=== PATIENT | male | born 1965 | race Caucasian/White ===

== ENCOUNTER 2017-04-07 23:30 | Emergency (ER) | payer OTHER ==
[~2017-04-07] VITALS: Ht 170.2 cm; Wt 100.0 kg
[~2017-04-07 23:30] MED LIST: /ADVA50050 IN; /HCTZ25TA PO; ALBU17IN INH; ALBU17IN2 IN; ALBU83IN INH; ATROVENT INH; AUGM875T27 PO; CARD2TAB PO; DELTASONE; DOXA2TAB PO; DOXY10CA PO; FLUT22IN INH; FOLI1TAB86 PO; GLUC1000 PO; GLUC500T PO; HYDR12.55 PO; HYDR25TA6 OR; HYDR50TAB PO; KLOR20TA PO; LASI40TA OR; LEVO50TA4 PO; LEVO50TA5 PO; LISI40TA OR; LISI40TAB PO; METF500T13 PO; MUCI600T34 PO; PARO20TA2 PO; PARO20TA3 PO; PAXI20TA29 PO; PERC5TAB PO; POTA1TAB14 PO; PRED10TA OR; PRED1TAB32 OR; PRED20TA PO; PRED50TA OR; PRED5ELUD OR; PREDPOW10 PO; PRIL40CA PO; TYLE325T5 PO; TYLE650T30 PO; VENTAER IN; VITA100T2 PO; VITMTA PO; ZEST1TAB9 PO; ambien PO
[2017-04-07] MEDS ORDERED: OMEP40CA2 PO (23:38)
[2017-04-07] MEDS ORDERED: LISI-538 PO (23:38)
[2017-04-07] MEDS ORDERED: SERT25TA PO (23:39)
[2017-04-08] MEDS ORDERED: methylPREDNISolone INJ 125 MG/2 ML VIAL (J2930) IV ONE
[2017-04-08] MEDS ORDERED: IPRATROPIUM 0.5MG/ALBUTEROL 2.5MG INH SOL UD 3ML (DUONEB)(J7620) NEB ONE (00:15)
[2017-04-08] MEDS ORDERED: PRED20TA PO (01:36)
[2017-04-08] MEDS ORDERED: LEVA1TAB2 PO (01:37)
[2017-04-08] MEDS ORDERED: TESS100C PO (01:37)
[2017-04-08 01:51] VITALS: BP 126/87
--- NOTE | 2017-04-08 07:44 | ECGEPIP ---
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
--- NOTE | 2017-04-08 08:07 | REP ---
Clinical: Shortness of breath . Comparison: 04/20/2016 . Technique: PA and lateral. Findings: The mediastinum and cardiac silhouette are normal. The lung lindsay are clear and without acute consolidation, effusion, or pneumothorax. The skeletal structures are intact and normal. Impression: 1. No acute cardiopulmonary process. Signed by Adi Soria MD 04/08/2017 07:58 A
[2017-04-08] MEDS ORDERED: IPRASOL4 INH (17:12)
== END 2017-04-08 01:56 | disposition home or self-care (01) ==
LOC: M ED 23:30
DX: J44.1 Chronic obstructive pulmonary disease with (acute) exacerbation (principal); J45.909 Unspecified asthma, uncomplicated; J01.90 Acute sinusitis, unspecified; I10 Essential (primary) hypertension; E07.9 Disorder of thyroid, unspecified; F41.9 Anxiety disorder, unspecified; Z91.040 Latex allergy status; Z79.899 Other long term (current) drug therapy
CPT/HCPCS: 71020; 93000; 94640; 96374; 99283; J2930

== ENCOUNTER → 2017-11-17 | Outpatient (CLI) | payer OTHER ==
[2017-11-17 08:58] LABS: BASO % 0.6 % (0.0-1.0); EOS # 0.4 10^3/uL (0.0-0.50); EOS % 5.1 % (0.0-3.0); HEMATOCRIT 42.5 % (42.0-52.0); HEMOGLOBIN 14.3 g/dl (13.5-17.5); IMMATURE GRANULOCYTE % 0.4 % (0-3.0); LYMPH # 1.9 10^3/uL (1.5-4.5); LYMPH % 27.8 % (24.0-44.0); MEAN CORPUSCULAR HEMOGLOBIN 28.9 pg (27.0-33.0); MEAN CORPUSCULAR HGB CONC 33.6 g/dl (32.0-36.5); MONO # 0.5 10^3/uL (0.0-0.8); MONO % 7.6 % (0.0-5.0); NEUTROPHILS % 58.5 % (36.0-66.0); PLATELET COUNT, AUTOMATED 235 10^3/uL (150-450); RED BLOOD COUNT 4.94 10^6/uL (4.30-6.10); RED CELL DISTRIBUTION WIDTH 13.8 % (11.5-14.5); WHITE BLOOD COUNT 6.8 10^3/uL (4.0-10.0)
[2017-11-17 09:38] LABS: ALBUMIN/GLOBULIN RATIO 1.21 (1.00-1.93); ALKALINE PHOSPHATASE 53 U/L (45-117); ALT/SGPT 27 U/L (12-78); ANION GAP 4 MEQ/L (8-16); AST/SGOT 25 U/L (7-37); BILIRUBIN,TOTAL 0.6 MG/DL (0.2-1.0); BLOOD UREA NITROGEN 17 MG/DL (7-18); CARBON DIOXIDE LEVEL 31 MEQ/L (21-32); CHLORIDE LEVEL 107 MEQ/L (98-107); CHOLESTEROL LEVEL 127 MG/DL (<200); CHOLESTEROL RISK RATIO 1.953 (<5); CREATININE FOR GFR 1.02 MG/DL (0.70-1.30); FREE T4 0.92 NG/DL (0.76-1.46); GLOMERULAR FILTRATION RATE > 60.0 (>56); GLUCOSE, FASTING 91 MG/DL (70-100); HDL CHOLESTEROL 65 MG/DL (>40); NON-HDL-C 62 MG/DL; POTASSIUM SERUM 3.5 MEQ/L (3.5-5.1); SODIUM LEVEL 142 MEQ/L (136-145); TOTAL PROTEIN 7.3 GM/DL (6.4-8.2); TRIGLYCERIDES LEVEL 70 MG/DL (<150)
[2017-11-17 09:44] LABS: ESTIMATED AVERAGE GLUCOSE 100 MG/DL (60-110); HEMOGLOBIN A1c 5.1 %
[2017-11-17 11:55] LABS: TOTAL 25(OH) VITAMIN D 27.7 NG/ML (30.0-100.0)
== END ==
LOC: M LAB 08:26
DX: D72.829 Elevated white blood cell count, unspecified (principal)
CPT/HCPCS: 84443

== ENCOUNTER → 2018-01-21 | Outpatient (CLI) | payer OTHER ==
[2018-01-21 07:26] LABS: ESTIMATED AVERAGE GLUCOSE 111 MG/DL (60-110); HEMOGLOBIN A1c 5.5 %
[2018-01-21 07:39] LABS: ALBUMIN 3.8 GM/DL (3.2-5.2); ALBUMIN/GLOBULIN RATIO 1.12 (1.00-1.93); ALKALINE PHOSPHATASE 60 U/L (45-117); ALT/SGPT 32 U/L (12-78); ANION GAP 9 MEQ/L (8-16); AST/SGOT 17 U/L (7-37); BILIRUBIN,TOTAL 0.4 MG/DL (0.2-1.0); BLOOD UREA NITROGEN 19 MG/DL (7-18); CALCIUM LEVEL 9.1 MG/DL (8.5-10.1); CARBON DIOXIDE LEVEL 29 MEQ/L (21-32); CHLORIDE LEVEL 103 MEQ/L (98-107); CHOLESTEROL LEVEL 147 MG/DL (<200); CREATININE FOR GFR 0.98 MG/DL (0.70-1.30); FREE T4 0.77 NG/DL (0.76-1.46); GLOMERULAR FILTRATION RATE > 60.0 (>56); GLUCOSE, FASTING 81 MG/DL (70-100); HDL CHOLESTEROL 84 MG/DL (>40); LDL CHOLESTEROL 45.4 MG/DL (<100); NON-HDL-C 63 MG/DL; POTASSIUM SERUM 3.6 MEQ/L (3.5-5.1); SODIUM LEVEL 141 MEQ/L (136-145); TOTAL PROTEIN 7.2 GM/DL (6.4-8.2); TRIGLYCERIDES LEVEL 88 MG/DL (<150)
[2018-01-21 08:38] LABS: TOTAL 25(OH) VITAMIN D 26.9 NG/ML (30.0-100.0)
== END ==
LOC: M LAB 06:27
DX: D72.829 Elevated white blood cell count, unspecified (principal)
CPT/HCPCS: 84443

== ENCOUNTER → 2018-07-01 | Outpatient (CLI) | payer OTHER ==
[2018-07-01 08:10] LABS: BASO # 0.1 10^3/uL (0.0-0.2); BASO % 0.7 % (0.0-1.0); EOS # 0.4 10^3/uL (0.0-0.50); EOS % 4.5 % (0.0-3.0); HEMATOCRIT 44.5 % (42.0-52.0); HEMOGLOBIN 14.6 g/dl (13.5-17.5); IMMATURE GRANULOCYTE % 0.4 % (0-3.0); LYMPH # 2.4 10^3/uL (1.5-4.5); LYMPH % 28.4 % (24.0-44.0); MEAN CORPUSCULAR HEMOGLOBIN 28.7 pg (27.0-33.0); MEAN CORPUSCULAR HGB CONC 32.8 g/dl (32.0-36.5); MEAN CORPUSCULAR VOLUME 87.6 fl (80.0-96.0); MONO # 0.8 10^3/uL (0.0-0.8); NEUTROPHILS # 4.8 10^3/uL (1.8-7.7); PLATELET COUNT, AUTOMATED 279 10^3/uL (150-450); RED BLOOD COUNT 5.08 10^6/uL (4.30-6.10); RED CELL DISTRIBUTION WIDTH 13.8 % (11.5-14.5); WHITE BLOOD COUNT 8.4 10^3/uL (4.0-10.0)
[2018-07-01 08:28] LABS: ESTIMATED AVERAGE GLUCOSE 108 MG/DL (60-110); HEMOGLOBIN A1c 5.4 %
[2018-07-01 08:50] LABS: ALBUMIN 4.3 GM/DL (3.2-5.2); ALBUMIN/GLOBULIN RATIO 1.43 (1.00-1.93); ALKALINE PHOSPHATASE 61 U/L (45-117); ALT/SGPT 32 U/L (12-78); ANION GAP 5 MEQ/L (8-16); AST/SGOT 25 U/L (7-37); BILIRUBIN,TOTAL 0.4 MG/DL (0.2-1.0); BLOOD UREA NITROGEN 19 MG/DL (7-18); CALCIUM LEVEL 9.7 MG/DL (8.5-10.1); CARBON DIOXIDE LEVEL 34 MEQ/L (21-32); CHLORIDE LEVEL 102 MEQ/L (98-107); CHOLESTEROL LEVEL 136 MG/DL (<200); CHOLESTEROL RISK RATIO 2.385 (<5); CREATININE FOR GFR 1.03 MG/DL (0.70-1.30); GLOMERULAR FILTRATION RATE > 60.0 (>56); GLUCOSE, FASTING 82 MG/DL (70-100); HDL CHOLESTEROL 57 MG/DL (>40); LDL CHOLESTEROL 54 MG/DL (<100); NON-HDL-C 79 MG/DL; POTASSIUM SERUM 3.5 MEQ/L (3.5-5.1); SODIUM LEVEL 141 MEQ/L (136-145); TOTAL PROTEIN 7.3 GM/DL (6.4-8.2); TRIGLYCERIDES LEVEL 123 MG/DL (<150)
== END ==
LOC: M LAB 07:15
DX: E78.00 Pure hypercholesterolemia, unspecified (principal); E11.65 Type 2 diabetes mellitus with hyperglycemia; Z51.81 Encounter for therapeutic drug level monitoring; Z79.899 Other long term (current) drug therapy
CPT/HCPCS: 84443

== ENCOUNTER → 2018-07-15 | Outpatient (CLI) | payer OTHER ==
[~2018-07-15] MED LIST changes: +IPRA0.00 INH; +LEVA1TAB2 PO; +LISI-538 PO; +OMEP40CA2 PO; +SERT25TA PO; +TESS100C PO
--- NOTE | 2018-07-15 13:59 | REP ---
MR LUMBAR SPINE WITHOUT CONTRAST: HISTORY: Back pain. Decreased signal intensity on T2-weighted images is present in the L4-5 and L5-S1 intervertebral discs. The discs are decreased in height. These findings are consistent with disc degeneration. There is no disc bulge or herniation at the L1-2 and L2-3 levels. There is hypertrophy of the posterior articulating facets at the L2-3 level. The nerves exit the neural foramina without compression. A diffuse disc bulge is present at the L3-4 level. There is hypertrophy of the ligamenta flava and posterior articulating facets. These findings produce minimal central canal stenosis. The L3 nerves exit the neural foramina without compression. A diffuse disc and small right paracentral disc extrusion are present at the L4-5 level. There is superior migration of disc material. There is hypertrophy of the ligamenta flava and posterior articulating facets. There are 4 mm of grade I spondylolisthesis of L4 on L5. These findings produce mild central canal stenosis. The L4 nerves exit the neural foramina without compression. A diffuse disc bulge and small central disc extrusion central and eccentric to the right are present at the L5-S1 level. There is minimal compression of the thecal sac and right S1 nerve at it exits the thecal sac. There is hypertrophy of the posterior articulating facets. The L5 nerves exit the neural foramina without compression. The conus medullaris is normal in appearance, terminating at the level of the T12-L1 intervertebral disc. Normal signal intensity is present in the lumbar vertebral bodies. IMPRESSION: 1. Minimal central canal stenosis at the L3-4 level secondary to disc bulge, ligamentous and facet hypertrophy. 2. Mild central canal stenosis at the L4-5 level secondary to disc bulge, disc extrusion, ligamentous and facet hypertrophy, and grade 1 spondylolisthesis. 3. Diffuse disc bulge and small disc extrusion central and eccentric to the right at the L5-S1 level with minimal compression of the thecal sac and right S1 nerve as it exits the thecal sac. Electronically Signed by Bunny Cedillo MD 07/15/2018 02:06 P
== END ==
LOC: M PLARAD 12:17
PROVIDERS: ATTEND Nurse Practitioner Adult Health
DX: M54.5 Low back pain (principal)

== ENCOUNTER → 2018-11-04 | Outpatient (CLI) | payer OTHER ==
[~2018-11-04] MED LIST changes: -/ADVA50050 IN; -/HCTZ25TA PO; +ADVA1AER2 IN; +HYDR-3644 PO; +LISI40TA52 PO; -LISI40TAB PO; +PRED-351 OR; -PRED10TA OR; +PRED1SOL OR; -PRED5ELUD OR; -SERT25TA PO; +SERT25TA85 PO
--- NOTE | 2018-11-04 09:54 | REP ---
PA and lateral chest: Comparison is 04/08/2017. The lung lindsay are clear. The cardiac size is normal. The andrew, mediastinum, and skeletal structures are unremarkable. Impression: Negative PA and lateral chest. There is no interval change. Electronically Signed by Emmanuel Kern MD 11/04/2018 09:46 A
== END ==
LOC: M RAD 08:13
PROVIDERS: ATTEND Nurse Practitioner Adult Health
DX: J44.9 Chronic obstructive pulmonary disease, unspecified (principal)

== ENCOUNTER 2018-12-22 11:45 | Outpatient (RCR) | payer OTHER | END 2018-12-23 | LOC: M PT 11:45 | PROVIDERS: ATTEND Physician Assistant | DX: M48.061 Spinal stenosis, lumbar region without neurogenic claudication (principal); M47.896 Other spondylosis, lumbar region; M54.2 Cervicalgia ==

== ENCOUNTER → 2019-01-13 | Outpatient (CLI) | payer OTHER ==
[2019-01-13 08:49] LABS: BASO # 0.1 10^3/uL (0.0-0.2); BASO % 0.8 % (0.0-1.0); EOS # 0.6 10^3/uL (0.0-0.50); EOS % 6.5 % (0.0-3.0); HEMATOCRIT 40.6 % (42.0-52.0); HEMOGLOBIN 13.3 g/dl (13.5-17.5); LYMPH # 1.9 10^3/uL (1.5-4.5); LYMPH % 22.4 % (24.0-44.0); MEAN CORPUSCULAR HEMOGLOBIN 27.8 pg (27.0-33.0); MEAN CORPUSCULAR HGB CONC 32.8 g/dl (32.0-36.5); MEAN CORPUSCULAR VOLUME 84.9 fl (80.0-96.0); MONO # 0.8 10^3/uL (0.0-0.8); NEUTROPHILS # 5.2 10^3/uL (1.8-7.7); NEUTROPHILS % 60.8 % (36.0-66.0); PLATELET COUNT, AUTOMATED 306 10^3/uL (150-450); RED BLOOD COUNT 4.78 10^6/uL (4.30-6.10); WHITE BLOOD COUNT 8.5 10^3/uL (4.0-10.0)
[2019-01-18 08:19] LABS: D001-IgE D pteronyssinus <0.10 kU/L (Class 0); E005-IgE Dog Dander 0.57 kU/L (Class II); G002-IgE Bermuda Grass < 0.10 kU/L (Class 0); G008-IgE Kentucky Bluegrass < 0.10 kU/L (Class 0); M001-IgE Penicillium chrysogen < 0.10 kU/L (Class 0); M002 IgE Cladosporium herbaru < 0.10 kU/L (Class 0); M003 IgE Aspergillus fumigatu < 0.10 kU/L (Class 0); M006-IgE Alternaria alternata < 0.10 kU/L (Class 0); T001-IgE Maple/Box Elder < 0.10 kU/L (Class 0); T003-IgE Common Silver Birch < 0.10 kU/L (Class 0); T006-IgE Cedar, Mountain < 0.10 kU/L (Class 0); T007-IgE Oak, White < 0.10 kU/L (Class 0); T008-IgE Elm, American < 0.10 kU/L (Class 0); T015-IgE Ash, White < 0.10 kU/L (Class 0); T041-IgE Hickory, White < 0.10 kU/L (Class 0); T070-IgE White Mulberry < 0.10 kU/L (Class 0); W001-IgE Ragweed, Short < 0.10 kU/L (Class 0); W009-IgE Plantain, English < 0.10 kU/L (Class 0); W014-IgE Pigweed, Rough < 0.10 kU/L (Class 0); W018-IgE Sheep Sorrel < 0.10 kU/L (Class 0)
== END ==
LOC: M LAB 08:03
PROVIDERS: ATTEND Internal Medicine Pulmonary Disease
DX: J45.50 Severe persistent asthma, uncomplicated (principal)

== ENCOUNTER → 2019-01-17 | Outpatient (REF) ==
--- NOTE | 2019-01-17 14:46 | REP ---
Clinical: Pain and disability. Technique: AP, lateral, coned-down views of the lumbosacral spine. Findings: Moderate multilevel degenerative changes include endplate sclerosis, hypertrophic facet changes and disc space narrowing most pronounced at L5-S1 and L4-5. No acute fracture / compression injury or subluxation. Impression: Moderate multilevel degenerative spondylosis. Electronically Signed by Adi Soria MD 01/17/2019 02:37 P
== END ==
LOC: M SMT 14:11
PROVIDERS: ATTEND Internal Medicine
DX: M47.896 Other spondylosis, lumbar region (principal); M47.897 Other spondylosis, lumbosacral region

== ENCOUNTER → 2019-01-19 | Outpatient (CLI) | payer OTHER ==
[~2019-01-19] MED LIST changes: +BUPR150T5; +CELE1CAP9; +FLUT1INH2; +GABA800T4; +HYDR50TAB; +INCR1INH; +METF500T4; +OMEP-218; +PERC5TAB12 PO; +SERT-138
[2019-01-19 10:22] LABS: BASO # 0.1 10^3/uL (0.0-0.2); EOS # 0.6 10^3/uL (0.0-0.50); EOS % 6.6 % (0.0-3.0); HEMATOCRIT 40.8 % (42.0-52.0); HEMOGLOBIN 13.1 g/dl (13.5-17.5); LYMPH # 1.7 10^3/uL (1.5-4.5); MEAN CORPUSCULAR HEMOGLOBIN 27.9 pg (27.0-33.0); MEAN CORPUSCULAR HGB CONC 32.1 g/dl (32.0-36.5); MEAN CORPUSCULAR VOLUME 86.8 fl (80.0-96.0); MONO # 0.6 10^3/uL (0.0-0.8); NEUTROPHILS # 5.4 10^3/uL (1.8-7.7); PLATELET COUNT, AUTOMATED 296 10^3/uL (150-450); WHITE BLOOD COUNT 8.3 10^3/uL (4.0-10.0)
[2019-01-19 10:44] LABS: HEMOGLOBIN A1c 5.7 %
[2019-01-19 10:59] LABS: ALBUMIN 3.5 GM/DL (3.2-5.2); ALT/SGPT 27 U/L (12-78); BILIRUBIN,TOTAL 0.3 MG/DL (0.2-1.0); BLOOD UREA NITROGEN 20 MG/DL (7-18); CALCIUM LEVEL 9.1 MG/DL (8.5-10.1); CARBON DIOXIDE LEVEL 34 MEQ/L (21-32); CHLORIDE LEVEL 102 MEQ/L (98-107); CHOLESTEROL LEVEL 122 MG/DL (<200); CHOLESTEROL RISK RATIO 2.259 (<5); CREATININE FOR GFR 1.12 MG/DL (0.70-1.30); GLOMERULAR FILTRATION RATE > 60.0 (>56); GLUCOSE, FASTING 82 MG/DL (70-100); HDL CHOLESTEROL 54 MG/DL (>40); LDL CHOLESTEROL 52 MG/DL (<100); NON-HDL-C 68 MG/DL; POTASSIUM SERUM 3.8 MEQ/L (3.5-5.1); SODIUM LEVEL 140 MEQ/L (136-145); TOTAL PROTEIN 7.2 GM/DL (6.4-8.2); TRIGLYCERIDES LEVEL 80 MG/DL (<150)
== END ==
LOC: M LAB 09:19
PROVIDERS: ATTEND Internal Medicine Cardiovascular Disease
DX: E78.00 Pure hypercholesterolemia, unspecified (principal); E11.65 Type 2 diabetes mellitus with hyperglycemia; Z79.899 Other long term (current) drug therapy

== ENCOUNTER 2019-01-27 14:36 | Emergency (ER) | payer OTHER ==
[~2019-01-27] VITALS: Ht 170.2 cm; Wt 104.7 kg
[2019-01-27 14:36] VITALS: BP 130/78
[~2019-01-27 14:36] MED LIST changes: -BUPR150T5; -CELE1CAP9; -FLUT1INH2; -GABA800T4; -HYDR50TAB; -INCR1INH; -METF500T4; -OMEP-218; -OMEP40CA2 PO; +OMEP40CA97 PO; -PERC5TAB12 PO; -SERT-138
[2019-01-27] MEDS ORDERED: HYDR50TAB (15:19)
[2019-01-27] MEDS ORDERED: OMEP-218 (15:19)
[2019-01-27] MEDS ORDERED: BUPR150T5 (15:19)
[2019-01-27] MEDS ORDERED: METF-791 (15:19)
[2019-01-27] MEDS ORDERED: SERT-138 (15:19)
[2019-01-27] MEDS ORDERED: CELE1CAP9 (15:19)
[2019-01-27] MEDS ORDERED: GABA800T4 (15:19)
[2019-01-27] MEDS ORDERED: INCR1INH (15:19)
[2019-01-27] MEDS ORDERED: FLUT1INH2 (15:19)
[2019-01-27] MEDS ORDERED: PERCOCET 5MG/325MG TAB PO ONE (16:00)
[2019-01-27] MEDS ORDERED: PERC5TAB12 PO (16:09)
== END 2019-01-27 16:14 | disposition home or self-care (01) ==
LOC: M ED 14:36
DX: M54.2 Cervicalgia (principal); G89.29 Other chronic pain; Z91.040 Latex allergy status; Z79.899 Other long term (current) drug therapy; Z79.84 Long term (current) use of oral hypoglycemic drugs; Z79.51 Long term (current) use of inhaled steroids

== ENCOUNTER → 2019-03-07 | Outpatient (CLI) | payer OTHER ==
[~2019-03-07] MED LIST changes: +BUPR150T5; +CELE1CAP9; +FLUT1INH2; +GABA800T4; +HYDR50TAB; +INCR1INH; +METF500T4; +OMEP-218; +OMEP40CA2 PO; -OMEP40CA97 PO; +PERC5TAB12 PO; +SERT-138
[2019-03-07 11:48] LABS: PLATELET COUNT, AUTOMATED 273 10^3/uL (150-450)
[2019-03-07 12:25] LABS: INR 1.06; PROTHROMBIN TIME 13.5 SECONDS (11.8-14.0)
[2019-03-07 12:26] LABS: PARTIAL THROMBOPLASTIN TIME 28.6 SECONDS (25.0-38.4)
== END ==
LOC: M LAB 11:17
PROVIDERS: ATTEND Physician Assistant
DX: Z01.812 Encounter for preprocedural laboratory examination (principal)

== ENCOUNTER → 2019-05-22 | Outpatient (CLI) | payer OTHER ==
[~2019-05-22] MED LIST changes: +METF-791; -METF500T4; +NORC1TAB7 PO; -OMEP40CA2 PO; +OMEP40CA97 PO
[2019-05-22 11:38] LABS: BASO # 0.1 10^3/uL (0.0-0.2); BASO % 0.8 % (0.0-1.0); EOS # 0.2 10^3/uL (0.0-0.5); EOS % 2.3 % (0.0-3.0); HEMATOCRIT 47.1 % (42.0-52.0); HEMOGLOBIN 15.2 g/dl (13.5-17.5); LYMPH # 3.3 10^3/uL (1.5-5.0); MEAN CORPUSCULAR HGB CONC 32.3 g/dl (32.0-36.5); MEAN CORPUSCULAR VOLUME 83.7 fl (80.0-96.0); MONO # 0.8 10^3/uL (0.0-0.8); NEUTROPHILS # 4.1 10^3/uL (1.5-8.5); NEUTROPHILS % 48.3 % (36.0-66.0); PLATELET COUNT, AUTOMATED 274 10^3/uL (150-450); RED BLOOD COUNT 5.63 10^6/uL (4.30-6.10); WHITE BLOOD COUNT 8.5 10^3/uL (4.0-10.0)
[2019-05-22 11:54] LABS: HEMOGLOBIN A1c 5.2 %
[2019-05-22 12:22] LABS: ALBUMIN 3.9 GM/DL (3.2-5.2); ALT/SGPT 29 U/L (12-78); BILIRUBIN,TOTAL 0.5 MG/DL (0.2-1.0); BLOOD UREA NITROGEN 11 MG/DL (7-18); CALCIUM LEVEL 9.3 MG/DL (8.5-10.1); CARBON DIOXIDE LEVEL 35 MEQ/L (21-32); CHLORIDE LEVEL 98 MEQ/L (98-107); CHOLESTEROL LEVEL 162 MG/DL (<200); CHOLESTEROL RISK RATIO 2.076 (<5); CREATININE FOR GFR 1.19 MG/DL (0.70-1.30); GLOMERULAR FILTRATION RATE > 60.0 (>56); GLUCOSE, FASTING 79 MG/DL (70-100); HDL CHOLESTEROL 78 MG/DL (>40); LDL CHOLESTEROL 44 MG/DL (<100); NON-HDL-C 84 MG/DL; POTASSIUM SERUM 3.4 MEQ/L (3.5-5.1); SODIUM LEVEL 137 MEQ/L (136-145); TOTAL PROTEIN 7.6 GM/DL (6.4-8.2); TRIGLYCERIDES LEVEL 200 MG/DL (<150)
[2019-05-23 14:12] LABS: PSA TOTAL 0.5 ng/mL (0.0-4.0)
== END ==
LOC: M LAB 10:17
PROVIDERS: ATTEND Nurse Practitioner Adult Health
DX: E11.65 Type 2 diabetes mellitus with hyperglycemia (principal); E03.9 Hypothyroidism, unspecified; Z79.899 Other long term (current) drug therapy

== ENCOUNTER → 2019-05-24 | Outpatient (REF) | payer OTHER ==
[2019-05-24 15:53] LABS: BLOOD UREA NITROGEN 13 MG/DL (7-18); C REACTIVE PROTEIN QUANTITATIV < 0.30 MG/DL (0.00-0.30); CREATININE FOR GFR 1.25 MG/DL (0.70-1.30); GLOMERULAR FILTRATION RATE > 60.0 (>56); RHEUMATOID FACTOR QUANT < 10.0 IU/ML (<15.0)
== END ==
LOC: M LABDRAW1 13:24
PROVIDERS: ATTEND Physical Medicine & Rehabilitation
DX: M50.321 Other cervical disc degeneration at C4-C5 level (principal)

== ENCOUNTER 2019-05-27 03:08 | Emergency (ER) | payer OTHER ==
[~2019-05-27] VITALS: Ht 170.2 cm; Wt 100.0 kg
[~2019-05-27 03:08] MED LIST changes: -NORC1TAB7 PO
[2019-05-27 03:30] LABS: BASO # 0.1 10^3/uL (0.0-0.2); BASO % 0.6 % (0.0-1.0); EOS # 0.3 10^3/uL (0.0-0.5); EOS % 2.6 % (0.0-3.0); HEMOGLOBIN 14.3 g/dl (13.5-17.5); LYMPH # 4.2 10^3/uL (1.5-5.0); LYMPH % 32.7 % (24.0-44.0); MEAN CORPUSCULAR HGB CONC 31.8 g/dl (32.0-36.5); MEAN CORPUSCULAR VOLUME 85.1 fl (80.0-96.0); MONO # 1.4 10^3/uL (0.0-0.8); MONO % 10.8 % (0.0-5.0); NEUTROPHILS # 6.8 10^3/uL (1.5-8.5); NEUTROPHILS % 52.2 % (36.0-66.0); PLATELET COUNT, AUTOMATED 296 10^3/uL (150-450); RED BLOOD COUNT 5.29 10^6/uL (4.30-6.10)
[2019-05-27 03:45] LABS: INR 0.97; PROTHROMBIN TIME 12.6 SECONDS (11.8-14.0)
[2019-05-27 03:55] LABS: ALBUMIN 3.7 GM/DL (3.2-5.2); ALT/SGPT 31 U/L (12-78); BILIRUBIN,DIRECT < 0.1 MG/DL (0.0-0.2); BILIRUBIN,TOTAL 0.3 MG/DL (0.2-1.0); CK-MB VALUE MASS 1.1 NG/ML (<3.6); CPK CREATINE PHOSPHOKINASE 270 U/L (39-308); LIPASE 211 U/L (73-393); MB/CK RELATIVE INDEX 0.41 (< OR =4); TOTAL PROTEIN 7.2 GM/DL (6.4-8.2); TROPONIN I < 0.02 NG/ML (< 0.10)
[2019-05-27] MEDS ORDERED: ASPIRIN 325 MG TAB PO ONE (04:00)
[2019-05-27 05:01] LABS: BLOOD UREA NITROGEN 14 MG/DL (7-18); CALCIUM LEVEL 8.8 MG/DL (8.5-10.1); CARBON DIOXIDE LEVEL 35 MEQ/L (21-32); CHLORIDE LEVEL 97 MEQ/L (98-107); CREATININE FOR GFR 1.15 MG/DL (0.70-1.30); GLOMERULAR FILTRATION RATE > 60.0 (>56); GLUCOSE, FASTING 66 MG/DL (70-100); POTASSIUM SERUM 3.2 MEQ/L (3.5-5.1); SODIUM LEVEL 138 MEQ/L (136-145)
[2019-05-27] MEDS ORDERED: ISOVUE-370 76% 100ML VIAL (Q9967) As Ordered ONE (05:22)
--- NOTE | 2019-05-27 05:57 | REPVR ---
PROCEDURE INFORMATION: Exam: CT Angiography Chest With Contrast Exam date and time: 05/27/2019 5:27 AM Clinical history: 53 years old, male; Chest pain; Type not specified; Additional info: Cp TECHNIQUE: Imaging protocol: Computed tomographic angiography of the chest with intravenous contrast. 3D rendering: MIP reconstructed images were created and reviewed. Radiation optimization: All CT scans at this facility use at least one of these dose optimization techniques: automated exposure control; mA and/or kV adjustment per patient size (includes targeted exams where dose is matched to clinical indication); or iterative reconstruction. Contrast material: ISOVUE 370; Contrast volume: 100 ml; Contrast route: IV; COMPARISON: CT ANGIO CHEST 07/11/2014 10:16 AM FINDINGS: Pulmonary arteries: The main pulmonary artery measures 22 mm. No central pulmonary embolism is identified. Aorta: The ascending thoracic aorta measures 33 mm. Lungs: Unremarkable. No consolidation. No masses. Pleural space: Unremarkable. No pneumothorax. No pleural effusion. Heart: Unremarkable. No cardiomegaly. No pericardial effusion. Lymph nodes: Unremarkable. No enlarged lymph nodes. Bones/joints: Anterior wedge configuration of T7 and to a lesser degree T6 which appear to be chronic. Soft tissues: Unremarkable. IMPRESSION: There has been little change from 07/11/2014. No acute interval central pulmonary embolism is identified. Electronically signed by: Edil Rosenbaum On 05/27/2019 05:57:07 AM
--- NOTE | 2019-05-27 08:45 | REP ---
Clinical: Chest pain . Comparison: 11/04/2018 . Findings: The mediastinum and cardiac silhouette are stable and within normal limits for portable technique. The lung lindsay are clear without acute consolidation, effusion, or pneumothorax. Skeletal structures are intact. Impression: No acute cardiopulmonary process appreciated. Electronically Signed by Adi Soria MD 05/27/2019 08:37 A
[2019-05-27] MEDS ORDERED: GI COCKTAIL 50ML BTL(HYOSCYAMINE/MAALOX/LIDOCAINE VISCOUS)(1:3:1) PO ONE (09:00)
[2019-05-27 09:45] LABS: CK-MB VALUE MASS 1.2 NG/ML (<3.6); CPK CREATINE PHOSPHOKINASE 194 U/L (39-308); MB/CK RELATIVE INDEX 0.62 (< OR =4); TROPONIN I < 0.02 NG/ML (< 0.10)
[2019-05-27] MEDS ORDERED: KETOROLAC 30 MG/ML VIAL (J1885) IV ONE (10:00)
[2019-05-27 10:30] VITALS: BP 124/78
[2019-05-27] MEDS ORDERED: NORC1TAB7 PO (10:47)
[2019-05-27] MEDS ORDERED: NORCO, ANEXSIA 5/325MG TABLET (HYDROcodone/ACETAMINOPHEN) PO ONE (11:00)
--- NOTE | 2019-05-28 11:42 | ECGEPIP ---
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
--- NOTE | 2019-05-28 11:44 | ECGEPIP ---
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
== END 2019-05-27 11:02 | disposition home or self-care (01) ==
LOC: M ED 03:08
DX: R07.89 Other chest pain (principal); I10 Essential (primary) hypertension; E11.9 Type 2 diabetes mellitus without complications; K21.9 Gastro-esophageal reflux disease without esophagitis; J45.909 Unspecified asthma, uncomplicated; M54.9 Dorsalgia, unspecified; Z91.040 Latex allergy status; Z79.899 Other long term (current) drug therapy
CPT/HCPCS: 71045; 71275; 80048; 80076; 82550; 82553; 83690; 85025; 85610; 93005; 93041; 94760; 96374; 99285; J1885; Q9967

== ENCOUNTER 2019-06-02 07:35 | Emergency (ER) | payer OTHER ==
[~2019-06-02] VITALS: Ht 170.2 cm; Wt 102.3 kg
[~2019-06-02 07:35] MED LIST changes: +NORC1TAB7 PO
[2019-06-02] MEDS ORDERED: LEVO50TA5 PO (07:45)
[2019-06-02] MEDS ORDERED: TIZA2CAP PO (07:45)
[2019-06-02] MEDS ORDERED: IPRATROPIUM 0.5MG/ALBUTEROL 2.5MG INH SOL UD 3ML (DUONEB)(J7620) NEB ONE (09:15)
--- NOTE | 2019-06-02 10:02 | REP ---
PA and lateral chest: Comparison is 05/27/2019. The lung lindsay are clear. The cardiac size is normal. The andrew, mediastinum, and skeletal structures are unremarkable. Impression: Negative PA and lateral chest. There is no interval change. Electronically Signed by Emmanuel Kern MD 06/02/2019 09:53 A
[2019-06-02] MEDS ORDERED: PRED10TA2 PO (10:42)
[2019-06-02 10:57] VITALS: BP 137/81
== END 2019-06-02 10:59 | disposition home or self-care (01) ==
LOC: M ED 07:35
DX: J45.901 Unspecified asthma with (acute) exacerbation (principal); J44.9 Chronic obstructive pulmonary disease, unspecified; Z91.040 Latex allergy status; Z79.899 Other long term (current) drug therapy

== ENCOUNTER → 2019-07-31 | Outpatient (CLI) | payer OTHER ==
[~2019-07-31] MED LIST changes: +PRED10TA2 PO; +TIZA2CAP PO
[2019-07-31 08:48] LABS: BASO # 0.1 10^3/uL (0.0-0.2); BASO % 0.5 % (0.0-1.0); EOS # 0.2 10^3/uL (0.0-0.5); HEMATOCRIT 45.3 % (42.0-52.0); HEMOGLOBIN 14.3 g/dl (13.5-17.5); LYMPH # 3.3 10^3/uL (1.5-5.0); LYMPH % 29.8 % (24.0-44.0); MEAN CORPUSCULAR HEMOGLOBIN 27.1 pg (27.0-33.0); MEAN CORPUSCULAR HGB CONC 31.6 g/dl (32.0-36.5); MEAN CORPUSCULAR VOLUME 85.8 fl (80.0-96.0); MONO # 0.9 10^3/uL (0.0-0.8); MONO % 8.5 % (0.0-5.0); NEUTROPHILS # 6.5 10^3/uL (1.5-8.5); NEUTROPHILS % 58.4 % (36.0-66.0); PLATELET COUNT, AUTOMATED 256 10^3/uL (150-450); RED BLOOD COUNT 5.28 10^6/uL (4.30-6.10); WHITE BLOOD COUNT 11.1 10^3/uL (4.0-10.0)
[2019-07-31 08:58] LABS: HEMATOCRIT 45.3 % (42.0-52.0)
[2019-07-31 09:16] LABS: ERYTHROCYTE SEDIMENTATION RATE 5 mm/hr (0-20)
[2019-07-31 09:17] LABS: ALBUMIN 3.8 GM/DL (3.2-5.2); ALT/SGPT 23 U/L (12-78); BILIRUBIN,TOTAL 0.5 MG/DL (0.2-1.0); BLOOD UREA NITROGEN 15 MG/DL (7-18); C REACTIVE PROTEIN QUANTITATIV < 0.30 MG/DL (0.00-0.30); CALCIUM LEVEL 9.2 MG/DL (8.5-10.1); CARBON DIOXIDE LEVEL 30 MEQ/L (21-32); CHLORIDE LEVEL 100 MEQ/L (98-107); CREATININE FOR GFR 1.02 MG/DL (0.70-1.30); GLOMERULAR FILTRATION RATE > 60.0 (>56); GLUCOSE, FASTING 74 MG/DL (70-100); IMMUNOGLOBULIN G 897 MG/DL (681-1648); POTASSIUM SERUM 3.3 MEQ/L (3.5-5.1); RHEUMATOID FACTOR QUANT < 10.0 IU/ML (<15.0); SODIUM LEVEL 138 MEQ/L (136-145); TOTAL PROTEIN 7.1 GM/DL (6.4-8.2)
[2019-07-31 09:31] LABS: TOTAL 25(OH) VITAMIN D 38.4 NG/ML (30.0-100.0); VITAMIN B12 LEVEL 601 PG/ML (247-911)
== END ==
LOC: M LAB 07:32
PROVIDERS: ATTEND Nurse Practitioner Pediatrics
DX: F32.9 Major depressive disorder, single episode, unspecified (principal)

== ENCOUNTER 2019-08-24 12:41 | Outpatient (RCR) | payer OTHER | END 2019-08-25 | LOC: M PT 12:41 | PROVIDERS: ATTEND Orthopaedic Surgery | DX: M77.11 Lateral epicondylitis, right elbow (principal) ==

== ENCOUNTER 2019-09-05 09:52 | Emergency (ER) | payer OTHER ==
[~2019-09-05] VITALS: Ht 170.2 cm; Wt 112.8 kg
[2019-09-05] MEDS ORDERED: LIDOCAINE 5% (LIDODERM) PATCH TD ONE (12:15)
[2019-09-05] MEDS ORDERED: diazePAM 2 MG TAB PO ONE (12:15)
[2019-09-05] MEDS ORDERED: KETOROLAC 60 MG/2 ML VIAL (J1885) IM ONE (12:15)
[2019-09-05] MEDS ORDERED: ACETAMINOPHEN 325 MG TAB PO ONE (12:15)
[2019-09-05 14:03] VITALS: BP 137/92
[2019-09-05] MEDS ORDERED: KETO10TAB PO (14:45)
[2019-09-05] MEDS ORDERED: **NOTE PATIENT COMMENT** MISC XX SCH (21:00)
== END 2019-09-05 15:00 | disposition home or self-care (01) ==
LOC: M ED 09:52
DX: M54.31 Sciatica, right side (principal); G89.29 Other chronic pain; Z91.040 Latex allergy status; Z79.899 Other long term (current) drug therapy; Z79.84 Long term (current) use of oral hypoglycemic drugs
CPT/HCPCS: 96372; 99283; J1885

== ENCOUNTER 2019-09-07 08:43 | Emergency (ER) | payer OTHER ==
[~2019-09-07] VITALS: Ht 170.2 cm; Wt 112.7 kg
[~2019-09-07 08:43] MED LIST changes: +KETO10TAB PO
[2019-09-07] MEDS ORDERED: VENTAER (09:50)
[2019-09-07] MEDS ORDERED: VITA50005 (09:50)
[2019-09-07] MEDS ORDERED: BREO1INH3 (09:50)
[2019-09-07] MEDS ORDERED: DULO1CAP6 (09:50)
[2019-09-07] MEDS ORDERED: GABA-845 (09:50)
[2019-09-07] MEDS ORDERED: KETO10TAB PO (10:04)
[2019-09-07 10:07] VITALS: BP 154/96
== END 2019-09-07 10:21 | disposition home or self-care (01) ==
LOC: M ED 08:43
DX: S39.012A Strain of muscle, fascia and tendon of lower back, initial encounter (principal); X58.XXXA Exposure to other specified factors, initial encounter; Y92.89 Other specified places as the place of occurrence of the external cause; M62.830 Muscle spasm of back; Z91.040 Latex allergy status; Z79.899 Other long term (current) drug therapy; Z79.84 Long term (current) use of oral hypoglycemic drugs

== ENCOUNTER 2019-09-14 11:00 | Outpatient (RCR) | payer OTHER ==
[~2019-09-14 11:00] MED LIST changes: +BREO1INH3; +DULO1CAP6; +GABA-845; +VENTAER; +VITA50005
== END 2019-09-23 ==
LOC: M PT 11:00
PROVIDERS: ATTEND Orthopaedic Surgery
DX: Z47.89 Encounter for other orthopedic aftercare (principal); M77.11 Lateral epicondylitis, right elbow

== ENCOUNTER 2019-09-14 12:04 | Outpatient (RCR) | payer OTHER | END 2019-09-23 | LOC: M PT 12:04 | PROVIDERS: ATTEND Orthopaedic Surgery | DX: Z47.89 Encounter for other orthopedic aftercare (principal); M77.12 Lateral epicondylitis, left elbow ==

== ENCOUNTER 2019-10-10 11:45 | Outpatient (RCR) | payer OTHER | END 2019-10-24 | LOC: M PT 11:45 | PROVIDERS: ATTEND Orthopaedic Surgery | DX: M77.11 Lateral epicondylitis, right elbow (principal); M77.12 Lateral epicondylitis, left elbow ==

== ENCOUNTER → 2019-12-19 | Outpatient (CLI) | payer OTHER ==
[~2019-12-19] MED LIST changes: -METF-791; +METF-838
[2019-12-19 10:57] LABS: BASO # 0.1 10^3/uL (0.0-0.2); BASO % 0.8 % (0.0-1.0); EOS # 0.4 10^3/uL (0.0-0.5); EOS % 4.4 % (0.0-3.0); HEMATOCRIT 39.6 % (42.0-52.0); HEMOGLOBIN 12.9 g/dl (13.5-17.5); LYMPH # 1.7 10^3/uL (1.5-5.0); LYMPH % 19.9 % (24.0-44.0); MEAN CORPUSCULAR HGB CONC 32.6 g/dl (32.0-36.5); MEAN CORPUSCULAR VOLUME 85.9 fl (80.0-96.0); MONO # 0.8 10^3/uL (0.0-0.8); NEUTROPHILS # 5.5 10^3/uL (1.5-8.5); NEUTROPHILS % 65.7 % (36.0-66.0); PLATELET COUNT, AUTOMATED 289 10^3/uL (150-450); RED BLOOD COUNT 4.61 10^6/uL (4.30-6.10); WHITE BLOOD COUNT 8.4 10^3/uL (4.0-10.0)
[2019-12-19 11:14] LABS: HEMOGLOBIN A1c 5.4 %
[2019-12-19 11:35] LABS: ALBUMIN 3.6 GM/DL (3.2-5.2); ALT/SGPT 25 U/L (12-78); BILIRUBIN,TOTAL 0.6 MG/DL (0.2-1.0); BLOOD UREA NITROGEN 18 MG/DL (7-18); CALCIUM LEVEL 9.1 MG/DL (8.5-10.1); CARBON DIOXIDE LEVEL 32 MEQ/L (21-32); CHLORIDE LEVEL 103 MEQ/L (98-107); CHOLESTEROL LEVEL 133 MG/DL (<200); CHOLESTEROL RISK RATIO 2.375 (<5); CREATININE FOR GFR 0.99 MG/DL (0.70-1.30); GLOMERULAR FILTRATION RATE > 60.0 (>56); GLUCOSE, FASTING 91 MG/DL (70-100); HDL CHOLESTEROL 56 MG/DL (>40); LDL CHOLESTEROL 68 MG/DL (<100); NON-HDL-C 77 MG/DL; POTASSIUM SERUM 3.8 MEQ/L (3.5-5.1); SODIUM LEVEL 139 MEQ/L (136-145); TOTAL PROTEIN 7.1 GM/DL (6.4-8.2); TRIGLYCERIDES LEVEL 43 MG/DL (<150)
== END ==
LOC: M LAB 10:02
PROVIDERS: ATTEND Nurse Practitioner Adult Health
DX: Z51.81 Encounter for therapeutic drug level monitoring (principal); Z79.899 Other long term (current) drug therapy; E78.00 Pure hypercholesterolemia, unspecified; Z79.51 Long term (current) use of inhaled steroids; E11.65 Type 2 diabetes mellitus with hyperglycemia; E03.9 Hypothyroidism, unspecified

== ENCOUNTER → 2020-03-22 | Outpatient (CLI) | payer OTHER ==
[~2020-03-22] MED LIST changes: +MEDR4PAK PO
[2020-03-22 12:51] LABS: BASO # 0.1 10^3/uL (0.0-0.2); BASO % 1.4 % (0.0-1.0); EOS # 0.6 10^3/uL (0.0-0.5); HEMATOCRIT 47.9 % (42.0-52.0); HEMOGLOBIN 15.2 g/dl (13.5-17.5); LYMPH # 1.9 10^3/uL (1.5-5.0); MEAN CORPUSCULAR HEMOGLOBIN 27.1 pg (27.0-33.0); MEAN CORPUSCULAR HGB CONC 31.7 g/dl (32.0-36.5); MEAN CORPUSCULAR VOLUME 85.5 fl (80.0-96.0); MONO # 0.5 10^3/uL (0.0-0.8); MONO % 7.6 % (0.0-5.0); NEUTROPHILS # 3.8 10^3/uL (1.5-8.5); NEUTROPHILS % 54.7 % (36.0-66.0); PLATELET COUNT, AUTOMATED 270 10^3/uL (150-450)
[2020-03-22 13:27] LABS: ALBUMIN 4.2 GM/DL (3.2-5.2); ALT/SGPT 31 U/L (12-78); BILIRUBIN,TOTAL 0.4 MG/DL (0.2-1.0); BLOOD UREA NITROGEN 17 MG/DL (7-18); CALCIUM LEVEL 9.7 MG/DL (8.5-10.1); CARBON DIOXIDE LEVEL 34 MEQ/L (21-32); CHLORIDE LEVEL 100 MEQ/L (98-107); CHOLESTEROL LEVEL 133 MG/DL (<200); CHOLESTEROL RISK RATIO 2.418 (<5); CREATININE FOR GFR 1.12 MG/DL (0.70-1.30); GLOMERULAR FILTRATION RATE > 60.0 (>56); GLUCOSE, FASTING 84 MG/DL (70-100); HDL CHOLESTEROL 55 MG/DL (>40); LDL CHOLESTEROL 59 MG/DL (<100); NON-HDL-C 78 MG/DL; POTASSIUM SERUM 3.9 MEQ/L (3.5-5.1); SODIUM LEVEL 139 MEQ/L (136-145); TOTAL PROTEIN 7.5 GM/DL (6.4-8.2); TRIGLYCERIDES LEVEL 95 MG/DL (<150)
[2020-03-22 14:12] LABS: HEMOGLOBIN A1c 5.2 %
== END ==
LOC: M LAB 10:51
PROVIDERS: ATTEND Nurse Practitioner Adult Health
DX: E78.00 Pure hypercholesterolemia, unspecified (principal); F33.1 Major depressive disorder, recurrent, moderate; Z79.899 Other long term (current) drug therapy

== ENCOUNTER → 2020-05-15 | Outpatient (CLI) | payer OTHER | LOC: M LABSMTC 12:27 | PROVIDERS: ATTEND Physical Medicine & Rehabilitation | DX: Z01.812 Encounter for preprocedural laboratory examination (principal); Z20.828 Contact with and (suspected) exposure to other viral communicable diseases ==

== ENCOUNTER → 2020-05-15 | Outpatient (CLI) | payer OTHER ==
[2020-05-15 14:13] LABS: PLATELET COUNT, AUTOMATED 270 10^3/uL (150-450)
[2020-05-15 14:24] LABS: INR 0.92; PARTIAL THROMBOPLASTIN TIME 25.8 SECONDS (24.2-38.5); PROTHROMBIN TIME 12.6 SECONDS (12.5-14.3)
== END ==
LOC: M LAB 12:53
PROVIDERS: ATTEND Physical Medicine & Rehabilitation
DX: Z01.812 Encounter for preprocedural laboratory examination (principal)

== ENCOUNTER 2020-05-25 08:18 | Emergency (ER) | payer MEDICARE, OTHER ==
[~2020-05-25] VITALS: Ht 170.2 cm; Wt 112.5 kg
[~2020-05-25 08:18] MED LIST changes: -MEDR4PAK PO
[2020-05-25] MEDS ORDERED: traMADol 50 MG TAB PO ONE (09:00)
[2020-05-25] MEDS ORDERED: ACETAMINOPHEN TAB 650MG DOSE (2X325MG) PO ONE (09:00)
[2020-05-25] MEDS ORDERED: MEDR4PAK PO (10:05)
[2020-05-25] MEDS ORDERED: NORC1TAB7 PO (10:05)
[2020-05-25 10:20] VITALS: BP 127/80
== END 2020-05-25 10:22 | disposition home or self-care (01) ==
LOC: M ED 08:18
DX: M54.41 Lumbago with sciatica, right side (principal); G89.29 Other chronic pain; I10 Essential (primary) hypertension; E78.5 Hyperlipidemia, unspecified; J44.9 Chronic obstructive pulmonary disease, unspecified; E11.9 Type 2 diabetes mellitus without complications; Z91.040 Latex allergy status; Z79.899 Other long term (current) drug therapy; Z79.84 Long term (current) use of oral hypoglycemic drugs

== ENCOUNTER → 2020-06-11 | Outpatient (CLI) | payer MEDICARE, OTHER ==
[~2020-06-11] MED LIST changes: +MEDR4PAK PO
--- NOTE | 2020-06-14 20:23 | REPVR ---
PROCEDURE INFORMATION: Exam: MR Lumbar Spine Without Contrast. Exam date and time: 06/11/2020 8:15 AM Age: 54 years old Clinical indication: Low back pain; Additional info: Lbp TECHNIQUE: Imaging protocol: Multiplanar magnetic resonance images of the lumbar spine without intravenous contrast. COMPARISON: No relevant prior studies available. FINDINGS: Vertebrae: There is a large intravertebral body disc herniation into the superior endplate of L2 with surrounding edema therefore may be acute or subacute. Series 301, image 1 frame 7. Spinal cord: Normal signal. No cord compression. L1-L2: No significant spinal canal stenosis. No neural foraminal stenosis. L2-L3: No significant disc disease. No significant spinal canal stenosis. No neural foraminal stenosis. L3-L4: No significant disc disease. No significant spinal canal stenosis. No neural foraminal stenosis. L4-L5: Grade 1 anterior spondylolisthesis due to degenerative facet arthropathy with subluxation that in combination with mildly bulging annulus results in mild spinal canal stenosis. There is no significant narrowing of the lateral recesses or neural foramen.. L5-S1: Large right paracentral disc herniation which narrows the lateral recess and compresses the exiting right S1 nerve root as it extends inferiorly from the disc space. Although the proximal neural foramen is narrowed there is no compression of the L5 nerve root which is already exited. Soft tissues: Unremarkable. IMPRESSION: Large right paracentral disc herniation at the L5-S1 level of the disc fragment extends inferiorly from the disc space compressing the right S1 nerve root. Electronically signed by: Albina Longoria On 06/14/2020 20:23:03 PM
== END ==
LOC: M RAD 07:30
PROVIDERS: ATTEND Registered Nurse
DX: M51.26 Other intervertebral disc displacement, lumbar region (principal)

== ENCOUNTER → 2020-06-24 | Outpatient (CLI) | payer MEDICARE, OTHER ==
[2020-06-24 11:09] LABS: HEMATOCRIT 39.1 % (42.0-52.0); HEMOGLOBIN 12.4 g/dl (13.5-17.5); MEAN CORPUSCULAR HEMOGLOBIN 27.3 pg (27.0-33.0); MEAN CORPUSCULAR HGB CONC 31.7 g/dl (32.0-36.5); MEAN CORPUSCULAR VOLUME 85.9 fl (80.0-96.0); PLATELET COUNT, AUTOMATED 294 10^3/uL (150-450); RED BLOOD COUNT 4.55 10^6/uL (4.30-6.10); WHITE BLOOD COUNT 7.2 10^3/uL (4.0-10.0)
[2020-06-24 11:48] LABS: ALBUMIN 3.4 GM/DL (3.2-5.2); ALT/SGPT 15 U/L (12-78); BILIRUBIN,TOTAL 0.3 MG/DL (0.2-1.0); BLOOD UREA NITROGEN 14 MG/DL (7-18); CALCIUM LEVEL 9.3 MG/DL (8.5-10.1); CARBON DIOXIDE LEVEL 34 MEQ/L (21-32); CHLORIDE LEVEL 100 MEQ/L (98-107); CHOLESTEROL LEVEL 131 MG/DL (<200); CHOLESTEROL RISK RATIO 2.425 (<5); CREATININE FOR GFR 1.09 MG/DL (0.70-1.30); FREE T3 2.1 PG/ML (2.2-4.0); FREE T4 1.13 NG/DL (0.76-1.46); GLOMERULAR FILTRATION RATE > 60.0 (>56); GLUCOSE, FASTING 91 MG/DL (70-100); HDL CHOLESTEROL 54 MG/DL (>40); LDL CHOLESTEROL 62 MG/DL (<100); NON-HDL-C 77 MG/DL; POTASSIUM SERUM 3.7 MEQ/L (3.5-5.1); SODIUM LEVEL 139 MEQ/L (136-145); THYROXINE (T4) 9.2 UG/DL (4.5-12.0); TOTAL PROTEIN 6.7 GM/DL (6.4-8.2); TRIGLYCERIDES LEVEL 77 MG/DL (<150)
[2020-06-24 12:20] LABS: THYROID PEROXIDASE ANTIBODY 75.3 U/ML (<60.0)
[2020-06-24 13:26] LABS: HEMOGLOBIN A1c 5.6 %
== END ==
LOC: M LAB 10:23
PROVIDERS: ATTEND Nurse Practitioner Adult Health
DX: E78.00 Pure hypercholesterolemia, unspecified (principal); E03.9 Hypothyroidism, unspecified; E11.65 Type 2 diabetes mellitus with hyperglycemia; G47.00 Insomnia, unspecified; Z79.51 Long term (current) use of inhaled steroids; Z79.52 Long term (current) use of systemic steroids; Z79.899 Other long term (current) drug therapy

== ENCOUNTER 2020-10-21 22:53 | Emergency (ER) | payer MEDICARE, OTHER ==
[~2020-10-21] VITALS: Ht 170.2 cm; Wt 107.2 kg
[~2020-10-21 22:53] MED LIST changes: -LISI-538 PO; +LISI20TA33 PO
[2020-10-21] MEDS ORDERED: AZIT-12 (23:07)
[2020-10-21] MEDS ORDERED: TRAZ150T90 (23:07)
[2020-10-21] MEDS ORDERED: EUTH75TA (23:07)
[2020-10-21] MEDS ORDERED: oxyCODONE 5MG TAB PO ONE (23:35)
[2020-10-21] MEDS ORDERED: KETOROLAC 30 MG/ML 1ML VIAL IM ONE (23:35)
[2020-10-22] MEDS ORDERED: oxyCODONE 5MG TAB PO ONE ×3 (00:20→00:55)
[2020-10-22 01:38] VITALS: BP 112/73
== END 2020-10-22 01:40 | disposition home or self-care (01) ==
LOC: M ED 22:53
DX: M51.16 Intervertebral disc disorders with radiculopathy, lumbar region (principal); J44.9 Chronic obstructive pulmonary disease, unspecified; J45.909 Unspecified asthma, uncomplicated; Z79.51 Long term (current) use of inhaled steroids; Z79.899 Other long term (current) drug therapy; Z79.1 Long term (current) use of non-steroidal anti-inflammatories (NSAID); Z91.040 Latex allergy status
CPT/HCPCS: 96372; 99283; J1885

== ENCOUNTER 2020-11-22 05:41 | Inpatient (IN) | payer MEDICARE, OTHER ==
[~2020-11-22] VITALS: Ht 170.2 cm; Wt 109.3 kg
[~2020-11-22 05:41] MED LIST changes: +AZIT-12 PO; -BREO1INH3; +BREO1INH3 INH; -BUPR150T5; +BUPR150T5 PO; -CELE1CAP9; +CELE1CAP9 PO; -DULO1CAP6; +DULO1CAP6 PO; +EUTH75TA PO; -HYDR50TAB; -INCR1INH; +INCR1INH INH; -METF-838; +METF-838 PO; -OMEP-218; +OMEP-218 PO; +TRAZ150T90 PO; -VENTAER; +VENTAER INH
[2020-11-22] MEDS ORDERED: MAG SULF 1GM/100ML (MAG RUN) 1 GM in IV 1 EA IV ONE (06:05)
[2020-11-22] MEDS ORDERED: methylPREDNISolone 125MG 2ML VIAL IV ONE (06:05)
[2020-11-22] MEDS ORDERED: BUDESONIDE 0.5 MG/2 ML INHALATION SUSPENSION INH ONE (06:05)
[2020-11-22] MEDS: IPRATROPIUM 0.5MG/ALBUTEROL 2.5MG INH SOL UD 3ML (DUONEB) NEB SCH ×3 (07:56→08:43)
[2020-11-22] MEDS: TIOTROPIUM INHALER/CAPSULE (SPIRIVA) INH SCH (08:00)
--- NOTE | 2020-11-22 08:06 | REP ---
INDICATION: SOB. COMPARISON: Comparison portable exam June 02, 2019.. TECHNIQUE: Semi-erect AP portable chest x-ray. FINDINGS: The lungs are well inflated and clear. The pleural angles are sharp. Heart size is normal. Pulmonary vasculature is not increased. No acute bony abnormality is seen. IMPRESSION: . No active disease. <Electronically signed by Jose L Edouard > 11/22/20 [id number]
[2020-11-22 08:31] LABS: BASO # 0.1 10^3/uL (0.0-0.2); BASO % 0.8 % (0.0-1.0); EOS # 0.3 10^3/uL (0.0-0.5); HEMATOCRIT 46.7 % (42.0-52.0); HEMOGLOBIN 15.5 g/dl (13.5-17.5); LYMPH % 10.6 % (24.0-44.0); MEAN CORPUSCULAR HEMOGLOBIN 27.7 pg (27.0-33.0); MEAN CORPUSCULAR HGB CONC 33.2 g/dl (32.0-36.5); MEAN CORPUSCULAR VOLUME 83.5 fl (80.0-96.0); MONO # 0.4 10^3/uL (0.0-0.8); MONO % 3.8 % (2.0-8.0); NEUTROPHILS % 81.1 % (36.0-66.0); PLATELET COUNT, AUTOMATED 254 10^3/uL (150-450); RED BLOOD COUNT 5.59 10^6/uL (4.30-6.10); WHITE BLOOD COUNT 9.8 10^3/uL (4.0-10.0)
[2020-11-22 08:54] LABS: BLOOD UREA NITROGEN 15 MG/DL (7-18); CALCIUM LEVEL 9.5 MG/DL (8.5-10.1); CARBON DIOXIDE LEVEL 32 MEQ/L (21-32); CHLORIDE LEVEL 101 MEQ/L (98-107); CREATININE FOR GFR 0.99 MG/DL (0.70-1.30); GLOMERULAR FILTRATION RATE > 60.0 (>56); GLUCOSE, FASTING 103 MG/DL (70-100); POTASSIUM SERUM 3.2 MEQ/L (3.5-5.1); SODIUM LEVEL 139 MEQ/L (136-145)
[2020-11-22] MEDS ORDERED: ENOXAPARIN 40MG/0.4ML SYRINGE (J1650 PER 10MG) SC ONE (10:10)
[2020-11-22] MEDS ORDERED: MONTELUKAST 10 MG TAB PO ONE (10:10)
[2020-11-22] MEDS ORDERED: GLUCAGON INJ 1MG VIAL SC PRN (10:15)
[2020-11-22] MEDS ORDERED: LEVALBUTEROL 1.25 MG/0.5 ML CONCENTRATE NEB INH PRN (10:15)
[2020-11-22] MEDS ORDERED: POTASSIUM CHLORIDE 10 MEQ SR TABLET PO ONE (10:15)
[2020-11-22] MEDS ORDERED: GLUCOSE 4GM CHEW TABLET PO PRN (10:15)
[2020-11-22] MEDS ORDERED: DEXTROSE 50% 50 ML SYRINGE IV PRN (10:15)
[2020-11-22] MEDS ORDERED: IPRA0.00 INH (10:27)
[2020-11-22] MEDS ORDERED: DICL75TA PO (10:27)
[2020-11-22] MEDS ORDERED: TIZA4CAP PO (10:27)
[2020-11-22] MEDS ORDERED: GABA600T4 PO (10:27)
[2020-11-22] MEDS: LEVALBUTEROL 1.25 MG/0.5 ML CONCENTRATE NEB INH SCH ×3 (11:22→19:52)
[2020-11-22] MEDS ORDERED: ALBUTEROL 90 MCG/ACT 8GM HFA INHALER INH PRN (12:10)
[2020-11-22] MEDS ORDERED: tiZANidine 4 MG TAB PO PRN (12:10)
[2020-11-22 12:15] VITALS: BP 159/101
--- NOTE | 2020-11-22 12:38 | HPE ---
HISTORY AND PHYSICAL DATE OF ADMISSION: 11/22/2020 CHIEF COMPLAINT: Shortness of breath. HISTORY OF PRESENT ILLNESS: A 55-year-old male with a history of asthma, hypertension, hypothyroidism, diabetes, morbid obesity. Prior hospitalization for asthma was 04/10/2014 and June 2014. Has never been intubated. Presented to the emergency room after being exposed to his friend's cat a few days ago with worsening shortness of breath, dyspnea on exertion, and chest tightness despite using his nebulizers every 1 hour at home. Patient had no fevers, no cough. He complained of dyspnea on exertion and was given 2 liters nasal cannula with saturation 91% on room air on arrival at 5:42 this morning. Patient had audible wheezing. Was given intravenous steroids with no improvement with nebulizer treatments. Hospitalist was asked to admit the patient for asthma exacerbation secondary to recent cat exposure. MEDICAL HISTORY: 1. type 2 Diabetes 2. Hypertension. 3. Hyperlipidemia. 4. Morbid obesity. 5. Asthma. 6. Hypothyroidism. 7. Depression. ALLERGIES: Latex. PAST SURGICAL HISTORY: None. SOCIAL HISTORY: Denies alcohol, recreational drug use. Smoking history. FAMILY HISTORY: Mother and father unknown. REVIEW OF SYSTEMS: Per history of present illness (HPI). A 12-point system negative. PHYSICAL EXAMINATION: Temperature 98, pulse 107, sinus, respiratory rate 20, blood pressure 135/81, 92% on 3.5 liters nasal cannula, 91% on room air. GENERAL: Patient is awake, alert, oriented times three. Able to speak in full sentences without any conversational dyspnea or use of respiratory accessory muscles. HEENT: Anicteric. No jaundice, pallor, or icterus. No jugular venous distention (JVD), thyromegaly, stridor, carotid bruit. Moist mucous membranes. No cervical lymphadenopathy. No pharyngeal erythema. No tonsillar exudate. HEART: S1, S2, sinus tachycardia. LUNGS: Diminished. Bilateral expiratory wheezing. Prolonged expiration. No tripod positioning or use of respiratory accessory muscles. No nasal flaring or tracheal deviation. ABDOMEN: Obese, soft, nontender, nondistended. Positive bowel sounds times four quadrants. No rebound or guarding. EXTREMITIES: No cyanosis, clubbing, or pitting edema. White count 9.8, hemoglobin 15, hematocrit 46, platelet count 254. Sodium 139, potassium 3.2, chloride 101, bicarbonate 32, BUN 15, creatinine 0.99, glucose 103. A1c was 5.6 in May. Respiratory panel negative for coronavirus. Chest x-ray: No active disease. ASSESSMENT AND PLAN: A 55-year-old obese male with a history of hypertension, diabetes. Recent A1c was 5.6. Hypothyroidism, asthma. Presents with asthma exacerbation secondary to cat exposure. CURRENT ISSUES: 1. Asthma exacerbation. 2. Obesity. 3. Hypertension. 4. Hypokalemia. 5. Hypoxia requiring 3 liters of oxygen. 6. DM type 2 PLAN: Patient will be given Solu-Medrol intravenously every 6 hours, nebulizers every 4 and every 1 hour as needed. Patient will be started on his chronic inhaled steroids. Start on montelukast 10 mg daily. Due to steroid-induced hyperglycemia, patient will be placed on fingersticks before every meal and at bedtime with sliding-scale protocol. He may be resumed on his home blood pressure and lipid medications. Check A1c, lipid panel in the morning. KELSEYD
[2020-11-22] MEDS: methylPREDNISolone 125MG 2ML VIAL IV SCH ×3 (13:10→23:41)
[2020-11-22] MEDS: DULoxetine 30 MG CAP (CYMBALTA) PO SCH (13:11)
[2020-11-22] MEDS: GABAPENTIN 300 MG CAP PO SCH ×3 (13:11→21:29)
[2020-11-22] MEDS: HumaLOG INSULIN (NovoLOG) PER UNIT SC SCH ×2 (13:12→18:32)
[2020-11-22 14:00] VITALS: BP 148/70
[2020-11-22] MEDS: buPROPion **SR TABLET** (ZYBAN) 150MG PO SCH (15:32)
[2020-11-22] MEDS: metFORMIN XR 500MG TAB *GLUCOPHAGE XR PO SCH (18:35)
[2020-11-22] MEDS: ADVAIR HFA 230/21MCG INHALER INH SCH (19:52)
[2020-11-22] MEDS ORDERED: HumaLOG INSULIN (NovoLOG) PER UNIT SC SCH (21:00)
[2020-11-22] MEDS ORDERED: BUDESONIDE 180MCG INHALER (PULMICORT FLEXHALER) INH SCH (21:00)
[2020-11-22] MEDS ORDERED: traZODone 50 MG TAB PO SCH (21:00)
[2020-11-22 22:00] VITALS: BP 151/95
[2020-11-23] MEDS: LEVALBUTEROL 1.25 MG/0.5 ML CONCENTRATE NEB INH SCH ×4 (00:03→11:05)
[2020-11-23] MEDS ORDERED: RAMELTEON 8 MG TAB (ROZEREM) PO PRN (00:05)
[2020-11-23] MEDS: methylPREDNISolone 125MG 2ML VIAL IV SCH ×2 (05:29→11:59)
[2020-11-23 06:00] VITALS: BP 118/75
[2020-11-23] MEDS ORDERED: LEVOTHYROXINE 75MCG TABLET (0.075MG) PO SCH (06:00)
[2020-11-23 06:37] LABS: HEMATOCRIT 44.5 % (42.0-52.0); HEMOGLOBIN 14.6 g/dl (13.5-17.5); MEAN CORPUSCULAR HEMOGLOBIN 27.5 pg (27.0-33.0); MEAN CORPUSCULAR HGB CONC 32.8 g/dl (32.0-36.5); PLATELET COUNT, AUTOMATED 255 10^3/uL (150-450); WHITE BLOOD COUNT 13.2 10^3/uL (4.0-10.0)
[2020-11-23 06:46] LABS: BLOOD UREA NITROGEN 19 MG/DL (7-18); CALCIUM LEVEL 9.5 MG/DL (8.5-10.1); CARBON DIOXIDE LEVEL 28 MEQ/L (21-32); CHLORIDE LEVEL 100 MEQ/L (98-107); CREATININE FOR GFR 0.96 MG/DL (0.70-1.30); GLOMERULAR FILTRATION RATE > 60.0 (>56); GLUCOSE, FASTING 138 MG/DL (70-100); POTASSIUM SERUM 3.4 MEQ/L (3.5-5.1); SODIUM LEVEL 137 MEQ/L (136-145)
[2020-11-23] MEDS: ADVAIR HFA 230/21MCG INHALER INH SCH (07:15)
[2020-11-23] MEDS: TIOTROPIUM INHALER/CAPSULE (SPIRIVA) INH SCH (07:15)
[2020-11-23 07:22] LABS: CHOLESTEROL LEVEL 175 MG/DL (<200); CHOLESTEROL RISK RATIO 2.397 (<5); HDL CHOLESTEROL 73 MG/DL (>40); LDL CHOLESTEROL 85 MG/DL (<100); NON-HDL-C 102 MG/DL; THYROID STIMULATING HORMONE 0.439 uIU/ML (0.358-3.740); TRIGLYCERIDES LEVEL 84 MG/DL (<150)
[2020-11-23 07:27] LABS: HEMOGLOBIN A1c 5.1 %
[2020-11-23] MEDS ORDERED: MONTELUKAST 10 MG TAB PO SCH (09:00)
[2020-11-23] MEDS ORDERED: OMEPRAZOLE 20 MG CAP PO SCH (09:00)
[2020-11-23] MEDS ORDERED: ENOXAPARIN 40MG/0.4ML SYRINGE (J1650 PER 10MG) SC SCH (09:00)
[2020-11-23] MEDS ORDERED: AZITHROMYCIN 250MG TABLET PO SCH (09:00)
[2020-11-23] MEDS: metFORMIN XR 500MG TAB *GLUCOPHAGE XR PO SCH (09:48)
[2020-11-23] MEDS: buPROPion **SR TABLET** (ZYBAN) 150MG PO SCH (09:48)
[2020-11-23 09:49] VITALS: BP 118/75
[2020-11-23] MEDS: GABAPENTIN 300 MG CAP PO SCH (09:49)
[2020-11-23] MEDS: DULoxetine 30 MG CAP (CYMBALTA) PO SCH (09:49)
[2020-11-23] MEDS ORDERED: SING10TA32 PO (10:21)
[2020-11-23] MEDS ORDERED: PRED10TA2 PO (10:21)
--- NOTE | 2020-11-23 10:55 | DS.PDOC ---
Discharge Summary General Date of Admission Nov 22, 2020 at 10:09 Date of Discharge 11/23/20 Discharge Summary DISCHARGE DIAGNOSES: 1. Asthma exacerbation due to cat exposure. 2. Obesity. 3. Hypertension. 4. Hypokalemia. 5. Hypoxia requiring 3 liters of oxygen. 6. DM type 2 DISCHARGE MEDICATIONS: SEE BELOW DISCHARGE INSTRUCTIONS; [facility]: A 55-year-old obese male with a history of hypertension, diabetes. Recent A1c was 5.6. Hypothyroidism, asthma presented with asthma exacerbation secondary to cat exposure. Patient was given Solu-Medrol intravenously every 6 hours, nebuli zers every 4 and every 1 hour as needed. Patient was started on his chronic inhaled steroids. given montelukast 10 mg daily. Due to steroid-induced hyperglycemia, patient was placed on fingersticks before every meal and at bedtime with sliding-scale protocol. He was resumed on his home blood pressure and lipid medications. He was 92% on room air with ambulation on discharge with clear lungs w/o stridor. DISCHARGE PE; VITALS: SEE BELOW GENERAL: Patient is awake, alert, oriented times three. Able to speak in full sentences without any conversational dyspnea or use of respiratory accessory muscles. HEENT: Anicteric. No jaundice, pallor, or icterus. No jugular venous distention (JVD), thyromegaly, stridor, carotid bruit. Moist mucous membranes. No cervical lymphadenopathy. No pharyngeal erythema. No tonsillar exudate. HEART: S1, S2, sinus tachycardia. LUNGS: Diminished. Bilateral expiratory wheezing. Prolonged expiration. No tripod positioning or use of respiratory accessory muscles. No nasal flaring or tracheal deviation. ABDOMEN: Obese, soft, nontender, nondistended. Positive bowel sounds times four quadrants. No rebound or guarding. EXTREMITIES: No cyanosis, clubbing, or pitting edema. ADMISSION LABS:White count 9.8, hemoglobin 15, hematocrit 46, platelet count 254. Sodium 139, potassium 3.2, chloride 101, bicarbonate 32, BUN 15, creatinine 0.99, glucose 103. A1c was 5.6 in May. DISCHARGE LABS: SEE BELOW Respiratory panel negative for coronavirus. Chest x-ray: No active disease. TIME SPENT ONDISCHARGE: 30MIN Vital Signs/I&Os Vital Signs Date Time Temp Pulse Resp B/P (MAP) Pulse Ox O2 Delivery O2 Flow Rate FiO2 11/23/20 10:20 92 Room Air 11/23/20 09:49 118/75 11/23/20 06:59 0.5 11/23/20 06:00 97.7 92 20 I&O- Last 24 Hours up to 6 AM 11/23/20 06:00 Intake Total 1670 ml Output Total 625 ml Balance 1045 ml Laboratory Data Labs 24H Laboratory Tests 2 11/22/20 12:47: Bedside Glucose (Misc Panel) 188H 11/22/20 17:12: Bedside Glucose (Misc Panel) 154H 11/22/20 21:10: Bedside Glucose (Misc Panel) 198H 11/23/20 06:00: Estimated Mean Plasma Glucose 100, Hemoglobin A1c 5.1 11/23/20 06:04: Nucleated Red Blood Cells % (auto) 0.0, Anion Gap 9, Glomerular Filtration Rate > 60.0, Calcium Level 9.5, Triglycerides Level 84, Total Cholesterol 175, LDL Cholesterol 85, Non-HDL Cholesterol (LDL + VLDL) 102, Total HDL Cholesterol 73, Cholesterol/HDL Ratio 2.397, Thyroid Stimulating Hormone (TSH) 0.439 CBC/BMP Laboratory Tests 11/23/20 06:04 FSBS Laboratory Tests Test 11/22/20 12:47 11/22/20 17:12 11/22/20 21:10 Range/Units Bedside Glucose (Misc Panel) 188 154 198 70-105 MG/DL Microbiology Microbiology 11/22/20 Respiratory Virus Panel (PCR) (EMA) - Final, Complete Discharge Medications Scheduled Azithromycin (Azithromycin) 250 Mg Tablet, 250 MG PO Q2D, (Reported) Bupropion Hcl (Bupropion HCl Sr) 150 Mg Tab.sr.12h, 300 MG PO DAILY, (Reported) Celecoxib (Celecoxib) 200 Mg Capsule, 200 MG PO DAILY, (Reported) Diclofenac Sodium (Diclofenac Sodium) 75 Mg Tablet.dr, 75 MG PO BID, (Reported) Duloxetine Hcl (Duloxetine HCl) 60 Mg Capsule.dr, 60 MG PO DAILY, (Reported) Fluticasone/Vilanterol (Breo Ellipta 200-25 Mcg INH) 1 Each Blst.w.dev, 1 PUFF INH DAILY, (Reported) Gabapentin (Gabapentin) 600 Mg Tablet, 600 MG PO TID, (Reported) Hydrochlorothiazide (Hydrochlorothiazide) 50 Mg Tablet, 50 MG PO DAILY, (Reported) Levothyroxine Sodium (Euthyrox) 75 Mcg Tablet, 75 MCG PO DAILY, (Reported) Lisinopril (Lisinopril) 20 Mg Tab, 20 MG PO DAILY, (Reported) Metformin HCl (Metformin HCl ER) 500 Mg Tab.er.24h, 1,000 MG PO DAILY, (Reported) Montelukast Sodium (Singulair) 10 Mg Tablet, 10 MG PO DAILY Omeprazole (Omeprazole) 20 Mg Capsule.dr, 20 MG PO DAILY, (Reported) Prednisone (Prednisone) 10 Mg Tablet, 10 MG PO TAPER Take 4 tabs daily x 3 days, then 3 tabs daily x 3 days, then 2 tabs daily x 3 days, then 1 tab daily x 3 days and stop Trazodone HCl (Trazodone HCl) 150 Mg Tablet, 150 MG PO QHS, (Reported) Umeclidinium [place] (Incruse Ellipta) 62.5 Mcg Blst.w.dev, 1 PUFF INH DAILY, (Reported) Scheduled PRN Albuterol Sulfate (Ventolin Hfa) 18 Gm Hfa.aer.ad, 2 PUFFS INH Q4H PRN for SHORTNESS OF BREATH, (Reported) Ipratropium/Albuterol Sulfate (Iprat-Albut 0.5-3(2.5) mg/3 ml) 3 Ml Ampul.neb, 3 ML INH QID PRN for SHORTNESS OF BREATH, (Reported) Tizanidine HCl (Tizanidine HCl) 4 Mg Capsule, 4 MG PO TID PRN for MUSCLE SPASMS, (Reported) MAY TAKE 1 T0 2 CAPS TID PRN Allergies Coded Allergies: latex (Verified Allergy, Unknown, 01/27/19) ANGIE MUNOZ MD November 23, 2020 10:54
== END 2020-11-23 12:20 | disposition home or self-care (01) | DRG 203 ==
LOC: M ED 05:41 → M ED INP 10:09 → ENRESERV 10:34 → M MSPAV 12:09
PROVIDERS: ADMIT General Practice; ATTEND General Practice
DX: J45.901 Unspecified asthma with (acute) exacerbation (principal); E66.01 Morbid (severe) obesity due to excess calories; I10 Essential (primary) hypertension; E87.6 Hypokalemia; R09.02 Hypoxemia; E11.9 Type 2 diabetes mellitus without complications; E78.5 Hyperlipidemia, unspecified; F32.9 Major depressive disorder, single episode, unspecified; Z79.84 Long term (current) use of oral hypoglycemic drugs; Z79.899 Other long term (current) drug therapy; Z91.040 Latex allergy status

== ENCOUNTER → 2021-01-14 | Outpatient (CLI) | payer MEDICARE, OTHER ==
[~2021-01-14] MED LIST changes: +DICL75TA PO; +ERGO500029; +GABA-283; -GABA-845; +GABA600T4 PO; +OMEP40CA4 PO; -OMEP40CA97 PO; +SING10TA32 PO; +TIZA4CAP PO; -VITA50005
[2021-01-14 13:11] LABS: BASO # 0.1 10^3/uL (0.0-0.2); BASO % 0.9 % (0.0-1.0); EOS # 0.4 10^3/uL (0.0-0.5); EOS % 5.5 % (0.0-3.0); HEMATOCRIT 43.4 % (42.0-52.0); LYMPH # 2.2 10^3/uL (1.5-5.0); MEAN CORPUSCULAR HEMOGLOBIN 28.2 pg (27.0-33.0); MEAN CORPUSCULAR HGB CONC 32.3 g/dl (32.0-36.5); MEAN CORPUSCULAR VOLUME 87.5 fl (80.0-96.0); MONO # 0.6 10^3/uL (0.0-0.8); NEUTROPHILS # 3.6 10^3/uL (1.5-8.5); NEUTROPHILS % 52.2 % (36.0-66.0); PLATELET COUNT, AUTOMATED 264 10^3/uL (150-450); RED BLOOD COUNT 4.96 10^6/uL (4.30-6.10); WHITE BLOOD COUNT 6.9 10^3/uL (4.0-10.0)
[2021-01-14 13:36] LABS: ALBUMIN 3.9 GM/DL (3.2-5.2); ALT/SGPT 23 U/L (12-78); BILIRUBIN,TOTAL 0.5 MG/DL (0.2-1.0); BLOOD UREA NITROGEN 11 MG/DL (7-18); CALCIUM LEVEL 9.7 MG/DL (8.5-10.1); CARBON DIOXIDE LEVEL 34 MEQ/L (21-32); CHLORIDE LEVEL 104 MEQ/L (98-107); CHOLESTEROL LEVEL 147 MG/DL (<200); CREATININE FOR GFR 0.94 MG/DL (0.70-1.30); GLOMERULAR FILTRATION RATE > 60.0 (>56); GLUCOSE, FASTING 88 MG/DL (70-100); HDL CHOLESTEROL 69 MG/DL (>40); LDL CHOLESTEROL 62 MG/DL (<100); MAGNESIUM LEVEL 2.1 MG/DL (1.8-2.4); NON-HDL-C 78 MG/DL; POTASSIUM SERUM 3.5 MEQ/L (3.5-5.1); PROSTATIC SPECIFIC AG MONITOR 0.66 NG/ML (< 4.00); SODIUM LEVEL 141 MEQ/L (136-145); THYROID STIMULATING HORMONE 0.406 uIU/ML (0.358-3.740); TOTAL PROTEIN 6.9 GM/DL (6.4-8.2); TRIGLYCERIDES LEVEL 80 MG/DL (<150)
[2021-01-14 13:58] LABS: HEMOGLOBIN A1c 5.1 %
== END ==
LOC: M LAB 12:00
PROVIDERS: ATTEND Nurse Practitioner Family
DX: Z01.818 Encounter for other preprocedural examination (principal); Z79.899 Other long term (current) drug therapy

== ENCOUNTER → 2021-05-21 | Outpatient (CLI) | payer MEDICARE, OTHER ==
--- NOTE | 2021-05-21 11:46 | REPVR ---
PROCEDURE INFORMATION: Exam: MR Lumbar Spine Without Contrast Exam date and time: 05/21/2021 8:16 AM Age: 55 years old Clinical indication: Low back pain; Additional info: N TECHNIQUE: Imaging protocol: Multiplanar magnetic resonance images of the lumbar spine without intravenous contrast. COMPARISON: MRI-Spine, L.S. without con 06/11/2020 8:06 AM FINDINGS: Vertebrae: No acute compression fracture is seen. A chronic superior endplate compression fracture and Schmorl's node is noted at L2. Mild L2 vertebral body height loss is present. There is mild anterolisthesis of L4 on L5 due to severe facet arthropathy. Spinal cord: The conus medullaris terminates at the T12 level. There is no evidence of arachnoiditis or cauda equina compression. L1-L2: There is mild facet arthropathy. There is no significant spinal canal or neural foraminal stenosis. L2-L3: There is mild facet arthropathy. There is no significant spinal canal or neural foraminal stenosis. L3-L4: There is minimal diffuse circumferential disc bulging and mild facet arthropathy. There is no significant spinal canal or neural foraminal stenosis. L4-L5: There is moderate diffuse circumferential disc bulging with a superimposed shallow broad-based right foraminal and extraforaminal disc protrusion. Moderate facet arthropathy and thickening of the ligamentum flavum is also present. This is causing mild spinal canal stenosis, mild narrowing of the subarticular recesses, and mild right neural foraminal narrowing. There is no significant left foraminal stenosis. L5-S1: There is disc dehydration, marked diffuse circumferential disc bulging, and a superimposed central and right paracentral disc protrusion. Moderate facet arthropathy is also present. The findings appear similar to the previous exam. The disc protrusion is causing moderate narrowing of right subarticular recess with displacement and impingement of the descending right S1 nerve root. Mild spinal canal stenosis and moderate narrowing of the left subarticular recess is also present. There is no significant neural foraminal narrowing. Soft tissues: Minor subcutaneous edema is present in the lower back. IMPRESSION: Stable degenerative changes of the lumbar spine as discussed above Electronically signed by: Abhijeet Carrillo On 05/21/2021 11:45:42 AM
== END ==
LOC: M RAD 07:39
PROVIDERS: ATTEND Orthopaedic Surgery
DX: M51.16 Intervertebral disc disorders with radiculopathy, lumbar region (principal); M51.26 Other intervertebral disc displacement, lumbar region; M51.27 Other intervertebral disc displacement, lumbosacral region; M12.88 Other specific arthropathies, not elsewhere classified, other specified site; S32.020A Wedge compression fracture of second lumbar vertebra, initial encounter for closed fracture; X58.XXXA Exposure to other specified factors, initial encounter; Y92.89 Other specified places as the place of occurrence of the external cause; Y93.89 Activity, other specified; Y99.8 Other external cause status

== ENCOUNTER 2021-05-30 10:21 | Outpatient (RCR) | payer MEDICARE, OTHER ==
[~2021-05-30 10:21] MED LIST changes: +OMEP-173 PO; -OMEP-218 PO
[2021-06-11] MEDS ORDERED: ASPE4PAD TOP (00:05)
[2021-06-11] MEDS ORDERED: METH-1165 PO (00:05)
[2021-06-16] MEDS ORDERED: OXYC1TAB23 PO (17:41)
== END 2021-06-24 ==
LOC: M PT 10:21
PROVIDERS: ATTEND Orthopaedic Surgery
DX: M51.16 Intervertebral disc disorders with radiculopathy, lumbar region (principal)

== ENCOUNTER 2021-06-10 19:11 | Emergency (ER) | payer MEDICARE, OTHER ==
[~2021-06-10] VITALS: Ht 167.6 cm; Wt 105.3 kg
[~2021-06-10 19:11] MED LIST changes: -ASPE4PAD TOP; -METH-1165 PO
--- OUTSIDE RECORDS SUMMARY | 2021-06-10 19:17 | CCD | Continuity of Care Document ---
Author Author Jose Antonio MCDANIEL DO Organization Unknown Address [address] [place] [address], [facility] [place] [address] Phone [phone] Care Team Providers Care Practical Nurse Clinical Coordinator Name Role Phone Penelope Mccall AUTM [phone] Yvette Bustillos AUTM [phone] Problems Active Problems Provider Date Uncomplicated severe persistent asthma Rajiv James D.O Onset: 01/29/2021 Chronic obstructive lung disease Rajiv James D.O Onset : 01/29/2021 Essential hypertension Kendrick Mcdaniel DO Onset: 05/09/20 21 Allergic asthma without status asthmaticus Kendrick Mcdaniel DO Onset: 05/09/2021 Type 2 diabetes mellitus Kendrick Mcdaniel DO Onset: 2020 Social History Type Date Description Comments Sex Unknown ETOH Use Denies alcohol use Tobacco Use Start: Unknown Patient has never smoked Recreational Drug Use History Of Marijuana Smoking Status Reviewed: 01/29/21 Patient has never smoked Allergies and adverse reactions Description No Known Drug Allergies Medications Active Medications SIG Qnty Indications Ordering Provide r Date Albuterol Sulfate HFA 108(90Base) mcg/Act Aerosol Inhale Two Puffs By Mouth Every 4 Hours as Needed 27units Rajiv James D.O 01/09/2021 Azithromycin 250mg Tablets take one tablet by mouth every other day 45tabs J45.50 Rajiv James D.O 0 07/29/2020 Incruse Ellipta 62.5mcg/Inh Aeroso l 1 puff every day 30units Rajiv James D.O 01/22/2019 Breo Ellipta 200-25mcg/Inh Aerosol 1 inhalation by mouth every day 180units Rajiv James D.O Cymbalta 60mg Caps DR Part 1 by mouth every day Unknown Gabapentin 800mg Tablets 2 tabs by mouth three times a day Unknown Celebrex 100mg Capsules 1 tab by mouth every day Unknown Ipratropium [place]/Albuterol Sulfate 0.5-2.5(3)mg/3ML Solution 1 vial via neb four times a day as needed Unknown Levothyroxine Sodium 50mcg Tablets 1 tab by mouth every day Unknown Omeprazole 20mg Capsules DR 1 tab by mouth every day Unknown Hydrochlorothiazide 50mg Tablets 1 tab by mouth every day Unknown Lisinopril 20mg Tablets 1 tab by mouth every day Unknown Metformin HCL 500mg Tablets 1 tab by mouth every day Unknown Bupropion Hydrochloride ER (SR) 150mg Tablets ER 12HR 2 tabs by mouth every day Unknown Immunizations CPT Code Status Date Vaccine Lot # [id number] Given 05/31/2019 Flublock, Quadrivalent Vital Signs Date Vital Result Comment 01/29/2021 10:05am BP Systolic 138 mmHg BP Diastolic 88 mmHg Heart Rate 74 /min O2 % BldC Oximetry 94 % Body Temperature 97.8 F Height 66 inches 5'6" Weight 242.00 lb BMI (Body Mass Index) 39.1 kg/m2 [place] Body Weight 142 lb Weight 109.771 kg BSA (Body Surface Area) 2.17 m2 07/29/2020 9:32am BP Systolic 140 mmHg BP Diastolic 100 mmHg Heart Rate 83 /min O2 % BldC Oximetry 92 % Body Temperature 97.7 F Height 66 inches 5'6" Weight 247.00 lb BMI (Body Mass Index) 39.9 kg/m2 [place] Body Weight 142 lb Weight 112.039 kg BSA (Body Surface Area) 2.19 m2 Results Description No Information Available Procedures Date Code Description Status 05/09/2021 13136 Office/Outpatient New Moderate M DM 45-59 Minutes Completed 01/29/2021 62743 Office/Outpatient Established Mo d MDM 30-39 Min Completed 01/29/2021 35356 Diffusing Capacity Completed 01/29/2021 48042 Plethysmography Determination Radha ng Volumes & Per Airway Resist Completed 01/29/2021 15557 Bronchospasm Evaluation Complete d Medical Devices Description No Information Available Encounters Type Date Location Provider Dx Diagnosis Office Visit 05/09/2021 10:00a [facility] Agatha Mcdaniel DO M51.16 Intervertebral disc disorders w radiculo kieran, lumbar region Office Visit 01/29/2021 11:00a [facility] Pulmonary/Thoracic D roshan James D.O J45.50 Severe persistent asthma, un complicated Assessments Date Code Description Provider 05/09/2021 M51.16 Intervertebral disc disorders with radiculopathy, lumbar region Kendrick Mcdaniel DO 01/29/2021 J45.50 Severe persistent asthma, uncomp licated Rajiv James D.O 01/29/2021 J45.50 Severe persistent asthma, uncomp licated Pulmonary Lab Plan of Treatment 05/09/2021 - Kendrick Mcdaniel DO* M51.16 Intervertebral disc disorders with radiculopathy, lumbar region* Comments:* Follow-up to review MRI lumbar spine Functional Status Description No Information Available Mental Status Description No Information Available Referrals Description No Information Available
--- OUTSIDE RECORDS SUMMARY | 2021-06-10 19:17 | CCD | Continuity of Care Document ---
Author Author Jose Antonio MCDANIEL DO Organization Unknown Address [address] [place] [address], [facility] [place] [address] Phone [phone] Care Team Providers Care Interventional Tech Name Role Phone Penelope Mccall AUTM [phone] Yvette Bustillos AUTM [phone] Problems Active Problems Provider Date Uncomplicated severe [...] tab by mouth every day Unknown Ipratropium [place]/Albuterol Sulfate 0.5-2.5(3)mg/3ML Solution 1 vial via neb [...] CPT Code Status Date Vaccine Lot # [id number] Given 05/31/2019 Flublock, Quadrivalent Vital Signs Date Vital Result Comment 01/29/2021 10:05am BP Systolic 138 mmHg BP Diastolic 88 mmHg Heart Rate 74 /min O2 % BldC Oximetry 94 % Body Temperature 97.8 F Height 66 inches 5'6" Weight 242.00 lb BMI (Body Mass Index) 39.1 kg/m2 [place] Body Weight 142 lb Weight 109.771 kg BSA (Body Surface Area) 2.17 m2 07/29/2020 9:32am BP Systolic 140 mmHg BP Diastolic 100 mmHg Heart Rate 83 /min O2 % BldC Oximetry 92 % Body Temperature 97.7 F Height 66 inches 5'6" Weight 247.00 lb BMI (Body Mass Index) 39.9 kg/m2 [place] Body Weight 142 lb Weight 112.039 kg BSA (Body Surface Area) 2.19 m2 Results Description No Information Available Procedures Date Code Description Status 01/29/2021 26060 Office/Outpatient Established Mo d MDM 30-39 Min Completed 01/29/2021 68017 Diffusing Capacity Completed 01/29/2021 01925 Plethysmography Determination Radha ng Volumes & Per Airway Resist Completed 01/29/2021 54956 Bronchospasm Evaluation Complete d Medical Devices Description No Information Available Encounters Type Date Location Provider Dx Diagnosis Office Visit 01/29/2021 11:00a [facility] Pulmonary/Thoracic D roshan James D.O J45.50 Severe persistent asthma, un complicated Assessments Date Code Description Provider 05/09/2021 M51.16 Intervertebral disc disorders with radiculopathy, lumbar region Kendrick Mcdaniel DO 01/29/2021 J45.50 Severe persistent asthma, uncomp licated Rajiv James D.O 01/29/2021 J45.50 Severe persistent asthma, uncomp licated Pulmonary Lab Plan of Treatment 05/09/2021 - Kendrick Mcdaniel DO* M51.16 Intervertebral disc disorders with radiculopathy, lumbar region* New Xrays:* MRI Lumbar Spine W/O Contrast, Ordered: 05/09/21 * Comments:* Follow-up to review MRI lumbar spine Functional Status Description No Information Available Mental Status Description No Information Available Referrals Description No Information Available
--- OUTSIDE RECORDS SUMMARY | 2021-06-10 19:17 | CCD | Continuity of Care Document ---
Author Author Suresh MCDANIEL DO Organization Unknown Address [address] [facility], [facility] [place] [address] Phone [phone] Care Team Providers Care Rn Case Manager Hospice Name Role Phone Penelope Mccall AUTM [phone] Yvette Bustillos AUTM [phone] Problems Active Problems Provider Date Uncomplicated severe persistent asthma Rajiv James D.O Onset: 01/29/2021 Chronic obstructive lung disease Rajiv James D.O Onset : 01/29/2021 Essential hypertension Kendrick Mcdaniel DO Onset: 05/09/20 Allergic asthma without status asthmaticus Kendrick Mcdaniel [...] tab by mouth every day Unknown Ipratropium [place]/Albuterol Sulfate 0.5-2.5(3)mg/3ML Solution 1 vial via neb [...] CPT Code Status Date Vaccine Lot # [id number] Given 05/31/2019 Flublock, Quadrivalent Vital Signs Date Vital Result Comment 05/28/2021 9:42am Body Temperature 97.2 F 01/29/2021 10:05am BP Systolic 138 mmHg BP Diastolic 88 mmHg Heart Rate 74 /min O2 % BldC Oximetry 94 % Body Temperature 97.8 F Height 66 inches 5'6" Weight 242.00 lb BMI (Body Mass Index) 39.1 kg/m2 [place] Body Weight 142 lb Weight 109.771 kg BSA (Body Surface Area) 2.17 m2 Results Description No Information Available Procedures Date Code Description Status 05/28/2021 28816 Office/Outpatient Established Lo w MDM 20-29 Min Completed 05/09/2021 86116 Office/Outpatient New Moderate M DM 45-59 Minutes Completed 01/29/2021 33812 Office/Outpatient Established Mo d MDM 30-39 Min Completed 01/29/2021 58223 Diffusing Capacity Completed 01/29/2021 92857 Plethysmography Determination Radha ng Volumes & Per Airway Resist Completed 01/29/2021 94272 Bronchospasm Evaluation Complete d Medical Devices Description No Information Available Encounters Type Date Location Provider Dx Diagnosis Office Visit 05/28/2021 9:40a [facility] Agatha Mcdaniel, DO M51.16 Intervertebral disc disorders w radiculo kieran, lumbar region Office Visit 05/09/2021 10:00a [facility] Joao Marie, Grantkareem gibbs, DO M51.16 Intervertebral disc disorders w radiculo kieran, lumbar region Office Visit 01/29/2021 11:00a [facility] Pulmonary/Thoracic D roshan James D.O J45.50 Severe persistent asthma, un complicated Assessments Date Code Description Provider 05/28/2021 M51.16 Intervertebral disc disorders with radiculopathy, lumbar region Kendrick Mcdaniel, 05/09/2021 M51.16 Intervertebral disc disorders with radiculopathy, lumbar region Kendrick Mcdaniel, 01/29/2021 J45.50 Severe persistent asthma, uncomp licated Rajiv James D.O 01/29/2021 J45.50 Severe persistent asthma, uncomp licated Pulmonary Lab Plan of Treatment Future Appointment(s):* 07/29/2021 9:00 am - Rajiv James D.O at [facility] Pulmonary/Thoracic 05/28/2021 - Kendrick Mcdaniel DO* M51.16 Intervertebral disc disorders with radiculopathy, lumbar region* Comments:* 1. Referral for outpatient physical therapy2. Referral for consideration of epidural steroid injections3. Follow-up if symptoms do not improve with conservative management and patient would like to consider surgery.4. Patient advised about signs and symptoms of cauda equina and that this is a surgical emergency. * Referral:* Donnell Singh MD, Anesthesiology Functional Status Description No Information Available Mental Status Description No Information Available Referrals Refer to Dr Reason for Referral Status Appt Date Donnell Singh MD L5-S1 disc herniation with r adiculopathy. MRI at [facility]. Closed 07/22/2021 [address] [facility] [address] [facility] [place] [address] [phone]
--- OUTSIDE RECORDS SUMMARY | 2021-06-10 19:17 | CCD | Continuity of Care Document ---
Author Author Suresh MCDANIEL DO Organization Unknown Address [address] [facility], [facility] [place] [address] Phone [phone] Care Team Providers Care Restaurant Line Cook Name Role Phone Penelope Mccall AUTM [phone] Yvette Bustillos AUTM [phone] Problems Active Problems Provider Date Uncomplicated severe [...] tab by mouth every day Unknown Ipratropium [place]/Albuterol Sulfate 0.5-2.5(3)mg/3ML Solution 1 vial via neb [...] CPT Code Status Date Vaccine Lot # [id number] Given 05/31/2019 Flublock, Quadrivalent Vital Signs Date Vital Result Comment 05/28/2021 9:42am Body Temperature 97.2 F 01/29/2021 10:05am BP Systolic 138 mmHg BP Diastolic 88 mmHg Heart Rate 74 /min O2 % BldC Oximetry 94 % Body Temperature 97.8 F Height 66 inches 5'6" Weight 242.00 lb BMI (Body Mass Index) 39.1 kg/m2 [place] Body Weight 142 lb Weight 109.771 kg BSA (Body Surface Area) 2.17 m2 Results Description No Information Available Procedures Date Code Description Status 05/09/2021 29088 Office/Outpatient New Moderate M DM 45-59 Minutes Completed 01/29/2021 69757 Office/Outpatient Established Mo d MDM 30-39 Min Completed 01/29/2021 86541 Diffusing Capacity Completed 01/29/2021 76438 Plethysmography Determination Radha ng Volumes & Per Airway Resist Completed 01/29/2021 20555 Bronchospasm Evaluation Complete d Medical Devices Description No Information Available Encounters Type Date Location Provider Dx Diagnosis Office Visit 05/09/2021 10:00a [facility] Agatha Mcdaniel DO M51.16 Intervertebral disc disorders w radiculo kieran, lumbar region Office Visit 01/29/2021 11:00a [facility] Pulmonary/Thoracic D roshan James D.O J45.50 Severe persistent asthma, un complicated Assessments Date Code Description Provider 05/28/2021 M51.16 Intervertebral disc disorders with radiculopathy, lumbar region Kendrick Mcdaniel DO 05/09/2021 M51.16 Intervertebral disc disorders with radiculopathy, lumbar region Kendrick Mcdaniel DO 01/29/2021 J45.50 Severe persistent asthma, uncomp licated Rajiv James D.O 01/29/2021 J45.50 Severe persistent asthma, uncomp licated Pulmonary Lab Plan of Treatment Future Appointment(s):* 07/29/2021 9:00 am - Rajiv James D.O at [facility] Pulmonary/Thoracic 05/28/2021 - Kendrick Mcdaniel DO* [...] disc herniation with r adiculopathy. MRI at [facility]. Sent [address] [facility] [address] [facility] [place] [address] [phone]
--- OUTSIDE RECORDS SUMMARY | 2021-06-10 19:17 | CCD | Continuity of Care Document ---
Author Author Jose Antonio MCDANIEL DO Organization Unknown Address [address] [place] [address], [facility] [place] [address] Phone [phone] Care Team Providers Care User Support Analyst Supervisor Name Role Phone Penelope Mccall AUTM [phone] Yvette Bustillos AUTM [phone] Problems Active Problems Provider Date Uncomplicated severe [...] tab by mouth every day Unknown Ipratropium [place]/Albuterol Sulfate 0.5-2.5(3)mg/3ML Solution 1 vial via neb [...] CPT Code Status Date Vaccine Lot # [id number] Given 05/31/2019 Flublock, Quadrivalent Vital Signs Date Vital Result Comment 01/29/2021 10:05am BP Systolic 138 mmHg BP Diastolic 88 mmHg Heart Rate 74 /min O2 % BldC Oximetry 94 % Body Temperature 97.8 F Height 66 inches 5'6" Weight 242.00 lb BMI (Body Mass Index) 39.1 kg/m2 [place] Body Weight 142 lb Weight 109.771 kg BSA (Body Surface Area) 2.17 m2 07/29/2020 9:32am BP Systolic 140 mmHg BP Diastolic 100 mmHg Heart Rate 83 /min O2 % BldC Oximetry 92 % Body Temperature 97.7 F Height 66 inches 5'6" Weight 247.00 lb BMI (Body Mass Index) 39.9 kg/m2 [place] Body Weight 142 lb Weight 112.039 kg BSA (Body Surface Area) 2.19 m2 Results Description No Information Available Procedures Date Code Description Status 01/29/2021 57732 Office/Outpatient Established Mo d MDM 30-39 Min Completed 01/29/2021 83625 Diffusing Capacity Completed 01/29/2021 29715 Plethysmography Determination Radha ng Volumes & Per Airway Resist Completed 01/29/2021 40612 Bronchospasm Evaluation Complete d Medical Devices Description No Information Available Encounters Type Date Location Provider Dx Diagnosis Office Visit 01/29/2021 11:00a [facility] Pulmonary/Thoracic D roshan James D.O J45.50 Severe [...]
--- OUTSIDE RECORDS SUMMARY | 2021-06-10 19:17 | CCD | Continuity of Care Document ---
Author Author Jose Antonio MCDANIEL DO Organization Unknown Address [address] [place] [address], [facility] [place] [address] Phone [phone] Care Team Providers Care Wildlife Policy Professional Name Role Phone Penelope Mccall AUTM [phone] Yvette Bustillos AUTM [phone] Problems Active Problems Provider Date Uncomplicated severe [...] tab by mouth every day Unknown Ipratropium [place]/Albuterol Sulfate 0.5-2.5(3)mg/3ML Solution 1 vial via neb [...] CPT Code Status Date Vaccine Lot # [id number] Given 05/31/2019 Flublock, Quadrivalent Vital Signs Date Vital Result Comment 01/29/2021 10:05am BP Systolic 138 mmHg BP Diastolic 88 mmHg Heart Rate 74 /min O2 % BldC Oximetry 94 % Body Temperature 97.8 F Height 66 inches 5'6" Weight 242.00 lb BMI (Body Mass Index) 39.1 kg/m2 [place] Body Weight 142 lb Weight 109.771 kg BSA (Body Surface Area) 2.17 m2 07/29/2020 9:32am BP Systolic 140 mmHg BP Diastolic 100 mmHg Heart Rate 83 /min O2 % BldC Oximetry 92 % Body Temperature 97.7 F Height 66 inches 5'6" Weight 247.00 lb BMI (Body Mass Index) 39.9 kg/m2 [place] Body Weight 142 lb Weight 112.039 kg BSA (Body Surface Area) 2.19 m2 Results Description No Information Available Procedures Date Code Description Status 01/29/2021 63608 Office/Outpatient Established Mo d MDM 30-39 Min Completed 01/29/2021 48023 Diffusing Capacity Completed 01/29/2021 03653 Plethysmography Determination Radha ng Volumes & Per Airway Resist Completed 01/29/2021 43233 Bronchospasm Evaluation Complete d Medical Devices Description No Information Available Encounters Type Date Location Provider Dx Diagnosis Office Visit 01/29/2021 11:00a [facility] Pulmonary/Thoracic D roshan James D.O [...]
--- OUTSIDE RECORDS SUMMARY | 2021-06-10 19:17 | CCD | Continuity of Care Document ---
Author Author Suresh MCDANIEL DO Organization Unknown Address [address] [facility], [facility] [place] [address] Phone [phone] Care Team Providers Care Green Energy Marketing Analyst Name Role Phone Penelope Mccall AUTM [phone] Yvette Bustillos AUTM [phone] Problems Active Problems Provider Date Uncomplicated severe [...] Aeroso l 1 puff every day 30units Rajvi James D.O 01/22/2019 Breo Ellipta 200-25mcg/Inh Aerosol 1 inhalation by mouth every day 180units Rajiv James D.O Cymbalta 60mg Caps DR Part 1 by mouth every day Unknown Gabapentin 800mg Tablets 2 tabs by mouth three times a day Unknown Celebrex 100mg Capsules 1 tab by mouth every day Unknown Ipratropium [place]/Albuterol Sulfate 0.5-2.5(3)mg/3ML Solution 1 vial via neb [...] CPT Code Status Date Vaccine Lot # [id number] Given 05/31/2019 Flublock, Quadrivalent Vital Signs Date Vital Result Comment 05/28/2021 9:42am Body Temperature 97.2 F 01/29/2021 10:05am BP Systolic 138 mmHg BP Diastolic 88 mmHg Heart Rate 74 /min O2 % BldC Oximetry 94 % Body Temperature 97.8 F Height 66 inches 5'6" Weight 242.00 lb BMI (Body Mass Index) 39.1 kg/m2 [place] Body Weight 142 lb Weight 109.771 kg BSA (Body Surface Area) 2.17 m2 Results Description No Information Available Procedures Date Code Description Status 05/09/2021 32189 Office/Outpatient New Moderate M DM 45-59 Minutes Completed 01/29/2021 62022 Office/Outpatient Established Mo d MDM 30-39 Min Completed 01/29/2021 48963 Diffusing Capacity Completed 01/29/2021 27430 Plethysmography Determination Radha ng Volumes & Per Airway Resist Completed 01/29/2021 26816 Bronchospasm Evaluation Complete d Medical Devices Description No Information Available Encounters Type Date Location Provider Dx Diagnosis Office Visit 05/09/2021 10:00a [facility] Agatha Mcdaniel DO M51.16 Intervertebral disc disorders w radiculo kieran, lumbar region Office Visit 01/29/2021 11:00a [facility] Pulmonary/Thoracic D roshan James D.O [...] 9:00 am - Rajiv James D.O at [facility] Pulmonary/Thoracic 05/28/2021 - Kendrick Mcdaniel [...] disc herniation with r adiculopathy. MRI at [facility]. Sent [address] [facility] [address] [facility] [address] [phone]
--- OUTSIDE RECORDS SUMMARY | 2021-06-10 19:17 | CCD | Continuity of Care Document ---
Author Author Suresh MCDANIEL DO Organization Unknown Address [address] [facility], [facility] [place] [address] Phone [phone] Care Team Providers Care Multicut Line Operator Name Role Phone Penelope Mccall AUTM [phone] Yvette Bustillos AUTM [phone] Problems Active Problems Provider Date Uncomplicated severe [...] tab by mouth every day Unknown Ipratropium [place]/Albuterol Sulfate 0.5-2.5(3)mg/3ML Solution 1 vial via neb [...] CPT Code Status Date Vaccine Lot # [id number] Given 05/31/2019 Flublock, Quadrivalent Vital Signs Date Vital Result Comment 05/28/2021 9:42am Body Temperature 97.2 F 01/29/2021 10:05am BP Systolic 138 mmHg BP Diastolic 88 mmHg Heart Rate 74 /min O2 % BldC Oximetry 94 % Body Temperature 97.8 F Height 66 inches 5'6" Weight 242.00 lb BMI (Body Mass Index) 39.1 kg/m2 [place] Body Weight 142 lb Weight 109.771 kg BSA (Body Surface Area) 2.17 m2 Results Description No Information Available Procedures Date Code Description Status 05/09/2021 04245 Office/Outpatient New Moderate M DM 45-59 Minutes Completed 01/29/2021 15583 Office/Outpatient Established Mo d MDM 30-39 Min Completed 01/29/2021 87952 Diffusing Capacity Completed 01/29/2021 20843 Plethysmography Determination Radha ng Volumes & Per Airway Resist Completed 01/29/2021 67373 Bronchospasm Evaluation Complete d Medical Devices Description No Information Available Encounters Type Date Location Provider Dx Diagnosis Office Visit 05/09/2021 10:00a [facility] Agatha Mcdaniel DO M51.16 Intervertebral disc disorders w radiculo kieran, lumbar region Office Visit 01/29/2021 11:00a [facility] Pulmonary/Thoracic D roshan James D.O J45.50 [...] 9:00 am - Rajiv James D.O at [facility] Pulmonary/Thoracic 05/28/2021 - Kendrick Mcdaniel DO* [...] disc herniation with r adiculopathy. MRI at [facility]. Sent [address] [facility] [address] [facility] [place] [address] [phone]
--- OUTSIDE RECORDS SUMMARY | 2021-06-10 19:17 | CCD | Continuity of Care Document ---
Author Author Suresh MCDANIEL DO Organization Unknown Address [address] [facility], [facility] [place] [address] Phone [phone] Care Team Providers Care Field Examiner Name Role Phone Penelope Mccall AUTM [phone] Yvette Bustillos AUTM [phone] Problems Active Problems Provider Date Uncomplicated severe [...] tab by mouth every day Unknown Ipratropium [place]/Albuterol Sulfate 0.5-2.5(3)mg/3ML Solution 1 vial via neb [...] CPT Code Status Date Vaccine Lot # [id number] Given 05/31/2019 Flublock, Quadrivalent Vital Signs Date Vital Result Comment 05/28/2021 9:42am Body Temperature 97.2 F 01/29/2021 10:05am BP Systolic 138 mmHg BP Diastolic 88 mmHg Heart Rate 74 /min O2 % BldC Oximetry 94 % Body Temperature 97.8 F Height 66 inches 5'6" Weight 242.00 lb BMI (Body Mass Index) 39.1 kg/m2 [place] Body Weight 142 lb Weight 109.771 kg BSA (Body Surface Area) 2.17 m2 Results Description No Information Available Procedures Date Code Description Status 05/09/2021 48931 Office/Outpatient New Moderate M DM 45-59 Minutes Completed 01/29/2021 91034 Office/Outpatient Established Mo d MDM 30-39 Min Completed 01/29/2021 46587 Diffusing Capacity Completed 01/29/2021 10582 Plethysmography Determination Radha ng Volumes & Per Airway Resist Completed 01/29/2021 63444 Bronchospasm Evaluation Complete d Medical Devices Description No Information Available Encounters Type Date Location Provider Dx Diagnosis Office Visit 05/09/2021 10:00a [facility] Agatha Mcdaniel DO M51.16 Intervertebral disc disorders w radiculo kieran, lumbar region Office Visit 01/29/2021 11:00a [facility] Pulmonary/Thoracic D roshan James D.O J45.50 [...] 9:00 am - Rajiv James D.O at [facility] Pulmonary/Thoracic 05/28/2021 - Kendrick Mcdaniel DO* [...] disc herniation with r adiculopathy. MRI at [facility]. Sent [address] [facility] [address] [facility] [address] [phone]
--- OUTSIDE RECORDS SUMMARY | 2021-06-10 19:18 | CCD ---
Author Author [facility] Organization [facility] Address Unknown Phone Unavailable Care Team Providers Care [employer] Principal Name Role Phone KIRSCHMAN, L KRISS MEMBER OF THE LEGISLATIVE [employer]NCIL Unavailable Unavailable KIRSCHMAN, L KRISS MEMBER OF THE LEGISLATIVE [employer]NC[employer] Unavailable Unavailable KIRSCHMAN, L KRISS MEMBER OF THE LEGISLATIVE COUNCIL Unavailable Unavailable KIRSCHMAN, L KRISS MEMBER OF THE LEGISLATIVE COUNCIL Unavailable Unavailable KIRSCHMAN, L KRISS MEMBER OF THE LEGISLATIVE COUNCIL Unavailable Unavailable KIRSCHMAN, L KRISS MEMBER OF THE LEGISLATIVE COUNCIL Unavailable Unavailable KIRSCHMAN, L KRISS MEMBER OF THE LEGISLATIVE COUNCIL Unavailable Unavailable KIRSCHMAN, L KRISS MEMBER OF THE LEGISLATIVE COUNCIL Unavailable Unavailable KIRSCHMAN, L KRISS MEMBER OF THE LEGISLATIVE COUNCIL Unavailable Unavailable KIRSCHMAN, L KRISS MEMBER OF THE LEGISLATIVE COUNCIL Unavailable Unavailable KIRSCHMAN, L KRISS MEMBER OF THE LEGISLATIVE COUNCIL Unavailable Unavailable KIRSCHMAN, L KRISS MEMBER OF THE LEGISLATIVE COUNCIL Unavailable Unavailable KIRSCHMAN, L KRISS MEMBER OF THE LEGISLATIVE COUNCIL Unavailable Unavailable KIRSCHMAN, L KRISS MEMBER OF THE LEGISLATIVE COUNCIL Unavailable Unavailable KIRSCHMAN, L KRISS MEMBER OF THE LEGISLATIVE COUNCIL Unavailable Unavailable KIRSCHMAN, L KRISS MEMBER OF THE LEGISLATIVE COUNCIL Unavailable Unavailable KIRSCHMAN, L KRISS MEMBER OF THE LEGISLATIVE COUNCIL Unavailable Unavailable KIRSCHMAN, L KRISS MEMBER OF THE LEGISLATIVE COUNCIL Unavailable Unavailable KIRSCHMAN, L KRISS MEMBER OF THE LEGISLATIVE COUNCIL Unavailable Unavailable KIRSCHMAN, L KRISS MEMBER OF THE LEGISLATIVE COUNCIL Unavailable Unavailable KIRSCHMAN, L KRISS MEMBER OF THE LEGISLATIVE COUNCIL Unavailable Unavailable KIRSCHMAN, L KRISS MEMBER OF THE LEGISLATIVE COUNCIL Unavailable Unavailable KIRSCHMAN, L KRISS MEMBER OF THE LEGISLATIVE COUNCIL Unavailable Unavailable KIRSCHMAN, L KRISS MEMBER OF THE LEGISLATIVE COUNCIL Unavailable Unavailable KIRSCHMAN, L KRISS MEMBER OF THE LEGISLATIVE COUNCIL Unavailable Unavailable KIRSCHMAN, L KRISS MEMBER OF THE LEGISLATIVE COUNCIL Unavailable Unavailable KIRSCHMAN, L KRISS MEMBER OF THE LEGISLATIVE COUNCIL Unavailable Unavailable KIRSCHMAN, L KRISS MEMBER OF THE LEGISLATIVE COUNCIL Unavailable Unavailable KIRSCHMAN, L KRISS MEMBER OF THE LEGISLATIVE COUNCIL Unavailable Unavailable KIRSCHMAN, L KRISS MEMBER OF THE LEGISLATIVE COUNCIL Unavailable Unavailable KIRSCHMAN, L KRISS MEMBER OF THE LEGISLATIVE COUNCIL Unavailable Unavailable KIRSCHMAN, L KRISS MEMBER OF THE LEGISLATIVE COUNCIL Unavailable Unavailable KIRSCHMAN, L KRISS MEMBER OF THE LEGISLATIVE COUNCIL Unavailable Unavailable KIRSCHMAN, L KRISS MEMBER OF THE LEGISLATIVE COUNCIL Unavailable Unavailable KIRSCHMAN, L KRISS MEMBER OF THE LEGISLATIVE COUNCIL Unavailable Unavailable KIRSCHMAN, L KRISS MEMBER OF THE LEGISLATIVE COUNCIL Unavailable Unavailable KIRSCHMAN, L KRISS MEMBER OF THE LEGISLATIVE COUNCIL Unavailable Unavailable KIRSCHMAN, L KRISS MEMBER OF THE LEGISLATIVE COUNCIL Unavailable Unavailable KIRSCHMAN, L KRISS MEMBER OF THE LEGISLATIVE COUNCIL Unavailable Unavailable KIRSCHMAN, L KRSIS MEMBER OF THE LEGISLATIVE COUNCIL Unavailable Unavailable KIRSCHMAN, L KRISS MEMBER OF THE LEGISLATIVE COUNCIL Unavailable Unavailable KIRSCHMAN, L KRISS MEMBER OF THE LEGISLATIVE COUNCIL Unavailable Unavailable KIRSCHMAN, L KRISS MEMBER OF THE LEGISLATIVE COUNCIL Unavailable Unavailable KIRSCHMAN, L KRISS MEMBER OF THE LEGISLATIVE COUNCIL Unavailable Unavailable KIRSCHMAN, L KRISS MEMBER OF THE LEGISLATIVE COUNCIL Unavailable Unavailable KIRSCHMAN, L KRISS MEMBER OF THE LEGISLATIVE COUNCIL Unavailable Unavailable KIRSCHMAN, L KRISS MEMBER OF THE LEGISLATIVE COUNCIL Unavailable Unavailable Monty, L Shelyta DORMITORY KEEPER Unavailable Unavailable Monty, L Shelyta DORMITORY KEEPER Unavailable Unavailable Monty, L Shelyta DORMITORY KEEPER Unavailable Unavailable Monty, L Shelyta DORMITORY KEEPER Unavailable Unavailable Monty, L Shelyta DORMITORY KEEPER Unavailable Unavailable Monty, L Shelyta DORMITORY KEEPER Unavailable Unavailable Monty, L Shelyta DORMITORY KEEPER Unavailable Unavailable Monty, L Shelyta DORMITORY KEEPER Unavailable Unavailable Monty, L Shelyta DORMITORY KEEPER Unavailable Unavailable Mnoty, L Shelyta DORMITORY KEEPER Unavailable Unavailable Monty, L Shelyta DORMITORY KEEPER Unavailable Unavailable Monty, L Shelyta DORMITORY KEEPER Unavailable Unavailable Monty, L Shelyta DORMITORY KEEPER Unavailable Unavailable Monty, L Shelyta DORMITORY KEEPER Unavailable Unavailable Monty, L Shelyta DORMITORY KEEPER Unavailable Unavailable Monty, L Shelyta DORMITORY KEEPER Unavailable Unavailable Monty, L Shelyta DORMITORY KEEPER Unavailable Unavailable Monty, L Shelyta DORMITORY KEEPER Unavailable Unavailable Monty, L Shelyta DORMITORY KEEPER Unavailable Unavailable Monty, L Shelyta DORMITORY KEEPER Unavailable Unavailable Monty, L Shelyta DORMITORY KEEPER Unavailable Unavailable Monty, L Shelyta DORMITORY KEEPER Unavailable Unavailable Monty, L Shelyta DORMITORY KEEPER Unavailable Unavailable Monty, L Shelyta DORMITORY KEEPER Unavailable Unavailable Monty, L Shelyta DORMITORY KEEPER Unavailable Unavailable Ambrosio Boucher MD Unavailable Unavailable Sander, A Kameron MD Unavailable Unavailable Sander, A Kameron MD Unavailable Unavailable Sander, A Kameron MD Unavailable Unavailable Sander, A Kameron MD Unavailable Unavailable Sander, A Kameron MD Unavailable Unavailable Sander, A Kameron MD Unavailable Unavailable Sander, A Kameron MD Unavailable Unavailable Sander, A Kameron MD Unavailable Unavailable Sander, A Kameron MD Unavailable Unavailable Sander, A Kameron MD Unavailable Unavailable Sander, A Kameron MD Unavailable Unavailable Sander, A Kameron MD Unavailable Unavailable Sander, A Kameron MD Unavailable Unavailable Sander, A Kameron MD Unavailable Unavailable Sander, A Kameron MD Unavailable Unavailable Sander, A Kameron MD Unavailable Unavailable Sander, A Kameron MD Unavailable Unavailable Sander, A Kameron MD Unavailable Unavailable Sander, A Kameron MD Unavailable Unavailable Sander, A Kameron MD Unavailable Unavailable Sander, A Kameron MD Unavailable Unavailable Sander, A Kameron MD Unavailable Unavailable Sander, A Kameron MD Unavailable Unavailable Sander, A Kameron MD Unavailable Unavailable Sander, A Kameron MD Unavailable Unavailable Sander, A Kameron MD Unavailable Unavailable Sander, A Kameron MD Unavailable Unavailable Sander, A Kameron MD Unavailable Unavailable Sander, A Kameron MD Unavailable Unavailable Sander, A Kameron MD Unavailable Unavailable Sander, A Kameron MD Unavailable Unavailable Sander, A Kameron MD Unavailable Unavailable Sander, A Kameron MD Unavailable Unavailable Sander, A Kameron MD Unavailable Unavailable Sander, A Kameron MD Unavailable Unavailable Sander, A Kameron MD Unavailable Unavailable Sander, A Kameron MD Unavailable Unavailable Sander, A Kameron MD Unavailable Unavailable Sander, A Kameron MD Unavailable Unavailable Sander, A Kameron MD Unavailable Unavailable Sander, A Kameron MD Unavailable Unavailable Sander, A Kameron MD Unavailable Unavailable Sander, A Kameron MD Unavailable Unavailable Sander, A Kameron MD Unavailable Unavailable Sander, A Kameron MD Unavailable Unavailable Sander, A Kameron MD Unavailable Unavailable Sander, A Kameron MD Unavailable Unavailable Sander, A Kameron MD Unavailable Unavailable Sander, A Kameron MD Unavailable Unavailable Sander, A Kameron MD Unavailable Unavailable Sander, A Kameron MD Unavailable Unavailable Sandre, A Kameron MD Unavailable Unavailable Sander, A Kameron MD Unavailable Unavailable Sander, A Kameron MD Unavailable Unavailable Sander, A Kameron MD Unavailable Unavailable Sander, A Kameron MD Unavailable Unavailable Sander, A Kameron MD Unavailable Unavailable Sander, A Kameron SEGOVIA Unavailable Unavailable Sander, A Kameron SEGOVIA Unavailable Unavailable Sander, A Kameron SEGOVIA Unavailable Unavailable Sander, A Kameron SEGOVIA Unavailable Unavailable Sander, A Kameron SEGOVIA Unavailable Unavailable Sander, A Kameron SEGOVIA Unavailable Unavailable Sander, A Kameron SEGOVIA Unavailable Unavailable Sander, A Kameron SEGOVIA Unavailable Unavailable Sander, A Kameron SEGOVIA Unavailable Unavailable Sander, A Kameron SEGOVIA Unavailable Unavailable Sander, A Kameron SEGOVIA Unavailable Unavailable Sander, A Kameron SEGOVIA Unavailable Unavailable Sander, A Kameron SEGOVIA Unavailable Unavailable Sander, A Kameron SEGOVIA Unavailable Unavailable Sander, A Kameron SEGOVIA Unavailable Unavailable Sander, A Kameron SEGOVIA Unavailable Unavailable Sander, A Kameron SEGOVIA Unavailable Unavailable Sander, A Kameron SEGOVIA Unavailable Unavailable Sander, A Kameron SEGOVIA Unavailable Unavailable Nevills, C Yvette MEMBER OF THE LEGISLATIVE COUNCIL Unavailable Unavailable Nevills, C Yvette MEMBER OF THE LEGISLATIVE COUNCIL Unavailable Unavailable Nevills, C Yvette MEMBER OF THE LEGISLATIVE COUNCIL Unavailable Unavailable Nevills, C Yvette MEMBER OF THE LEGISLATIVE COUNCIL Unavailable Unavailable Nevills, C Yvette MEMBER OF THE LEGISLATIVE COUNCIL Unavailable Unavailable Nevills, C Yvette MEMBER OF THE LEGISLATIVE COUNCIL Unavailable Unavailable Nevills, C Yvette MEMBER OF THE LEGISLATIVE COUNCIL Unavailable Unavailable Nevills, C Yvette MEMBER OF THE LEGISLATIVE COUNCIL Unavailable Unavailable Nevills, C Yvette MEMBER OF THE LEGISLATIVE COUNCIL Unavailable Unavailable Nevills, C Yvette MEMBER OF THE LEGISLATIVE COUNCIL Unavailable Unavailable Nevills, C Yvette MEMBER OF THE LEGISLATIVE COUNCIL Unavailable Unavailable Nevills, C Yvette MEMBER OF THE LEGISLATIVE COUNCIL Unavailable Unavailable Nevills, C Yvette MEMBER OF THE LEGISLATIVE COUNCIL Unavailable Unavailable Nevills, C Yvette MEMBER OF THE LEGISLATIVE COUNCIL Unavailable Unavailable Nevills, C Yvette MEMBER OF THE LEGISLATIVE COUNCIL Unavailable Unavailable Nevills, C Yvette MEMBER OF THE LEGISLATIVE COUNCIL Unavailable Unavailable Nevills, C Yvette MEMBER OF THE LEGISLATIVE COUNCIL Unavailable Unavailable Nevills, C Yvette MEMBER OF THE LEGISLATIVE COUNCIL Unavailable Unavailable Nevills, C Yvette MEMBER OF THE LEGISLATIVE COUNCIL Unavailable Unavailable Nevills, C Yvette MEMBER OF THE LEGISLATIVE COUNCIL Unavailable Unavailable Nevills, C Yvette MEMBER OF THE LEGISLATIVE COUNCIL Unavailable Unavailable Nevills, C Yvette MEMBER OF THE LEGISLATIVE COUNCIL Unavailable Unavailable Nevills, C Yvette MEMBER OF THE LEGISLATIVE COUNCIL Unavailable Unavailable Nevills, C Yvette MEMBER OF THE LEGISLATIVE COUNCIL Unavailable Unavailable Nevills, C Yvette MEMBER OF THE LEGISLATIVE COUNCIL Unavailable Unavailable Nevills, C Yvette MEMBER OF THE LEGISLATIVE COUNCIL Unavailable Unavailable Nevills, C Yvette MEMBER OF THE LEGISLATIVE COUNCIL Unavailable Unavailable Nevills, C Yvette MEMBER OF THE LEGISLATIVE COUNCIL Unavailable Unavailable Nevills, C Yvette MEMBER OF THE LEGISLATIVE COUNCIL Unavailable Unavailable Nevills, C Yvette MEMBER OF THE LEGISLATIVE COUNCIL Unavailable Unavailable Nevills, C Yvette MEMBER OF THE LEGISLATIVE COUNCIL Unavailable Unavailable Nevills, C Yvette MEMBER OF THE LEGISLATIVE COUNCIL Unavailable Unavailable Nevills, C Yvette MEMBER OF THE LEGISLATIVE COUNCIL Unavailable Unavailable Nevills, C Yvette MEMBER OF THE LEGISLATIVE COUNCIL Unavailable Unavailable DUSSING, DINO DORMITORY KEEPER-C Unavailable Unavailable DUSSING, DINO DORMITORY KEEPER-C Unavailable Unavailable DUSSING, DINO DORMITORY KEEPER-C Unavailable Unavailable DUSSING, DINO DORMITORY KEEPER-C Unavailable Unavailable DUSSING, DINO DORMITORY KEEPER-C Unavailable Unavailable DUSSING, DINO DORMITORY KEEPER-C Unavailable Unavailable DUSSING, DINO DORMITORY KEEPER-C Unavailable Unavailable DUSSING, DINO DORMITORY KEEPER-C Unavailable Unavailable DUSSING, DINO DORMITORY KEEPER-C Unavailable Unavailable DUSSING, DINO DORMITORY KEEPER-C Unavailable Unavailable DUSSING, DINO DORMITORY KEEPER-C Unavailable Unavailable DUSSING, DINO DORMITORY KEEPER-C Unavailable Unavailable DUSSING, DINO DORMITORY KEEPER-C Unavailable Unavailable DUSSING, DINO DORMITORY KEEPER-C Unavailable Unavailable DUSSING, DINO DORMITORY KEEPER-C Unavailable Unavailable DUSSING, DINO DORMITORY KEEPER-C Unavailable Unavailable DUSSING, DINO DORMITORY KEEPER-C Unavailable Unavailable DUSSING, DINO DORMITORY KEEPER-C Unavailable Unavailable DUSSING, DINO DORMITORY KEEPER-C Unavailable Unavailable DUSSING, DINO DORMITORY KEEPER-C Unavailable Unavailable DUSSING, DINO DORMITORY KEEPER-C Unavailable Unavailable DUSSING, DINO DORMITORY KEEPER-C Unavailable Unavailable DUSSING, DINO DORMITORY KEEPER-C Unavailable Unavailable DUSSING, DINO DORMITORY KEEPER-C Unavailable Unavailable DUSSING, DINO DORMITORY KEEPER-C Unavailable Unavailable DUSSING, DINO DORMITORY KEEPER-C Unavailable Unavailable DUSSING, DINO DORMITORY KEEPER-C Unavailable Unavailable DUSSING, DINO DORMITORY KEEPER-C Unavailable Unavailable DUSSING, DINO DORMITORY KEEPER-C Unavailable Unavailable DUSSING, DINO DORMITORY KEEPER-C Unavailable Unavailable DUSSING, DINO DORMITORY KEEPER-C Unavailable Unavailable DUSSING, DINO DORMITORY KEEPER-C Unavailable Unavailable DUSSING, DINO DORMITORY KEEPER-C Unavailable Unavailable DUSSING, DINO DORMITORY KEEPER-C Unavailable Unavailable Ogunsede, Tawana MEMBER OF THE LEGISLATIVE COUNCIL Unavailable Unavailable Ogunsede, Tawana MEMBER OF THE LEGISLATIVE COUNCIL Unavailable Unavailable Ogunsede, Tawana MEMBER OF THE LEGISLATIVE COUNCIL Unavailable Unavailable Ogunsede, Tawana MEMBER OF THE LEGISLATIVE COUNCIL Unavailable Unavailable Ogunsede, Tawana MEMBER OF THE LEGISLATIVE COUNCIL Unavailable Unavailable Ogunsede, Tawana MEMBER OF THE LEGISLATIVE COUNCIL Unavailable Unavailable Ogunsede, Tawana MEMBER OF THE LEGISLATIVE COUNCIL Unavailable Unavailable Ogunsede, Tawana MEMBER OF THE LEGISLATIVE COUNCIL Unavailable Unavailable Ogunsede, Tawana MEMBER OF THE LEGISLATIVE COUNCIL Unavailable Unavailable Ogunsede, Tawana MEMBER OF THE LEGISLATIVE COUNCIL Unavailable Unavailable Ogunsede, Tawana MEMBER OF THE LEGISLATIVE COUNCIL Unavailable Unavailable Ogunsede, Tawana MEMBER OF THE LEGISLATIVE COUNCIL Unavailable Unavailable Ogunsede, Tawana MEMBER OF THE LEGISLATIVE COUNCIL Unavailable Unavailable Ogunsede, Tawana MEMBER OF THE LEGISLATIVE COUNCIL Unavailable Unavailable Ogunsede, Tawana MEMBER OF THE LEGISLATIVE COUNCIL Unavailable Unavailable Ogunsede, Tawana MEMBER OF THE LEGISLATIVE COUNCIL Unavailable Unavailable Ogunsede, Tawana MEMBER OF THE LEGISLATIVE COUNCIL Unavailable Unavailable Ogunsede, Tawana MEMBER OF THE LEGISLATIVE COUNCIL Unavailable Unavailable Ogunsede, Tawana MEMBER OF THE LEGISLATIVE COUNCIL Unavailable Unavailable Ogunsede, Tawana MEMBER OF THE LEGISLATIVE COUNCIL Unavailable Unavailable Ogunsede, Tawana MEMBER OF THE LEGISLATIVE COUNCIL Unavailable Unavailable Ogunsede, Tawana MEMBER OF THE LEGISLATIVE COUNCIL Unavailable Unavailable Ogunsede, Tawana MEMBER OF THE LEGISLATIVE COUNCIL Unavailable Unavailable PACK, ISA CANELA MD Unavailable Unavailable PACK, ISA CANELA MD Unavailable Unavailable PACK, ISA CANELA MD Unavailable Unavailable Rechlin, P Rajiv DO Unavailable Unavailable Rechlin, P Rajiv DO Unavailable Unavailable Rechlin, P Rajiv DO Unavailable Unavailable Rechlin, P Rajiv DO Unavailable Unavailable Rechlin, P Rajiv DO Unavailable Unavailable Rechlin, P Rajiv DO Unavailable Unavailable Rechlin, P Rajiv DO Unavailable Unavailable Rechlin, P Rajiv DO Unavailable Unavailable Rechlin, P Rajiv DO Unavailable Unavailable Rechlin, P Rajiv DO Unavailable Unavailable Rechlin, P Rajiv DO Unavailable Unavailable Rechlin, P Rajiv DO Unavailable Unavailable Rechlin, P Rajiv DO Unavailable Unavailable Rechlin, P Rajiv DO Unavailable Unavailable Rechlin, P Rajiv DO Unavailable Unavailable Rechlin, P Rajiv DO Unavailable Unavailable Rechlin, P Rajiv DO Unavailable Unavailable Rechlin, P Rajiv DO Unavailable Unavailable Rechlin, P Rajiv DO Unavailable Unavailable Rechlin, P Rajiv DO Unavailable Unavailable Rechlin, P Rajiv DO Unavailable Unavailable Rechlin, P Rajiv DO Unavailable Unavailable Rechlin, P Rajiv DO Unavailable Unavailable Rechlin, P Rajiv DO Unavailable Unavailable Rechlin, P Rajiv DO Unavailable Unavailable Rechlin, P Rajiv DO Unavailable Unavailable Rechlin, P Rajiv DO Unavailable Unavailable Rechlin, P Rajiv DO Unavailable Unavailable Rechlin, P Rajiv DO Unavailable Unavailable Rechlin, P Rajiv DO Unavailable Unavailable Rechlin, P Rajiv DO Unavailable Unavailable Rechlin, P Rajiv DO Unavailable Unavailable Rechlin, P Rajiv DO Unavailable Unavailable Rechlin, P Rajiv DO Unavailable Unavailable Rechlin, P Rajiv DO Unavailable Unavailable Rechlin, P Rajiv DO Unavailable Unavailable Rechlin, P Rajiv DO Unavailable Unavailable Rechlin, P Rajiv DO Unavailable Unavailable Rechlin, P Rajiv DO Unavailable Unavailable Rechlin, P Rajiv DO Unavailable Unavailable Rechlin, P Rajiv DO Unavailable Unavailable Rechlin, P Rajiv DO Unavailable Unavailable Rechlin, P Rajiv DO Unavailable Unavailable Rechlin, P Rajiv DO Unavailable Unavailable Rechlin, P Rajiv DO Unavailable Unavailable Rechlin, P Rajiv DO Unavailable Unavailable Rechlin, P Rajiv DO Unavailable Unavailable Rechlin, P Rajiv DO Unavailable Unavailable Rechlin, P Rajiv DO Unavailable Unavailable Rechlin, P Rajiv DO Unavailable Unavailable Rechlin, P Rajiv DO Unavailable Unavailable Sander, A Kameron SEGOVIA Unavailable Unavailable Sander, A Kameron SEGOVIA Unavailable Unavailable Sander, A Kameron MD Unavailable Unavailable Sander, A Kameron MD Unavailable Unavailable Sander, A Kameron MD Unavailable Unavailable Sander, A Kameron MD Unavailable Unavailable Sander, A Kameron MD Unavailable Unavailable Sander, A Kameron MD Unavailable Unavailable Sander, A Kameron MD Unavailable Unavailable Sander, A Kameron MD Unavailable Unavailable Sander, A Kameron Unavailable Unavailable Sander, A Kameron Unavailable Unavailable Sander, A Kameron MD Unavailable Unavailable Sander, A Kameron Unavailable Unavailable Sander, A Kameron SEGOVIA Unavailable Unavailable Sander, A Kameron Unavailable Unavailable Sander, A Kameron Unavailable Unavailable Sander, A Kameron Unavailable Unavailable Sander, A Kameron Unavailable Unavailable Sander, A Kameron MD Unavailable Unavailable Sander, A Kameron Unavailable Unavailable Sander, A Kameron Unavailable Unavailable Sander, A Kameron Unavailable Unavailable Sander, A Kameron SEGOVIA Unavailable Unavailable Sander, A Kameron SEGOVIA Unavailable Unavailable Sander, A Kameron SEGOVIA Unavailable Unavailable Sander, A Kameron Unavailable Unavailable Sander, A Kameron Unavailable Unavailable Sander, A Kameron Unavailable Unavailable Sander, A Kameron Unavailable Unavailable Sander, A Kameron Unavailable Unavailable Sander, A Kameron Unavailable Unavailable Sander, A Kameron Unavailable Unavailable Sander, A Kameron MD Unavailable Unavailable Sander, A Kameron MD Unavailable Unavailable Sander, A Kameron Unavailable Unavailable Sander, A Kameron Unavailable Unavailable Sander, A Kameron MD Unavailable Unavailable Sander, A Kameron Unavailable Unavailable Sander, A Kameron Unavailable Unavailable Sander, A Kameron Unavailable Unavailable Sander, A Kameron Unavailable Unavailable Sander, A Kameron Unavailable Unavailable Sander, A Kameron Unavailable Unavailable Sander, A Kameron MD Unavailable Unavailable Sander, A Kameron MD Unavailable Unavailable Sander, A Kameron MD Unavailable Unavailable Sander, A Kameron MD Unavailable Unavailable Sander, A Kameron MD Unavailable Unavailable Sander, A Kameron MD Unavailable Unavailable Sander, A Kameron MD Unavailable Unavailable Sander, A Kameron MD Unavailable Unavailable Sander, A Kameron MD Unavailable Unavailable Sander, A Kameron MD Unavailable Unavailable Sander, A Kameron MD Unavailable Unavailable Sander, A Kameron MD Unavailable Unavailable Sander, A Kameron MD Unavailable Unavailable Sandre, A Kameron MD Unavailable Unavailable Sander, A Kameron MD Unavailable Unavailable Sander, A Kameron MD Unavailable Unavailable Sander, A Kameron MD Unavailable Unavailable Sander, A Kameron MD Unavailable Unavailable Sander, A Kameron MD Unavailable Unavailable Sander, A Kameron MD Unavailable Unavailable Sander, A Kameron MD Unavailable Unavailable Sander, A Kameron MD Unavailable Unavailable Sander, A Kameron MD Unavailable Unavailable Sander, A Kameron MD Unavailable Unavailable Sander, A Kameron MD Unavailable Unavailable Sander, A Kameron MD Unavailable Unavailable Sander, A Kameron MD Unavailable Unavailable Sander, A Kameron MD Unavailable Unavailable Sander, A Kameron MD Unavailable Unavailable Sander, A Kameron MD Unavailable Unavailable Sander, A Kameron MD Unavailable Unavailable Sander, A Kameron MD Unavailable Unavailable Sander, A Kameron MD Unavailable Unavailable Jose Roberto STRAUSS DO Unavailable Unavailable Mays, Chris Unavailable Unavailable Mays, Chris Unavailable Unavailable Mays, Chris Unavailable Unavailable Mays, Chris Unavailable Unavailable Mays, Chris Unavailable Unavailable Mays, Chris Unavailable Unavailable Mays, Chris Unavailable Unavailable Mays, Chris Unavailable Unavailable Mays, Chris Unavailable Unavailable Mays, Chris Unavailable Unavailable Mays, Chris Unavailable Unavailable Mays, Chris Unavailable Unavailable Mays, Chris Unavailable Unavailable Mays, Chris Unavailable Unavailable Mays, Chris Unavailable Unavailable Mays, Chris Unavailable Unavailable Mays, Chris Unavailable Unavailable Mays, Chris Unavailable Unavailable Mays, Chris Unavailable Unavailable Mays, Chris Unavailable Unavailable Mays, Chris Unavailable Unavailable Mays, Chris Unavailable Unavailable Mays, Chris Unavailable Unavailable Mays, Chris Unavailable Unavailable Mays, Chris Unavailable Unavailable Mays, Chris Unavailable Unavailable Mays, Chris Unavailable Unavailable Mays, Chris Unavailable Unavailable Mays, Chris Unavailable Unavailable Mays, Chris Unavailable Unavailable Mays, Chris Unavailable Unavailable Mays, Chris Unavailable Unavailable Mays, Chris Unavailable Unavailable Mays, Chris Unavailable Unavailable Mays, Chris Unavailable Unavailable Mays, Chris Unavailable Unavailable Mays, Chris Unavailable Unavailable Mays, Chris Unavailable Unavailable Mays, Chris Unavailable Unavailable Mays, Chris Unavailable Unavailable Mays, Chris Unavailable Unavailable Mays, Chris Unavailable Unavailable Mays, Chris Unavailable Unavailable Mays, Chris Unavailable Unavailable Mays, Chris Unavailable Unavailable Cal, Jazmine Penelope ANP-BC Unavailable Unavailable Cal, Jazmine Penelope ANP-BC Unavailable Unavailable Cal, Jazmine Penelope ANP-BC Unavailable Unavailable Cal, Jazmine Penelope ANP-BC Unavailable Unavailable Cal, Jazmine Penelope ANP-BC Unavailable Unavailable Cal, Jazmine Penelope ANP-BC Unavailable Unavailable Cal, Jazmine Penelope ANP-BC Unavailable Unavailable Cal, Jazmine Penelope ANP-BC Unavailable Unavailable Cal, Jazmine Penelope ANP-BC Unavailable Unavailable Cal, Jazmine Penelope ANP-BC Unavailable Unavailable Cal, Jazmine Penelope ANP-BC Unavailable Unavailable Cal, Jazmine Penelope ANP-BC Unavailable Unavailable Cal, Jazmine Penelope ANP-BC Unavailable Unavailable Cal, Jazmine Penelope ANP-BC Unavailable Unavailable Cal, Jazmine Penelope ANP-BC Unavailable Unavailable Cal, Jazmine Penelope ANP-BC Unavailable Unavailable Cal, Jazmine Penelope ANP-BC Unavailable Unavailable Cal, Jazmine Penelope ANP-BC Unavailable Unavailable Cal, Jazmine Penelope ANP-BC Unavailable Unavailable Cal, Jazmine Penelope ANP-BC Unavailable Unavailable Cal, Jazmine Penelope ANP-BC Unavailable Unavailable Cal, Jazmine Penelope ANP-BC Unavailable Unavailable Cal, Jazmine Penelope ANP-BC Unavailable Unavailable Cal, Jazmine Penelope ANP-BC Unavailable Unavailable Cal, Jazmine Penelope ANP-BC Unavailable Unavailable Cal, Jazmine Penelope ANP-BC Unavailable Unavailable Cal, Jazmine Penelope ANP-BC Unavailable Unavailable Cal, Jazmine Penelope ANP-BC Unavailable Unavailable Cal, Jazmine Penelope ANP-BC Unavailable Unavailable Cal, Jazmine Penelope ANP-BC Unavailable Unavailable Cal, Jazmine Penelope ANP-BC Unavailable Unavailable Cal, Jazmine Penelope ANP-BC Unavailable Unavailable Cal, Jazmine Penelope ANP-BC Unavailable Unavailable Cal, Jazmine Penelope ANP-BC Unavailable Unavailable Cal, Jazmine Penelope ANP-BC Unavailable Unavailable Cal, Jazmine Penelope ANP-BC Unavailable Unavailable Cal, Jazmine Penelope ANP-BC Unavailable Unavailable Cal, Jazmine Penelope ANP-BC Unavailable Unavailable Cal, Jazmine Penelope ANP-BC Unavailable Unavailable Cal, Jazmine Penelope ANP-BC Unavailable Unavailable Cal, Jazmine Penelope ANP-BC Unavailable Unavailable Jazmine Mccall Penelope ANP-BC Unavailable Unavailable Jazmine Mccall Penelope ANP-BC Unavailable Unavailable Jazmine Mccall Penelope ANP-BC Unavailable Unavailable Jazmine Mccall Penelope ANP-BC Unavailable Unavailable Jazmine Mccall Penelope ANP-BC Unavailable Unavailable Jazmine Mccall Penelope ANP-BC Unavailable Unavailable Jazmine Mccall Penelope ANP-BC Unavailable Unavailable Jazmine Mccall Penelope ANP-BC Unavailable Unavailable Jazmine Mccall Penelope ANP-BC Unavailable Unavailable Jazmine Mccall Penelope ANP-BC Unavailable Unavailable Jazmine Mccall Penelope ANP-BC Unavailable Unavailable Jazmine Mccall Penelope ANP-BC Unavailable Unavailable Jazmine Mccall Penelope ANP-BC Unavailable Unavailable Jazmine Mccall Penelope ANP-BC Unavailable Unavailable Jazmine Mccall Penelope ANP-BC Unavailable Unavailable Jazmine Mccall Penelope ANP-BC Unavailable Unavailable Jazmine Mccall Penelope ANP-BC Unavailable Unavailable Jazmine Mccall Penelope ANP-BC Unavailable Unavailable Jazmine Mccall Penelope ANP-BC Unavailable Unavailable Jazmine Mccall Penelope ANP-BC Unavailable Unavailable Jazmine Mccall Penelope ANP-BC Unavailable Unavailable Jazmine Mccall Penelope ANP-BC Unavailable Unavailable Jazmine Mccall Penelope ANP-BC Unavailable Unavailable Jazmine Mccall Penelope ANP-BC Unavailable Unavailable Jazmine Mccall Penelope ANP-BC Unavailable Unavailable Nevills, C Yvette MEMBER OF THE LEGISLATIVE COUNCIL Unavailable Unavailable Nevills, C Yvette MEMBER OF THE LEGISLATIVE COUNCIL Unavailable Unavailable Nevills, C Yvette MEMBER OF THE LEGISLATIVE COUNCIL Unavailable Unavailable Nevills, C Yvette MEMBER OF THE LEGISLATIVE COUNCIL Unavailable Unavailable Nevills, C Yvette MEMBER OF THE LEGISLATIVE COUNCIL Unavailable Unavailable Nevills, C Yvette MEMBER OF THE LEGISLATIVE COUNCIL Unavailable Unavailable Nevills, C Yvette MEMBER OF THE LEGISLATIVE COUNCIL Unavailable Unavailable Nevills, C Yvette MEMBER OF THE LEGISLATIVE COUNCIL Unavailable Unavailable Nevills, C Yvette MEMBER OF THE LEGISLATIVE COUNCIL Unavailable Unavailable Nevills, C Yvette MEMBER OF THE LEGISLATIVE COUNCIL Unavailable Unavailable Nevills, C Yvette MEMBER OF THE LEGISLATIVE COUNCIL Unavailable Unavailable Nevills, C Yvette MEMBER OF THE LEGISLATIVE COUNCIL Unavailable Unavailable Nevills, C Yvette MEMBER OF THE LEGISLATIVE COUNCIL Unavailable Unavailable Nevills, C Yvette MEMBER OF THE LEGISLATIVE COUNCIL Unavailable Unavailable Nevills, C Yvette MEMBER OF THE LEGISLATIVE COUNCIL Unavailable Unavailable Nevills, C Yvette MEMBER OF THE LEGISLATIVE COUNCIL Unavailable Unavailable Nevills, C Yvette MEMBER OF THE LEGISLATIVE COUNCIL Unavailable Unavailable Nevills, C Yvette MEMBER OF THE LEGISLATIVE COUNCIL Unavailable Unavailable Nevills, C Yvette MEMBER OF THE LEGISLATIVE COUNCIL Unavailable Unavailable Nevills, C Yvette MEMBER OF THE LEGISLATIVE COUNCIL Unavailable Unavailable Nevills, C Yvette MEMBER OF THE LEGISLATIVE COUNCIL Unavailable Unavailable Nevills, C Yvette MEMBER OF THE LEGISLATIVE COUNCIL Unavailable Unavailable Nevills, C Yvette MEMBER OF THE LEGISLATIVE COUNCIL Unavailable Unavailable Nevills, C Yvette MEMBER OF THE LEGISLATIVE COUNCIL Unavailable Unavailable Nevills, C Yvette MEMBER OF THE LEGISLATIVE COUNCIL Unavailable Unavailable Nevills, C Yvette MEMBER OF THE LEGISLATIVE COUNCIL Unavailable Unavailable Nevills, C Yvette MEMBER OF THE LEGISLATIVE COUNCIL Unavailable Unavailable Nevills, C Yvette MEMBER OF THE LEGISLATIVE COUNCIL Unavailable Unavailable Nevills, C Yvette MEMBER OF THE LEGISLATIVE COUNCIL Unavailable Unavailable Nevills, C Yvette MEMBER OF THE LEGISLATIVE COUNCIL Unavailable Unavailable Nevills, C Yvette MEMBER OF THE LEGISLATIVE COUNCIL Unavailable Unavailable Nevills, C Yvette MEMBER OF THE LEGISLATIVE COUNCIL Unavailable Unavailable Nevills, C Yvette MEMBER OF THE LEGISLATIVE COUNCIL Unavailable Unavailable Nevills, C Yvette MEMBER OF THE LEGISLATIVE COUNCIL Unavailable Unavailable MELISA, T SUSANA DORMITORY KEEPER Unavailable Unavailable MELISA, T SUSANA DORMITORY KEEPER Unavailable Unavailable MELISA, T SUSANA DORMITORY KEEPER Unavailable Unavailable MELISA, T SUSANA DORMITORY KEEPER Unavailable Unavailable MELISA, T SUSANA DORMITORY KEEPER Unavailable Unavailable MELISA, T SUSANA DORMITORY KEEPER Unavailable Unavailable MELISA, T SUSANA DORMITORY KEEPER Unavailable Unavailable MELISA, T SUSANA DORMITORY KEEPER Unavailable Unavailable MELISA, T SUSANA DORMITORY KEEPER Unavailable Unavailable MELISA, T SUSANA DORMITORY KEEPER Unavailable Unavailable MELISA, T SUSANA DORMITORY KEEPER Unavailable Unavailable MELISA, T SUSANA DORMITORY KEEPER Unavailable Unavailable MELISA, T SUSANA DORMITORY KEEPER Unavailable Unavailable MELISA, T SUSANA DORMITORY KEEPER Unavailable Unavailable MELISA, T SUSANA DORMITORY KEEPER Unavailable Unavailable MELISA, T SUSANA DORMITORY KEEPER Unavailable Unavailable MELISA, T SUSANA DORMITORY KEEPER Unavailable Unavailable MELISA, T SUSANA DORMITORY KEEPER Unavailable Unavailable MELISA, T SUSANA DORMITORY KEEPER Unavailable Unavailable MELISA, T SUSANA DORMITORY KEEPER Unavailable Unavailable MELISA, T SUSANA DORMITORY KEEPER Unavailable Unavailable MELISA, T SUSANA DORMITORY KEEPER Unavailable Unavailable MELISA, T SUSANA DORMITORY KEEPER Unavailable Unavailable MELISA, T SUSANA DORMITORY KEEPER Unavailable Unavailable MELISA, T SUSANA DORMITORY KEEPER Unavailable Unavailable MELISA, T SUSANA DORMITORY KEEPER Unavailable Unavailable MELISA, T SUSANA DORMITORY KEEPER Unavailable Unavailable MELISA, T SUSANA DORMITORY KEEPER Unavailable Unavailable MELISA, T SUSANA DORMITORY KEEPER Unavailable Unavailable MELISA, T SUSANA DORMITORY KEEPER Unavailable Unavailable MELISA, T SUSANA DORMITORY KEEPER Unavailable Unavailable MELISA, T SUSANA DORMITORY KEEPER Unavailable Unavailable MELISA, T SUSANA DORMITORY KEEPER Unavailable Unavailable MELISA, T SUSANA DORMITORY KEEPER Unavailable Unavailable MELISA, T SUSANA DORMITORY KEEPER Unavailable Unavailable MELISA, T SUSANA DORMITORY KEEPER Unavailable Unavailable MELISA, T SUSANA DORMITORY KEEPER Unavailable Unavailable MELISA, T SUSANA DORMITORY KEEPER Unavailable Unavailable MELISA, T SUSANA DORMITORY KEEPER Unavailable Unavailable MELISA, T SUSANA DORMITORY KEEPER Unavailable Unavailable Cal, Jazmine Penelope ANP-BC Unavailable Unavailable Cal, Jazmine Penelope ANP-BC Unavailable Unavailable Cal, Jazmine Penelope ANP-BC Unavailable Unavailable Cal, Jazmine Penelope ANP-BC Unavailable Unavailable Cal, Jazmine Penelope ANP-BC Unavailable Unavailable Cal, Jazmine Penelope ANP-BC Unavailable Unavailable Cal, Jazmine Penelope ANP-BC Unavailable Unavailable Cal, Jazmine Penelope ANP-BC Unavailable Unavailable Cal, Jazmine Penelope ANP-BC Unavailable Unavailable Cal, Jazmine Penelope ANP-BC Unavailable Unavailable Cal, Jazmine Penelope ANP-BC Unavailable Unavailable Cal, Jazmine Penelope ANP-BC Unavailable Unavailable Cal, Jazmine Penelope ANP-BC Unavailable Unavailable Cal, Jazmine Penelope ANP-BC Unavailable Unavailable Cal, Jazmine Penelope ANP-BC Unavailable Unavailable Cal, Jazmine Penelope ANP-BC Unavailable Unavailable Cal, Jazmine Penelope ANP-BC Unavailable Unavailable Cal, Jazmine Penelope ANP-BC Unavailable Unavailable Cal, Jazmine Penelope ANP-BC Unavailable Unavailable Cal, Jazmine Penelope ANP-BC Unavailable Unavailable Cal, Jazmine Penelope ANP-BC Unavailable Unavailable Cal, Jazmine Penelope ANP-BC Unavailable Unavailable Cal, Jazmine Penelope ANP-BC Unavailable Unavailable Cal, Jazmine Penelope ANP-BC Unavailable Unavailable Cal, Jazmine Penelope ANP-BC Unavailable Unavailable Cla, Jazmine Penelope ANP-BC Unavailable Unavailable Cal, Jazmine Penelope ANP-BC Unavailable Unavailable Cal, Jazmine Penelope ANP-BC Unavailable Unavailable Cal, Jazmine Penelope ANP-BC Unavailable Unavailable Cal, Jazmine Penelope ANP-BC Unavailable Unavailable Cal, Jazmine Penelope ANP-BC Unavailable Unavailable Cal, Jazmine Penelope ANP-BC Unavailable Unavailable Cal, Jazmine Penelope ANP-BC Unavailable Unavailable Cal, Jazmine Penelope ANP-BC Unavailable Unavailable Cal, Jazmine Penelope ANP-BC Unavailable Unavailable Cal, Jazmine Penelope ANP-BC Unavailable Unavailable Cal, Jazmine Penelope ANP-BC Unavailable Unavailable Cal, Jazmine Penelope ANP-BC Unavailable Unavailable Cal, Jazmine Penelope ANP-BC Unavailable Unavailable Cal, Jazmine Penelope ANP-BC Unavailable Unavailable Cal, Jazmine Penelope ANP-BC Unavailable Unavailable Cal, Jazmine Penelope ANP-BC Unavailable Unavailable Cal, Jazmine Penelope ANP-BC Unavailable Unavailable Cal, Jazmine Penelope ANP-BC Unavailable Unavailable Cal, Jazmine Penelope ANP-BC Unavailable Unavailable Cal, Jazmine Penelope ANP-BC Unavailable Unavailable Cal, Jazmine Penelope ANP-BC Unavailable Unavailable Cal, Jazmine Penelope ANP-BC Unavailable Unavailable Cal, Jazmine Penelope ANP-BC Unavailable Unavailable Cal, Jazmine Penelope ANP-BC Unavailable Unavailable Cal, Jazmine Penelope ANP-BC Unavailable Unavailable Cal, Jazmine Penelope ANP-BC Unavailable Unavailable Cal, Jazmine Penelope ANP-BC Unavailable Unavailable Cal, Jazmine Penelope ANP-BC Unavailable Unavailable Cal, Jazmine Penelope ANP-BC Unavailable Unavailable Cal, Jazmine Penelope ANP-BC Unavailable Unavailable Cal, Jazmine Penelope ANP-BC Unavailable Unavailable Cal, Jazmine Penelope ANP-BC Unavailable Unavailable Cal, Jazmine Penelope ANP-BC Unavailable Unavailable Cal, Jazmine Penelope ANP-BC Unavailable Unavailable Cal, Jazmine Penelope ANP-BC Unavailable Unavailable Cal, Jazmine Penelope ANP-BC Unavailable Unavailable Cal, Jazmine Penelope ANP-BC Unavailable Unavailable Cal, Jazmine Penelope ANP-BC Unavailable Unavailable Cal, Jazmine Penelope ANP-BC Unavailable Unavailable Cal, Jazmine Penelope ANP-BC Unavailable Unavailable Re-disclosure Warning The records that you are about to access may contain information from federally-assisted alcohol or drug abuse programs. If such information is present, then the following federally mandated warning applies: This information has been disclosed to you from records protected by federal confidentiality rules (42 CFR part 2). The federal rules prohibit you from making any further disclosure of this information unless further disclosure is expressly permitted by the written consent of the person to whom it pertains or as otherwise permitted by 42 CFR part 2. A general authorization for the release of medical or other information is NOT sufficient for this purpose. The Federal rules restrict any use of the information to criminally investigate or prosecute any alcohol or drug abuse patient.The records that you are about to access may contain highly sensitive health information, the redisclosure of which is protected by Article 27-F of the [place] State Public Health law. If you continue you may have access to information: Regarding HIV / AIDS; Provided by facilities licensed or operated by the [facility] Office of Mental Health; or Provided by the [facility] Office for People With Developmental Disabilities. If such information is present, then the following [facility] mandated warning applies: This information has been disclosed to you from confidential records which are protected by state law. State law prohibits you from making any further disclosure of this information without the specific written consent of the person to whom it pertains, or as otherwise permitted by law. Any unauthorized further disclosure in violation of state law may result in a fine or skilled nursing sentence or both. A general authorization for the release of medical or other information is NOT sufficient authorization for further disc losure. Allergies and Adverse Reactions Type Description Substance Reaction Status Data Source(s ) No Known Drug Allergies No Known Drug Allergies [facility] Propensity to adverse reactions LATEX LATEX [facility] Family History Family Member Name Family Member Gender Family Member Status Date o f Status Description Data Source(s) Unknown Male Problem [facility] ([facility]) () Unknown Male Problem [facility] ([facility] ) Encounters Encounter Providers Location Date Indications Data Source(s ) Outpatient Attender: ISA Mims/Charlie/Edmar/ Reinjessica 05/28/2021 09:40:00 AM EDT [facility] ([facility] Outpatient Attender: ISA Mims/Charlie/Edmar/ Reinjessica 05/09/2021 10:00:00 AM EDT [facility] ([facility]) Outpatient Attender: Rajiv Redd/Charlie/Edmar/Abhi rhodes 01/29/2021 11:00:00 AM EDT [facility] ([facility]) Outpatient Attender: Yvette Bustillos NP Family Practice 01/28 03:00:00 PM EDT [facility] Outpatient Attender: Yvette Bustillos NPConsultant: KRISS JIMENEZ NP 01/28/2021 01:48:00 PM EDT - 01/28/2021 01:48:00 PM EDT [facility] Outpatient Attender: Yvette Bustillos NPConsultant: KRISS JIMENEZ NP 01/13/2021 02:23:00 PM EDT - 01/13/2021 02:23:00 PM EDT [facility] Recurring Patient Referrer: DINO OVIEDO 11/27/2020 11:46:33 AM EDT [facility] Outpatient Attender: Kameron Boucher MDAdmitter: Kameron Boucher MD 11/26/2020 05:15:00 AM EDT - 11/26/2020 09:16:00 AM EDT 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 Outpatient Attender: TALHA STRAUSS DO 11/22/2020 03:45:01 PM EDT [facility] Outpatient Attender: Kameron Boucher MDReferrer: Penelope NICOLE 11/21/2020 08:38:55 AM EDT [facility] Outpatient Attender: TALHA STRAUSS DO 11/12/2020 11:24:17 AM EDT [facility] Outpatient Attender: Kameron Boucher MD 11/12/2020 10:3 5:00 AM EDT ELECTIVE L5-S1 LUMBAR LAMINECTOMY AND DECOMPRESSION, [facility] ELECTIVE L5-S1 LUMBAR LAMINECTOMY AND DE COMPRESSION, [facility] Outpatient Attender: Penelope GRAHAMonsultant: KRISS BOOTH NP 11/06/2020 01:03:00 PM EDT - 11/06/2020 01:03:00 PM EDT [facility] Outpatient Attender: Penelope SANCHEZ Family Practice 10/24 01:00:00 PM EDT [facility] ([facility]) Recurring Patient Attender: Danni Millan FNPReferrer: Chris hobbs 11/04/2020 02:24:52 PM EDT [facility] Outpatient Attender: Penelope SANCHEZ 09/2020 08:51:00 AM EST - 09/25/2020 08:51:00 AM EST [facility] Recurring Patient Referrer: DINO OVIEDO 09/24/2020 07:36:01 AM EST [facility] Outpatient Attender: Kameron Boucher MDReferrer: Penelope DONIS P-BC 09/20/2020 10:30:20 AM EST [facility] Recurring Patient Referrer: DINO NIETO DORMITORY KEEPER-C 09/20/2020 09:54:56 AM EST [facility] Recurring Patient Referrer: DINO NIETO DORMITORY KEEPER-C 09/20/2020 09:49:31 AM EST [facility] Outpatient Attender: SUSANA VINCENT DORMITORY KEEPER 01/2021 02:28:10 PM EST - 09/01/2020 03:39:43 PM EST [facility] ([facility] ) Recurring Patient Attender: Danni Millan FNPReferrer: Chris hobbs 08/06/2020 12:30:33 PM EST [facility] Recurring Patient Attender: Danni Millan FNPReferrer: Chris hobbs 08/06/2020 12:30:12 PM EST [facility] Recurring Patient Attender: Danni Millan FNPReferrer: Chris hobbs 08/06/2020 12:27:53 PM EST [facility] Outpatient Attender: Rajiv Redd/Charlie/Edmar/Abhi rhodes 07/29/2020 09:00:00 AM EST [facility] ([facility] Recurring Patient Attender: Danni Millan FNPReferrer: Chris hobbs 07/25/2020 08:57:15 AM EST [facility] Recurring Patient Referrer: DINO NIETO DORMITORY KEEPER-C 07/24/2020 02:30:06 PM EST [facility] Recurring Patient Referrer: DINO NIETO DORMITORY KEEPER-C 07/24/2020 02:23:28 PM EST [facility] Outpatient Attender: DINO NUGENTP-CReferrer: Chris hobbs 07/24/2020 08:46:24 AM EST [facility] Recurring Patient Attender: Danni Millan FNPReferrer: Chris hobbs 07/23/2020 03:10:15 PM EST [facility] Recurring Patient Attender: Danni Millan FNPReferrer: Chris hobbs 07/15/2020 10:31:26 AM EST [facility] Outpatient Attender: Tawana Gomes NPReferrer: Chris Mays 07/02/2020 08:10:01 AM EST [facility] Outpatient Attender: Penelope Mccall ANP-BC 05/28 03:03:00 PM EST - 06/24/2020 03:03:00 PM [facility] Outpatient Attender: Danni Millan FNPReferrer: Chris dowd 06/18/2020 09:26:06 AM EST [facility] Recurring Patient Attender: Danni Millan FNPReferrer: Chris hobbs 06/14/2020 02:22:41 PM [facility] Outpatient Attender: Danni Millan FNPReferrer: Chris dowd 05/31/2020 11:09:49 AM [facility] Immunizations Vaccine Date Status Description Data Source(s) COVID-19 VACCINE Moderna 04/02/2021 12:00:00 AM EDT completed [facility] Vaccine Series Complete: YESThis Data wa s Submitted to [facility] Via [employer]. COVID-19 VACCINE Moderna 03/05/2021 12:00:00 AM EDT completed [facility] Vaccine Series Complete: NOThis Data was Submitted to [facility] Via [employer]. Medications Medication Brand Name Start Date Product Form Dose Route Admi nistrative Instructions Pharmacy Instructions Status Indications Reaction Description Data Source(s) Potassium Chloride 10 MEQ Extended Release Oral Capsule Pota ssium Chloride ER 06/10/2021 12:00:00 AM EST ORAL active [facility] ([facility]) 60 ACTUAT Albuterol 0.09 MG/ACTUAT Metered Dose Inhaler Albu terol Sulfate HFA 01/09/2021 12:00:00 AM EDT RESPIRATORY active [facility] ([facility] ) Levothyroxine Sodium 0.075 MG Oral Tablet Levothyroxine Sodi um 11/21/2020 12:00:00 AM EDT ORAL active M EDENT ([facility]) Azithromycin 250 MG Oral Tablet Azithromycin 07/29/2020 12:00:[address] ORAL active [facility] ([facility] ) Bisacodyl 5 MG Delayed Release Oral Tablet Bisacodyl Ec 05/03/2020 12:00:00 AM EDT ORAL active [facility] ([facility]) POLYETHYLENE GLYCOL 3350 142 MG/ML Oral Solution [Miralax] M iralax 05/03/2020 12:00:00 AM EDT active M [facility]ENT ([facility]) Insurance Providers Payer name Policy type / Coverage type Policy ID Covered green party ID Covered green party's relationship to leon Policy Leon Plan Information [employer] [place] [employer] Workers Compensation [id number] Self 1 [id number] [employer] [employer] Workers Compensation [id number] Self 1 [id number] [place] [employer]) Workers Compensation [id number] Self 1 [id number] [place] [employer]) Workers Compensation [id number] Self 1 [id number] [place] [employer]) Workers Compensation [id number] Self 1 [id number] [place] [employer]) Workers Compensation [id number] Self [id number] [employer] [place] [employer]) Workers Compensation [id number] Self 1 [id number] [employer] [employer]) Workers Compensation [id number] Self 1 [id number] [place] [employer]) Workers Compensation [id number] Self 1 [id number] [place] [employer]) Workers Compensation [id number] Self [id number] [place] [employer]) Workers Compensation [id number] Self [id number] [place] [employer]) Workers Compensation [id number] Self 1 [id number] [employer] [place] PPO 302/[id number] SP [id number] [employer] [place] Workers Compensation [id number] Self [id number] [employer] [place] Workers Compensation [id number] Self [id number] [employer] [place] Workers Compensation [id number] Self [facility] COMMUNITY PLAN [facility] [id number] SP [id number] [facility] Commercial Insurance Co. [id number] Self [id number] [facility] Medicare Complete F [id number] SELF [id number] [facility] Commercial Insurance Co. [id number] Self [id number] [facility] Comm Plan Medicaid F [id number] SELF [id number] [facility] Comm Plan Medicaid F [id number] SELF [id number] [facility] Comm Plan Medicaid F [id number] SELF [id number] [facility] Comm Plan Medicaid F [id number] SELF [id number] Medicare C [id number] SELF [id number] [id number] Medicare C [id number] SELF [id number] [place] Medicare Part B [id number] Self [id number] [facility] Medicare Complete F [id number] SELF [id number] [facility] Medicare Complete F [id number] SELF [id number] O UNAVAILABLE UNAVAILA BLE MEDICARE COMPLETE [id number] SP [id number] [facility] O [id number] O [id number] [employer] [facility] [facility] [id number] SP [id number] [employer] O [id number] S [id number] [employer] B [id number] S VYS [id number] SELF PAY UNAVAILABLE SP UNAVAILA BLE BLUE CROSS BLUE SHIELD-O/P [id number] [id number] [facility] PROPERTIES [id number] SP [id number] MEDICARE [id number] SP [id number] [facility] [id number] SP [id number] [place] [id number] 18 [id number] [place] MED[place] [id number] 18 [id number] [facility] [id number] SP [id number] [facility] HEA [id number] S [id number] [facility] [id number] SP [id number] [facility] HEA [id number] S [id number] MEDICAID HEA [id number] S [id number] MEDICARE [id number] SP [id number] [facility] COMMUNITY PLAN XIX [id number] 18 [id number] [facility] COMMUNTY PLAN [id number] [facility](MCAID) O [id number] S [id number] [facility] Community Plan Commercial [id number] Self [id number] [facility] Communty Plan Medicaid [id number] Self [id number] [facility] Community Plan Commercial [id number] Self [id number] [facility] Communty Plan Medicaid [id number] Self [id number] [facility] Communty Plan Medicaid [id number] Self [id number] [facility] Plan Medicaid [id number] Self [id number] [facility] Plan Medicaid [id number] Self [id number] [facility] Plan Medicaid [id number] Self [id number] [facility] [facility] COMMUNITY PLAN [facility] [place] [facility] [id number] SP [id number] [facility] Plan Medicaid [id number] Self [id number] [facility] Plan Medicaid [id number] Self [id number] [facility] COMMUNITY PLAN [facility] [place] [id number] SP [id number] [facility] O [id number] S [id number] [employer] INS CO W/C [id number] SP [id number] ORYX O [id number] S [id number] Problems, Conditions, and Diagnoses Code Display Name Description Problem Type Effective Dates Data Source(s) G08848 Unspecified asthma with (acute) exacerba tion Unspecified asthma with (acute) exacerbation Diagnosis 01/13/2021 02:23:[address] 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 Diagnosis 01/13/2021 02:23:00 PM EDT [facility] F411 Generalized anxiety disorder Generalized anxiety disor josé miguel Diagnosis 01/13/2021 02:23:00 PM EDT [facility] F331 Major depressive disorder, recurrent, mo derate Major depressive disorder, recurrent, moderate Diagnosis 01/13/2021 02:23:00 PM EDT [facility] I10 Essential (primary) hypertension Essential (primary) h ypertension Diagnosis 01/13/2021 02:23:00 PM EDT [facility] E039 Hypothyroidism, unspecified Hypothyroidism, unspecifie d Diagnosis 01/13/2021 02:23:00 PM EDT [facility] E7800 Pure hypercholesterolemia, unspecified P ure hypercholesterolemia, unspecified Diagnosis 01/13/2021 02:23:00 PM EDT [facility] [id number] Encounter for preprocedural laboratory e xamination Encounter for preprocedural laboratory examination Diagnosis 09/25/2020 08:51:00 AM [facility] Z125 Encounter for screening for malignant ne oplasm of prostate Encounter for screening for malignant neoplasm of prostate Diagnosis 08:51:00 AM [facility] 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, 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, lumbar region Diagnosis 09/25/2020 08:51:00 AM [facility] Z0001 Encounter for general adult medical exam ination with abnormal findings Encounter for general adult medical examination with abnormal findings Diagnosis 09/25/2020 08:51:00 AM [facility] M542 Cervicalgia Cervicalgia Diagnosis 06/24/2020 03:03:00 PM [facility] M545 Low back pain Low back pain Diagnosis 06/24/2020 03:03:00 PM [facility] [id number] Type 2 diabetes mellitus Type 2 diabetes mellitus Prob cortez 05/09/2021 12:00:00 AM EDT [facility] ([facility], ) [id number] Allergic asthma without status asthmatic us Allergic asthma without status asthmaticus Problem 05/09/2021 12:00:00 AM EDT [facility] ([facility], ) [id number] Essential hypertension Essential hypertension Problem 05/09/2021 12:00:00 AM EDT [facility] ([facility], ) J44.9 Chronic obstructive lung disease Chronic obstructive l wil disease Problem 01/29/2021 12:00:00 AM EDT [facility] ([facility], ) J45.50 Uncomplicated severe persistent asthma U ncomplicated severe persistent asthma Problem 01/29/2021 12:00:00 AM EDT [facility] ([facility], ) Surgeries/Procedures Procedure Description Date Indications Data Source(s) OFFICE OUTPATIENT VISIT 15 MINUTES 05/28/2021 12:00:00 AM EDT [facility] ([facility]) OFFICE OUTPATIENT NEW 45 MINUTES 05/09/2021 12:00:00 A M EDT [facility] ([facility]) Bronchospasm Evaluation 01/29/2021 12:00:00 AM EDT [facility] ([facility]) Plethysmography Determination Lung Volumes & Per Airway Resi st 01/29/2021 12:00:00 AM EDT [facility] ([facility]) DIFFUSING CAPACITY 01/29/2021 12:00:00 AM EDT [facility] ([facility]) OFFICE OUTPATIENT VISIT 25 MINUTES 01/29/2021 12:00:00 AM EDT [facility] ([facility]) OFFICE OUTPATIENT VISIT 10 MINUTES 01/28/2021 12:00:00 AM EDT [facility] ([facility]) OFFICE OUTPATIENT VISIT 25 MINUTES 01/13/2021 12:00:00 AM EDT [facility] ([facility]) OFFICE OUTPATIENT VISIT 25 MINUTES 11/06/2020 12:00:00 AM EDT [facility] ([facility]) Electrocardiogram Complete 09/25/2020 12:00:00 AM EST [facility] ([facility]) Admin Patient Focused Health Risk Assessment Instrument 09/25/2020 12:00:00 AM EST [facility] ([facility]) PERIODIC PREVENTIVE MED EST PATIENT 40-64YRS 12:00:00 AM EST [facility] ([facility]) Brief Emotional/Behav Assessment W/ Scoring Doc Per Standard Inst 06/24/2020 12:00:00 AM EST [facility] ([facility]) Injec Anesthetic Agent/Steroid Trans Epidural Lumb/Sacral Si ngle 05/20/2020 12:00:00 AM EDT [facility] Epidurography Radiological Supervision & Interpretation 05/20/2020 12:00:00 AM EDT [facility] ([facility]) Moderate Sedation Services; Same Phys Intl 15 Mins; PT >= 5 Years 05/20/2020 12:00:00 AM EDT [facility] ([facility]) Results ID Date Data Source [id number] 11/26/2020 06:33:48 AM EDT [facility] Name Value Range Interpretation Code Description Data Stephanie rce(s) Supporting Document(s) POC GLUCOSE 86 mg/dL (70-99) [facility] [place] [facility] PERFORMED BY CLINICAL STAFF ID Date Data Source [id number] 11/22/2020 08:22:00 AM EDT [facility] ([facility]) Name Value Range Interpretation Code Description Data Stephanie rce(s) Supporting Document(s) Respiratory Panel Laboratory test result [facility] ([facility]) This respiratory PCR panel detects Influ vielka A H1, H3 and 2009 H1 viruses, Influenza B virus, Resp iratory Syncytial Virus, Human metapneumovirus, Parainfluenza virus 1, 2, 3 and 4, Adenovirus, Rhinovirus/Enterovirus, Coronavirus HKU1, NL63, OC43, 229E and SARS-CoV-2 (COVID 19), Bordetella pertussis, Bordetella parapertussis, Mycoplasma pneumoniae and Chlamydia pneumoniae. NEGATIVE by MULTIPLEXED NUCLEIC ACID PCR SARS-CoV-2 (COVID 19) NEGATIVE - SARS-CoV-2 (COVID19) ID Date Data Source [id number] 11/22/2020 08:22:00 AM [facility] Name Value Range Interpretation Code Description Data Stephanie rce(s) Supporting Document(s) SARS-CoV-2 (COVID 19) NEGATIVE - SARS-CoV-2 (COVID19) [facility] This lab was ordered by [facility] a nd reported by [facility]. ID Date Data Source [id number] 11/22/2020 08:17:00 AM EDT [facility] ([facility]) Name Value Range Interpretation Code Description Data Stephanie rce(s) Supporting Document(s) Glucose, Fasting 103 mg/dL 70-100 Above high normal [facility] ([facility]) Blood Urea Nitrogen 15 mg/dL 7-18 Normal (applies to non-nume helga results) [facility] ([facility]) Glomerular Filtration Rate Laboratory test result Normal (applies to non- numeric results) [facility] ([facility]) <content>Units are mL/min/1.73 m2</content>
<content></content>
<content>Chronic Kidney Disease Staging per NKF:</content>
<content></content>
<content>Stage I & II GFR >=60 Normal to Mildly Decreased</content>
<content>Stage III GFR 30- 59 Moderately Decreased</content>
<content>Stage IV GFR 15-29 Severely Decreased</content>
<content>Stage V GFR <15 Very Little GFR Left</content>
<content>ESRD GFR <15 on DYNAMOMETER MECHANIC</content>
<content></content> Creatinine For GFR 0.99 mg/dL 0.70-1.30 Normal (applies to non -numeric results) [facility] ([facility]) Sodium Level 139 meq/L 136-145 Normal (applies to non-numeric res ults) [facility] ([facility]) Potassium Serum 3.2 meq/L 3.5-5.1 Below low normal [facility] ([facility]) Chloride Level 101 meq/L 98-107 Normal (applies to non-numeric r esults) [facility] ([facility]) Carbon Dioxide Level 32 meq/L 21-32 Normal (applies to non-num steff results) [facility] ([facility]) Calcium Level 9.5 mg/dL 8.5-10.1 Normal (applies to non-numeric re sults) [facility] ([facility]) Anion Gap 6 meq/L 8-16 Below low normal [facility] ( [facility]) ID Date Data Source [id number] 11/22/2020 08:17:00 AM EDT [facility] ([facility]) Name Value Range Interpretation Code Description Data Stephanie rce(s) Supporting Document(s) White Blood Count 9.8 10 4.0-10.0 Normal (applies to non-numeri c results) [facility] ([facility]) Red Blood Count 5.59 10 4.30-6.10 Normal (applies to non-numeric results) [facility] ([facility]) Hemoglobin 15.5 g/dL 13.5-17.5 Normal (applies to non-numeric resul ts) [facility] ([facility]) Hematocrit 46.7 % 42.0-52.0 Normal (applies to non-numeric resul ts) [facility] ([facility]) Mean Corpuscular Volume 83.5 fl 80.0-96.0 Normal ( applies to non-numeric results) [facility] ([facility]) Mean Corpuscular HGB Conc 33.2 g/dL 32.0-36.5 Normal (applies to non-numeric results) [facility] ([facility]) Mean Corpuscular Hemoglobin 27.7 pg 27.0-33.0 Norm al (applies to non-numeric results) [facility] ([facility]) Red Cell Distribution Width 14.6 % 11.5-14.5 Above high normal [facility] ([facility]) Platelet Count, Automated 254 10 150-450 Normal (applies to non-numeric results) [facility] ([facility]) Neutrophils % 81.1 % 36.0-66.0 Above high normal [facility] ([facility]) Lymph % 10.6 % 24.0-44.0 Below low normal [facility] ( [facility]) Swain % 3.8 % 2.0-8.0 Normal (applies to non-numeric resul ts) [facility] ([facility]) Eos % 3.0 % 0.0-3.0 Normal (applies to non-numeric resul ts) [facility] ([facility]) Baso % 0.8 % 0.0-1.0 Normal (applies to non-numeric resul ts) [facility] ([facility]) Nucleated Red Blood Cell % 0.0 % 0-0 Normal (applies to n on-numeric results) [facility] ([facility]) Immature Granulocyte % 0.7 % 0-3.0 Normal (applies to non-n umeric results) [facility] ([facility]) Neutrophils # 8.0 10 1.5-8.5 Normal (applies to non-numeric re sults) [facility] ([facility]) Lymph # 1.0 10 1.5-5.0 Below low normal [facility] ( [facility]) Swain # 0.4 10 0.0-0.8 Normal (applies to non-numeric resul ts) [facility] ([facility]) Eos # 0.3 10 0.0-0.5 Normal (applies to non-numeric resul ts) [facility] ([facility]) Baso # 0.1 10 0.0-0.2 Normal (applies to non-numeric resul ts) [facility] ([facility]) ID Date Data Source [id number] 11/27/2020 03:40:25 PM EDT [facility], PCName: Elias GrewaloDOB: 1965Provider: Zay BoucherinDOS: 11/21/2020 Reason For VisitElias Cote is here today for lumbar spine. Elias has not had the Covid vaccine. Elias Cote is an established patient here for follow up. Patient states right lower extremity radiation with numbness, tingling, and pain. Other DOI/DOO: 2020 - denies injury. Expected DOS: 11/26/20- L5-S1 lumbar laminectomy and decompression. Patient states their pain is a 5 out of 10. The patient has not had a course of physical therapy for greater than 4 weeks. The patient's pain is managed by [facility]. Patient states they are disabled. PlanChief complaint patient states here for preoperative visitPleasant gentleman. He is here for his preoperative visit. Medications for pain include Celebrex, Cymbalta, gabapentin and tizanidine. He has an L5-S1 disc herniation. He has a history of low back pain with right leg pain for greater than one year. Pain is nervelike, associated numbness and tingling. He is better when sedentary. Worse with coughing and sneezing.Examination of the lumbar spine reveals full flexion, extension, lateral bending bilaterally, and rotation bilaterally. The patient demonstrates a normal gait . There is no posterior tenderness in the lower back. Motor strength is 5 out of 5 from L2-S1 and sensation is intact from L2-S1 bilaterally with exception of decreased sensation at the right calf posteriorly. Reflexes are 2+ at the patellar tendon and at the Achilles bilaterally. Straight leg raise is positive on the right. Contralateral straight leg raise is negative. There is no hip pain with internal or external rotation. Brisk distal capillary refill bilaterallyMRI reviewed, L5-S1 large extruded right upper central disc herniationAssessmentlumbar radiculopathy, L5-S1 herniated nucleus pulposistype: radiculopathylocation: lumbaretiology: degenerative stenosisplan:1. Medication: Continue gabapentin and Celebrex. Percocet prescribed 2. Imaging: No further imaging 3. Injection: Deferred4. Activity:as tolerated. 5. Referral: None6. Surgical management: L5-S1 Lumbar laminectomy and decompression, bilateral partial medial facetectomies, bilateral foraminotomiesWe discussed that a right L5-S1 microdiscectomy may also be performed and if this does not work in terms of getting herniation extracted it will be converted to a laminectomy decompressionWe discussed the risks of surgery including, but not limited to, infection, nerve damage, vascular damage, cerebrospinal fluid leak, residual pain, scarring, need for second stage revision, compressive hematoma resulting in neurologic symptoms, instability at the operative segment, adjacent segment degeneration, bowel or bladder dysfunction, and blindness (approximately 0.14%) from prolonged prone positioning. The patient understands that the risk of infection may be higher if an epidural steroid injection was performed within 3 months of surgery. The patient understands that surgery is not guaranteed to provide complete relief of symptoms and there is a possibility that symptoms may even be worse postoperatively. Patient understands that surgery is for leg pain and will not improve back pain. Signatures Electronically signed by : Kameron Boucher M.D.; Nov 21 2020 8:38AM EST (Author) Electronically signed by : Kameron Boucher M.D.; Nov 27 2020 3:40PM EST (Author) Name Value Range Interpretation Code Description Data Stephanie rce(s) Supporting Document(s) ID Date Data Source [id number] 11/21/2020 06:00:00 AM EDT [facility] Name Value Range Interpretation Code Description Data Stephanie rce(s) Supporting Document(s) SARS coronavirus 2 RNA [Presence] in Res piratory specimen by STACY with probe detection NOT DETECTED [facility] This lab was reported by [facility]. ID Date Data Source [id number] 11/22/2020 03:45:00 PM EDT [facility] [place] Name Value Range Interpretation Code Description Data Stephanie rce(s) Supporting Document(s) SPECIMEN DESCRIPTION [facility] [place] COVID 19 RESULT (NDET) [facility] f CNMraiam NEGATIVE COVID-19 RESULTS DONOT PRECLUDE COVID-2019 INFECTION ANDSHOULD NOT BE USED THE SOLE BASISFOR PATIENT MANAGEMENT DECISIONS. COMMENT [facility] [place] THE [place] FDA HAS MADE THIS TEST AVAILABL EUNDER AN EMERGENCY USE AUTHORIZATION(EUA) FOR THE DETECTION AND/OR DIAGNOSISOF THE VIRUS THAT CAUSES COVID-19.THIS ASSAY AMPLIFIES AND DETECTS TARGETDNA USING ACTUARIAL INTERN- MEDIATEDAMPLIFICATIONTESTING PERFORMED ON [employer] FIRST TEST [facility] [place] EMPLOYED IN HLTHCARE [facility] [place] SYMPTOMATIC [facility] [place] Bec[facility] DATE OF SYMPT ONSET [facility] [place] HOSPITALIZED [facility] ICU [facility] [place] CONGREGATE CARE SET [facility] [place] [facility] [place] ID Date Data Source [id number] 11/13/2020 12:15:42 PM EDT [facility] [place] Name Value Range Interpretation Code Description Data Stephanie rce(s) Supporting Document(s) SPECIMEN DESCRIPTION [facility] [place] STAPH SCREEN RESULTS (ONEGSA) [facility] [place] COMMENT [facility] [place] GENE TO DETECT STAPH AUREUS. (2) RT-P CR WAS PERFORMED FOR THE mecA AND SCCmec GENES TO DETECT METHICILLIN RESISTANCE IN STAPH AUREUS. ID Date Data Source [id number] 11/12/2020 12:51:21 PM EDT [facility] [place] SPEC EXP DATE 11/29/2020ATI ENT ABO/Rh O POSITIVEANTIBODY SCREEN NEGATIVETESTING SITE PERFORMED AT [address] [place] [address] Name Value Range Interpretation Code Description Data Stephanie rce(s) Supporting Document(s) ID Date Data Source [id number] 11/12/2020 11:53:19 AM EDT [facility] Name Value Range Interpretation Code Description Data Stephanie rce(s) Supporting Document(s) SODIUM 141 mmol/L (136-145) [facility] [place] POTASSIUM 3.7 mmol/L (3.6-5.2) [facility] CHLORIDE 105 mmol/L (100-108) [facility] CO2 31 mmol/L (22-31) [facility] ANION GAP 5 mmol/L (7-16) L [facility] UREA NITROGEN 16 mg/dL (7-24) [facility] CREATININE 1.00 mg/dL (0.80-1.30) [facility] BUN/CREAT RATIO 16.0 RATIO (10.0-20.0) [facility] GLUCOSE 84 mg/dL (70-99) [facility] CALCIUM 9.6 mg/dL (8.4-10.2) [facility] TOTAL PROTEIN 7.1 g/dL (6.4-8.2) [facility] ALBUMIN 3.8 g/dL (3.5-4.6) [facility] GLOBULIN 3.3 g/dL (2.7-4.3) [facility] ALB/GLOB RATIO 1.2 RATIO [facility] ALKALINE PHOSPHATASE 55 U/L (45-117) [facility] BILIRUBIN,TOTAL 0.5 mg/dL (0.0-1.0) [facility] PLEASE NOTE:Total bilirubin results may be falselyelevated in patients taking Eltrombopag. AST (SGOT) 24 U/L (11-39) [facility] ALT (SGPT) 43 U/L (12-78) [facility] GFR >60 ml/min/1.73m2 (>59) [facility] GFR ( AMER) >60 ml/min/1.73m2 (>59) [facility] GFR INTERPRETATION [facility] --NORMAL KIDNEY FUNCTION OR MILD DISEASE - GFR >OR= 60CHRONIC KIDNEY DISEASE - GFR 15 - 59RENAL FAILURE - GFR <15 Est. GFR calculation based on the MDRDstudy equation, which assumes a steadystate for creatinine. Est. GFR should notbe used for medication dosing. ID Date Data Source [id number] 11/12/2020 11:50:18 AM EDT [facility] Name Value Range Interpretation Code Description Data Stephanie rce(s) Supporting Document(s) HEMOGLOBIN A1C @ 5.5 % (4.0-6.0) [facility] Performed using Siemens [place] immunoassa y.Care must be taken when interpreting [id number] in patients with a hemoglobin variantor decreased erythrocyte lifespan. Values 5.7 - 6.4% suggest prediabetes.Values >=6.5% are diagnostic for diabetes.REFERENCE: DIABETES CARE 2018: 41(S13-S27).PERFORMED AT [address] [place] [address] EST AVERAGE GLUCOSE 111 mg/dL [facility] [place] ID Date Data Source [id number] 11/12/2020 11:24:16 AM EDT [facility] [place] Name Value Range Interpretation Code Description Data Stephanie rce(s) Supporting Document(s) WBC 7.6 10*3/uL (4.1-11.0) [facility] [place] RBC 5.15 10*6/uL (4.60-6.10) [facility] HGB 14.4 g/dL (13.5-18.0) [facility] HCT 43.4 % (41.0-53.0) [facility] PERFORMED AT [address] [place] [address] MCV 84.4 fL (80.0-95.0) [facility] MCH 28.0 pg (27.0-32.0) [facility] MCHC 33.1 g/dL (32.0-36.0) [facility] RDW 15.1 % (10.5-14.5) H [facility] PLT 275 10*3/uL (150-450) [facility] MPV 7.8 fL (7.1-10.7) [facility] NEUT % 62.1 % (35.0-75.0) [facility] LYMPH % 25.1 % (16.0-52.0) [facility] MONO % 8.4 % (0.0-8.0) H [facility] EOS % 3.5 % (0.0-5.0) [facility] BASO % 0.9 % (0.0-4.0) [facility] NEUT # 4.7 10*3/uL (1.8-7.7) [facility] LYMPH # 1.9 10*3/uL (1.2-4.8) [facility] MONO # 0.6 10*3/uL (0.0-0.8) [facility] Eosinophils [#/volume] in Blood by Automated count 0.3 10*3/uL (0.0-0 .5) [facility] BASO # 0.1 10*3/uL (0.0-0.2) [facility] ID Date Data Source [id number] 09/25/2020 10:34:00 AM EST [facility] ([facility]) Name Value Range Interpretation Code Description Data Stephanie rce(s) Supporting Document(s) Prostate specific Ag [Mass/volume] in Serum or Plasma 0.53 ng/mL 0.00 -4.00 [facility] ([facility]) Is patient fasting? N ID Date Data Source [id number] 09/25/2020 10:34:00 AM EST [facility] ([facility]) Name Value Range Interpretation Code Description Data Stephanie rce(s) Supporting Document(s) Magnesium [Mass/volume] in Serum or Plasma 2.0 mg/dL 1.7-2.2 [facility] ([facility]) Is patient fasting? N Thyroperoxidase Ab [Units/volume] in Serum or Plasma 9 IU/ml 0-34 [facility] ([facility]) Is patient fasting? N Thyrotropin [Units/volume] in Serum or Plasma 1.81 uIU/mL 0.47-5.01 [facility] ([facility]) Is patient fasting? N ID Date Data Source [id number] 09/25/2020 10:34:00 AM EST [facility] ([facility]) Name Value Range Interpretation Code Description Data Stephanie rce(s) Supporting Document(s) Cve Panel Laboratory test result [facility] ([facility]) Is patient fasting? N Triglycerides 77 mg/dL 35-160 [facility] ([facility]) Is patient fasting? N Cholesterol 131 mg/dL 131-200 [facility] ([facility]) Is patient fasting? N LDL 57 mg/dL 65-175 Below low normal [facility] ([facility]) Is patient fasting? N HDL 64 mg/dL 29-86 [facility] ([facility]) Is patient fasting? N Risk Factor 2.0 3.4-4.9 Below low normal [facility] ([facility]) Is patient fasting? N LDL/HDL 0.89 1.00-3.55 Below low normal [facility] ( [facility]) Is patient fasting? N ID Date Data Source [id number] 09/25/2020 10:34:00 AM EST [facility] ([facility]) Name Value Range Interpretation Code Description Data Stephanie rce(s) Supporting Document(s) Hemoglobin A1c/Hemoglobin.total in Blood 5.2 % 4.4-6.1 [facility] ([facility]) Is patient fasting? N ID Date Data Source [id number] 09/25/2020 10:34:00 AM EST [facility] ([facility]) Name Value Range Interpretation Code Description Data Stephanie rce(s) Supporting Document(s) Comprehensive Metabo Laboratory test result [facility] ([facility]) Is patient fasting? N Sodium 140 meq/L 134-153 [facility] ([facility]) Is patient fasting? N Chloride 99 meq/L 98-107 [facility] ([facility]) Is patient fasting? N Potassium 3.9 meq/L 3.6-5.0 [facility] ([facility]) Is patient fasting? N Glucose 85 mg/dL 70-99 [facility] ([facility]) Is patient fasting? N Co2 30 meq/L 22-30 [facility] ([facility]) Is patient fasting? N BUN 12 mg/dL 7-21 [facility] ([facility]) Is patient fasting? N BUN/Creat 12 8-27 [facility] ([facility]) Is patient fasting? N Creatinine 1.0 mg/dL 0.7-1.5 [facility] ([facility]) Is patient fasting? N Total Protein 7.0 g/dL 6.3-8.2 [facility] ([facility]) Is patient fasting? N Albumin 4.7 g/dL 3.9-5.0 [facility] ([facility]) Is patient fasting? N A/G Ratio 2.0 0.8-2.0 [facility]) Is patient fasting? N Globulin 2.3 GM/DL 2.4-3.2 Below low normal [facility] ( [facility]) Is patient fasting? N Calcium 10.2 mg/dL 8.4-10.2 [facility] ([facility]) Is patient fasting? N Total Bili Laboratory test result 0.2-1.3 [facility] ([facility]) Is patient fasting? N Alkaline Phos 50 U/L 38-126 [facility] ([facility]) Is patient fasting? N Sgot/Ast 12 U/L 5-40 [facility] ([facility]) Is patient fasting? N SGPT/Alt 12 U/L 7-56 [facility] ([facility]) Is patient fasting? N Anion Gap 11.0 mmol/L 8.0-16.0 [facility] ([facility]) Is patient fasting? N Non-Aa GFR Laboratory test result [facility] ([facility]) Is patient fasting? N Age 54 yrs [facility] ([facility]) Is patient fasting? N Afr Amer GFR Laboratory test result [facility] ([facility]) Is patient fasting? N ID Date Data Source [id number] 09/25/2020 10:34:00 AM EST [facility] ([facility]) Name Value Range Interpretation Code Description Data Stephanie rce(s) Supporting Document(s) CBC W/Automated Diff Laboratory test result [facility] ([facility]) Is patient fasting? N Hemoglobin 15.0 g/dL 14.0-16.0 [facility] ([facility]) Is patient fasting? N WBC 6.9 10^3/uL 4.2-11.0 [facility] ([facility]) Is patient fasting? N RBC 5.33 10^6/uL 4.50-6.30 [facility] ([facility]) Is patient fasting? N Hematocrit 45.2 % 41.0-51.0 [facility] ([facility]) Is patient fasting? N MCV 84.8 fL 80.0-94.0 [facility] ([facility]) Is patient fasting? N MCHC 33.2 g/dL 31.0-36.0 [facility] ([facility]) Is patient fasting? N MCH 28.1 pg 27.0-34.0 [facility] ([facility]) Is patient fasting? N RDW 13.9 % 11.5-14.8 [facility] ([facility]) Is patient fasting? N MPV 9.6 fL 7.4-10.4 [facility] ([facility]) Is patient fasting? N Platelets 321 10^3/uL 150-450 [facility] ([facility]) Is patient fasting? N Neut 57.4 % 37.0-80.0 [facility] ([facility]) Is patient fasting? N Lymph 30.6 % 25.0-40.0 [facility] ([facility]) Is patient fasting? N Swain 7.3 % 3.0-8.0 [facility] ([facility]) Is patient fasting? N Eos 3.4 % 0.0-7.0 [facility] ([facility]) Is patient fasting? N %Ig 0.4 % 0.0-0.0 Above high normal [facility] ([facility]) Is patient fasting? N Baso 0.9 % 0.0-2.0 [facility] ([facility]) Is patient fasting? N %NRBC 0.0 % 0.0-0.0 [facility] ([facility]) Is patient fasting? N #Neut 3.94 10^3/uL 2.00-6.90 [facility] ([facility]) Is patient fasting? N #Lymph 2.10 10^3/uL 0.60-3.40 [facility] ([facility]) Is patient fasting? N #Swain 0.50 10^3/uL 0.00-0.90 [facility] ([facility]) Is patient fasting? N #Eos 0.23 10^3/uL 0.00-0.70 [facility] ([facility]) Is patient fasting? N #Baso 0.06 10^3/uL 0.00-0.20 [facility] ([facility]) Is patient fasting? N #Ig 0.03 10^3/uL 0.00-0.10 [facility] ([facility]) Is patient fasting? N Manual Diff Laboratory test result M [facility] ([facility]) Is patient fasting? N #NRBC 0.00 10^3/uL 0.00-0.00 [facility] ([facility]) Is patient fasting? N RBC Morph Laboratory test result [facility] ([facility]) Is patient fasting? N ID Date Data Source [id number] 09/27/2020 04:59:00 PM [facility] Name Value Range Interpretation Code Description Data Stephanie rce(s) Supporting Document(s) Thyroperoxidase Ab [Units/volume] in Serum or Plasma 9 IU/mL 0-34 [facility] ID Date Data Source [id number] 09/25/2020 06:12:00 PM [facility] Name Value Range Interpretation Code Description Data Stephanie rce(s) Supporting Document(s) COMPREHENSIVE METABOLIC PANEL [facility] COMPREHENSIVE METABOLIC PANEL Sodium [Moles/volume] in Serum or Plasma 140 mEq/L 134 - 153 [facility] Potassium [Moles/volume] in Serum or Plasma 3.9 mEq/L 3.6 - 5.0 [facility] Chloride [Moles/volume] in Serum or Plasma 99 mEq/L 98 - 107 [facility] Carbon dioxide, total [Moles/volume] in Serum or Plasma 30 MEQ/L 22 - 30 [facility] Glucose [Mass/volume] in Serum or Plasma 85 MG/DL 70 - 99 [facility] BUN 12 MG/DL 7 - 21 [facility] Creatinine [Mass/volume] in Serum or Plasma 1.0 MG/DL 0.7 - 1.5 [facility] BUN/CREAT 12 8 - 27 [facility] al Protein [Mass/volume] in Serum or Plasma 7.0 G/DL 6.3 - 8.2 [facility] Albumin [Mass/volume] in Serum or Plasma 4.7 G/DL 3.9 - 5.0 [facility] Globulin [Mass/volume] in Serum by calculation 2.3 GM/DL 2.4 - 3.2 L [facility] A/G RATIO 2.0 0.8 - 2.0 [facility] Calcium [Mass/volume] in Serum or Plasma 10.2 MG/DL 8.4 - 10.2 [facility] Bilirubin.total [Mass/volume] in Serum or Plasma <0.7 MG/DL 0.2 - 1.3 [facility] Alkaline phosphatase [Enzymatic activity/volume] in Serum or Plasma 50 U/L 38 - 126 [facility] Aspartate aminotransferase [Enzymatic activity/volume] in Serum or Plasma 12 U/L 5 - 40 [facility] Alanine aminotransferase [Enzymatic activity/volume] in Seru m or Plasma 12 U/L 7 - 56 [facility] Anion gap 3 in Serum or Plasma 11.0 mmol/L 8.0 - 16.0 [facility] AGE 54 yrs [facility] NON-AA GFR >60 mL/min [facility] AFR AMER GFR >60 mL/min [facility] Male GFR In terprentation 20-49 yrs >60 mL/min Normal 50-59 yrs >56 mL/min Normal 60-69 yrs >49 mL/min Normal 70-79yrs >42 mL/min Normal 80 and above >35 mL/min Normal Female GFR Interpretation 20-39 yrs >60 mL/min Normal 40-49 yrs >58 mL/min Normal 50-59 yrs >51 mL/min Normal 60-69 yrs >45 mL/min Normal 70-79 yrs >39 mL/min Normal 80 and above >32 mL/min Normal ID Date Data Source [id number] 09/25/2020 05:47:00 PM EST [facility] Name Value Range Interpretation Code Description Data Stephanie rce(s) Supporting Document(s) Magnesium [Mass/volume] in Serum or Plasma 2.0 MG/DL 1.7 - 2.2 [facility] ID Date Data Source [id number] 09/25/2020 05:47:00 PM [facility] Name Value Range Interpretation Code Description Data Stephanie rce(s) Supporting Document(s) C[facility] PANEL [facility] LIPID PANEL Cholesterol [Mass/volume] in Serum or Plasma 131 MG/DL 131 - 200 [facility] Deprecated Triglyceride [Mass/volume] in Serum or Plasma 77 MG/DL 3 5 - 160 [facility] HDL 64 MG/DL 29 - 86 [facility] Cholesterol in LDL [Mass/volume] in Serum or Plasma by Direc t assay 57 mg/dL 65 - 175 L [facility] Cholesterol.total/Cholesterol in HDL [Mass Ratio] in Serum o r Plasma 2.0 3.4 - 4.9 L [facility] LDL/HDL 0.89 1.00 - 3.55 L [facility] CVE RISK CHOL/HDL LDL/HDLMEN: 1/2 AVERAGE 3.43 1.00 AVERAGE 4.97 3.55 2X AVERAGE 9.55 6.25 3X AVERAGE 23.99 7.99WOMEN: 1/2 AVERAGE 3.27 1.47 AVERAGE 4.44 3.22 2X AVERAGE 7.05 5.03 3X AVERAGE 11.04 6.14 ID Date Data Source [id number] 09/25/2020 05:35:00 PM EST [facility] Name Value Range Interpretation Code Description Data Stephanie rce(s) Supporting Document(s) Hemoglobin A1c/Hemoglobin.total in Blood 5.2 % 4.4 - 6.1 [facility] {A1]{HB] ID Date Data Source [id number] 09/25/2020 05:35:00 PM EST [facility] Name Value Range Interpretation Code Description Data Stephanie rce(s) Supporting Document(s) Prostate specific Ag [Mass/volume] in Serum or Plasma 0.53 ng/mL 0.00 - 4.00 [facility] \\BLDo\\PSA INTERPRETA TION\\BLDx\\ The PSA assay should not be used alone for a screening test or diagnosis for presence or absence of malignant disease. Predictions of disease recurrence should not be based solely on values obtained from serial patient serum values. The PSA result was determined by "[employer]", on the Leann BRAULIO 6000. Values obtained with different assay methods or kits cannot be used interchangeably. ID Date Data Source [id number] 09/25/2020 05:34:00 PM EST [facility] Name Value Range Interpretation Code Description Data Stephanie rce(s) Supporting Document(s) Thyrotropin [Units/volume] in Serum or Plasma by Detec tion limit <= 0.05 mIU/L 1.81 uIU/mL 0.47 - 5.01 [facility] ID Date Data Source [id number] 09/25/2020 05:18:00 PM EST [facility] Name Value Range Interpretation Code Description Data [facility](s) Supporting Document(s) CBC W/AUTOMATED DIFF [facility] COMPLETE BLOOD COUNT Leukocytes [#/volume] in Blood by Automated count 6.9 10^3/uL 4.2 - 1 1.0 [facility] Erythrocytes [#/volume] in Blood by Automated count 5.33 10^6/uL 4. 50 - 6.30 [facility] Hemoglobin [Mass/volume] in Blood 15.0 g/dL 14.0 - 16.0 [facility] Hematocrit [Volume Fraction] of Blood by Automated count 45.2 % 4 1.0 - 51.0 [facility] Erythrocyte mean corpuscular volume [Entitic volume] by Auto mated count 84.8 fL 80.0 - 94.0 [facility] Erythrocyte mean corpuscular hemoglobin [Entitic mass] by Automated count 28.1 pg 27.0 - 34.0 [facility] Erythrocyte mean corpuscular hemoglobin concentration [Mass/volume] by Automated count 33.2 g/dL 31.0 - 36.0 [facility] Erythrocyte distribution width [Ratio] by Automated count 13.9 % 11.5 - 14.8 [facility] Platelets [#/volume] in Blood by Automated count 321 10^3/uL 150 - 45 0 [facility] Platelet mean volume [Entitic volume] in Blood by Automated count 9.6 fL 7.4 - 10.4 [facility] Neutrophils/100 leukocytes in Blood by Automated count 57.4 % 37. 0 - 80.0 [facility] Lymphocytes/100 leukocytes in Blood by Manual count 30.6 % 25.0 - 40.0 [facility] Monocytes/100 leukocytes in Blood by Automated count 7.3 % 3.0 - 8.0 [facility] Eosinophils/100 leukocytes in Blood by Automated count 3.4 % 0.0 - 7.0 [facility] Basophils/100 leukocytes in Blood by Automated count 0.9 % 0.0 - 2.0 [facility] %IG 0.4 % 0.0 - 0.0 H [facility] al %NRBC 0.0 % 0.0 - 0.0 [facility] Neutrophils [#/volume] in Blood by Automated count 3.94 10^3/uL 2.00 - 6.90 [facility] Lymphocytes [#/volume] in Blood by Automated count 2.10 10^3/uL 0.60 - 3.40 [facility] Monocytes [#/volume] in Blood by Automated count 0.50 10^3/uL 0.00 - 0.90 [facility] Eosinophils [#/volume] in Blood by Automated count 0.23 10^3/uL 0.00 - 0.70 [facility] Basophils [#/volume] in Blood by Automated count 0.06 10^3/uL 0.00 - 0.20 [facility] #IG 0.03 10^3/uL 0.00 - 0.10 [facility] #NRBC 0.00 10^3/uL 0.00 - 0.00 [facility] MANUAL DIFF NOT INDICATED [facility] RBC MORPH NOT INDICATED [facility] ID Date Data Source [id number] 09/20/2020 10:30:20 AM EST [facility], PCName: Elias CarminaoDOB: 1965Provider: Moises Boucher: 09/20/2020 Reason For VisitElias Cote is here today for lumbar spine. Elias has not had the Covid vaccine. Elias Cote is a new patient. MRI LSP 06/11/20 transferred. Injections at [facility] help some. Other DOI/DOO: 2020 - denies injury. Patient states their pain is a 5 out of 10. The patient has not had a course of physical therapy for greater than 4 weeks. The patient's pain is managed by [facility]. Patient states they are disabled. PlanChief complaint patient states leg painReginald is a very pleasant gentleman. He has a history of chronic low back pain and history of right leg radicular pain for greater than one year. The back and leg pain are a 5 out of 10 on the pain scale. He describes the pain in the leg as nerve like, numb and tingling. It is worse with coughing and sneezing. Better when sedentary. He has been treated with medications including muscle relaxers, op ioids, physical therapy, and epidural injections. The pain is every day, pain is stable. The patient demonstrates a normal gait . There is no posterior tenderness in the lower back. Motor strength is 5 out of 5 from L2-S1 and sensation is intact from L2-S1 bilaterally with exception of decreased sensation at the right calf posteriorly. Reflexes are 2+ at the patellar tendon and at the Achilles bilaterally. Straight leg raise is positive on the right. Contralateral straight leg raise is negative. There is no hip pain with internal or external rotation. Br[facility] July 23, 2020. Low back pain, posterior right leg pain. Previous treatments include physical therapy, not effective, facet block which was effective. Lumbar interlaminar injection L5-S1 on June 25, 2020 provided 50% relief for 1 week. Medications include hydrocodone and lidocaine patchesMRI reviewed lumbar spine, L5-S1 large extruded right paracentral disc herniation with compression of right S1 nerve rootAssessmentlumbar radiculopathy, L5-S1 disc herniationtype: radiculopathylocation: lumbaretiology: degenerativeplan:1. Medication: No new me dications prescribed today2. Imaging: No further imaging 3. Injection: Deferred4. Activity:as tolerated. 5. Referral: None6. Surgical management: L5-S1 Lumbar laminectomy and decompression, bilateral partial medial facetectomies, bilateral foraminotomies, partial discectomyWe discussed the risks of surgery including, but not limited to, infection, nerve damage, vascular damage, cerebrospinal fluid leak, residual pain, scarring, need for second stage revision, compressive hematoma resulting in neurologic symptoms, instability at the operative segment, adjacent segment degeneration, bowel or bladder d ysfunction, and blindness (approximately 0.14%) from prolonged prone positioning. The patient understands that the risk of infection may be higher if an epidural steroid injection was performed within 3 months of surgery. The patient understands that surgery is not guaranteed to provide complete relief of symptoms and there is a possibility that symptoms may even be worse postoperatively. Patient understands that surgery is for leg pain and will not improve back pain. Signatures Electronically signed by : Kameron Boucher M.D.; Sep 20 2020 10:30AM EST (Author) Name Value Range Interpretation Code Description Data Stephanie rce(s) Supporting Document(s) ID Date Data Source [id number] 09/01/2020 12:00:00 AM EST [facility] Name Value Range Interpretation Code Description Data Stephanie rce(s) Supporting Document(s) SARS coronavirus 2 RNA [Presence] in Res piratory specimen by STACY with probe detection [facility] This lab was ordered by Anirudh Miranda and reported by [facility]. ID Date Data Source [id number] 07/29/2020 09:31:00 AM EST [facility] ([facility], ) Name Value Range Interpretation Code Description Data Stephanie rce(s) Supporting Document(s) FVC-Pred 4.35 L [facility] ([facility]) PDFReport Laboratory test result [facility] ([facility]) FVC-Pre 1.97 L [facility] ([facility]) FVC-%Pred-Pre 45 L [facility] ([facility]) Fev1-Pred 3.37 L [facility] ([facility]) FVC-LLN 3.52 L [facility] ([facility]) Fev1-Pre 1.12 L [facility] ([facility]) Fev1-%Pred-Pre 33 L [facility] ([facility]) Fev1-LLN 2.67 L [facility] ([facility]) Fev6-Pre 1.97 L [facility] ([facility]) Fev6-%Pred-Pre 47 L [facility] ([facility], ) Fev6-Pred 4.18 L [facility] ([facility]) Nyh0egy-Ijzu 77 % [facility] ([facility]) Fev6-LLN 3.37 L [facility] ([facility]) Ldr0mbp-Mys 57 % [facility] ([facility]) Hye1bjt-RYO 68 % [facility] ([facility]) Hag9tzf-%Pred-Pre 73 % [facility] ([facility]) Hmm5trg-Aybc 96 % [facility] ([facility]) FEFMax-Pred 8.85 L/E/sec [facility] ([facility]) Zin6bcb-%Pred-Pre 104 % [facility] ([facility]) Wwd0avz-Dpn 100 % [facility] ([facility]) FEFMax-Pre 2.56 L/E/sec [facility] ([facility]) Vul0959-Emue 3.01 L/E/sec [facility] ([facility]) FEFMax-%Pred-Pre 28 L/E/sec [facility] ([facility]) FEFMax-LLN 6.79 L/E/sec [facility] ([facility]) Tfe8800-Gxd 0.47 L/E/sec [facility] ([facility], ) Vdp0141-%Pred-Pre 15 L/E/sec [facility] ([facility]) Otb0634-MUA 1.59 L/E/sec [facility] ([facility]) Iij1aby4-Obzv 80 % [facility] ([facility]) ExpTime-Pre 6.12 sec [facility] ([facility]) Bpn7aky5-Opx 57 % [facility] ([facility]) Hgd9lij3-CGR 71 % [facility] ([facility]) Cnp4yde9-%Pred-Pre 70 % [facility] ([facility], ) ID Date Data Source [id number] 07/29/2020 12:00:00 AM EST [facility] Name Value Range Interpretation Code Description Data Stephanie rce(s) Supporting Document(s) SARS coronavirus 2 RNA [Presence] in Res piratory specimen by STACY with probe detection NEGATIVE [facility] This lab was ordered by Anirudh Miranda and reported by [facility]. ID Date Data Source [id number] 07/24/2020 08:46:24 AM EST [facility], PCName: Peter costello DiscoDOB: 1965Provider: Carlos NietonicoleaDOS: 07/23/2020 Chief ComplaintChronic low back pain Chief Complaint 2NYSW VAS PAIN Established: DAVID completing section: Jason SHAW History of Present IllnessA Urine Drug Screen was ordered for Elias Cote and collected on site today 07/23/2020. Creatinine has been ordered as well for specimen validity, not for kidney function. Preliminary UDS results are not final and should not be used to determine patient care or plan of treatment. Initially a qualitative immunoassay screen will be done. Please note this is not a dip test. Any positive findings or negative findings that are out of compliance will be further tested with a more comprehensive quantitative confirmation LCMS study. It is part of the normal prescribing protocol of controlled substances and is considered standard of care. Recent test/procedures: Patient was asked and denies having any tests since their last visit. Patient was asked and denies being seen by any Physicians since their last visit. The patient was last seen by a [facility] provider on 07/01/2020. At today's visit patient presents with their Self Implanted Devices The patient does not have any implanted devices. The patient does not have a glucose monitoring device. Patient is not currently working. 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 The patient is being seen for a post block examination. Pain Duration: Months per patient Pain Score: a current pain level of 6/10. Condition type: The patient is being seen for a chronic condition. Referred by [facility] orthopedic group. PAIN LOCATION: the pain is located in the low back and radiates to the right buttock, right thigh and right calf/alexander. The etiology of this injury/condition is degenerative. RELATIONSHIP TO INJURY: This condition is not related to a specific injury. INJURY MECHANISM: The injury resulted from no known physical event. REVIEW OF PAST DIAGNOSTICS: have included: None on file for lumbar spine. PAST TREATMENT has included: PHYSICAL THERAPY/HOME EXERCISE exercise (not effective) . Facet injection (effective). - Nerve Block: Pertinent Information LUMBAR, INTERLAMINAR (STEROID INJECTION). Targeting the L5 S1 level . (06/25/20 - Dr. Wheeler) 50 % of pain relief was provided lasting for 1 week(s). ASSOCIATED SYMPTOMS: include difficulty sleeping , difficulty walking, radiating The pain radiates to the low back, right buttock, right thigh and right calf. and extremity weakness: , but no muscle pain, no fecal incontinence and no urinary incontinence. FUNCTIONAL LIMITATIONS: The patient's functional status is limited as follows: ability to work, perform activities of daily living, participate in aerobic activity, participate in hobbies, perform housework and maintain normal sleep pattern. Review of SystemsConstitutional: Normal. Eyes: Normal. ENT: normal. Cardiovascular: Normal. Respiratory: Normal. Gastrointestinal: Normal. Genitourinary: Normal. Musculoskeletal: lower back pain and limb pain. Integumentary: Normal. Neurological: Normal. Psychiatric: Normal. Endocrine: Normal. Hematologic/Lymphatic: Normal. Patient maintains at today's visit there has been no change in his/her hematologic history. I reviewed the above with the patient and I feel the ROS to be negative/normal. Active Problems 1. Cervical spondylosis (721.0) (M47.812) 2. Cervical stenosis of spinal canal (723.0) (M48.02) 3. Cervicalgia (723.1) (M54.2) 4. Chronic pain (338.29) (G89.29) 5. 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 Low back pain (724.2) (M54.5) 7. Lumbar disc herniation with radiculopathy (722.10,724.4) (M51.16) Allergies Latex Shortness of breath;; Updated By: Bethany Stern; 09/19/2019 1:23:08 PMDenied Adhesive Tape Recorded By: Bethany Stern; 09/19/2019 1:12:53 PM Iodinated Contrast Media Recorded By: Bethany Stern; 09/19/2019 1:12:53 PM Current Meds Albuterol Sulfate HFA AERS;Therapy: (Recorded:99Vrt5324) to Recorded Breo Ellipta AEPB;Therapy: (Recorded:88Fgu2681) to Recorded CeleBREX 200 MG Oral Capsule;Therapy: (Recorded:50Duo9792) to Recorded Cymbalta 60 MG Oral Capsule Delayed Release Particles;Therapy: (Recorded:98Cfa5584) to Recorded Gabapentin TABS;Therapy: (Recorded:36Iwn5370) to Recorded hydroCHLOROthiazide 50 MG Oral Tablet;Therapy: (Recorded:58Xzm8005) to Recorded HYDROcodone-Acetaminophen 10-325 MG Oral Tablet; Take one PO BID prn painMDD:2;Therapy: 17Jun2020 to (Evaluate:78Ypf4606) Requested for: 46Qxt5726; LastRx:18Xvt2679 OrderedLD 07/23/2020 AM Incruse Ellipta 62.5 MCG/INH Inhalation Aerosol Powder Breath Activated;Therapy: (Recorded:68Vom4909) to Recorded Ipratropium [place] SOLN;Therapy: (Recorded:71Cfs1013) to Recorded Levothyroxine Sodium 50 MCG Oral Tablet;Therapy: (Recorded:87Ilc4840) to Recorded Lisinopril 20 MG Oral Tablet;Therapy: (Recorded:26Lfm3914) to Recorded metFORMIN HCl - 500 MG Oral Tablet;Therapy: (Recorded:46Flr0764) to Recorded Omeprazole 20 MG Oral Tablet Delayed Release;Therapy: (Recorded:08Bmx2853) to Recorded tiZANidine HCl - 4 MG Oral Tablet;Therapy: (Recorded:93Irt7607) to Recorded Ventolin AERS;Therapy: (Recorded:94Mpg8288) to Recorded Vitamin D CAPS;Therapy: (Recorded:03Lhr2884) to Recorded Wellbutrin XL 150 MG Oral Tablet Extended Release 24 Hour;Therapy: (Recorded:81Hgy3328) to Recorded Past Medical History Denied: History of anticoagulant therapy History of arthritis (V13.4) (Z87.39) History of asthma (V12.69) (Z87.09) Denied: History of coagulation defect History of hypertension (V12.59) (Z86.79) History of mental disorder (V11.9) (Z86.59) History of neck pain (V13.59) (Z87.39) History of thyroid disorder (V12.29) (Z86.39) Surgical History History of Appendectomy Denied: History of Cardioverter defibrillator insertion History of Carpal tunnel surgery Denied: History of Permanent pacemaker insertion History of Rotator cuff repair Family History Family history of arthritis (V17.7) (Z82.61) Family history of cardiac disorder (V17.49) (Z82.49) Family history of hypertension (V17.49) (Z82.49) Family history of Primary pancreatic cancer of unknown cell type Social History Current non-drinker of alcohol (V49.89) (Z78.9) (V61.03) (Z63.5) Never a smoker No illicit drug use Unemployed, looking for work VitalsVital Signs Recorded: 19Zsq2674 01:23PM Height: 5 ft 7 inWeight: 247 lb BMI Calculated: 38.69BSA Calculated: 2.21Systolic: 130, SittingDiastolic: 82, SittingHeart Rate: 70Respiration: 15Temperature: 97 FHeight measured w/wo shoes: w/shoesPain Scale: 6 Physical ExamGeneral: The patient is a well nourished/well developed, male, who is obese, who is in mild distress and appears stated age. Eyes: Lids are atraumatic, no lesions, sclerae are anicteric. Ears, Nose, Mouth, Throat: Patient wearing a mask due to COVID-19. Respiratory: Normal chest expansion and respiratory effort. Gait and Station: Gait was normal. Lungs are clear to auscultation bilaterally Cardiovascular: Extremities without peripheral edema, auscultation of heart reveals S1, S2 regular rate and rhythm, without murmur.Lumbosacral Spine:- Inspection: normal appearance. No deformity, ecchymosis, erythema or swelling noted. Normal Lordosis..- Palpation/Tenderness: No SI, paraspinous, or sciatic notch tenderness. - ROM Flexion: was restricted, was painful. - ROM Extension: was restricted, was painful.Right Lower Extremity Motor:- Hip: 5/5 flexion- Knee: 5/5 flexion, 5/5 extension- Foot: 5/5 Plantar , 5/5 DorsiFlexionSpecial Tests: flip test was positiveLeft Lower Extremity Motor:- Hip: 5/5 flexion- Knee: 5/5 flexion, 5/5 extension- Foot: 5/5 Plantar , 5/5 DorsiFlexionSpecial Tests: flip test was negativeNeurological:Sensation Left Lower: normalSensation Right Lower: normal. Skin: Warm, dry, acyanotic. Psychological: Alert and oriented to person, place and time. Mood and affect are pleasant and appropriate. Judgement intact. Insight normal without delusions or hallucinations. Denies suicidal/homicidal ideation. Results/DataBaseline UDS obtained today. Assessment 1. Chronic pain (338.29) (G89.29) 2. Low back pain (724.2) (M54.5) 3. Lumbar disc herniation with radiculopathy (722.10,724.4) (M51.16) 4. 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 Stop: HYDROcodone-Acetaminophen 10-325 MG Oral TabletLD 07/23/2020 AM 2. UDS- LAB Medicare / Commercial ([facility] Urine Drug [facility]); [Do Not Release]; Specimen Source:Urine; Status:In Progress - Specimen/Data Collected; Done: [id number] 3. Block (Transforaminal) ([facility]) Referral Procedure Procedure Status: Hold For - Scheduling Requested for: [id number] Type : MedicaidIs patient currently on a biologic? : NoIs your patient taking aspirin for cardiac or stroke prevention...? : NoIs patient taking Aspirin > 81 mg...? : NoIs your patient on an Anticoagulant -OR- have Coagulopathy...? : NoReminder: : Place order for Anticoag: Aspirin Products Transforam-InterlamSedation : NoLaterality : RTArea : LumbarBlock : TransforaminalProfessional Front End Engineer needed for block? : NoFront Desk Reminder: : Schedule the Status Post BlockPt weight: SODS: </= 450 lbs. HODS: </= 400 lbs. ENTER WEIGHT: : 247IF PT has Thrombocytopenia are platelets >/= 100,000 ? : NAAre you ordering pyhsical therapy...? : NoDcurtiss patie nt require a Desiree lift? : NoIs this an urgent request? : No - This is not an urgent requestCovid Risk : Medium Risk 4. Orthopedic Spine Surgery ([facility]) Referral Evaluation Evaluation Status: Hold For - Scheduling Requested for: 2 [id number] Surgical opinion: : Provider's RequestPrevious spine surgery : Patient has not had previous spine surgery Medication:. Samples Given: FLECTOR PATCH, LIDOCAINE PATCH . SAMPLE(S) of MEDICATION: The above samples were given to the patient today. Directions and side effects were discussed with the patient and the patient was instructed to call the office if any problems occur. The patient does not receive any medication prescriptions from this office. UDS: This is an established patient and is on ongoing opioid therapy. A UDS is being obtained today, the patient has previously consented to UDS as part of the Controlled Substance and Treatment Agreement. The reason for today's UDS is: patient was selected at random and scored as high risk on the opioid risk assessment. Creatinine has been ordered as well for specimen validity, not for kidney function. Preliminary UDS results are not final and should not be used to determine patient care or plan of treatment. Initially a qualitative immunoassay screen will be done. Any positive findings or negative findings that are out of compliance will be further tested with a more comprehensive quantitative confirmation LCMS study. It is part of the normal prescribing protocol of controlled substances and is considered standard of care. Treatment includes: PROCEDURE(S): - Nerve Block Plan: I am ordering a, RIGHT, LUMBAR, TRANSFORAMINAL EPIDURAL STEROID INJECTION. Definitive levels to be determined by the interventional physician based on fluoroscopic imaging and symptomatology at the time of the procedure. , targeting the L4 L5 level, L5 S1 level and under fluoroscopy without sedation. NERVE BLOCK: The material risks, benefits, alternatives have been discussed with the patient, including no treatment. They include, but are not limited to, bleeding, bruising, infection, damage to targeted and non-targeted tissue, increased pain, nerve injury or other reaction, if severe, could lead to CVA, arrhythmias or . The patient was given procedure instructions and educational material for this specific procedure at the time of the visit.- Bleeding Disorder: Patient denies having a bleeding disorder. - Anticoagulation therapy:. Patient denies current treatment with anti-coagulation therapy. FOLLOW UP: The patient should have a follow up visit 4 weeks post block. Discussion/SummaryPleasant 54-year-old male patient with chronic lumbar pain radiating into the right lower extremity. He reports minimal and short term relief from his most recent lumbar intralaminar nerve block and now feels that the pain overall and radicular symptoms are getting worse. He states that hydrocodone does not touch his pain. He admits to trying marijuana for the pain and states that did not help either. We discussed a referral to orthopedic surgery to discuss a possible surgical option and the patient is agreeable to this. I will start a referral to [facility]. In the meantime, we discussed trialing a selective epidural injection on the right side to see if this provides him with at least temporary relief. The patient is agreeable to this. I will order a right lumbar transforaminal nerve block without sedation to address his pain and radicular symptoms. This patient is moderate risk for mortality related to coronavirus and has been educated as to this risk. He wishes to proceed with the block. Patient will follow up 4 weeks post block. JUNTA.CL DisclaimerNYSWC JUNTA.CL Disclaimer: This document was dictated and electronically signed using [employer]oud[employer] Speaking software. A reasonable attempt at proof reading has been made to minimize errors. Please call with any questions. Signatures Electronically signed by : Dino Nieto NP; Jul 23 2020 1:51PM EST (Author) Electronically signed by : Deepika Millan MD; Jul 24 2020 8:46AM EST Name Value Range Interpretation Code Description Data Stephanie rce(s) Supporting Document(s) ID Date Data Source [id number] 07/02/2020 08:10:01 AM EST [facility], PCName: Peter costello DiscoDOB: 1965Provider: Bhavya Gomes: 07/01/2020 Chief ComplaintChronic low back pain Chief Complaint 2NYSW VAS PAIN Established: MA completing section: tdolbear History of Present IllnessRecent test/procedures: Patient was asked and denies having any tests since their last visit. Patient was asked and denies being seen by any Physicians since their last visit. The patient was last seen by a [facility] provider on 06-14-2020. At today's visit patient presents with their Self Implanted Devices The patient does not have any implanted devices. The patient does not have a glucose monitoring device. Patient is not currently working. The patient is being seen for a follow-up. Pain Duration: years Pain Quality: (Neuropathic) burning Timing: constant Progression: unchanged Pain Score: a current pain level of 8/10. Condition type: The patient is being seen for an acute exacerbation of a chronic condition . Referred by [facility] orthopedic group. PAIN LOCATION: the pain is located in the neck, radiates to the left shoulder, the pain is greater on the left side more than the right, the pain is located in the low back and radiates to the right buttock, right thigh and right calf/alexander. The etiology of this injury/condition is degenerative. RELATIONSHIP TO INJURY: This condition is not related to a specific injury. INJURY MECHANISM: The injury resulted from no known physical event. REVIEW OF PAST DIAGNOSTICS: have included: None on file for lumbar spine. PAST TREATMENT has included: PHYSICAL THERAPY/HOME EXERCISE exercise (not effective) . Facet injection (effective). INTERVAL EVENTS: include . Patient is status post a lumbar intralaminar nerve block 6 days ago. ASSOCIATED SYMPTOMS: include difficulty sleeping , difficulty walking, radiating The pain radiates to the low back, right buttock, right thigh and right calf. and extremity weakness: , but no muscle pain, no fecal incontinence and no urinary incontinence. FUNCTIONAL LIMITATIONS: The patient's functional status is limited as follows: ability to work, perform activities of daily living, participate in aerobic activity, participate in hobbies, perform housework and maintain normal sleep pattern. Review of SystemsConstitutional: Normal. Eyes: Normal. ENT: normal. Cardiovascular: Normal. Respiratory: Normal. Gastrointestinal: Normal. Genitourinary: Normal. Musculoskeletal: lower back pain. Integumentary: Normal. Neurological: numbness and a burning sensation (down right leg). Psychiatric: not suicidal and no depression The patient presents with complaints of no anxiety (On meds, Sees PCP). Endocrine: thyroid problems (On meds, sees PCP) and diabetes (On meds, sees PCP). Hematologic/Lymphatic: Normal. Patient maintains at today's visit there has been no change in his/her hematologic history. I reviewed the above with the patient and I feel the ROS to be negative/normal other than Musculoskeletal. Active Problems 1. Cervical spondylosis (721.0) (M47.812) 2. Cervical stenosis of spinal canal (723.0) (M48.02) 3. Cervicalgia (723.1) (M54.2) 4. Chronic pain (338.29) (G89.29) 5. Low back pain (724.2) (M54.5) 6. Lumbar disc herniation with radiculopathy (722.10,724.4) (M51.16) Allergies Latex Shortness of breath;; Updated By: Bethany Stern; 09/19/2019 1:23:08 PMDenied Adhesive Tape Recorded By: Bethany Stern; 09/19/2019 1:12:53 PM Iodi nated Contrast Media Recorded By: Bethany Stern; 09/19/2019 1:12:53 PM Current Meds Albuterol Sulfate HFA AERS;Therapy: (Recorded:00Gji8079) to Recorded Breo Ellipta AEPB;Therapy: (Recorded:44Wgu6980) to Recorded CeleBREX 200 MG Oral Capsule;Therapy: (Recorded:16Jof1721) to Recorded Cymbalta 60 MG Oral Capsule Delayed Release Particles;Therapy: (Recorded:50Por3217) to Recorded Gabapentin TABS;Therapy: (Recorded:99Udb3608) to Recorded hydroCHLOROthiazide 50 MG Oral Tablet;Therapy: (Recorded:01Pzc2732) to Recorded HYDROcodone-Acetaminophen 10- 325 MG Oral Tablet; Take one PO BID prn painMDD:2;Therapy: 17Jun2020 to (Evaluate:20Uvx4755) Requested for: 17Jun2020; LastRx:17Jun2020 Orderedld 06-30-2020 Incruse Ellipta 62.5 MCG/INH Inhalation Aerosol Powder Breath Activated;Therapy: (Recorded:05Kbf2488) to Recorded Ipratropium [place] SOLN;Therapy: (Recorded:91Fys2412) to Recorded Levothyroxine Sodium 50 MCG Oral Tablet;Therapy: (Recorded:94Bhn7098) to Recorded Lisinopril 20 MG Oral Tablet;Therapy: (Recorded:71Ama0350) to Recorded metFORMIN HCl - 500 MG Oral Tablet;Therapy: (Recorded:78Shg9281) to Recorded Omeprazole 20 MG Oral Tablet Delayed Release;Therapy: (Recorded:69Onl4545) to Recorded tiZANidine HCl - 4 MG Oral Tablet;Therapy: (Recorded:34Ykt1260) to Recorded Ventolin AERS;Therapy: (Recorded:62Irk5803) to Recorded Vitamin D CAPS;Therapy: (Recorded:28Vsp5294) to Recorded Wellbutrin XL 150 MG Oral Tablet Extended Release 24 Hour;Therapy: (Recorded:56Yib4687) to Recorded Past Medical History Denied: History of anticoagulant therapy History of arthritis (V13.4) (Z87.39) History of asthma (V12.69) (Z87.09) Denied: History of coagulation defect History of hypertension (V12.59) (Z86.79) History of mental disorder (V11.9) (Z86.59) History of neck pain (V13.59) (Z87.39) History of thyroid disorder (V12.29) (Z86.39) Surgical History History of Appendectomy Denied: History of Cardioverter defibrillator insertion History of Carpal tunnel surgery Denied: History of Permanent pacemaker insertion History of Rotator cuff repair Family History Family history of arthritis (V17.7) (Z82.61) Family history of cardiac disorder (V17.49) (Z82.49) Family history of hypertension (V17.49) (Z82.49) Family history of Primary pancreatic cancer of unknown cell type Social History Current non-drinker of alcohol (V49.89) (Z78.9) (V61.03) (Z63.5) Never a smoker No illicit drug use Unemployed, looking for work VitalsVital Signs Recorded: 01Jul2020 01:52PM PORST: HRPRecorded: 01Jul2020 01:34PM Height: 5 ft 6.5 inWeight: 251 lb BMI Calculated: 39.91BSA Calculated: 2.21Systolic: 132, SittingDiastolic: 85, SittingHeart Rate: 73Respiration: 16Temperature: 97 F, TemporalHeight measured w/wo shoes: w/shoesPain Scale: 8 Physical ExamGeneral: The patient is a well nourished/well developed, male, heavy set, who is in no acute distress and appears stated age. Eyes: Lids are atraumatic, no lesions, sclerae are anicteric. Ears, Nose, Mouth, Throat: Patient wearing a mask due to COVID-19. Respiratory: Normal chest expansion and respiratory effort. Gait and Station: Gait was normal. Skin: Warm, dry, acyanotic. Psychological: Alert and oriented to person, place and time. Mood and affect are pleasant and appropriate. Judgement intact. Insight normal without delusions or hallucinations. Denies suicidal/homicidal ideation. Assessment 1. Low back pain (724.2) (M54.5) 2. Lumbar disc herniation with radiculopathy (722.10,724.4) (M51.16) Plan 1. Renew: HYDROcodone-Acetaminophen 10-325 MG Oral Tablet; Take one PO BID prn pain MDD:2ld 06-30-2020 Medication:. [place] PRODUCT GRADER Information: PRODUCT GRADER was consulted by my designee and I have reviewed the information presented to me and find no aberrant compliance issues. Patient has been informed. Controlled Substance Prescribed: HYDROCODONE . CONTROLLED SUBSTANCE INFORMATION: I advised the patient today/previously regarding treatment with the above controlled substance and/or narcotic. The patient was then informed of the risks, benefits, and alternatives of the narcotic. The risks discussed included but were not limited to physical and/or psychological dependence, tolerance of the medication, drowsiness, sleepiness, balance/coordination problems, confusion, allergic reaction or any other abnormal symptoms. The patient was advised and agreed to use the medication only as prescribed, and not to drive, or operate heavy equipment or machinery. The patient understood and consented to both undergo a narcotic/opiate regimen and agreed to sign and comply with all of the [facility] terms of a controlled substance treatment an d agreement. The prescribed medications are medically necessary for pain management and rehabilitation. Treatment includes: PROCEDURE(S): The patient is not a candidate for block/procedures at this time FOLLOW UP: The patient should have a follow up visit 4 weeks post block. CONTINUE TREATMENT: Elias will continue with the following:. Patient will follow up with their PCP. Elias is participating in a home exercise program and is encouraged to continue. Miscellaneous: - ACTIVITY COUNSELING: Discussed use of stationary/recumbent bike and/or continue exercises and stretches patient may have learned at PT. Patient encouraged to increase daily physical activity including ergonomics and aerobic activity. - AMBULATORY CARE COORDINATOR: The patient was counseled on the following: treatment plan and future treatment options. Discussion/[id number] male presents with ongoing lumbar complaints. Patient is 6 days status post a lumbar interlaminar nerve block. Patient reports that he has taken all of his Hydr ocodone IR pills which was prescribed and has run out. Patient did report that they were days where he took more hydrocodone pills prescribed when he was asked. His pain pattern continues to be along the L5-S1 dermatomal distribution. I did let patient know that it is too soon to evaluate his nerve block as it can take up to 14 days for his injection to be fully evaluated. At this time, I will renew provide him with a 15 day supply of Hydrocodone to help with his pain. He was encouraged to take half of a tablet up to 4 times a day if needed and to utilize 500 mg Tylenol twice a day if needed. He was encouraged to engage in a home exercise program. We will see him back at his already scheduled appointment for a status post block in 3 weeks. At this time patient is high risk for the opiate risk calculator. I am hesitant on renewing patient's Hydrocodone at this time due to the abberant behavior of patient's self increasing Hydrocodone. He was made aware that it is a violation of his prescriptive privileges and that further violations could result in loss of his prescriptive privileges, he verbalized understanding. Patient is agreeable. Signatures Electronically signed by : Tawana Gomes NP; Jul 01 2020 2:25PM EST (Author) Electronically signed by : Tawana Gomes NP; Jul 01 2020 2:35PM EST (Author) Electronically signed by : Tawana Gomes NP; Jul 01 2020 2:36PM EST (Author) Electronically signed by : Steff Roldan MD; Jul 02 2020 8:09AM EST Name Value Range Interpretation Code Description Data Stephanie rce(s) Supporting Document(s) ID Date Data Source [id number] 06/24/2020 10:45:00 AM EST [facility] ([facility]) Name Value Range Interpretation Code Description Data Stephanie rce(s) Supporting Document(s) Hemoglobin A1c 5.6 % Normal (applies to non-numeric r esults) [facility] ([facility]) <content>REFERENCE RANGES:</content><br/ ><content></content>
<content><=5.6% NORMAL</content>
<content>5.7-6.4% SUGGESTS IMPAIRED GLUCOSE METABOLISM/PREDIABETIC</content>
<content>>= 6.5% ABNORMAL</content>
<content></content> Estimated Average Glucose 114 mg/dL 60-110 Above high normal [facility] ([facility]) ID Date Data Source [id number] 06/24/2020 10:45:00 AM EST [facility] ([facility]) Name Value Range Interpretation Code Description Data Stephanie rce(s) Supporting Document(s) Thyroxine (T4) [Mass/volume] in Serum or Plasma 9.2 ug/dL 4.5-12.0 Normal (applies to non-numeric results) [facility] ([facility]) Triiodothyronine (T3) Free [Mass/volume] in Serum or Plasma 2.1 pg/mL 2.2-4.0 Below low normal [facility] ([facility]) Thyroxine (T4) free [Mass/volume] in Serum or Plasma 1.13 ng/dL 0.76-1.46 Normal (applies to non-numeric results) [facility] ([facility]) Thyroperoxidase Ab [Units/volume] in Serum or Plasma 75.3 U/ML Above high normal [facility] ([facility]) ID Date Data Source [id number] 06/24/2020 10:45:00 AM EST [facility] ([facility]) Name Value Range Interpretation Code Description Data Stephanie rce(s) Supporting Document(s) Triglycerides Level 77 mg/dL Normal (applies to non-nume helga results) [facility] ([facility]) LDL Cholesterol 62 mg/dL Normal (applies to non-numeric results) [facility] ([facility]) HDL Cholesterol 54 mg/dL Normal (applies to non-numeric results) [facility] ([facility]) Cholesterol Level 131 mg/dL Normal (applies to non-numeri c results) [facility] ([facility]) Non-HDL-C 77 mg/dL Normal (applies to non-numeric resul ts) [facility] ([facility]) Cholesterol Risk Ratio 2.425 Normal (applies to non-n umeric results) [facility] ([facility]) ID Date Data Source [id number] 06/24/2020 10:45:00 AM EST [facility] ([facility]) Name Value Range Interpretation Code Description Data Stephanie rce(s) Supporting Document(s) Creatinine For GFR 1.09 mg/dL 0.70-1.30 Normal (applies to non -numeric results) [facility] ([facility]) Glucose, Fasting 91 mg/dL 70-100 Normal (applies to non-numeric results) [facility] ([facility]) Blood Urea Nitrogen 14 mg/dL 7-18 Normal (applies to non-nume helga results) [facility] ([facility]) Glomerular Filtration Rate Laboratory test result Normal (applies to non- numeric results) [facility] ([facility]) <content>Units are mL/min/1.73 m2</content>
<content></content>
<content>Chronic Kidney Disease Staging per NKF:</content>
<content></content>
<content>Stage I & II GFR >=60 Normal to Mildly Decreased</content>
<content>Stage III GFR 30- 59 Moderately Decreased</content>
<content>Stage IV GFR 15-29 Severely Decreased</content>
<content>Stage V GFR <15 Very Little GFR Left</content>
<content>ESRD GFR <15 on DYNAMOMETER MECHANIC</content>
<content></content> Sodium Level 139 meq/L 136-145 Normal (applies to non-numeric res ults) [facility] ([facility]) Chloride Level 100 meq/L 98-107 Normal (applies to non-numeric r esults) [facility] ([facility]) Potassium Serum 3.7 meq/L 3.5-5.1 Normal (applies to non-numeric results) [facility] ([facility]) Anion Gap 5 meq/L 8-16 Below low normal [facility] ( [facility]) Carbon Dioxide Level 34 meq/L 21-32 Above high normal [facility] Calcium Level 9.3 mg/dL 8.5-10.1 Normal (applies to non-numeric re sults) [facility] ([facility]) Ast/Sgot 8 U/L 7-37 Normal (applies to non-numeric resul ts) [facility] ([facility]) Alt/SGPT 15 U/L 12-78 Normal (applies to non-numeric resul ts) [facility] ([facility]) Alkaline Phosphatase 51 U/L 45-117 Normal (applies to non-num steff results) [facility] ([facility]) Total Protein 6.7 GM/DL 6.4-8.2 Normal (applies to non-numeric re sults) [facility]) Bilirubin,Total 0.3 mg/dL 0.2-1.0 Normal (applies to non-numeric results) [facility] ([facility]) Albumin 3.4 GM/DL 3.2-5.2 Normal (applies to non-numeric resul ts) [facility] ([facility]) Albumin/Globulin Ratio 1.0 Normal (applies to non-n umeric results) [facility] ([facility]) ID Date Data Source [id number] 06/24/2020 10:45:00 AM EST [facility] ([facility]) Name Value Range Interpretation Code Description Data Stephanie rce(s) Supporting Document(s) White Blood Count 7.2 10 4.0-10.0 Normal (applies to non-numeri c results) [facility] ([facility]) Red Blood Count 4.55 10 4.30-6.10 Normal (applies to non-numeric results) [facility] ([facility]) Hematocrit 39.1 % 42.0-52.0 Below low normal [facility] ( [facility]) Hemoglobin 12.4 g/dL 13.5-17.5 Below low normal [facility] ( [facility]) Mean Corpuscular Volume 85.9 fl 80.0-96.0 Normal ( applies to non-numeric results) [facility] ([facility]) Mean Corpuscular Hemoglobin 27.3 pg 27.0-33.0 Norm al (applies to non-numeric results) [facility] ([facility]) Mean Corpuscular HGB Conc 31.7 g/dL 32.0-36.5 Below low normal [facility] ([facility]) Red Cell Distribution Width 13.8 % 11.5-14.5 Norm al (applies to non-numeric results) [facility] ([facility]) Platelet Count, Automated 294 10 150-450 Normal (applies to non-numeric results) [facility] ([facility]) Nucleated Red Blood Cell % 0.0 % 0-0 Normal (applies to n on-numeric results) [facility] ([facility]) ID Date Data Source [id number] 06/21/2020 07:02:00 AM EST [facility] Name Value Range Interpretation Code Description Data Stephanie rce(s) Supporting Document(s) SARS coronavirus 2 RNA [Presence] in Res piratory specimen by STACY with probe detection [facility] This lab was ordered by [facility] and reported by [employer]. ID Date Data Source [id number] 06/17/2020 12:00:00 AM EST [facility] Name Value Range Interpretation Code Description Data Stephanie rce(s) Supporting Document(s) SARS coronavirus 2 RNA [Presence] in Res piratory specimen by STACY with probe detection [place] This lab was ordered by Anirudh Miranda and reported by [employer]. ID Date Data Source [id number] 06/18/2020 09:26:06 AM EST [facility], PCName: Peter costello DiscoDOB: 1965Provider: Shayy Millan: 06/14/2020 Chief ComplaintPresents today to follow up after having MRI L-Spine. Chief Complaint 2Chronic low back pain NYS[place] VAS PAIN Established: DAVID completing section: AEisabelison PASHA History of Present IllnessRecent test/procedures: Patient has had the following tests/procedures since their last visit: MRI 06/11/2020 @ [facility]. Patient was asked and denies being seen by any Physicians since their last visit. The patient was last seen by a [facility] provider on 05/29/2020. At today's visit patient presents with their Self Implanted Devices The patient does not have any implanted devices. The patient does not have a glucose monitoring device. Patient is not currently working. The patient is being seen for review of MRI results. Pain Duration: About 1 month Pain Quality: (Neuropathic) burning Pain Quality: (Nociceptive) aching and stabbing Timing: constant Progression: unchanged Palliation: No relieving factors are noted Exacerbating: standing Pain Score: a current pain level of 6/10, a minimum pain level of 5/10 and a maximum pain level of 10/10. Condition type: The patient is being seen for a chronic condition. Referred by [facility]. PAIN LOCATION: the pain is located in the neck, radiates to the left shoulder, the pain is greater on the left side more than the right, the pain is located in the low back and radiates to the right buttock, right thigh and right calf/alexander. The etiology of this injury/condition is degenerative. RELATIONSHIP TO INJURY: This condition is not related to a specific injury. INJURY MECHANISM: The injury resulted from no known physical event. REVIEW OF PAST DIAGNOSTICS: have included: None on file for lumbar spine. PAST TREATMENT has included: PHYSICAL THERAPY/HOME EXERCISE exercise (not effective) . Facet injection (effective). INTERVAL EVENTS: include . He reports low back pain that extends into his right buttock, the back of his thigh and calf and the pain is brutal. ASSOCIATED SYMPTOMS: include difficulty sleeping , difficulty walking, radiating The pain radiates to the low back, right buttock, right thigh and right calf. and extremity weakness: , but no muscle pain, no fecal incontinence and no urinary incontinence. FUNCTIONAL LIMITATIONS: The patient's functional status is limited as follows: ability to work, perform activities of daily living, participate in aerobic activity, participate in hobbies, perform housework and maintain normal sleep pattern. Review of SystemsConstitutional: Normal. Eyes: Normal. ENT: normal. Cardiovascular: Normal. Respiratory: Normal. Gastrointestinal: Normal. Genitourinary: Normal. Musculoskeletal: lower back pain and limb pain. Integumentary: Normal. Neurological: Normal. Psychiatric: Normal. Endocrine: Normal. Hematologic/Lymphatic: Normal. Patient maintains at today's visit there has been no change in his/her hematologic history. I reviewed the above with the patient and I feel the ROS to be negative/normal other than musculoskeletal. Active Problems 1. Cervical spondylosis (721.0) (M47.812) 2. Cervical stenosis of spinal canal (723.0) (M48.02) 3. Cervicalgia (723.1) (M54.2) 4. Chronic pain (338.29) (G89.29) 5. Low back pain (724.2) (M54.5) Allergies Latex Shortness of breath;; Updated By: Bethany Stern; 09/19/2019 1:23:08 PMDenied Adhesive Tape Recorded By: Bethany Stern; 09/19/2019 1:12:53 PM Iodinated Contrast Media Recorded By: Bethany Stern; 09/19/2019 1:12:53 PM Current Meds Albuterol Sulfate HFA AERS;Therapy: (Recorded:[id number]) to Recorded Breo Ellipta AEPB;Therapy: (Recorded:48Ybs6772) to Recorded CeleBREX 200 MG Oral Capsule;Therapy: (Recorded:14Zpe7663) to Recorded Cymbalta 60 MG Oral Capsule Delayed Release Particles;Therapy: (Recorded:81Geb0598) to Recorded Gabapentin TABS;Therapy: (Recorded:10Ypu7490) to Recorded hydroCHLOROthiazide 50 MG Oral Tablet;Therapy: (Recorded:29Zqx6459) to Recorded Incruse Ellipta 62.5 MCG/INH Inhalation Aerosol Powder Breath Activated;Therapy: (Recorded:90Quq3630) to Recorded Ipratropium [place] SOLN;Therapy: (Recorded:65Cyx9811) to Recorded Levothyroxine Sodium 50 MCG Oral Tablet;Therapy: (Recorded:22Lgh4040) to Recorded Lisinopril 20 MG Oral Tablet;Therapy: (Recorded:09Yck9464) to Recorded metFORMIN HCl - 500 MG Oral Tablet;Therapy: (Recorded:49Syk7516) to Recorded Omeprazole 20 MG Oral Tablet Delayed Release;Therapy: (Recorded:48Gso8121) to Recorded tiZANidine HCl - 4 MG Oral Tablet;Therapy: (Recorded:63Txj3788) to Recorded Ventolin AERS;Therapy: (Recorded:48Lwt4483) to Recorded Vitamin D CAPS;Therapy: (Recorded:32Frj2119) to Recorded Wellbutrin XL 150 MG Oral Tablet Extended Release 24 Hour;Therapy: (Recorded:33Qzq6410) to Recorded Past Medical History Denied: History of anticoagulant therapy History of arthritis (V13.4) (Z87.39) History of asthma (V12.69) (Z87.09) Denied: History of coagulation defect History of hypertension (V12.59) (Z86.79) History of mental disorder (V11.9) (Z86.59) History of neck pain (V13.59) (Z87.39) History of thyroid disorder (V12.29) (Z86.39) Surgical History History of Appendectomy Denied: History of Cardioverter defibrillator insertion History of Carpal tunnel surgery Denied: History of Permanent pacemaker insertion History of Rotator cuff repair Family History Family history of arthritis (V17.7) (Z82.61) Family history of cardiac disorder (V17.49) (Z82.49) Family history of hypertension (V17.49) (Z82.49) Family history of Primary pancreatic cancer of unknown cell type Social History Current non-drinker of alcohol (V49.89) (Z78.9) (V61.03) (Z63.5) Never a smoker No illicit drug use Unemployed, looking for work VitalsVital Signs Recorded: 14Jun2020 01:25PM Height: 5 ft 7 inWeight: 248 lb BMI Calculated: 38.84BSA Calculated: 2.22Systolic: 141, SittingDiastolic: 89, SittingHeart Rate: 82Respiration: 16Temperature: 97.3 FHeight measured w/wo shoes: w/shoesPain Scale: 6 Physical ExamGeneral: The patient is a well nourished/well developed, male, who is morbidly obese, who is in no acute distress and appears stated age. Eyes: Lids are atraumatic, no lesions, sclerae are anicteric. Ears, Nose, Mouth, Throat: Patient wearing a mask due to COVID- 19. Respiratory: Normal chest expansion and respiratory effort. Gait and Station: Gait was antalgic. Lumbosacral Spine: - Inspection: normal appearance. No deformity, ecchymosis, erythema or swelling noted. Normal Lordosis.. - Palpation/Tenderness: Tenderness on palpation of the LEFT: paraspinal . - Palpation/Tenderness: Tenderness on palpation of the RIGHT: paraspinal , sciatic notch and sacroiliac joint. - ROM Flexion: was painful. - ROM Extension: was painful.Right Lower Extremity Motor:- Hip: 5/5 flexion, 5/5 extension- Knee: 5/5 flexion, 5/5 extension- Foot: 5/5 Plantar , 5/5 DorsiFlexionSpecial Tests: flip test was negative, positive facet challenge , positive distraction and positive faberLeft Lower Extremity Motor:- Hip: 5/5 flexion, 5/5 extension- Knee: 5/5 flexion, 5/5 extension- Foot: 5/5 Plantar , 5/5 DorsiFlexionSpecial Tests: flip test was negative and positive facet challenge Neurological:Sensation Left Lower: normalSensation Right Lower: Reports paresthesia. Skin: Warm, dry, acyanotic. Psychological: Alert and oriented to person, place and time. Mood and affect are pleasant and appropriate. Judgement intact. Insight normal without delusions or hallucinations. Denies suicidal/homicidal ideation. Results/DataMRI L-spine from 03/16/2019 when compared to 07/08/2004 -C3-4 with mild degenerative to have narrowing of the disc mild, mild diffuse disc bulging posteriorly and on co-vertebral spurring on the right. C4-5 mild to moderate broad-based disc bulge with posterior osteophyte ridging. There is a left sided uncovertebral spurring producing neural foraminal narrowing. There is mild right-sided uncovertebral spurring as well as narrowing of the foramen. Mild central canal stenosis seen with the mid AP dimension of thecal sac at C4-5 of 9 mm meters. C5-6 degenerative narrowing of the disc. Right posterior disc protrusion with some spur formation indenting the right ventral margin of the thecal sac and mild right neural foraminal encroachment. C6-7 degenerative disc narrowing posterior osteophyte ridging and diffuse disc bulge and mild bilateral uncovertebral spurring. C7-T1 right paracentral focal disc protrusion and minimal uncovertebral spurring on the right. Consider left cervical transforaminal nerve block if he gets no improvement from the cervical interlaminar. Assessment 1. Low back pain (724.2) (M54.5) Plan 1. Block (Thoracic/Lumbar Interlaminar) ([facility]) Referral Procedure Procedure Status: Complete Done: [id number] Type : Private (No Auth needed)Is patient currently on a biologic? : NoIs your patient taking aspirin for cardiac or stroke prevention...? : NoIs patient taking Aspirin > 81 mg...? : NoIs your patient on an Anticoagulant -OR- have Coagulopathy...? : NoSedation : YesArea: : LumbarBlock : Interlaminar (Epidural)Professional Front End Engineer needed for block? : NoFront Desk Reminder: : Schedule the Status Post BlockPt weight: SODS: </= 450 lbs. HODS: </= 400 lbs. ENTER WEIGHT: : 248IF PT has Thrombocytopenia are platelets >/= 100,000 ? : NAAre you ordering pyhsical therapy...? : NoDoes patient require a Desiree lift? : NoIs this an urgent request? : No - This is not an urgent requestCovid Risk : Medium Risk In my opinion based on subjective and objective findings from today's visit the patient is status quo. Medication:. M edication list was reviewed with the patient, and updates were made to reflect her current medication regimen. Allergy list was reviewed with patient, and any necessary changes were made. The patient does not receive any medication prescriptions from this office. Treatment includes: PROCEDURE(S): ASIPP Risk Stratification of Patients presenting for Interventional Pain Procedures: Decreasing Morbidity of COVID-19 Risk Factor - Age (years) Points: 2Risk Factor - Pulmonary Comments: COPDPoints: 3Risk Factor - Cardiovascular Comments: HTN+CADPoints: 3Risk Factor - Diabetes (A1c) Comments: ORAL MEDICATIONPoints: 2Total Points: 10 According to the Covid-19 ASIPP guidelines and the medical history as relayed to me by the patient, the Covid-19 risk stratification is medium.- Procedure Variance/Authorization Request: We are requesting authorization (Private) for the following procedure- Nerve Block Plan: I am ordering a, LUMBAR, INTERLAMINAR (STEROID INJECTION). Definitive levels to be determined by the interventional physician based on fluoroscopic imaging and symptomatology at the time of the procedure. This procedure is , targeting the C4 C5 level, L5 S1 level and under fluoroscopy with SEDATION. NERVE BLOCK: The material risks, benefits, alternatives have been discussed with the patient, including no treatment. They include, but are not limited to, bleeding, bruising, infection, damage to targeted and non-targeted tissue, increased pain, nerve injury or other reaction, if severe, could lead to CVA, arrhythmias or . The patient was given procedure instructions and educational material for this specific procedure at the time of the visit.- Bleeding Disorder: Patient denies having a bleeding disorder. - NSAID/Aspirin: Patient is taking oral NSAID. Patient has been advised and understands to stop 7 days before the procedure. Patient will be educated at the day of procedure when to resume. - Anticoagulation therapy:. Patient denies current treatment with anti-coagulation therapy. THERAPIES: Therapy Treatment Plan: Deferred: All Therapies: Deferred: per patient request. - Physical Therapy plan: Patient has trialed PHYSICAL THERAPY in the past without relief or with minimal relief. FOLLOW UP: The patient should have a follow up visit 4 weeks post block. CONTINUE TREATMENT: Elias will continue with the following:. Patient will follow up with their PCP. Elias is participating in a home exercise program and is encouraged to continue. Miscellaneous: - WEIGHT LOSS: Weight loss was discussed and encouraged. - AMBULATORY CARE COORDINATOR: The patient was counseled on the following: treatment plan and future treatment options. Discussion/Dymhxuv19 year old male originally seen in August and did not follow through up until he was referred here by [facility] ([facility]). He was referred here for low back pain. According to the referral he had a right SI transforaminal injection at [facility] on 05/20/2020. He was seen here on 05/29/2020 and this was after being seen in the ED for his excruciating low back pain after having the injection at [facility]. He was referred to get a MRI L-Spine which he did get but when I had the OK call to get a copy of the report she was informed that it has not been dictated yet and there is no report for it. He currently is prescribed Celecoxib, Duloxetine, Gabapentin and Tizanidine by [facility]. He tells me that the only thing that helped with his pain is the medications that he got from the ED which was Hydrocodone and Medrol dose pack. He was informed that Hydrocodone is not a first line agent medication for low back pain and he is currently taking medications that I would prescribe. He questioned what he was suppose to do for his pain. I recommended that he trial a lumbar interlaminar nerve block along with his current medications alternating with ice, heat, Tylenol and rest. Risks vs benefits and possible side effects reviewed with patient. He is moderate risk for jessa covid and he was informed of this and the current preprocedure covid testing protocol in place. He should follow up 4 weeks spb. 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 Patient was asked and denies being seen by any Physicians since their last visit. The patient was last seen by a [facility] provider on 09/19/2019. At today's visit patient presents with their Self Implanted Devices The patient does not have any implanted devices. The patient does not have a glucose monitoring device. Patient is retired. The patient is being seen for a follow-up. Pain Duration: The new pain for about a week Pain Quality: (Neuropathic) burning and numbness Pain Quality: (Nociceptive) stabbing Timing: constant Progression: unchanged Palliation: No relieving factors are noted Exacerbating: standing and walking Pain Score: a current pain level of 9/10, a minimum pain level of 5/10 and a maximum pain level of 10/10. Condition type: The patient is being seen for a chronic condition. Referred by [facility]. PAIN LOCATION: the pain is located in the neck, radiates to the left shoulder, the pain is greater on the left side more than the right and the pain is located in the low back . The etiology of this injury/condition is degenerative. RELATIONSHIP TO INJURY: This condition is not related to a specific injury. INJURY MECHANISM: The injury resulted from no known physical e vent. REVIEW OF PAST DIAGNOSTICS: have included: None on file for lumbar spine. PAST TREATMENT has included: PHYSICAL THERAPY/HOME EXERCISE exercise (not effective) . Facet injection (effective). INTERVAL EVENTS: include . He reports low back pain that extends into his right leg down to the back of his calf. Review of SystemsConstitutional: Normal. Eyes: Normal. ENT: normal. Cardiovascular: Normal. Respiratory: Normal. Gastrointestinal: heartburn. Genitourinary: Normal. Musculoskeletal: lower back pain, neck pain and limb pain. Integumentary: Normal. Neurological: numbness, tingling and difficulty walking. Psychiatric: depression The patient presents with complaints of anxiety (Currently being treated with Bupropion prescribed by PCP). Endocrine: thyroid problems and diabetes. Hematologic/Lymphatic: Normal. Patient maintains at today's visit there has been no change in his/her hematologic history. I reviewed the above with the patient and I feel the ROS to be negative/normal other than musculoskeletal. Active Problems 1. Cervical spondylosis (721.0) (M47.812) 2. Cervical stenosis of spinal canal (723.0) (M48.02) 3. Cervicalgia (723.1) (M54.2) 4. Chronic pain (338.29) (G89.29) Aller gies Latex Shortness of breath;; Updated By: Bethany Stern; 09/19/2019 1:23:08 PMDenied Adhesive Tape Recorded By: Bethany Stern; 09/19/2019 1:12:53 PM Iodinated Contrast Media Recorded By: Bethany Stern; 09/19/2019 1:12:53 PM Current Meds Albuterol Sulfate HFA AERS;Therapy: (Recorded:32Yyu3752) to Recorded Breo Ellipta AEPB;Therapy: (Recorded:68Hmy2388) to Recorded CeleBREX 200 MG Oral Capsule;Therapy: (Recorded:03Bni7986) to Recorded Cymbalta 60 MG Oral Capsule Delayed Release Particles;Therapy: (Recorded:24Whv9296) to Recorded Gabapentin TABS;Therapy: (Recorded:73Pmh7830) to Recorded hydroCHLOROthiazide 50 MG Oral Tablet;Therapy: (Recorded:76Cid4474) to Recorded Incruse Ellipta 62.5 MCG/INH Inhalation Aerosol Powder Breath Activated;Therapy: (Recorded:35Qgq1204) to Recorded Ipratropium [place] SOLN;Therapy: (Recorded:47Ozr5167) to Recorded Levothyroxine Sodium 50 MCG Oral Tablet;Therapy: (Recorded:28Mcb4535) to Recorded Lisinopril 20 MG Oral Tablet;Therapy: (Recorded:66Oot9690) to Recorded metFORMIN HCl - 500 MG Oral Tablet;Therapy: (Recorded:72Oyw8680) to Recorded Omeprazole 20 MG Oral Tablet Delayed Release;Therapy: (Recorded:28Xrn9814) to Recorded tiZANidine HCl - 4 MG Oral Tablet;Therapy: (Recorded:41Smo6329) to Recorded Ventolin AERS;Therapy: (Recorded:13Rcb1831) to Recorded Vitamin D CAPS;Therapy: (Recorded:70Tnp2167) to Recorded Wellbutrin XL 150 MG Oral Tablet Extended Release 24 Hour;Therapy: (Recorded:77Ljw5559) to Recorded Past Medical History Denied: History of anticoagulant therapy History of arthritis (V13.4) (Z87.39) History of asthma (V12.69) (Z87.09) Denied: History of coagulation defect History of hypertension (V12.59) (Z86.79) History of mental disorder (V11.9) (Z86.59) History of neck pain (V13.59) (Z87.39) History of thyroid disorder (V12.29) (Z86.39) Surgical History History of Appendectomy Denied: History of Cardioverter defibrillator insertion History of Carpal tunnel surgery Denied: History of Permanent pacemaker insertion History of Rotator cuff repair Family History Family history of arthritis (V17.7) (Z82.61) Family history of cardiac disorder (V17.49) (Z82.49) Family history of hypertension (V17.49) (Z82.49) Family history of Primary pancreatic cancer of unknown cell type Social History Current non-drinker of alcohol (V49.89) (Z78.9) (V61.03) (Z63.5) Never a smoker No illicit drug use Unemployed, looking for work VitalsVital Signs Recorded: 29May2020 10:28AM Height: 5 ft 7 inWeight: 245 lb BMI Calculated: 38.37BSA Calculated: 2.2Systolic: 128, SittingDiastolic: 90, SittingHeart Rate: 74Respiration: 16Temperature: 98.2 FHeight measured w/wo shoes: w/shoesPain Scale: 9 Physical ExamGeneral: The patient is a well nourished/well developed, male, who is morbidly obese, who is in no acute distress and appears stated age. Eyes: Lids are atraumatic, no lesions, sclerae are anicteric. Ears, Nose, Mouth, Throat: Patient wearing a mask due to COVID- 19. Respiratory: Normal chest expansion and respiratory effort. Gait and Station: Gait was normal. Skin: Warm, dry, acyanotic. Psychological: Alert and oriented to person, place and time. Mood and affect are pleasant and appropriate. Judgement intact. Insight normal without delusions or hallucinations. Denies suicidal/homicidal ideation. Results/DataMRI L-spine from 03/16/2019 when compared to 07/08/2004 -C3-4 with mild degenerative to have narrowing of the disc mild, mild diffuse disc bulging posteriorly and on co- vertebral spurring on the right. C4-5 mild to moderate broad-based disc bulge with posterior osteophyte ridging. There is a left sided uncovertebral spurring producing neural foraminal narrowing. There is mild right-sided uncovertebral spurring as well as narrowing of the foramen. Mild central canal stenosis seen with the mid AP dimension of thecal sac at C4-5 of 9 mm meters. C5-6 degenerative narrowing of the disc. Right posterior disc protrusion with some spur formation indenting the right ventral margin of the thecal sac and mild right neural foraminal encroachment. C6-7 degenerative disc narrowing posterior osteophyte ridging and diffuse disc bulge and mild bilateral uncovertebral spurring. C7-T1 right paracentral focal disc protrusion and minimal uncovertebral spurring on the right. Consider left cervical transforaminal nerve block if he gets no improvement from the cervical interlaminar. Assessment 1. Cervicalgia (723.1) (M54.2) 2. Cervical stenosis of spinal canal (723.0) (M48.02) 3. Cervical spondylosis (721.0) (M47.812) 4. Low back pain (724.2) (M54.5) Plan 1. MRI ([facility]) Referral Treatment Treatment Status: Hold For - Scheduling Requested for: [id number] Patient have SCS...? : NoFront Desk Reminder: : Schedule FMRI within 7 days with ORDERING providerIs this to rule out a mass? : NoHas the patient had Lumbar surgery? : NoContrast : Without ContrastRequest Type : MedicaidMRI Reminder : Ins may require patient to have 4- 6 wks of recent/documented PT on body partMRI Body Part : L-SpineIs this for a MILD MRI...? : No Medication:. The patient does not receive any medication prescriptions from this office. Treatment includes: PROCEDURE(S): - Procedure Variance/Authorization Request: We are requesting authorization (Private) for the following procedure- Nerve Block Plan: I am ordering a, CERVICAL, INTERLAMINAR (STEROID INJECTION). Definitive levels to be determined by the interventional physician based on fluoroscopic imaging and symptomatology at the time of the procedure. This procedure is , targeting the C4 C5 level and under fluoroscopy with SEDATION. NERVE BLOCK: The material risks, benefits, alternatives have been discussed with the patient, including no treatment. They include, but are not limited to, bleeding, bruising, infection, damage to targeted and non-targeted tissue, increased pain, nerve injury or other reaction, if severe, could lead to CVA, arrhythmias or . The patient was given procedure instructions and educational material for this specific procedure at the time of the visit.- Bleeding Disorder: Patient denies having a bleeding disorder. - NSAID/Aspirin: Patient is taking oral NSAID. Patient has been advised and understands to stop 7 days before the procedure. Patient will be educated at the day of procedure when to resume. - Anticoagulation therapy:. Patient denies current treatment with anti-coagulation therapy. THERAPIES: Therapy Treatment Plan: Deferred: All Therapies: Deferred: per patient request. - Physical Therapy plan: Patient has trialed PHYSICAL THERAPY in the past without relief or with minimal relief. FOLLOW UP: The patient should have a follow up visit 4 weeks post block. Miscellaneous: - WEIGHT LOSS: Weight loss was discussed and encouraged. PHQ-9 Patient's PHQ-9 score was 20-27 suggesting a Severe level of Depression. Symptoms were discussed with the patient and treatment options were reviewed. The PHQ-9 was administered today as part of routine health risk screening for depression and psychosocial functioning. Screening for depression in chronic pain patients is standard of care due to the high rate of co-morbidity between these illnesses. In conjunction with other health risk assessment screening data, such as the Opioid Risk Tool and Visual Analogue Scale, this information is imperative for determining the patients risk factors and potential comorbidities prior to determining a safe and effective treatment plan. Behavioral Health treatment is recommended. Patient reported seeing an external provider for Behavioral Health treatment. Patient will sign a release for coordination of care. (Patient denies suicidal ideation, hallucinations. ) - AMBULATORY CARE COORDINATOR: The patient was counseled on the following: treatment plan and future treatment options. Discussion/[id number] year old male initially established on 09/19/[address] [facility] ([facility]) for neck pain. He was referred to undergo a cervical interlaminar nerve block but he never followed through with this referred treatment and he presents today with complaints of low back pain that extends into his right buttock and down the back of his right thigh and calf. He reports that he has had low back pain for years but his current pain is new as of 2 weeks ago. He reports a pain level today of 9/10. On a good day 12/02 and a bad day 05/04. I reviewed the office note from 02/28/[address] [facility] and thus far the patient has trialed and failed facet injections in his cervical spine. He recently underwent a right S1 transforaminal epidural steroid injection on 05/20/2020 at [facility]. He is currently prescribed Celecoxib, Duloxetine, Gabapentin and Tizanidine by [facility] and has been taking them for over 1 year now and reports no improvement. He tells me that he was seen in [place] ER on Wednesday for his intense pain and he was prescribed a Medrol dose pack and a short script of Hydrocodone but this was only after I offered him a Medrol Dose Pack and apparently this is what he was prescribed at the ER visit along with Hydrocodone. He tells me that the Hydrocodone did helps some. He has had cervical and lumbar X-rays and a cervical MRI. Called [facility] to get lumbar X-ray as we only have cervical diagnostics on file. He reports that he does home stretching exercises for his neck, shoulder and lumbar spine. He has also tried heat and none of these conservative treatments has helped. Apparently the Medrol dose pack is not helping either. I am referring the patient to get a baseline MRI of his lumbar spine for his acute on chronic low back pain for further treatment plan. He was informed that he needs to be followed and treated at one facility for his pain. He should follow up after MRI L-Spine. Signatures Electronically signed by : Danni Millan NP; May 29 2020 11:51AM EST (Author) Electronically signed by : Danni Millan NP; May 29 2020 11:53AM EST (Author) Electronically signed by : Suki Doe MD; May 31 2020 11:09AM EST Name Value Range Interpretation Code Description Data Stephanie rce(s) Supporting Document(s) ID Date Data Source [id number] 05/15/2020 01:29:00 PM EDT [facility] ([facility]) Name Value Range Interpretation Code Description Data Stephanie rce(s) Supporting Document(s) aPTT in Platelet poor plasma by Coagulation assay 25.8 s 24.2-38.5 Normal (applies to non-numeric results) [facility] ([facility]) ID Date Data Source [id number] 05/15/2020 01:29:00 PM EDT [facility] ([facility]) Name Value Range Interpretation Code Description Data Stephanie rce(s) Supporting Document(s) Prothrombin Time 12.6 s 12.5-14.3 Normal (applies to non-numeric results) [facility] ([facility]) Inr 0.92 Normal (applies to non-numeric resul ts) [facility] ([facility]) THERAPUTIC HUMAN INR VALUES INDICATIONS NORMAL RANGES PROPHYLAXIS/TREATMENT OF: VENOUS THROMBOSIS 2.0-3.0 PULMONARY EMBOLISM 2.0-3.0 PREVENTION OF SYSTEMIC EMBOLISM FROM: TISSUE HEART VALVES 2.0-3.0 ACUTE MYOCARDIAL INFARCTION 2.0-3.0 VALVULAR HEART DISEASE 2.0-3.0 ATRIAL FIBRILLATION 2.0-3.0 MECHANICAL VALVES(HIGH RISK) 2.5-3.5 RECURRENT MYOCARDIAL INFARCTION 2.5-3.5 ID Date Data Source [id number] 05/15/2020 01:29:00 PM EDT [facility] ([facility]) Name Value Range Interpretation Code Description Data Stephanie rce(s) Supporting Document(s) Platelets [#/volume] in Blood by Automated count 270 10 150-450 Normal (applies to non-numeric results) [facility] ([facility]) ID Date Data Source [id number] 05/15/2020 01:29:00 PM EDT [facility] ([facility]) Name Value Range Interpretation Code Description Data Stephanie rce(s) Supporting Document(s) Prothrombin time (PT) 25.8 s 24.2-38.5 [facility] ([facility]) ID Date Data Source [id number] 05/15/2020 01:29:00 PM EDT [facility] ([facility]) Name Value Range Interpretation Code Description Data Stephanie rce(s) Supporting Document(s) Prothrombin Time 12.6 s 12.5-14.3 [facility] ([facility]) Inr 0.92 [facility] ([facility]) THERAPUTIC HUMAN INR VALUES INDICATIONS NORMAL RANGES PROPHYLAXIS/TREATMENT OF: VENOUS THROMBOSIS 2.0-3.0 PULMONARY EMBOLISM 2.0-3.0 PREVENTION OF SYSTEMIC EMBOLISM FROM: TISSUE HEART VALVES 2.0-3.0 ACUTE MYOCARDIAL INFARCTION 2.0-3.0 VALVULAR HEART DISEASE 2.0-3.0 ATRIAL FIBRILLATION 2.0-3.0 MECHANICAL VALVES(HIGH RISK) 2.5-3.5 RECURRENT MYOCARDIAL INFARCTION 2.5-3.5 ID Date Data Source [id number] 05/15/2020 01:29:00 PM EDT [facility] ([facility]) Name Value Range Interpretation Code Description Data Stephanie rce(s) Supporting Document(s) Platelets [#/volume] in Blood by Automated count 270 10 150-450 [facility] ([facility]) ID Date Data Source [id number] 05/15/2020 01:00:00 PM EDT [facility] ([facility]) Name Value Range Interpretation Code Description Data Stephanie rce(s) Supporting Document(s) Coronavirus 2019 Nasopharygeal Laboratory test result [facility] ([facility]) This nucleic acid amplification test was developed and its performance characteristics determined by [employer]. Nucleic acid amplification tests include PCR and TMA. This test has not been FDA cleared or approved. This test has been authorized by FDA under an Emergency Use Authorization (EUA). This test is only authorized for the duration of time the declaration that circumstances exist justifying the authorization of the emergency use of in vitro diagnostic tests for detection of SARS-CoV-2 virus and/or diagnosis of COVID-19 infection under section 564(b)(1) of the Act, 21 U.S.C. 360bbb-3 (b) (1), unless the authorization is terminated or revoked sooner. When diagnostic testing is negative, the possibility of a false negative result should be considered in the context of a patient's recent exposures and the presence of clinical signs and symptoms consistent with COVID-19. An individual without symptoms of COVID-19 and who is not shedding SARS-CoV-2 virus would expect to have a negative (not detected) result in this assay. Performed at: - [facility] [address] [id number] [employer] Operator: Karlie Ballesteros MD, Phone: [phone] Not Detected ID Date Data Source [id number] 05/15/2020 01:00:00 PM EDT [facility] Name Value Range Interpretation Code Description Data Stephanie rce(s) Supporting Document(s) SARS coronavirus 2 RNA [facility] This lab was ordered by [facility] and reported by [facility]. Procedure Social History Code Duration Value Status Description Data Source(s ) Smoking 01/29/2021 12:00:00 AM EDT Patient has never smoked co mpleted Patient has never smoked [facility] ([facility]) Vital Signs ID Date Data Source UNK Name Value Range Interpretation Code Description Data Source(s) Body temperature 97.2 [degF] 97.2 [degF] [facility] ([facility]) Systolic blood pressure 138 mm[Hg] 138 mm[Hg] [facility] Heart rate 74 /min 74 /min [facility] ([facility]) Oxygen saturation in Arterial blood by Pulse oximetry 94 % 94 % [facility] ([facility]) Body temperature 97.8 [degF] 97.8 [degF] [facility] ([facility]) Body mass index (BMI) [Ratio] 39.1 kg/m2 39.1 k g/m2 [facility] ([facility]) Body weight 109.771 kg 109.771 kg [facility] ([facility]) Body surface area Derived from formula 2.17 m2 2.17 m2 [facility] ([facility]) Diastolic blood pressure 88 mm[Hg] 88 mm[Hg] [facility] ([facility]) Body height 66 [in_i] 66 [in_i] [facility] ([facility]) 5'6" Body weight 242.00 [lb_av] 242.00 [lb_av] [facility] ([facility]) Ona body weight 142 [lb_av] 142 [lb_av] [facility] ([facility]) Oxygen saturation in Arterial blood by Pulse oximetry 94 % 94 % [facility] ([facility]) Body temperature 97.8 [degF] 97.8 [degF] [facility] ([facility]) Body height 66 [in_i] 66 [in_i] [facility] ([facility]) 5'6" Body weight 242.00 [lb_av] 242.00 [lb_av] [facility] Body mass index (BMI) [Ratio] 39.1 kg/m2 39.1 k g/m2 [facility] ([facility]) Ona body weight 142 [lb_av] 142 [lb_av] [facility]) Body weight 109.771 kg 109.771 kg [facility] ([facility]) Body surface area Derived from formula 2.17 m2 2.17 m2 [facility] ([facility]) Systolic blood pressure 126 mm[Hg] 126 mm[Hg] [facility] Diastolic blood pressure 78 mm[Hg] 78 mm[Hg] [facility] ([facility]) Heart rate 70 /min 70 /min [facility] ([facility]) Body temperature 98.1 [degF] 98.1 [degF] [facility] ([facility]) Respiratory rate 18 /min 18 /min [facility] ( [facility]) Oxygen saturation in Arterial blood by Pulse oximetry 95 % 95 % [facility] ([facility]) Body weight 238.25 [lb_av] 238.25 [lb_av] [facility] ([facility]) Body weight 108.070 kg 108.070 kg [facility] ([facility]) Body height 67 [in_i] 67 [in_i] [facility] ([facility]) 5'7" Body mass index (BMI) [Ratio] 37.3 kg/m2 37.3 k g/m2 [facility] ([facility]) Body surface area Derived from formula 2.18 m2 2.18 m2 [facility] ([facility]) Systolic blood pressure 120 mm[Hg] 120 mm[Hg] M [facility] ([facility]) Diastolic blood pressure 72 mm[Hg] 72 mm[Hg] [facility] ([facility]) Heart rate 70 /min 70 /min [facility] ([facility]) Body temperature 99.0 [degF] 99.0 [degF] [facility] ([facility]) Respiratory rate 18 /min 18 /min [facility] ( [facility]) Oxygen saturation in Arterial blood by Pulse oximetry 96 % 96 % [facility] ([facility]) Body weight 256.00 [lb_av] 256.00 [lb_av] [facility] ([facility]) Body weight 116.122 kg 116.122 kg [facility] ([facility]) Body height 67 [in_i] 67 [in_i] [facility] ([facility]) 5'7" Body mass index (BMI) [Ratio] 40.1 kg/m2 40.1 k g/m2 [facility] Body surface area Derived from formula 2.25 m2 2.25 m2 [facility] ([facility]) Respiratory rate 18 /min 18 /min [facility] ( [facility]) Oxygen saturation in Arterial blood by Pulse oximetry 96 % 96 % [facility] ([facility]) Body weight 250.25 [lb_av] 250.25 [lb_av] [facility] ([facility]) Body weight 113.513 kg 113.513 kg [facility] ([facility]) Body height 67 [in_i] 67 [in_i] [facility] ([facility]) 5'7" Body mass index (BMI) [Ratio] 39.2 kg/m2 39.2 k g/m2 [facility] ([facility]) Body surface area Derived from formula 2.22 m2 2.22 m2 [facility]) Systolic blood pressure 120 mm[Hg] 120 mm[Hg] M [facility] ([facility]) Diastolic blood pressure 74 mm[Hg] 74 mm[Hg] [facility] ([facility]) Heart rate 82 /min 82 /min [facility] ([facility]) Body temperature 98.1 [degF] 98.1 [degF] [facility] ([facility]) Oxygen saturation in Arterial blood by Pulse oximetry 92 % 92 % [facility] ([facility]) Body temperature 97.7 [degF] 97.7 [degF] [facility] ([facility]) Body height 66 [in_i] 66 [in_i] [facility] ([facility]) 5'6" Body weight 247.00 [lb_av] 247.00 [lb_av] [facility] Body mass index (BMI) [Ratio] 39.9 kg/m2 39.9 k g/m2 [facility] ([facility]) Ona body weight 142 [lb_av] 142 [lb_av] [facility]) Body weight 112.039 kg 112.039 kg [facility] ([facility]) Body surface area Derived from formula 2.19 m2 2.19 m2 [facility] ([facility]) Systolic blood pressure 140 mm[Hg] 140 mm[Hg] [facility] Diastolic blood pressure 100 mm[Hg] 100 mm[Hg] [facility] ([facility]) Heart rate 83 /min 83 /min [facility] ([facility]) Oxygen saturation in Arterial blood by Pulse oximetry 92 % 92 % [facility] ([facility]) Body temperature 97.7 [degF] 97.7 [degF] [facility] ([facility]) Body height 66 [in_i] 66 [in_i] [facility] ([facility]) 5'6" Body weight 247.00 [lb_av] 247.00 [lb_av] [facility]) Body mass index (BMI) [Ratio] 39.9 kg/m2 39.9 k g/m2 [facility] ([facility]) Ona body weight 142 [lb_av] 142 [lb_av] [facility]) Body weight 112.039 kg 112.039 kg [facility] ([facility]) Body surface area Derived from formula 2.19 m2 2.19 m2 [facility] ([facility]) Systolic blood pressure 118 mm[Hg] 118 mm[Hg] M [facility] ([facility]) Diastolic blood pressure 64 mm[Hg] 64 mm[Hg] [facility] ([facility]) Heart rate 88 /min 88 /min [facility] ([facility]) Body temperature 98.1 [degF] 98.1 [degF] [facility] ([facility]) Respiratory rate 18 /min 18 /min [facility] ( [facility]) Oxygen saturation in Arterial blood by Pulse oximetry 96 % 96 % [facility] ([facility]) Body weight 257.00 [lb_av] 257.00 [lb_av] [facility] ([facility]) Body weight 116.575 kg 116.575 kg [facility] ([facility]) Body height 67 [in_i] 67 [in_i] [facility] ([facility]) 5'7" Body mass index (BMI) [Ratio] 40.2 kg/m2 40.2 k g/m2 [facility] ([facility]) Body surface area Derived from formula 2.25 m2 2.25 m2 [facility] ([facility])
--- OUTSIDE RECORDS SUMMARY | 2021-06-10 19:18 | CCD | Continuity of Care Document ---
Author Author Jose Antonio MCDANIEL DO Organization Unknown Address [address] [place] [address], [place] [address] Phone [phone] Care Team Providers Care [employer] Agent Name Role Phone Penelope Mccall AUTM [phone] Yvette Bustillos AUTM [phone] Problems Active Problems Provider Date Uncomplicated severe persistent asthma Rajiv James D.O Onset: 01/29/2021 Chronic obstructive lung disease Rajiv Jmaes D.O Onset : 01/29/2021 Essential hypertension Kendrick [...] tab by mouth every day Unknown Ipratropium [place]/Albuterol Sulfate 0.5-2.5(3)mg/3ML Solution 1 vial via neb [...] CPT Code Status Date Vaccine Lot # [id number] Given 05/31/2019 Flublock, Quadrivalent Vital Signs Date Vital Result Comment 01/29/2021 10:05am BP Systolic 138 mmHg BP Diastolic 88 mmHg Heart Rate 74 /min O2 % [facility] Oximetry 94 % Body Temperature 97.8 F Height 66 inches 5'6" Weight 242.00 lb BMI (Body Mass Index) 39.1 kg/m2 [place] Body Weight 142 lb Weight 109.771 kg BSA (Body Surface Area) 2.17 m2 07/29/2020 9:32am BP Systolic 140 mmHg BP Diastolic 100 mmHg Heart Rate 83 /min O2 % BldC Oximetry 92 % Body Temperature 97.7 F Height 66 inches 5'6" Weight 247.00 lb BMI (Body Mass Index) 39.9 kg/m2 [place] Body Weight 142 lb Weight 112.039 kg BSA (Body Surface Area) 2.19 m2 Results Description No Information Available Procedures Date Code Description Status 01/29/2021 14863 Office/Outpatient Established Mo d MDM 30-39 Min Completed 01/29/2021 49120 Diffusing Capacity Completed 01/29/2021 32434 Plethysmography Determination Radha ng Volumes & Per Airway Resist Completed 01/29/2021 37088 Bronchospasm Evaluation Complete d Medical Devices Description No Information Available Encounters Type Date Location Provider Dx Diagnosis Office Visit 01/29/2021 11:00a [facility] Pulmonary/Thoracic D roshan James D.O J45.50 Severe [...]
[2021-06-10] MEDS ORDERED: KETOROLAC 60MG 2ML VIAL IM ONE (21:25)
[2021-06-10] MEDS ORDERED: LIDOCAINE 5% (LIDODERM) PATCH TD ONE (21:25)
--- OUTSIDE RECORDS SUMMARY | 2021-06-10 21:47 | CCD ---
Author Author [facility] Organization [facility] Address Unknown Phone Unavailable Care Team Providers Care Oversize Load Pilot Escort Name Role Phone KIRSCHMAN, L KRISS PRODUCTION EDITOR Unavailable Unavailable KIRSCHMAN, L KRISS PRODUCTION EDITOR Unavailable Unavailable KIRSCHMAN, L KRISS PRODUCTION EDITOR Unavailable Unavailable KIRSCHMAN, L KRISS PRODUCTION EDITOR Unavailable Unavailable KIRSCHMAN, L KRISS PRODUCTION EDITOR Unavailable Unavailable KIRSCHMAN, L KRISS PRODUCTION EDITOR Unavailable Unavailable KIRSCHMAN, L KRISS PRODUCTION EDITOR Unavailable Unavailable KIRSCHMAN, L KRISS PRODUCTION EDITOR Unavailable Unavailable KIRSCHMAN, L KRISS PRODUCTION EDITOR Unavailable Unavailable KIRSCHMAN, L KRISS PRODUCTION EDITOR Unavailable Unavailable KIRSCHMAN, L KRISS PRODUCTION EDITOR Unavailable Unavailable KIRSCHMAN, L KRISS PRODUCTION EDITOR Unavailable Unavailable KIRSCHMAN, L KRISS PRODUCTION EDITOR Unavailable Unavailable KIRSCHMAN, L KRISS PRODUCTION EDITOR Unavailable Unavailable KIRSCHMAN, L KRISS PRODUCTION EDITOR Unavailable Unavailable KIRSCHMAN, L KRISS PRODUCTION EDITOR Unavailable Unavailable KIRSCHMAN, L KRISS PRODUCTION EDITOR Unavailable Unavailable KIRSCHMAN, L KRISS PRODUCTION EDITOR Unavailable Unavailable KIRSCHMAN, L KRISS PRODUCTION EDITOR Unavailable Unavailable KIRSCHMAN, L KRISS PRODUCTION EDITOR Unavailable Unavailable KIRSCHMAN, L KRISS PRODUCTION EDITOR Unavailable Unavailable KIRSCHMAN, L KRISS PRODUCTION EDITOR Unavailable Unavailable KIRSCHMAN, L KRISS PRODUCTION EDITOR Unavailable Unavailable KIRSCHMAN, L KRISS PRODUCTION EDITOR Unavailable Unavailable KIRSCHMAN, L KRISS PRODUCTION EDITOR Unavailable Unavailable KIRSCHMAN, L KRISS PRODUCTION EDITOR Unavailable Unavailable KIRSCHMAN, L KRISS PRODUCTION EDITOR Unavailable Unavailable KIRSCHMAN, L KRISS PRODUCTION EDITOR Unavailable Unavailable KIRSCHMAN, L KRISS PRODUCTION EDITOR Unavailable Unavailable KIRSCHMAN, L KRISS PRODUCTION EDITOR Unavailable Unavailable KIRSCHMAN, L KRISS PRODUCTION EDITOR Unavailable Unavailable KIRSCHMAN, L KRISS PRODUCTION EDITOR Unavailable Unavailable KIRSCHMAN, L KRISS PRODUCTION EDITOR Unavailable Unavailable KIRSCHMAN, L KRISS PRODUCTION EDITOR Unavailable Unavailable KIRSCHMAN, L KRISS PRODUCTION EDITOR Unavailable Unavailable KIRSCHMAN, L KRISS PRODUCTION EDITOR Unavailable Unavailable KIRSCHMAN, L KRISS PRODUCTION EDITOR Unavailable Unavailable KIRSCHMAN, L KRISS PRODUCTION EDITOR Unavailable Unavailable KIRSCHMAN, L KRISS PRODUCTION EDITOR Unavailable Unavailable KIRSCHMAN, L KRISS PRODUCTION EDITOR Unavailable Unavailable KIRSCHMAN, L KRISS PRODUCTION EDITOR Unavailable Unavailable KIRSCHMAN, L KRISS PRODUCTION EDITOR Unavailable Unavailable KIRSCHMAN, L KRISS PRODUCTION EDITOR Unavailable Unavailable KIRSCHMAN, L KRISS PRODUCTION EDITOR Unavailable Unavailable KIRSCHMAN, L KRISS PRODUCTION EDITOR Unavailable Unavailable KIRSCHMAN, L KRISS PRODUCTION EDITOR Unavailable Unavailable KIRSCHMAN, L KRISS PRODUCTION EDITOR Unavailable Unavailable Monty, L Shelyta EMERGENCY DEPARTMENT MANAGER Unavailable Unavailable Monty, L Shelyta EMERGENCY DEPARTMENT MANAGER Unavailable Unavailable Monty, L Shelyta EMERGENCY DEPARTMENT MANAGER Unavailable Unavailable Monty, L Shelyta EMERGENCY DEPARTMENT MANAGER Unavailable Unavailable Monty, L Shelyta EMERGENCY DEPARTMENT MANAGER Unavailable Unavailable Monty, L Shelyta EMERGENCY DEPARTMENT MANAGER Unavailable Unavailable Monty, L Shelyta EMERGENCY DEPARTMENT MANAGER Unavailable Unavailable Monty, L Shelyta EMERGENCY DEPARTMENT MANAGER Unavailable Unavailable Monty, L Shelyta EMERGENCY DEPARTMENT MANAGER Unavailable Unavailable Monty, L Shelyta EMERGENCY DEPARTMENT MANAGER Unavailable Unavailable Monty, L Shelyta EMERGENCY DEPARTMENT MANAGER Unavailable Unavailable Monty, L Shelyta EMERGENCY DEPARTMENT MANAGER Unavailable Unavailable Monty, L Shelyta EMERGENCY DEPARTMENT MANAGER Unavailable Unavailable Monty, L Shelyta EMERGENCY DEPARTMENT MANAGER Unavailable Unavailable Monty, L Shelyta EMERGENCY DEPARTMENT MANAGER Unavailable Unavailable Monty, L Shelyta EMERGENCY DEPARTMENT MANAGER Unavailable Unavailable Monty, L Shelyta EMERGENCY DEPARTMENT MANAGER Unavailable Unavailable Monty, L Shelyta EMERGENCY DEPARTMENT MANAGER Unavailable Unavailable Monty, L Shelyta EMERGENCY DEPARTMENT MANAGER Unavailable Unavailable Monty, L Shelyta EMERGENCY DEPARTMENT MANAGER Unavailable Unavailable Monty, L Shelyta EMERGENCY DEPARTMENT MANAGER Unavailable Unavailable Monty, L Shelyta EMERGENCY DEPARTMENT MANAGER Unavailable Unavailable Monty, L Shelyta EMERGENCY DEPARTMENT MANAGER Unavailable Unavailable Monty, L Shelyta EMERGENCY DEPARTMENT MANAGER Unavailable Unavailable Monty, L Shelyta EMERGENCY DEPARTMENT MANAGER Unavailable Unavailable Ambrosio Boucher MD Unavailable Unavailable [...] Kameron SEGOVIA Unavailable Unavailable Nevills, C Yvette PRODUCTION EDITOR Unavailable Unavailable Nevills, C Yvette PRODUCTION EDITOR Unavailable Unavailable Nevills, C Yvette PRODUCTION EDITOR Unavailable Unavailable Nevills, C Yvette PRODUCTION EDITOR Unavailable Unavailable Nevills, C Yvette PRODUCTION EDITOR Unavailable Unavailable Nevills, C Yvette PRODUCTION EDITOR Unavailable Unavailable Nevills, C Yvette PRODUCTION EDITOR Unavailable Unavailable Nevills, C Yvtete PRODUCTION EDITOR Unavailable Unavailable Nevills, C Yvette PRODUCTION EDITOR Unavailable Unavailable Nevills, C Yvette PRODUCTION EDITOR Unavailable Unavailable Nevills, C Yvette PRODUCTION EDITOR Unavailable Unavailable Nevills, C Yvette PRODUCTION EDITOR Unavailable Unavailable Nevills, C Yvette PRODUCTION EDITOR Unavailable Unavailable Nevills, C Yvette PRODUCTION EDITOR Unavailable Unavailable Nevills, C Yvette PRODUCTION EDITOR Unavailable Unavailable Nevills, C Yvette PRODUCTION EDITOR Unavailable Unavailable Nevills, C Yvette PRODUCTION EDITOR Unavailable Unavailable Nevills, C Yvette PRODUCTION EDITOR Unavailable Unavailable Nevills, C Yvette PRODUCTION EDITOR Unavailable Unavailable Nevills, C Yvette PRODUCTION EDITOR Unavailable Unavailable Nevills, C Yvette PRODUCTION EDITOR Unavailable Unavailable Nevills, C Yvette PRODUCTION EDITOR Unavailable Unavailable Nevills, C Yvette PRODUCTION EDITOR Unavailable Unavailable Nevills, C Yvette PRODUCTION EDITOR Unavailable Unavailable Nevills, C Yvette PRODUCTION EDITOR Unavailable Unavailable Nevills, C Yvette PRODUCTION EDITOR Unavailable Unavailable Nevills, C Yvette PRODUCTION EDITOR Unavailable Unavailable Nevills, C Yvette PRODUCTION EDITOR Unavailable Unavailable Nevills, C Yvette PRODUCTION EDITOR Unavailable Unavailable Nevills, C Yvette PRODUCTION EDITOR Unavailable Unavailable Nevills, C Yvette PRODUCTION EDITOR Unavailable Unavailable Nevills, C Yvette PRODUCTION EDITOR Unavailable Unavailable Nevills, C Yvette PRODUCTION EDITOR Unavailable Unavailable Nevills, C Yvette PRODUCTION EDITOR Unavailable Unavailable DUSSING, DINO EMERGENCY DEPARTMENT MANAGER-C Unavailable Unavailable DUSSING, DINO EMERGENCY DEPARTMENT MANAGER-C Unavailable Unavailable DUSSING, DINO EMERGENCY DEPARTMENT MANAGER-C Unavailable Unavailable DUSSING, DINO EMERGENCY DEPARTMENT MANAGER-C Unavailable Unavailable DUSSING, DINO EMERGENCY DEPARTMENT MANAGER-C Unavailable Unavailable DUSSING, DINO EMERGENCY DEPARTMENT MANAGER-C Unavailable Unavailable DUSSING, DINO EMERGENCY DEPARTMENT MANAGER-C Unavailable Unavailable DUSSING, DINO EMERGENCY DEPARTMENT MANAGER-C Unavailable Unavailable DUSSING, DINO EMERGENCY DEPARTMENT MANAGER-C Unavailable Unavailable DUSSING, DINO EMERGENCY DEPARTMENT MANAGER-C Unavailable Unavailable DUSSING, DINO EMERGENCY DEPARTMENT MANAGER-C Unavailable Unavailable DUSSING, DINO EMERGENCY DEPARTMENT MANAGER-C Unavailable Unavailable DUSSING, DINO EMERGENCY DEPARTMENT MANAGER-C Unavailable Unavailable DUSSING, DINO EMERGENCY DEPARTMENT MANAGER-C Unavailable Unavailable DUSSING, DINO EMERGENCY DEPARTMENT MANAGER-C Unavailable Unavailable DUSSING, DINO EMERGENCY DEPARTMENT MANAGER-C Unavailable Unavailable DUSSING, DINO EMERGENCY DEPARTMENT MANAGER-C Unavailable Unavailable DUSSING, DINO EMERGENCY DEPARTMENT MANAGER-C Unavailable Unavailable DUSSING, DINO EMERGENCY DEPARTMENT MANAGER-C Unavailable Unavailable DUSSING, DINO EMERGENCY DEPARTMENT MANAGER-C Unavailable Unavailable DUSSING, DINO EMERGENCY DEPARTMENT MANAGER-C Unavailable Unavailable DUSSING, DINO EMERGENCY DEPARTMENT MANAGER-C Unavailable Unavailable DUSSING, DINO EMERGENCY DEPARTMENT MANAGER-C Unavailable Unavailable DUSSING, DINO EMERGENCY DEPARTMENT MANAGER-C Unavailable Unavailable DUSSING, DINO EMERGENCY DEPARTMENT MANAGER-C Unavailable Unavailable DUSSING, DINO EMERGENCY DEPARTMENT MANAGER-C Unavailable Unavailable DUSSING, DINO EMERGENCY DEPARTMENT MANAGER-C Unavailable Unavailable DUSSING, DINO EMERGENCY DEPARTMENT MANAGER-C Unavailable Unavailable DUSSING, DINO EMERGENCY DEPARTMENT MANAGER-C Unavailable Unavailable DUSSING, DINO EMERGENCY DEPARTMENT MANAGER-C Unavailable Unavailable DUSSING, DINO EMERGENCY DEPARTMENT MANAGER-C Unavailable Unavailable DUSSING, DINO EMERGENCY DEPARTMENT MANAGER-C Unavailable Unavailable DUSSING, DINO EMERGENCY DEPARTMENT MANAGER-C Unavailable Unavailable DUSSING, DINO EMERGENCY DEPARTMENT MANAGER-C Unavailable Unavailable Ogunsede, Tawana PRODUCTION EDITOR Unavailable Unavailable Ogunsede, Tawana PRODUCTION EDITOR Unavailable Unavailable Ogunsede, Tawana PRODUCTION EDITOR Unavailable Unavailable Ogunsede, Tawana PRODUCTION EDITOR Unavailable Unavailable Ogunsede, Tawana PRODUCTION EDITOR Unavailable Unavailable Ogunsede, Tawana PRODUCTION EDITOR Unavailable Unavailable Ogunsede, Tawana PRODUCTION EDITOR Unavailable Unavailable Ogunsede, Tawana PRODUCTION EDITOR Unavailable Unavailable Ogunsede, Tawana PRODUCTION EDITOR Unavailable Unavailable Ogunsede, Tawana PRODUCTION EDITOR Unavailable Unavailable Ogunsede, Tawana PRODUCTION EDITOR Unavailable Unavailable Ogunsede, Tawana PRODUCTION EDITOR Unavailable Unavailable Ogunsede, Tawana PRODUCTION EDITOR Unavailable Unavailable Ogunsede, Tawana PRODUCTION EDITOR Unavailable Unavailable Ogunsede, Tawana PRODUCTION EDITOR Unavailable Unavailable Ogunsede, Tawana PRODUCTION EDITOR Unavailable Unavailable Ogunsede, Tawana PRODUCTION EDITOR Unavailable Unavailable Ogunsede, Tawana PRODUCTION EDITOR Unavailable Unavailable Ogunsede, Tawana PRODUCTION EDITOR Unavailable Unavailable Ogunsede, Tawana PRODUCTION EDITOR Unavailable Unavailable Ogunsede, Tawana PRODUCTION EDITOR Unavailable Unavailable Ogunsede, Tawana PRODUCTION EDITOR Unavailable Unavailable Ogunsede, Tawana PRODUCTION EDITOR Unavailable Unavailable PACK, ISA CANELA MD Unavailable [...] P Rajiv DO Unavailable Unavailable Rechlin, P Raijv DO Unavailable Unavailable Rechlin, P Rajiv DO Unavailable Unavailable Rechlin, P Rajiv DO Unavailable Unavailable Rechlin, P Rajiv DO Unavailable Unavailable Rechlin, P Rajiv DO Unavailable Unavailable Rechlin, P Rajvi DO Unavailable Unavailable Rechlin, P Rajiv DO [...] A Kameron MD Unavailable Unavailable Sander, A Kaemron MD Unavailable Unavailable Sander, A Kameron MD [...] Penelope ANP-BC Unavailable Unavailable Nevills, C Yvette PRODUCTION EDITOR Unavailable Unavailable Nevills, C Yvette PRODUCTION EDITOR Unavailable Unavailable Nevills, C Yvette PRODUCTION EDITOR Unavailable Unavailable Nevills, C Yvette PRODUCTION EDITOR Unavailable Unavailable Nevills, C Yvette PRODUCTION EDITOR Unavailable Unavailable Nevills, C Yvette PRODUCTION EDITOR Unavailable Unavailable Nevills, C Yvette PRODUCTION EDITOR Unavailable Unavailable Nevills, C Yvette PRODUCTION EDITOR Unavailable Unavailable Nevills, C Yvette PRODUCTION EDITOR Unavailable Unavailable Nevills, C Yvette PRODUCTION EDITOR Unavailable Unavailable Nevills, C Yvette PRODUCTION EDITOR Unavailable Unavailable Nevills, C Yvette PRODUCTION EDITOR Unavailable Unavailable Nevills, C Yvette PRODUCTION EDITOR Unavailable Unavailable Nevills, C Yvette PRODUCTION EDITOR Unavailable Unavailable Nevills, C Yvette PRODUCTION EDITOR Unavailable Unavailable Nevills, C Yvette PRODUCTION EDITOR Unavailable Unavailable Nevills, C Yvette PRODUCTION EDITOR Unavailable Unavailable Nevills, C Yvette PRODUCTION EDITOR Unavailable Unavailable Nevills, C Yvette PRODUCTION EDITOR Unavailable Unavailable Nevills, C Yvette PRODUCTION EDITOR Unavailable Unavailable Nevills, C Yvette PRODUCTION EDITOR Unavailable Unavailable Nevills, C Yvette PRODUCTION EDITOR Unavailable Unavailable Nevills, C Yvette PRODUCTION EDITOR Unavailable Unavailable Nevills, C Yvette PRODUCTION EDITOR Unavailable Unavailable Nevills, C Yvette PRODUCTION EDITOR Unavailable Unavailable Nevills, C Yvette PRODUCTION EDITOR Unavailable Unavailable Nevills, C Yvette PRODUCTION EDITOR Unavailable Unavailable Nevills, C Yvette PRODUCTION EDITOR Unavailable Unavailable Nevills, C Yvette PRODUCTION EDITOR Unavailable Unavailable Nevills, C Yvette PRODUCTION EDITOR Unavailable Unavailable Nevills, C Yvette PRODUCTION EDITOR Unavailable Unavailable Nevills, C Yvette PRODUCTION EDITOR Unavailable Unavailable Nevills, C Yvette PRODUCTION EDITOR Unavailable Unavailable Nevills, C Yvette PRODUCTION EDITOR Unavailable Unavailable MELISA, T SUSANA EMERGENCY DEPARTMENT MANAGER Unavailable Unavailable MELISA, T SUSANA EMERGENCY DEPARTMENT MANAGER Unavailable Unavailable MELISA, T SUSANA EMERGENCY DEPARTMENT MANAGER Unavailable Unavailable MELISA, T SUSANA EMERGENCY DEPARTMENT MANAGER Unavailable Unavailable MELISA, T SUSANA EMERGENCY DEPARTMENT MANAGER Unavailable Unavailable MELISA, T SUSANA EMERGENCY DEPARTMENT MANAGER Unavailable Unavailable MELISA, T SUSANA EMERGENCY DEPARTMENT MANAGER Unavailable Unavailable MELISA, T SUSANA EMERGENCY DEPARTMENT MANAGER Unavailable Unavailable MELISA, T SUSANA EMERGENCY DEPARTMENT MANAGER Unavailable Unavailable MELISA, T SUSANA EMERGENCY DEPARTMENT MANAGER Unavailable Unavailable MELISA, T SUSANA EMERGENCY DEPARTMENT MANAGER Unavailable Unavailable MELISA, T SUSANA EMERGENCY DEPARTMENT MANAGER Unavailable Unavailable MELISA, T SUSANA EMERGENCY DEPARTMENT MANAGER Unavailable Unavailable MELISA, T SUSANA EMERGENCY DEPARTMENT MANAGER Unavailable Unavailable MELISA, T SUSANA EMERGENCY DEPARTMENT MANAGER Unavailable Unavailable MELISA, T SUSANA EMERGENCY DEPARTMENT MANAGER Unavailable Unavailable MELISA, T SUSANA EMERGENCY DEPARTMENT MANAGER Unavailable Unavailable MELISA, T SUSANA EMERGENCY DEPARTMENT MANAGER Unavailable Unavailable MELISA, T SUSANA EMERGENCY DEPARTMENT MANAGER Unavailable Unavailable MELISA, T SUSANA EMERGENCY DEPARTMENT MANAGER Unavailable Unavailable MELISA, T SUSANA EMERGENCY DEPARTMENT MANAGER Unavailable Unavailable MELISA, T SUSANA EMERGENCY DEPARTMENT MANAGER Unavailable Unavailable MELISA, T SUSANA EMERGENCY DEPARTMENT MANAGER Unavailable Unavailable MELISA, T SUSANA EMERGENCY DEPARTMENT MANAGER Unavailable Unavailable MELISA, T SUSANA EMERGENCY DEPARTMENT MANAGER Unavailable Unavailable MELISA, T SUSANA EMERGENCY DEPARTMENT MANAGER Unavailable Unavailable MELISA, T SUSANA EMERGENCY DEPARTMENT MANAGER Unavailable Unavailable MELISA, T SUSANA EMERGENCY DEPARTMENT MANAGER Unavailable Unavailable MELISA, T SUSANA EMERGENCY DEPARTMENT MANAGER Unavailable Unavailable MELISA, T SUSANA EMERGENCY DEPARTMENT MANAGER Unavailable Unavailable MELISA, T SUSANA EMERGENCY DEPARTMENT MANAGER Unavailable Unavailable MELISA, T SUSANA EMERGENCY DEPARTMENT MANAGER Unavailable Unavailable MELISA, T SUSANA EMERGENCY DEPARTMENT MANAGER Unavailable Unavailable MELISA, T SUSANA EMERGENCY DEPARTMENT MANAGER Unavailable Unavailable MELISA, T SUSANA EMERGENCY DEPARTMENT MANAGER Unavailable Unavailable MELISA, T SUSANA EMERGENCY DEPARTMENT MANAGER Unavailable Unavailable MELISA, T SUSANA EMERGENCY DEPARTMENT MANAGER Unavailable Unavailable MELISA, T SUSANA EMERGENCY DEPARTMENT MANAGER Unavailable Unavailable MELISA, T SUSANA EMERGENCY DEPARTMENT MANAGER Unavailable Unavailable MELISA, T SUSANA EMERGENCY DEPARTMENT MANAGER Unavailable Unavailable Cal, Jazmine Penelope ANP-BC Unavailable [...] is protected by Article 27-F of the [place] Public Health law. If you continue you may have access to information: Regarding HIV / AIDS; Provided by facilities licensed or operated by the [facility] Office of Mental Health; or Provided by the [facility] Office for People With Developmental Disabilities. If such information is present, then the following [facility] mandated warning applies: This information has been [...] law may result in a fine or halfway sentence or both. A general authorization for the release of medical or other information is NOT sufficient authorization for further disc losure. Allergies and Adverse Reactions Type Description Substance Reaction Status Data Source(s ) No Known Drug Allergies No Known Drug Allergies [facility] Propensity to adverse reactions LATEX LATEX [facility] Family History Family Member Name Family Member Gender Family Member Status Date o f Status Description Data Source(s) Unknown Male Problem [facility] ([facility]) () Unknown Male Problem [facility] ([facility] ) Encounters Encounter Providers Location Date Indications Data Source(s ) Outpatient Attender: ISA Mims/Charlie/Edmar/ Reinjessica 05/28/2021 09:40:00 AM EDT [facility] ([facility] Outpatient Attender: ISA Mims/Charlie/Edmar/ Reinjessica 05/09/2021 10:00:00 AM EDT [facility] ([facility] Outpatient Attender: Rajiv Redd/Charlie/Edmar/Abhi rhodes 01/29/2021 11:00:00 AM EDT [facility] ([facility] Outpatient Attender: Yvette Bustillos NP Family Practice 01/28 03:00:00 PM EDT [facility] Outpatient Attender: Yvette Bustillos NPConsultant: KRISS JIMENEZ NP 01/28/2021 01:48:00 PM EDT - 01/28/2021 01:48:00 PM EDT [facility] Outpatient Attender: Yvette Bustillos NPConsultant: KRISS JIMENEZ NP 01/13/2021 02:23:00 PM EDT - 01/13/2021 02:23:00 PM EDT [facility] Recurring Patient Referrer: DINO OVIEDO 11/27/2020 11:46:33 AM EDT [facility] Outpatient Attender: Kameron Boucher MDAdmitter: Kameron Boucher MD 11/26/2020 05:15:00 AM EDT - 11/26/2020 09:16:00 AM EDT 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 Outpatient Attender: TALHA STRAUSS DO 11/22/2020 03:45:01 PM EDT [facility] Outpatient Attender: Kameron Boucher MDReferrer: Penelope NICOLE 11/21/2020 08:38:55 AM EDT [facility] Outpatient Attender: TALHA STRAUSS DO 11/12/2020 11:24:17 AM EDT [facility] Outpatient Attender: Kameron Boucher MD 11/12/2020 10:3 5:00 AM EDT ELECTIVE L5-S1 LUMBAR LAMINECTOMY AND DECOMPRESSION, [facility] ELECTIVE L5-S1 LUMBAR LAMINECTOMY AND DE COMPRESSION, [facility] Outpatient Attender: Penelope GRAHAMonsultant: KRISS BOOTH NP 11/06/2020 01:03:00 PM EDT - 11/06/2020 01:03:00 PM EDT [facility] Outpatient Attender: Penelope SANCHEZ Family Practice 10/24 01:00:00 PM EDT [facility] Recurring Patient Attender: Danni Millan FNPReferrer: Chris hobbs 11/04/2020 02:24:52 PM EDT [facility] Outpatient Attender: Peenlope SANCHEZ 09/2020 08:51:00 AM EST - 09/25/2020 08:51:00 AM EST [facility] Recurring Patient Referrer: DINO OVIEDO 09/24/2020 07:36:01 AM EST [facility] Outpatient Attender: Kameron Boucher MDReferrer: Penelope DONIS P-BC 09/20/2020 10:30:20 AM EST [facility] Recurring Patient Referrer: DINO NIETO EMERGENCY DEPARTMENT MANAGER-C 09/20/2020 09:54:56 AM EST [facility] Recurring Patient Referrer: DINO NIETO EMERGENCY DEPARTMENT MANAGER-C 09/20/2020 09:49:31 AM EST [facility] Outpatient Attender: SUSANA VINCENT EMERGENCY DEPARTMENT MANAGER 01/2021 02:28:10 PM EST - 09/01/2020 03:39:43 PM EST [facility] ([facility] ) Recurring Patient Attender: Danni Millan FNPReferrer: Chris hobbs 08/06/2020 12:30:33 PM EST [facility] Recurring Patient Attender: Danni Millan FNPReferrer: Chris hobbs 08/06/2020 12:30:12 PM EST [facility] Recurring Patient Attender: Danni Millan FNPReferrer: Chris hobbs 08/06/2020 12:27:53 PM EST [facility] Outpatient Attender: Rajiv Redd/Charlie/Edmar/Abhi rhodes 07/29/2020 09:00:00 AM EST [facility] ([facility] Recurring Patient Attender: Danni Millan FNPReferrer: Chris hobbs 07/25/2020 08:57:15 AM EST [facility] Recurring Patient Referrer: DINO NIETO EMERGENCY DEPARTMENT MANAGER-C 07/24/2020 02:30:06 PM EST [facility] Recurring Patient Referrer: DINO NIETO EMERGENCY DEPARTMENT MANAGER-C 07/24/2020 02:23:28 PM EST [facility] Outpatient Attender: DINO NUGENTP-CReferrer: Chris hobbs 07/24/2020 08:46:24 AM EST [facility] Recurring Patient Attender: Danni Millan FNPReferrer: Chris hobbs 07/23/2020 03:10:15 PM EST [facility] Recurring Patient Attender: Danni Millan FNPReferrer: Chris hobbs 07/15/2020 10:31:26 AM EST [facility] Outpatient Attender: Tawana Gomes NPReferrer: Chris Mays 07/02/2020 08:10:01 AM EST [facility] Outpatient Attender: Penelope Mccall ANP-BC 05/28 03:03:00 PM EST - 06/24/2020 03:03:00 PM [facility] Outpatient Attender: Danni Millan FNPReferrer: Chris dowd 06/18/2020 09:26:06 AM EST [facility] Recurring Patient Attender: Danni Millan FNPReferrer: Chris hobbs 06/14/2020 02:22:41 PM [facility] Outpatient Attender: Danni Millan FNPReferrer: Chris dowd 05/31/2020 11:09:49 AM [facility] Immunizations Vaccine Date Status Description Data Source(s) COVID-19 VACCINE Moderna 04/02/2021 12:00:00 AM EDT completed [facility] Vaccine Series Complete: YESThis Data wa s Submitted to [facility] Via [employer]. COVID-19 VACCINE Moderna 03/05/2021 12:00:00 AM EDT completed [facility] Vaccine Series Complete: NOThis Data was Submitted to [facility] Via [employer]. Medications Medication Brand Name Start Date Product Form Dose Route Admi nistrative Instructions Pharmacy Instructions Status Indications Reaction Description Data Source(s) Potassium Chloride 10 MEQ Extended Release Oral Capsule Pota ssium Chloride ER 06/10/2021 12:00:00 AM EST ORAL active [facility] ([facility]) 60 ACTUAT Albuterol 0.09 MG/ACTUAT Metered Dose Inhaler Albu terol Sulfate HFA 01/09/2021 12:00:00 AM EDT RESPIRATORY active [facility] ([facility], ) Levothyroxine Sodium 0.075 MG Oral Tablet Levothyroxine Sodi um 11/21/2020 12:00:00 AM EDT ORAL active M EDENT ([facility]) Azithromycin 250 MG Oral Tablet Azithromycin 07/29/2020 12:00:[address] ORAL active [facility] ([facility] ) Bisacodyl 5 MG Delayed Release Oral Tablet Bisacodyl Ec 05/03/2020 12:00:00 AM EDT ORAL active [facility] ([facility]) POLYETHYLENE GLYCOL 3350 142 MG/ML Oral Solution [Miralax] M iralax 05/03/2020 12:00:00 AM EDT active M [facility] ([facility]) Insurance Providers Payer name Policy type / Coverage type Policy ID Covered alliance party ID Covered alliance party's relationship to leon Policy Leon Plan Information [employer] [employer] Workers Compensation [id number] Self 1 [id number] [employer] [employer] Workers Compensation [id number] Self 1 [id number] [employer] [employer] Workers Compensation [id number] Self 1 [id number] [place] [employer]) Workers Compensation [id number] Self 1 [id number] [place] [employer]) Workers Compensation [id number] Self 1 [id number] [place] [employer]) Workers Compensation [id number] Self [id number] [place] [employer]) Workers Compensation [id number] Self 1 [id number] [place] [employer]) Workers Compensation [id number] Self 1 [id number] [place] [employer]) Workers Compensation [id number] Self 1 [id number] [place] [employer]) Workers Compensation [id number] Self [id number] [place] [employer]) Workers Compensation [id number] Self [id number] [place] [employer] NF) Workers Compensation [id number] Self 1 [id number] [employer] [place] PPO 302/307 [id number] SP [id number] [employer] (WC) Workers Compensation [id number] Self [id number] [employer] ([place]) Workers Compensation [id number] Self [id number] [employer] ([place]) Workers Compensation [id number] Self [facility] [id number] SP [id number] [facility] Commercial Insurance Co. [id number] Self [id number] [facility] Medicare Complete F [id number] SELF [id number] [facility] Commercial Insurance Co. [id number] Self [id number] [facility] Comm Plan Medicaid F [id number] SELF [id number] [facility] Comm Plan Medicaid F [id number] SELF [id number] [facility] Comm Plan Medicaid F [id number] SELF [id number] [facility] Comm Plan Medicaid F [id number] SELF [id number] Medicare C [id number] SELF [id number] [id number] Medicare C [id number] SELF [id number] [place] Medicare Part B [id number] Self [id number] [facility] Medicare Complete F [id number] SELF [id number] [facility] Medicare Complete F [id number] SELF [id number] O UNAVAILABLE [place] MEDICARE COMPLETE [id number] SP [id number] [facility] [place] O [id number] O [id number] [employer] [facility] [id number] SP [id number] [employer] O [id number] S [id number] [employer] BCBS B [id number] S VYS [id number] SELF PAY UNAVAILABLE SP UNAVAILA BLE BLUE CROSS BLUE SHIELD-O/P [id number] 18 [id number] [facility] PROPERTIES [id number] SP [id number] MEDICARE [id number] SP [id number] [facility] [id number] SP [id number] UN[place] MEDICARE COMPLE[place] [id number] 18 [id number] UN MEDICARE COMPLETE -PHYS [place] [id number] 18 [id number] [facility] [id number] SP [id number] [facility] HEA [id number] S [id number] [facility] [id number] SP [id number] [facility] HEA [id number] S [id number] MEDICAID HEA [id number] S [id number] MEDICARE [id number] SP [id number] [facility] COMM[facility] PLAN XIX [id number] 18 [id number] [facility] COMMUNTY PLAN [id number] 18 [id number] [facility](MCAID) O [id number] S [id number] [facility] Community Plan Commercial [id number] Self [id number] [facility] Communty Plan Medicaid [id number] Self [id number] [facility] Community Plan Commercial [id number] Self [id number] [facility] Communty Plan Medicaid [id number] Self [id number] [facility] Communty Plan Medicaid [id number] Self [id number] [facility] Plan Medicaid [id number] Self [id number] [facility] Plan Medicaid [id number] Self [id number] [facility] Plan Medicaid [id number] Self [id number] [facility] COMMUNITY PLAN [facility] [id number] SP [id number] [facility] Plan Medicaid [id number] Self [id number] [facility] Plan Medicaid [id number] Self [id number] [facility] COMMUNITY PLAN [facility] [id number] SP [id number] [facility] O [id number] S [id number] [employer] W/C [id number] SP [id number] [employer] O [id number] S [id number] Problems, Conditions, and Diagnoses Code Display Name Description Problem Type Effective Dates Data Source(s) E99171 Unspecified asthma with (acute) exacerba tion Unspecified asthma with (acute) exacerbation Diagnosis 01/13/2021 02:23:00 PM EDT [facility] E1165 Type 2 diabetes mellitus with hyperglyce hugo Type 2 diabetes mellitus with hyperglycemia Diagnosis 01/13/2021 02:23:00 PM EDT [facility] [id number] Other long term care pharmacist (current) drug therapy O ther long term care pharmacist (current) drug therapy Diagnosis 01/13/2021 02:23:00 PM EDT [facility] F411 Generalized anxiety disorder Generalized anxiety disor josé miguel Diagnosis 01/13/2021 02:23:00 PM EDT [facility] F331 Major depressive disorder, recurrent, mo derate Major depressive disorder, recurrent, moderate Diagnosis 01/13/2021 02:23:00 PM EDT [facility] I10 Essential (primary) hypertension Essential (primary) h ypertension Diagnosis 01/13/2021 02:23:00 PM EDT [facility] E039 Hypothyroidism, unspecified Hypothyroidism, unspecifie d Diagnosis 01/13/2021 02:23:00 PM EDT [facility] E7800 Pure hypercholesterolemia, unspecified P ure hypercholesterolemia, unspecified Diagnosis 01/13/2021 02:23:00 PM EDT [facility] [id number] Encounter for preprocedural laboratory e xamination Encounter for preprocedural laboratory examination Diagnosis 09/25/2020 08:51:00 AM [facility] Z125 Encounter for screening for malignant ne oplasm of prostate Encounter for screening for malignant neoplasm of prostate Diagnosis 08:51:00 AM [facility] 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, 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, lumbar region Diagnosis 09/25/2020 08:51:00 AM [facility] Z0001 Encounter for general adult medical exam ination with abnormal findings Encounter for general adult medical examination with abnormal findings Diagnosis 09/25/2020 08:51:00 AM [facility] M542 Cervicalgia Cervicalgia Diagnosis 06/24/2020 03:03:00 PM [facility] M545 Low back pain Low back pain Diagnosis 06/24/2020 03:03:00 PM [facility] [id number] Type 2 diabetes mellitus Type 2 diabetes mellitus Prob cortez 05/09/2021 12:00:00 AM EDT [facility] ([facility], ) [id number] Allergic asthma without status asthmatic us Allergic asthma without status asthmaticus Problem 05/09/2021 12:00:00 AM EDT [facility] ([facility], ) [id number] Essential hypertension Essential hypertension Problem 05/09/2021 12:00:00 AM EDT [facility] ([facility], ) J44.9 Chronic obstructive lung disease Chronic obstructive l wil disease Problem 01/29/2021 12:00:00 AM EDT [facility] ([facility], ) J45.50 Uncomplicated severe persistent asthma U ncomplicated severe persistent asthma Problem 01/29/2021 12:00:00 AM EDT [facility] ([facility], ) Surgeries/Procedures Procedure Description Date Indications Data Source(s) OFFICE OUTPATIENT VISIT 15 MINUTES 05/28/2021 12:00:00 AM EDT [facility] ([facility]) OFFICE OUTPATIENT NEW 45 MINUTES 05/09/2021 12:00:00 A M EDT [facility] ([facility]) Bronchospasm Evaluation 01/29/2021 12:00:00 AM EDT [facility] ([facility]) Plethysmography Determination Lung Volumes & Per Airway Resi st 01/29/2021 12:00:00 AM EDT [facility] DIFFUSING CAPACITY 01/29/2021 12:00:00 AM EDT [facility] ([facility]) OFFICE OUTPATIENT VISIT 25 MINUTES 01/29/2021 12:00:00 AM EDT [facility] ([facility]) OFFICE OUTPATIENT VISIT 10 MINUTES 01/28/2021 12:00:00 AM EDT [facility] ([facility]) OFFICE OUTPATIENT VISIT 25 MINUTES 01/13/2021 12:00:00 AM EDT [facility] ([facility]) OFFICE OUTPATIENT VISIT 25 MINUTES 11/06/2020 12:00:00 AM EDT [facility] ([facility]) Electrocardiogram Complete 09/25/2020 12:00:00 AM EST [facility] ([facility]) Admin Patient Focused Health Risk Assessment Instrument 09/25/2020 12:00:00 AM EST [facility] ([facility]) PERIODIC PREVENTIVE MED EST PATIENT 40-64YRS 12:00:00 AM EST [facility] ([facility]) Brief Emotional/Behav Assessment W/ Scoring Doc Per Standard Inst 06/24/2020 12:00:00 AM EST [facility] ([facility]) Injec Anesthetic Agent/Steroid Trans Epidural Lumb/Sacral Si ngle 05/20/2020 12:00:00 AM EDT [facility] Epidurography Radiological Supervision & Interpretation 05/20/2020 12:00:00 AM EDT [facility] ([facility]) Moderate Sedation Services; Same Phys Intl 15 Mins; PT >= 5 Years 05/20/2020 12:00:00 AM EDT [facility] ([facility]) Results ID Date Data Source [id number] 11/26/2020 06:33:48 AM EDT [facility] [place] Name Value Range Interpretation Code Description Data Stephanie rce(s) Supporting Document(s) POC GLUCOSE 86 mg/dL (70-99) [facility] [place] Becerra PERFORMED BY CLINICAL STAFF ID Date Data Source [id number] 11/22/2020 08:22:00 AM EDT [facility] ([facility]) Name Value Range Interpretation Code Description Data Stephanie rce(s) Supporting Document(s) Respiratory Panel Laboratory test result [facility]) This respiratory PCR panel detects Influ [...] - SARS-CoV-2 (COVID19) ID Date Data Source [id number] 11/22/2020 08:22:00 AM EDT [facility] Name Value Range Interpretation Code Description Data Stephanie rce(s) Supporting Document(s) SARS-CoV-2 (COVID 19) NEGATIVE - SARS-CoV-2 (COVID19) [facility] This lab was ordered by [facility] a nd reported by [facility]. ID Date Data Source [id number] 11/22/2020 08:17:00 AM EDT [facility] ([facility]) Name Value Range Interpretation Code Description Data Stephanie rce(s) Supporting Document(s) Glucose, Fasting 103 mg/dL 70-100 Above high normal [facility] ([facility]) Blood Urea Nitrogen 15 mg/dL 7-18 Normal (applies to non-nume helga results) [facility] ([facility]) Glomerular Filtration Rate Laboratory test result Normal (applies to non- numeric results) [facility] ([facility]) <content>Units are mL/min/1.73 m2</content>
<content></content>
<content>Chronic Kidney Disease Staging per NKF:</content>
<content></content>
<content>Stage I & II GFR >=60 Normal to Mildly Decreased</content>
<content>Stage III GFR 30- 59 Moderately Decreased</content>
<content>Stage IV GFR 15-29 Severely Decreased</content>
<content>Stage V GFR <15 Very Little GFR Left</content>
<content>ESRD GFR <15 on CORE WORKER</content>
<content></content> Creatinine For GFR 0.99 mg/dL 0.70-1.30 Normal (applies to non -numeric results) [facility] ([facility]) Sodium Level 139 meq/L 136-145 Normal (applies to non-numeric res ults) [facility] ([facility]) Potassium Serum 3.2 meq/L 3.5-5.1 Below low normal [facility] ([facility]) Chloride Level 101 meq/L 98-107 Normal (applies to non-numeric r esults) [facility] ([facility]) Carbon Dioxide Level 32 meq/L 21-32 Normal (applies to non-num steff results) [facility] ([facility]) Calcium Level 9.5 mg/dL 8.5-10.1 Normal (applies to non-numeric re sults) [facility] ([facility]) Anion Gap 6 meq/L 8-16 Below low normal [facility] ( [facility]) ID Date Data Source [id number] 11/22/2020 08:17:00 AM EDT [facility] ([facility]) Name Value Range Interpretation Code Description Data Stephanie rce(s) Supporting Document(s) White Blood Count 9.8 10 4.0-10.0 Normal (applies to non-numeri c results) [facility] ([facility]) Red Blood Count 5.59 10 4.30-6.10 Normal (applies to non-numeric results) [facility] ([facility]) Hemoglobin 15.5 g/dL 13.5-17.5 Normal (applies to non-numeric resul ts) [facility] ([facility]) Hematocrit 46.7 % 42.0-52.0 Normal (applies to non-numeric resul ts) [facility] ([facility]) Mean Corpuscular Volume 83.5 fl 80.0-96.0 Normal ( applies to non-numeric results) [facility] ([facility]) Mean Corpuscular HGB Conc 33.2 g/dL 32.0-36.5 Normal (applies to non-numeric results) [facility] ([facility]) Mean Corpuscular Hemoglobin 27.7 pg 27.0-33.0 Norm al (applies to non-numeric results) [facility] ([facility]) Red Cell Distribution Width 14.6 % 11.5-14.5 Above high normal [facility] ([facility]) Platelet Count, Automated 254 10 150-450 Normal (applies to non-numeric results) [facility] ([facility]) Neutrophils % 81.1 % 36.0-66.0 Above high normal [facility] ([facility]) Lymph % 10.6 % 24.0-44.0 Below low normal [facility] ( [facility]) Kidder % 3.8 % 2.0-8.0 Normal (applies to non-numeric resul ts) [facility] ([facility]) Eos % 3.0 % 0.0-3.0 Normal (applies to non-numeric resul ts) [facility] ([facility]) Baso % 0.8 % 0.0-1.0 Normal (applies to non-numeric resul ts) [facility] ([facility]) Nucleated Red Blood Cell % 0.0 % 0-0 Normal (applies to n on-numeric results) [facility] ([facility]) Immature Granulocyte % 0.7 % 0-3.0 Normal (applies to non-n umeric results) [facility] ([facility]) Neutrophils # 8.0 10 1.5-8.5 Normal (applies to non-numeric re sults) [facility] ([facility]) Lymph # 1.0 10 1.5-5.0 Below low normal [facility] ( [facility]) Kidder # 0.4 10 0.0-0.8 Normal (applies to non-numeric resul ts) [facility] ([facility]) Eos # 0.3 10 0.0-0.5 Normal (applies to non-numeric resul ts) [facility] ([facility]) Baso # 0.1 10 0.0-0.2 Normal (applies to non-numeric resul ts) [facility] ([facility]) ID Date Data Source [id number] 11/27/2020 03:40:25 PM EDT [facility], PCName: Elias GrewaloDOB: 1965Provider: Zay [...] weeks. The patient's pain is managed by [facility]. Patient states they [...] rce(s) Supporting Document(s) ID Date Data Source [id number] 11/21/2020 06:00:00 AM EDT [facility] Name Value Range Interpretation Code Description Data Stephanei rce(s) Supporting Document(s) SARS coronavirus 2 RNA [Presence] in Res piratory specimen by STACY with probe detection NOT DETECTED [facility] This lab was reported by [facility] ID Date Data Source [id number] 11/22/2020 03:45:00 PM EDT [facility] [place]any D[place] Name Value Range Interpretation Code Description Data Stephanie rce(s) Supporting Document(s) SPECIMEN DESCRIPTION [facility] [place] COVID 19 RESULT (NDET) [facility] f CNMariam NEGATIVE COVID-19 RESULTS DONOT PRECLUDE COVID-2019 INFECTION ANDSHOULD NOT BE USED THE SOLE BASISFOR PATIENT MANAGEMENT DECISIONS. COMMENT [facility] [place] THE [place] FDA HAS MADE THIS TEST AVAILABL EUNDER AN EMERGENCY USE AUTHORIZATION(EUA) FOR THE DETECTION AND/OR DIAGNOSISOF THE VIRUS THAT CAUSES COVID-19.THIS ASSAY AMPLIFIES AND DETECTS [employer] USING INSTRUMENTATION MANAGER- MEDIATEDAMPLIFICATIONTESTING PERFORMED ON [employer] FIRST TEST [facility] [place] EMPLOYED IN HLTHCARE [facility] [place] SYMPTOMATIC [facility] [place] Becerra DATE OF SYMPT ONSET [facility] [place] HOSPITALIZED [facility] ICU [facility] [place] CONGREGATE CARE SET [facility] [place] [facility] [place] ID Date Data Source [id number] 11/13/2020 12:15:42 PM EDT [facility] [place] Name Value Range Interpretation Code Description Data Stephanie rce(s) Supporting Document(s) SPECIMEN DESCRIPTION [facility] [place] STAPH SCREEN RESULTS (ONEGSA) [facility] [place] COMMENT [facility] [place] GENE TO DETECT STAPH AUREUS. (2) RT-P CR WAS PERFORMED FOR THE mecA AND SCCmec GENES TO DETECT METHICILLIN RESISTANCE IN STAPH AUREUS. ID Date Data Source [id number] 11/12/2020 12:51:21 PM EDT [facility] [place] [place] SPEC EXP DATE 11/29/2020ATI ENT ABO/Rh O POSITIVEANTIBODY SCREEN NEGATIVETESTING SITE PERFORMED AT [address] [place] [id number] Name Value Range Interpretation Code Description Data Stephanie rce(s) Supporting Document(s) ID Date Data Source [id number] 11/12/2020 11:53:19 AM EDT [facility] [place] Name Value Range Interpretation Code Description Data Stephanie rce(s) Supporting Document(s) SODIUM 141 mmol/L (136-145) [facility] [place] POTASSIUM 3.7 mmol/L (3.6-5.2) [facility] [place] CHLORIDE 105 mmol/L (100-108) [facility] CO2 31 mmol/L (22-31) [facility] ANION GAP 5 mmol/L (7-16) L [facility] UREA NITROGEN 16 mg/dL (7-24) [facility] CREATININE 1.00 mg/dL (0.80-1.30) [facility] BUN/CREAT RATIO 16.0 RATIO (10.0-20.0) [facility] GLUCOSE 84 mg/dL (70-99) [facility] CALCIUM 9.6 mg/dL (8.4-10.2) [facility] TOTAL PROTEIN 7.1 g/dL (6.4-8.2) [facility] ALBUMIN 3.8 g/dL (3.5-4.6) [facility] GLOBULIN 3.3 g/dL (2.7-4.3) [facility] ALB/GLOB RATIO 1.2 RATIO [facility] ALKALINE PHOSPHATASE 55 U/L (45-117) [facility] BILIRUBIN,TOTAL 0.5 mg/dL (0.0-1.0) [facility] [place] PLEASE NOTE:Total bilirubin results may be falselyelevated in patients taking Eltrombopag. AST (SGOT) 24 U/L (11-39) [facility] [place] ALT (SGPT) 43 U/L (12-78) [facility] GFR >60 ml/min/1.73m2 (>59) [facility] [place] GFR ( AMER) >60 ml/min/1.73m2 (>59) [facility] GFR INTERPRETATION [facility] --NORMAL KIDNEY FUNCTION OR MILD DISEASE - GFR >OR= 60CHRONIC KIDNEY DISEASE - GFR 15 - 59RENAL FAILURE - GFR <15 Est. GFR calculation based on the MDRDstudy equation, which assumes a steadystate for creatinine. Est. GFR should notbe used for medication dosing. ID Date Data Source [id number] 11/12/2020 11:50:18 AM EDT [facility] [place] Name Value Range Interpretation Code Description Data Stephanie rce(s) Supporting Document(s) HEMOGLOBIN A1C @ 5.5 % (4.0-6.0) [facility] [place] Performed using Siemens Kenly immunoassa y.Care must be taken when interpreting [id number] in patients with a hemoglobin variantor decreased erythrocyte lifespan. Values 5.7 - 6.4% suggest prediabetes.Values >=6.5% are diagnostic for diabetes.REFERENCE: DIABETES CARE 2018: 41(S13-S27).PERFORMED AT [address] [place] [address] EST AVERAGE GLUCOSE 111 mg/dL [facility] [place] ID Date Data Source [id number] 11/12/2020 11:24:16 AM EDT [facility] [place] Name Value Range Interpretation Code Description Data Stephanie rce(s) Supporting Document(s) WBC 7.6 10*3/uL (4.1-11.0) [facility] [place] RBC 5.15 10*6/uL (4.60-6.10) [facility] [place] HGB 14.4 g/dL (13.5-18.0) [facility] [place] HCT 43.4 % (41.0-53.0) [facility] [place] PERFORMED AT [address] [place] [address] MCV 84.4 fL (80.0-95.0) [facility] [place] MCH 28.0 pg (27.0-32.0) [facility] [place] MCHC 33.1 g/dL (32.0-36.0) [facility] [place] RDW 15.1 % (10.5-14.5) H [facility] [place] PLT 275 10*3/uL (150-450) [facility] [place] MPV 7.8 fL (7.1-10.7) [facility] NEUT % 62.1 % (35.0-75.0) [facility] [place] LYMPH % 25.1 % (16.0-52.0) [facility] [place] MONO % 8.4 % (0.0-8.0) H [facility] [place] EOS % 3.5 % (0.0-5.0) [facility] BASO % 0.9 % (0.0-4.0) [facility] NEUT # 4.7 10*3/uL (1.8-7.7) [facility] [place] LYMPH # 1.9 10*3/uL (1.2-4.8) [facility] [place] MONO # 0.6 10*3/uL (0.0-0.8) [facility] [place] Eosinophils [#/volume] in Blood by Automated count 0.3 10*3/uL (0.0-0 .5) [facility] [place] BASO # 0.1 10*3/uL (0.0-0.2) [facility] ID Date Data Source [id number] 09/25/2020 10:34:00 AM EST [facility] ([facility]) Name Value Range Interpretation Code Description Data Stephanie rce(s) Supporting Document(s) Prostate specific Ag [Mass/volume] in Serum or Plasma 0.53 ng/mL 0.00 -4.00 [facility] ([facility]) Is patient fasting? N ID Date Data Source [id number] 09/25/2020 10:34:00 AM EST [facility] ([facility]) Name Value Range Interpretation Code Description Data Stephanie rce(s) Supporting Document(s) Magnesium [Mass/volume] in Serum or Plasma 2.0 mg/dL 1.7-2.2 [facility] ([facility]) Is patient fasting? N Thyroperoxidase Ab [Units/volume] in Serum or Plasma 9 IU/ml 0-34 [facility] ([facility]) Is patient fasting? N Thyrotropin [Units/volume] in Serum or Plasma 1.81 uIU/mL 0.47-5.01 [facility] ([facility]) Is patient fasting? N ID Date Data Source [id number] 09/25/2020 10:34:00 AM EST [facility] ([facility]) Name Value Range Interpretation Code Description Data Stephanie rce(s) Supporting Document(s) Cve Panel Laboratory test result [facility] ([facility]) Is patient fasting? N Triglycerides 77 mg/dL 35-160 [facility] ([facility]) Is patient fasting? N Cholesterol 131 mg/dL 131-200 [facility] ([facility]) Is patient fasting? N LDL 57 mg/dL 65-175 Below low normal [facility] ([facility]) Is patient fasting? N HDL 64 mg/dL 29-86 [facility] ([facility]) Is patient fasting? N Risk Factor 2.0 3.4-4.9 Below low normal [facility] ([facility]) Is patient fasting? N LDL/HDL 0.89 1.00-3.55 Below low normal [facility] ( [facility]) Is patient fasting? N ID Date Data Source [id number] 09/25/2020 10:34:00 AM EST [facility] ([facility]) Name Value Range Interpretation Code Description Data Stephanie rce(s) Supporting Document(s) Hemoglobin A1c/Hemoglobin.total in Blood 5.2 % 4.4-6.1 [facility] ([facility]) Is patient fasting? N ID Date Data Source [id number] 09/25/2020 10:34:00 AM EST [facility] ([facility]) Name Value Range Interpretation Code Description Data Stephanie rce(s) Supporting Document(s) Comprehensive [employer]abo Laboratory test result [facility] ([facility]) Is patient fasting? N Sodium 140 meq/L 134-153 [facility] ([facility]) Is patient fasting? N Chloride 99 meq/L 98-107 [facility] ([facility]) Is patient fasting? N Potassium 3.9 meq/L 3.6-5.0 [facility] ([facility]) Is patient fasting? N Glucose 85 mg/dL 70-99 [facility] ([facility]) Is patient fasting? N Co2 30 meq/L 22-30 [facility] ([facility]) Is patient fasting? N BUN 12 mg/dL 7-21 [facility] ([facility]) Is patient fasting? N BUN/Creat 12 8-27 [facility] ([facility]) Is patient fasting? N Creatinine 1.0 mg/dL 0.7-1.5 [facility] ([facility]) Is patient fasting? N Total Protein 7.0 g/dL 6.3-8.2 [facility] ([facility]) Is patient fasting? N Albumin 4.7 g/dL 3.9-5.0 [facility] ([facility]) Is patient fasting? N A/G Ratio 2.0 0.8-2.0 [facility]) Is patient fasting? N Globulin 2.3 GM/DL 2.4-3.2 Below low normal [facility] ( [facility]) Is patient fasting? N Calcium 10.2 mg/dL 8.4-10.2 [facility] ([facility]) Is patient fasting? N Total Bili Laboratory test result 0.2-1.3 ME DENT ([facility]) Is patient fasting? N Alkaline Phos 50 U/L 38-126 [facility] ([facility]) Is patient fasting? N Sgot/Ast 12 U/L 5-40 [facility] ([facility]) Is patient fasting? N SGPT/Alt 12 U/L 7-56 [facility] ([facility]) Is patient fasting? N Anion Gap 11.0 mmol/L 8.0-16.0 [facility] ([facility]) Is patient fasting? N Non-Aa GFR Laboratory test result [facility] ([facility]) Is patient fasting? N Age 54 yrs [facility] ([facility]) Is patient fasting? N Afr Amer GFR Laboratory test result [facility] ([facility]) Is patient fasting? N ID Date Data Source [id number] 09/25/2020 10:34:00 AM EST [facility] ([facility]) Name Value Range Interpretation Code Description Data Stephanie rce(s) Supporting Document(s) CBC W/Automated Diff Laboratory test result [facility] ([facility]) Is patient fasting? N Hemoglobin 15.0 g/dL 14.0-16.0 [facility] ([facility]) Is patient fasting? N WBC 6.9 10^3/uL 4.2-11.0 [facility] ([facility]) Is patient fasting? N RBC 5.33 10^6/uL 4.50-6.30 [facility] ([facility]) Is patient fasting? N Hematocrit 45.2 % 41.0-51.0 [facility] ([facility]) Is patient fasting? N MCV 84.8 fL 80.0-94.0 [facility] ([facility]) Is patient fasting? N MCHC 33.2 g/dL 31.0-36.0 [facility] ([facility]) Is patient fasting? N MCH 28.1 pg 27.0-34.0 [facility] ([facility]) Is patient fasting? N RDW 13.9 % 11.5-14.8 [facility] ([facility]) Is patient fasting? N MPV 9.6 fL 7.4-10.4 [facility] ([facility]) Is patient fasting? N Platelets 321 10^3/uL 150-450 [facility] ([facility]) Is patient fasting? N Neut 57.4 % 37.0-80.0 [facility] ([facility]) Is patient fasting? N Lymph 30.6 % 25.0-40.0 [facility] ([facility]) Is patient fasting? N Kidder 7.3 % 3.0-8.0 [facility] ([facility]) Is patient fasting? N Eos 3.4 % 0.0-7.0 [facility] ([facility]) Is patient fasting? N %Ig 0.4 % 0.0-0.0 Above high normal [facility] ([facility]) Is patient fasting? N Baso 0.9 % 0.0-2.0 [facility] ([facility]) Is patient fasting? N %NRBC 0.0 % 0.0-0.0 [facility] ([facility]) Is patient fasting? N #Neut 3.94 10^3/uL 2.00-6.90 [facility] ([facility]) Is patient fasting? N #Lymph 2.10 10^3/uL 0.60-3.40 [facility] ([facility]) Is patient fasting? N #Kidder 0.50 10^3/uL 0.00-0.90 [facility] ([facility]) Is patient fasting? N #Eos 0.23 10^3/uL 0.00-0.70 [facility] ([facility]) Is patient fasting? N #Baso 0.06 10^3/uL 0.00-0.20 [facility] ([facility]) Is patient fasting? N #Ig 0.03 10^3/uL 0.00-0.10 [facility] ([facility]) Is patient fasting? N Manual Diff Laboratory test result M EDENT ([facility]) Is patient fasting? N #NRBC 0.00 10^3/uL 0.00-0.00 [facility] ([facility]) Is patient fasting? N RBC Morph Laboratory test result [facility] ([facility]) Is patient fasting? N ID Date Data Source [id number] 09/27/2020 04:59:00 PM [facility] Name Value Range Interpretation Code Description Data Stephanie rce(s) Supporting Document(s) Thyroperoxidase Ab [Units/volume] in Serum or Plasma 9 IU/mL 0-34 [facility] ID Date Data Source [id number] 09/25/2020 06:12:00 PM [facility] Name Value Range Interpretation Code Description Data Stephanie rce(s) Supporting Document(s) COMPREHENSIVE METABOLIC PANEL [facility] COMPREHENSIVE METABOLIC PANEL Sodium [Moles/volume] in Serum or Plasma 140 mEq/L 134 - 153 [facility] Potassium [Moles/volume] in Serum or Plasma 3.9 mEq/L 3.6 - 5.0 [facility] Chloride [Moles/volume] in Serum or Plasma 99 mEq/L 98 - 107 [facility] Carbon dioxide, total [Moles/volume] in Serum or Plasma 30 MEQ/L 22 - 30 [facility] Glucose [Mass/volume] in Serum or Plasma 85 MG/DL 70 - 99 [facility] BUN 12 MG/DL 7 - 21 [facility] Creatinine [Mass/volume] in Serum or Plasma 1.0 MG/DL 0.7 - 1.5 [facility] BUN/CREAT 12 8 - 27 [facility] al Protein [Mass/volume] in Serum or Plasma 7.0 G/DL 6.3 - 8.2 [facility] Albumin [Mass/volume] in Serum or Plasma 4.7 G/DL 3.9 - 5.0 [facility] Globulin [Mass/volume] in Serum by calculation 2.3 GM/DL 2.4 - 3.2 L [facility] A/G RATIO 2.0 0.8 - 2.0 [facility] Calcium [Mass/volume] in Serum or Plasma 10.2 MG/DL 8.4 - 10.2 [facility] Bilirubin.total [Mass/volume] in Serum or Plasma <0.7 MG/DL 0.2 - 1.3 [facility] Alkaline phosphatase [Enzymatic activity/volume] in Serum or Plasma 50 U/L 38 - 126 [facility] Aspartate aminotransferase [Enzymatic activity/volume] in Serum or Plasma 12 U/L 5 - 40 [facility] Alanine aminotransferase [Enzymatic activity/volume] in Seru m or Plasma 12 U/L 7 - 56 [facility] Anion gap 3 in Serum or Plasma 11.0 mmol/L 8.0 - 16.0 [facility] AGE 54 yrs [facility] NON-AA GFR >60 mL/min [facility] ital AFR AMER GFR >60 mL/min [facility] Male GFR In terprentation [...] >32 mL/min Normal ID Date Data Source [id number] 09/25/2020 05:47:00 PM EST [facility] Name Value Range Interpretation Code Description Data Stephanie rce(s) Supporting Document(s) Magnesium [Mass/volume] in Serum or Plasma 2.0 MG/DL 1.7 - 2.2 [facility] ID Date Data Source [id number] 09/25/2020 05:47:00 PM [facility] Name Value Range Interpretation Code Description Data Stephanie rce(s) Supporting Document(s) CVE PANEL [facility] LIPID PANEL Cholesterol [Mass/volume] in Serum or Plasma 131 MG/DL 131 - 200 [facility] Deprecated Triglyceride [Mass/volume] in Serum or Plasma 77 MG/DL 3 5 - 160 [facility] HDL 64 MG/DL 29 - 86 [facility] Cholesterol in LDL [Mass/volume] in Serum or Plasma by Direc t assay 57 mg/dL 65 - 175 L [facility] Cholesterol.total/Cholesterol in HDL [Mass Ratio] in Serum o r Plasma 2.0 3.4 - 4.9 L [facility] LDL/HDL 0.89 1.00 - 3.55 L [facility] ital CVE RISK CHOL/HDL LDL/HDLMEN: 1/2 AVERAGE 3.43 1.00 AVERAGE 4.97 3.55 2X AVERAGE 9.55 6.25 3X AVERAGE 23.99 7.99WOMEN: 1/2 AVERAGE 3.27 1.47 AVERAGE 4.44 3.22 2X AVERAGE 7.05 5.03 3X AVERAGE 11.04 6.14 ID Date Data Source [id number] 09/25/2020 05:35:00 PM EST [facility] Name Value Range Interpretation Code Description Data Stephanie rce(s) Supporting Document(s) Hemoglobin A1c/Hemoglobin.total in Blood 5.2 % 4.4 - 6.1 [facility] {A1]{HB] ID Date Data Source [id number] 09/25/2020 05:35:00 PM EST [facility] Name Value Range Interpretation Code Description Data Stephanie rce(s) Supporting Document(s) Prostate specific Ag [Mass/volume] in Serum or Plasma 0.53 ng/mL 0.00 - 4.00 [facility] \\BLDo\\PSA INTERPRETA TION\\BLDx\\ The PSA assay [...] be used interchangeably. ID Date Data Source [id number] 09/25/2020 05:34:00 PM EST [facility] Name Value Range Interpretation Code Description Data Stephanie rce(s) Supporting Document(s) Thyrotropin [Units/volume] in Serum or Plasma by Detec tion limit <= 0.05 mIU/L 1.81 uIU/mL 0.47 - 5.01 [facility] ID Date Data Source [id number] 09/25/2020 05:18:00 PM EST [facility] Name Value Range Interpretation Code Description Data [facility](s) Supporting Document(s) CBC W/AUTOMATED DIFF [facility] COMPLETE BLOOD COUNT Leukocytes [#/volume] in Blood by Automated count 6.9 10^3/uL 4.2 - 1 1.0 [facility] Erythrocytes [#/volume] in Blood by Automated count 5.33 10^6/uL 4. 50 - 6.30 [facility] Hemoglobin [Mass/volume] in Blood 15.0 g/dL 14.0 - 16.0 [facility] Hematocrit [Volume Fraction] of Blood by Automated count 45.2 % 4 1.0 - 51.0 [facility] Erythrocyte mean corpuscular volume [Entitic volume] by Auto mated count 84.8 fL 80.0 - 94.0 [facility] Erythrocyte mean corpuscular hemoglobin [Entitic mass] by Automated count 28.1 pg 27.0 - 34.0 [facility] Erythrocyte mean corpuscular hemoglobin concentration [Mass/volume] by Automated count 33.2 g/dL 31.0 - 36.0 [facility] Erythrocyte distribution width [Ratio] by Automated count 13.9 % 11.5 - 14.8 [facility] Platelets [#/volume] in Blood by Automated count 321 10^3/uL 150 - 45 0 [facility] Platelet mean volume [Entitic volume] in Blood by Automated count 9.6 fL 7.4 - 10.4 [facility] Neutrophils/100 leukocytes in Blood by Automated count 57.4 % 37. 0 - 80.0 [facility] Lymphocytes/100 leukocytes in Blood by Manual count 30.6 % 25.0 - 40.0 [facility] Monocytes/100 leukocytes in Blood by Automated count 7.3 % 3.0 - 8.0 [facility] Eosinophils/100 leukocytes in Blood by Automated count 3.4 % 0.0 - 7.0 [facility] Basophils/100 leukocytes in Blood by Automated count 0.9 % 0.0 - 2.0 [facility] %IG 0.4 % 0.0 - 0.0 H [facility] al %NRBC 0.0 % 0.0 - 0.0 [facility] Neutrophils [#/volume] in Blood by Automated count 3.94 10^3/uL 2.00 - 6.90 [facility] Lymphocytes [#/volume] in Blood by Automated count 2.10 10^3/uL 0.60 - 3.40 [facility] Monocytes [#/volume] in Blood by Automated count 0.50 10^3/uL 0.00 - 0.90 [facility] Eosinophils [#/volume] in Blood by Automated count 0.23 10^3/uL 0.00 - 0.70 [facility] Basophils [#/volume] in Blood by Automated count 0.06 10^3/uL 0.00 - 0.20 [facility] #IG 0.03 10^3/uL 0.00 - 0.10 [facility] #NRBC 0.00 10^3/uL 0.00 - 0.00 [facility] MANUAL DIFF NOT INDICATED [facility] RBC MORPH NOT INDICATED [facility] ID Date Data Source [id number] 09/20/2020 10:30:20 AM EST [facility] PCName: Elias CarminaoDOB: 1965Provider: Moises Boucher: 09/20/2020 Reason For VisitElias Cote is here today for lumbar spine. Elias has not had the Covid vaccine. Elias Cote is a new patient. MRI [facility] 06/11/20 transferred. Injections at [facility] help some. Other DOI/DOO: 2020 - denies injury. Patient states their pain is a 5 out of 10. The patient has not had a course of physical therapy for greater than 4 weeks. The patient's pain is managed by [facility]. Patient states they [...] external rotation. Br[facility]. July 23, [...] rce(s) Supporting Document(s) ID Date Data Source [id number] 09/01/2020 12:00:00 AM EST [facility] Name Value Range Interpretation Code Description Data Stephanie rce(s) Supporting Document(s) SARS coronavirus 2 RNA [Presence] in Res piratory specimen by STACY with probe detection NEGATIVE [facility] This lab was ordered by Anirudh Miranda and reported by [employer]. ID Date Data Source [id number] 07/29/2020 09:31:00 AM EST [facility] ([facility] ) Name Value Range Interpretation Code Description Data Stephanie rce(s) Supporting Document(s) FVC-Pred 4.35 L [facility] ([facility]) PDFReport Laboratory test result [facility] ([facility]) FVC-Pre 1.97 L [facility] ([facility]) FVC-%Pred-Pre 45 L [facility] ([facility]) Fev1-Pred 3.37 L [facility] ([facility]) FVC-LLN 3.52 L [facility] ([facility]) Fev1-Pre 1.12 L [facility] ([facility]) Fev1-%Pred-Pre 33 L [facility] ([facility]) Fev1-LLN 2.67 L [facility] ([facility]) Fev6-Pre 1.97 L [facility] ([facility]) Fev6-%Pred-Pre 47 L [facility] ([facility], ) Fev6-Pred 4.18 L [facility] ([facility]) Zte2sgl-Yrdf 77 % [facility] ([facility]) Fev6-LLN 3.37 L [facility] ([facility]) Qmo6klu-Qar 57 % [facility] ([facility]) Qbf3gna-ZUG 68 % [facility] ([facility]) Fbg6lzs-%Pred-Pre 73 % [facility] ([facility]) Vwf9aup-Uovv 96 % [facility] ([facility]) FEFMax-Pred 8.85 L/E/sec [facility] ([facility]) Pme8qvp-%Pred-Pre 104 % [facility] ([facility]) Wlb4zra-Uvd 100 % [facility] ([facility]) FEFMax-Pre 2.56 L/E/sec [facility] ([facility]) Obz4712-Ceqe 3.01 L/E/sec [facility] ([facility]) FEFMax-%Pred-Pre 28 L/E/sec [facility] ([facility]) FEFMax-LLN 6.79 L/E/sec [facility] ([facility]) Ytm6768-Yra 0.47 L/E/sec [facility] ([facility], ) Dvc5954-%Pred-Pre 15 L/E/sec [facility] ([facility]) Kkw5193-TGJ 1.59 L/E/sec [facility] ([facility]) Hde9zrp3-Mtyh 80 % [facility] ([facility]) ExpTime-Pre 6.12 sec [facility] ([facility]) Lsf6wka7-Kvk 57 % [facility] ([facility]) Myq3epz9-YSY 71 % [facility] ([facility]) Qdw1kxg6-%Pred-Pre 70 % [facility] ([facility], ) ID Date Data Source [id number] 07/29/2020 12:00:00 AM EST [facility] Name Value Range Interpretation Code Description Data Stephanie rce(s) Supporting Document(s) SARS coronavirus 2 RNA [Presence] in Res piratory specimen by STACY with probe detection NEGATIVE [facility] This lab was ordered by Anirudh Miranda and reported by [employer] [facility]. ID Date Data Source [id number] 07/24/2020 08:46:24 AM EST [facility] PCName: Peter costello DiscoDOB: [...] The patient was last seen by a [facility] provider on 07/01/2020. At today's visit patient presents with their Self Implanted Devices The patient does not have any implanted devices. The patient does not have a glucose monitoring device. Patient is not currently working. 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 The patient is being seen for a post block examination. Pain Duration: Months per patient Pain Score: a current pain level of 6/10. Condition type: The patient is being seen for a chronic condition. Referred by [facility] orthopedic group. PAIN LOCATION: the pain [...] (M54.2) 4. 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 Low back pain (724.2) (M54.5) 7. Lumbar disc herniation with radiculopathy (722.10,724.4) (M51.16) Allergies Latex Shortness of breath;; Updated By: Bethany Stern; 09/19/2019 1:23:08 PMDenied Adhesive Tape Recorded By: Bethany Stern; 09/19/2019 1:12:53 PM Iodinated Contrast Media Recorded By: Bethany Stern; 09/19/2019 1:12:53 PM Current Meds Albuterol Sulfate HFA AERS;Therapy: (Recorded:14Zzt9836) to Recorded Breo Ellipta AEPB;Therapy: (Recorded:51Ecf0783) to Recorded CeleBREX 200 MG Oral Capsule;Therapy: (Recorded:11Zmd2320) to Recorded Cymbalta 60 MG Oral Capsule Delayed Release Particles;Therapy: (Recorded:16Suj9408) to Recorded Gabapentin TABS;Therapy: (Recorded:60Wkq7709) to Recorded hydroCHLOROthiazide 50 MG Oral Tablet;Therapy: (Recorded:26Xfc3445) to Recorded HYDROcodone-Acetaminophen 10-325 MG Oral Tablet; Take one PO BID prn painMDD:2;Therapy: 17Jun2020 to (Evaluate:35Sjw6825) Requested for: 33Sgk2390; LastRx:[id number] OrderedLD 07/23/2020 AM Incruse Ellipta 62.5 MCG/INH Inhalation Aerosol Powder Breath Activated;Therapy: (Recorded:29Xar2308) to Recorded Ipratropium [place] SOLN;Therapy: (Recorded:26Aki2701) to Recorded Levothyroxine Sodium 50 MCG Oral Tablet;Therapy: (Recorded:39Hff2507) to Recorded Lisinopril 20 MG Oral Tablet;Therapy: (Recorded:13Gbj3307) to Recorded metFORMIN HCl - 500 MG Oral Tablet;Therapy: (Recorded:10Fku9227) to Recorded Omeprazole 20 MG Oral Tablet Delayed Release;Therapy: (Recorded:55Swr7099) to Recorded tiZANidine HCl - 4 MG Oral Tablet;Therapy: (Recorded:61Crf7371) to Recorded Ventolin AERS;Therapy: (Recorded:08Nru7419) to Recorded Vitamin D CAPS;Therapy: (Recorded:37Qop3938) to Recorded Wellbutrin XL 150 MG Oral Tablet Extended Release 24 Hour;Therapy: (Recorded:38Bjd7714) to Recorded Past Medical History Denied: History [...] Unemployed, looking for work VitalsVital Signs Recorded: [id number] 01:23PM Height: 5 ft 7 inWeight: 247 [...] disc herniation with radiculopathy (722.10,724.4) (M51.16) 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 Stop: HYDROcodone-Acetaminophen 10-325 MG Oral TabletLD 07/23/2020 AM 2. UDS- LAB Medicare / Commercial ([facility] Urine Drug SCreen); [Do Not Release]; Specimen Source:Urine; Status:In Progress - Specimen/Data Collected; Done: [id number] 3. Block (Transforaminal) ([facility]) Referral Procedure Procedure Status: Hold For - Scheduling Requested for: [id number] Type : MedicaidIs patient currently on a biologic? : NoIs your patient taking aspirin for cardiac or stroke prevention...? : NoIs patient taking Aspirin > 81 mg...? : NoIs your patient on an Anticoagulant -OR- have Coagulopathy...? : NoReminder: : Place order for Anticoag: Aspirin Products Transforam-InterlamSedation : NoLaterality : RTArea : LumbarBlock : TransforaminalProfessional Computer Console Operator needed for block? : NoFront Desk Reminder: [...] : Medium Risk 4. Orthopedic Spine Surgery ([facility]) Referral Evaluation Evaluation Status: Hold For - Scheduling Requested for: 2 [id number] Surgical opinion: : Provider's RequestPrevious spine surgery [...] will follow up 4 weeks post block. [employer] DisclaimerNYSWC [employer] Disclaimer: This document was dictated and electronically signed using [employer] software. A reasonable attempt at proof reading has been made to minimize errors. Please call with any questions. Signatures Electronically signed by : Dino Nieto NP; Jul 23 2020 1:51PM EST (Author) Electronically signed by : Deepika Millan MD; Jul 24 2020 8:46AM EST Name Value Range Interpretation Code Description Data Stephanie rce(s) Supporting Document(s) ID Date Data Source [id number] 07/02/2020 08:10:01 AM EST [facility] PCName: Peter costello DiscoDOB: [...] The patient was last seen by a [facility] provider on 06-14-2020. At [...] of a chronic condition . Referred by [facility] orthopedic group. PAIN LOCATION: the pain [...] PM Current Meds Albuterol Sulfate HFA AERS;Therapy: (Recorded:31Daq0664) to Recorded Breo Ellipta AEPB;Therapy: (Recorded:67Sgw7147) to Recorded CeleBREX 200 MG Oral Capsule;Therapy: (Recorded:80Vlg8716) to Recorded Cymbalta 60 MG Oral Capsule Delayed Release Particles;Therapy: (Recorded:33Gvr6026) to Recorded Gabapentin TABS;Therapy: (Recorded:99Fmi0739) to Recorded hydroCHLOROthiazide 50 MG Oral Tablet;Therapy: (Recorded:47Ckf4353) to Recorded HYDROcodone-Acetaminophen 10- 325 MG Oral Tablet; Take one PO BID prn painMDD:2;Therapy: 17Jun2020 to (Evaluate:69Iev9535) Requested for: 17Jun2020; LastRx:17Jun2020 Orderedld 06-30-2020 Incruse Ellipta 62.5 MCG/INH Inhalation Aerosol Powder Breath Activated;Therapy: (Recorded:19Hno4912) to Recorded Ipratropium [place] SOLN;Therapy: (Recorded:79Rrf4479) to Recorded Levothyroxine Sodium 50 MCG Oral Tablet;Therapy: (Recorded:97Vwt0954) to Recorded Lisinopril 20 MG Oral Tablet;Therapy: (Recorded:71Vzr6359) to Recorded metFORMIN HCl - 500 MG Oral Tablet;Therapy: (Recorded:02Cxk5365) to Recorded Omeprazole 20 MG Oral Tablet Delayed Release;Therapy: (Recorded:87Zeq8976) to Recorded tiZANidine HCl - 4 MG Oral Tablet;Therapy: (Recorded:43Nfd3139) to Recorded Ventolin AERS;Therapy: (Recorded:00Ysa5143) to Recorded Vitamin D CAPS;Therapy: (Recorded:87Orl2709) to Recorded Wellbutrin XL 150 MG Oral Tablet Extended Release 24 Hour;Therapy: (Recorded:06Cje2487) to Recorded Past Medical History Denied: History [...] BID prn pain MDD:2ld 06-30-2020 Medication:. [place] D[place] THERAPIST Information: DENTAL THERAPIST was consulted by my designee and I [...] sign and comply with all of the [facility] terms of a [...] activity including ergonomics and aerobic activity. - FIRE PREVENTION CAPTAIN: The patient was counseled on the following: treatment plan and future treatment options. Discussion/[id number] male presents with ongoing lumbar complaints. Patient [...] rce(s) Supporting Document(s) ID Date Data Source [id number] 06/24/2020 10:45:00 AM EST [facility] ([facility]) Name Value Range Interpretation Code Description Data Stephanie rce(s) Supporting Document(s) Hemoglobin A1c 5.6 % Normal (applies to non-numeric r esults) [facility] ([facility]) <content>REFERENCE RANGES:</content><br/ ><content></content>
<content><=5.6% NORMAL</content>
<content>5.7-6.4% SUGGESTS IMPAIRED GLUCOSE METABOLISM/PREDIABETIC</content>
<content>>= 6.5% ABNORMAL</content>
<content></content> Estimated Average Glucose 114 mg/dL 60-110 Above high normal [facility] ([facility]) ID Date Data Source [id number] 06/24/2020 10:45:00 AM EST [facility] ([facility]) Name Value Range Interpretation Code Description Data Stephanie rce(s) Supporting Document(s) Thyroxine (T4) [Mass/volume] in Serum or Plasma 9.2 ug/dL 4.5-12.0 Normal (applies to non-numeric results) [facility] ([facility]) Triiodothyronine (T3) Free [Mass/volume] in Serum or Plasma 2.1 pg/mL 2.2-4.0 Below low normal [facility] ([facility]) Thyroxine (T4) free [Mass/volume] in Serum or Plasma 1.13 ng/dL 0.76-1.46 Normal (applies to non-numeric results) [facility] ([facility]) Thyroperoxidase Ab [Units/volume] in Serum or Plasma 75.3 U/ML Above high normal [facility] ([facility]) ID Date Data Source [id number] 06/24/2020 10:45:00 AM EST [facility] ([facility]) Name Value Range Interpretation Code Description Data Stephanie rce(s) Supporting Document(s) Triglycerides Level 77 mg/dL Normal (applies to non-nume helga results) [facility] ([facility]) LDL Cholesterol 62 mg/dL Normal (applies to non-numeric results) [facility] ([facility]) HDL Cholesterol 54 mg/dL Normal (applies to non-numeric results) [facility] ([facility]) Cholesterol Level 131 mg/dL Normal (applies to non-numeri c results) [facility] ([facility] [facility]) Non-HDL-C 77 mg/dL Normal (applies to non-numeric resul ts) [facility] ([facility]) Cholesterol Risk Ratio 2.425 Normal (applies to non-n umeric results) [facility] ([facility]) ID Date Data Source [id number] 06/24/2020 10:45:00 AM EST [facility] ([facility]) Name Value Range Interpretation Code Description Data Stephanie rce(s) Supporting Document(s) Creatinine For GFR 1.09 mg/dL 0.70-1.30 Normal (applies to non -numeric results) [facility] ([facility]) Glucose, Fasting 91 mg/dL 70-100 Normal (applies to non-numeric results) [facility] ([facility]) Blood Urea Nitrogen 14 mg/dL 7-18 Normal (applies to non-nume helga results) [facility] ([facility]) Glomerular Filtration Rate Laboratory test result Normal (applies to non- numeric results) [facility] ([facility]) <content>Units are mL/min/1.73 m2</content>
<content></content>
<content>Chronic Kidney Disease Staging per NKF:</content>
<content></content>
<content>Stage I & II GFR >=60 Normal to Mildly Decreased</content>
<content>Stage III GFR 30- 59 Moderately Decreased</content>
<content>Stage IV GFR 15-29 Severely Decreased</content>
<content>Stage V GFR <15 Very Little GFR Left</content>
<content>ESRD GFR <15 on CORE WORKER</content>
<content></content> Sodium Level 139 meq/L 136-145 Normal (applies to non-numeric res ults) [facility] ([facility]) Chloride Level 100 meq/L 98-107 Normal (applies to non-numeric r esults) [facility] ([facility]) Potassium Serum 3.7 meq/L 3.5-5.1 Normal (applies to non-numeric results) [facility] ([facility]) Anion Gap 5 meq/L 8-16 Below low normal [facility] ( [facility]) Carbon Dioxide Level 34 meq/L 21-32 Above high normal [facility] Calcium Level 9.3 mg/dL 8.5-10.1 Normal (applies to non-numeric re sults) [facility] ([facility]) Ast/Sgot 8 U/L 7-37 Normal (applies to non-numeric resul ts) [facility] ([facility]) Alt/SGPT 15 U/L 12-78 Normal (applies to non-numeric resul ts) [facility] ([facility]) Alkaline Phosphatase 51 U/L 45-117 Normal (applies to non-num steff results) [facility] ([facility]) Total Protein 6.7 GM/DL 6.4-8.2 Normal (applies to non-numeric re sults) [facility]) Bilirubin,Total 0.3 mg/dL 0.2-1.0 Normal (applies to non-numeric results) [facility] ([facility]) Albumin 3.4 GM/DL 3.2-5.2 Normal (applies to non-numeric resul ts) [facility] ([facility]) Albumin/Globulin Ratio 1.0 Normal (applies to non-n umeric results) [facility] ([facility]) ID Date Data Source [id number] 06/24/2020 10:45:00 AM EST [facility] ([facility]) Name Value Range Interpretation Code Description Data Stephanie rce(s) Supporting Document(s) White Blood Count 7.2 10 4.0-10.0 Normal (applies to non-numeri c results) [facility] ([facility]) Red Blood Count 4.55 10 4.30-6.10 Normal (applies to non-numeric results) [facility] ([facility]) Hematocrit 39.1 % 42.0-52.0 Below low normal [facility] ( [facility]) Hemoglobin 12.4 g/dL 13.5-17.5 Below low normal [facility] ( [facility]) Mean Corpuscular Volume 85.9 fl 80.0-96.0 Normal ( applies to non-numeric results) [facility] ([facility]) Mean Corpuscular Hemoglobin 27.3 pg 27.0-33.0 Norm al (applies to non-numeric results) [facility] ([facility]) Mean Corpuscular HGB Conc 31.7 g/dL 32.0-36.5 Below low normal [facility] ([facility]) Red Cell Distribution Width 13.8 % 11.5-14.5 Norm al (applies to non-numeric results) [facility] ([facility]) Platelet Count, Automated 294 10 150-450 Normal (applies to non-numeric results) [facility] ([facility]) Nucleated Red Blood Cell % 0.0 % 0-0 Normal (applies to n on-numeric results) [facility] ([facility]) ID Date Data Source [id number] 06/21/2020 07:02:00 AM EST [facility] Name Value Range Interpretation Code Description Data Stephanie rce(s) Supporting Document(s) SARS coronavirus 2 RNA [Presence] in Res piratory specimen by STACY with probe detection [facility] This lab was ordered by [facility] and reported by [employer]. ID Date Data Source [id number] 06/17/2020 12:00:00 AM EST [facility] Name Value Range Interpretation Code Description Data Stephanie rce(s) Supporting Document(s) SARS coronavirus 2 RNA [Presence] in Res piratory specimen by STACY with probe detection [facility] This lab was ordered by Anirudh Miranda and reported by [employer]. ID Date Data Source [id number] 06/18/2020 09:26:06 AM EST [facility], PCName: Peter costello DiscoDOB: 1965Provider: Shayy Millan: 06/14/2020 Chief ComplaintPresents today to follow up after having MRI L-Spine. Chief Complaint 2Chronic low back pain NYSW VAS PAIN Established: DAVID completing section: AEisabelison PASHA History of Present IllnessRecent test/procedures: Patient has had the following tests/procedures since their last visit: MRI 06/11/2020 @ [facility]. Patient was asked and denies being seen by any Physicians since their last visit. The patient was last seen by a [facility] provider on 05/29/2020. At [...] seen for a chronic condition. Referred by [facility] orthopedic group. PAIN LOCATION: the pain [...] PM Current Meds Albuterol Sulfate HFA AERS;Therapy: (Recorded:[id number]) to Recorded Breo Ellipta AEPB;Therapy: (Recorded:54Wva1146) to Recorded CeleBREX 200 MG Oral Capsule;Therapy: (Recorded:[id number]) to Recorded Cymbalta 60 MG Oral Capsule Delayed Release Particles;Therapy: (Recorded:41Sew7389) to Recorded Gabapentin TABS;Therapy: (Recorded:62Bxe4984) to Recorded hydroCHLOROthiazide 50 MG Oral Tablet;Therapy: (Recorded:43Qjo3615) to Recorded Incruse Ellipta 62.5 MCG/INH Inhalation Aerosol Powder Breath Activated;Therapy: (Recorded:36Kvt5098) to Recorded Ipratropium [place] SOLN;Therapy: (Recorded:90Nkg6149) to Recorded Levothyroxine Sodium 50 MCG Oral Tablet;Therapy: (Recorded:00Eka9960) to Recorded Lisinopril 20 MG Oral Tablet;Therapy: (Recorded:80Kfp3448) to Recorded metFORMIN HCl - 500 MG Oral Tablet;Therapy: (Recorded:09Asl2031) to Recorded Omeprazole 20 MG Oral Tablet Delayed Release;Therapy: (Recorded:97Hoi5061) to Recorded tiZANidine HCl - 4 MG Oral Tablet;Therapy: (Recorded:07Jnq4536) to Recorded Ventolin AERS;Therapy: (Recorded:29Rpt1990) to Recorded Vitamin D CAPS;Therapy: (Recorded:06Xvi4914) to Recorded Wellbutrin XL 150 MG Oral Tablet Extended Release 24 Hour;Therapy: (Recorded:67Qti5328) to Recorded Past Medical History Denied: History [...] (724.2) (M54.5) Plan 1. Block (Thoracic/Lumbar Interlaminar) ([facility]) Referral Procedure Procedure Status: Complete Done: [id number] Type : Private (No Auth needed)Is patient currently on a biologic? : NoIs your patient taking aspirin for cardiac or stroke prevention...? : NoIs patient taking Aspirin > 81 mg...? : NoIs your patient on an Anticoagulant -OR- have Coagulopathy...? : NoSedation : YesArea: : LumbarBlock : Interlaminar (Epidural)Professional Computer Console Operator needed for block? : NoFront Desk Reminder: [...] Weight loss was discussed and encouraged. - FIRE PREVENTION CAPTAIN: The patient was counseled on the following: treatment plan and future treatment options. Discussion/[age]dzgsml52 year old male originally seen in August and did not follow through up until he was referred here by [facility] ([facility]). He was referred here for low back pain. According to the referral he had a right SI transforaminal injection at [facility] on 05/20/2020. He was seen here on 05/29/2020 and this was after being seen in the ED for his excruciating low back pain after having the injection at [facility]. He was referred to get a MRI L-Spine which he did get but when I had the NM call to get a copy of the report she was informed that it has not been dictated yet and there is no report for it. He currently is prescribed Celecoxib, Duloxetine, Gabapentin and Tizanidine by [facility]. 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 Patient was asked and denies being seen by any Physicians since their last visit. The patient was last seen by a [facility] provider on 09/19/2019. At [...] seen for a chronic condition. Referred by [facility] orthopedic group. PAIN LOCATION: the pain [...] PM Current Meds Albuterol Sulfate HFA AERS;Therapy: (Recorded:85Zgy2691) to Recorded Breo Ellipta AEPB;Therapy: (Recorded:01Yhx6865) to Recorded CeleBREX 200 MG Oral Capsule;Therapy: (Recorded:71Jgl4091) to Recorded Cymbalta 60 MG Oral Capsule Delayed Release Particles;Therapy: (Recorded:71Egj8445) to Recorded Gabapentin TABS;Therapy: (Recorded:82Nwo8705) to Recorded hydroCHLOROthiazide 50 MG Oral Tablet;Therapy: (Recorded:95Ufw9759) to Recorded Incruse Ellipta 62.5 MCG/INH Inhalation Aerosol Powder Breath Activated;Therapy: (Recorded:52Wbb1514) to Recorded Ipratropium [place] SOLN;Therapy: (Recorded:66Erb5260) to Recorded Levothyroxine Sodium 50 MCG Oral Tablet;Therapy: (Recorded:09Tuy0002) to Recorded Lisinopril 20 MG Oral Tablet;Therapy: (Recorded:87Gwh9672) to Recorded metFORMIN HCl - 500 MG Oral Tablet;Therapy: (Recorded:05Vws1913) to Recorded Omeprazole 20 MG Oral Tablet Delayed Release;Therapy: (Recorded:31Afl3491) to Recorded tiZANidine HCl - 4 MG Oral Tablet;Therapy: (Recorded:61Ijq4152) to Recorded Ventolin AERS;Therapy: (Recorded:20Msb0336) to Recorded Vitamin D CAPS;Therapy: (Recorded:51Yhy0741) to Recorded Wellbutrin XL 150 MG Oral Tablet Extended Release 24 Hour;Therapy: (Recorded:02Thb9111) to Recorded Past Medical History Denied: History [...] back pain (724.2) (M54.5) Plan 1. MRI ([facility]) Referral Treatment Treatment Status: Hold For - Scheduling Requested for: [id number] Patient have SCS...? : NoFront Desk Reminder: [...] (Patient denies suicidal ideation, hallucinations. 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 Discussion/Npaeetm78 year old male initially established on 09/19/2019 referred here by [facility] ([facility]) for neck pain. He was referred to [...] the office note from 02/28/2020 from the [facility] and thus far the patient has trialed and failed facet injections in his cervical spine. He recently underwent a right S1 transforaminal epidural steroid injection on 05/20/[address] [facility]. He is currently prescribed Celecoxib, Duloxetine, Gabapentin and Tizanidine by [facility] and has been taking them for over 1 year now and reports no improvement. He tells me that he was seen in [place] [facility] on Wednesday for his intense pain [...] lumbar X-rays and a cervical MRI. Called [facility] to get lumbar X-ray as we only [...] rce(s) Supporting Document(s) ID Date Data Source [id number] 05/15/2020 01:29:00 PM EDT [facility] ([facility]) Name Value Range Interpretation Code Description Data Stephanie rce(s) Supporting Document(s) aPTT in Platelet poor plasma by Coagulation assay 25.8 s 24.2-38.5 Normal (applies to non-numeric results) [facility] ([facility]) ID Date Data Source [id number] 05/15/2020 01:29:00 PM EDT [facility] ([facility]) Name Value Range Interpretation Code Description Data Stephanie rce(s) Supporting Document(s) Prothrombin Time 12.6 s 12.5-14.3 Normal (applies to non-numeric results) [facility] ([facility]) Inr 0.92 Normal (applies to non-numeric resul ts) [facility] ([facility]) THERAPUTIC HUMAN INR VALUES INDICATIONS NORMAL RANGES PROPHYLAXIS/TREATMENT OF: VENOUS THROMBOSIS 2.0-3.0 PULMONARY EMBOLISM 2.0-3.0 PREVENTION OF SYSTEMIC EMBOLISM FROM: TISSUE HEART VALVES 2.0-3.0 ACUTE MYOCARDIAL INFARCTION 2.0-3.0 VALVULAR HEART DISEASE 2.0-3.0 ATRIAL FIBRILLATION 2.0-3.0 MECHANICAL VALVES(HIGH RISK) 2.5-3.5 RECURRENT MYOCARDIAL INFARCTION 2.5-3.5 ID Date Data Source [id number] 05/15/2020 01:29:00 PM EDT [facility] ([facility]) Name Value Range Interpretation Code Description Data Stephanie rce(s) Supporting Document(s) Platelets [#/volume] in Blood by Automated count 270 10 150-450 Normal (applies to non-numeric results) [facility] ([facility]) ID Date Data Source [id number] 05/15/2020 01:29:00 PM EDT [facility] ([facility]) Name Value Range Interpretation Code Description Data Stephanie rce(s) Supporting Document(s) Prothrombin time (PT) 25.8 s 24.2-38.5 [facility] ([facility]) ID Date Data Source [id number] 05/15/2020 01:29:00 PM EDT [facility] ([facility]) Name Value Range Interpretation Code Description Data Stephanie rce(s) Supporting Document(s) Prothrombin Time 12.6 s 12.5-14.3 [facility] ([facility]) Inr 0.92 [facility] ([facility]) THERAPUTIC HUMAN INR VALUES INDICATIONS NORMAL RANGES PROPHYLAXIS/TREATMENT OF: VENOUS THROMBOSIS 2.0-3.0 PULMONARY EMBOLISM 2.0-3.0 PREVENTION OF SYSTEMIC EMBOLISM FROM: TISSUE HEART VALVES 2.0-3.0 ACUTE MYOCARDIAL INFARCTION 2.0-3.0 VALVULAR HEART DISEASE 2.0-3.0 ATRIAL FIBRILLATION 2.0-3.0 MECHANICAL VALVES(HIGH RISK) 2.5-3.5 RECURRENT MYOCARDIAL INFARCTION 2.5-3.5 ID Date Data Source [id number] 05/15/2020 01:29:00 PM EDT [facility] ([facility]) Name Value Range Interpretation Code Description Data Stephanie rce(s) Supporting Document(s) Platelets [#/volume] in Blood by Automated count 270 10 150-450 [facility] ([facility]) ID Date Data Source [id number] 05/15/2020 01:00:00 PM EDT [facility] ([facility]) Name Value Range Interpretation Code Description Data Stephanie rce(s) Supporting Document(s) Coronavirus 2019 Nasopharygeal Laboratory test result [facility] ([facility]) This nucleic acid amplification test was developed and its performance characteristics determined by [employer]. Nucleic acid amplification tests include PCR and [...] in this assay. Performed at: - [facility] [address] [id number] Binder Roller: Karlie Ballesteros MD, Phone: [phone] Not Detected ID Date Data Source [id number] 05/15/2020 01:00:00 PM EDT [facility] Name Value Range Interpretation Code Description Data Stephanie rce(s) Supporting Document(s) SARS coronavirus 2 RNA [facility] This lab was ordered by [facility] and reported by [facility]. Procedure Social History Code Duration Value Status Description Data Source(s ) Smoking 01/29/2021 12:00:00 AM EDT Patient has never smoked co mpleted Patient has never smoked [facility] ([facility]) Vital Signs ID Date Data Source [id number] Name Value Range Interpretation Code Description Data Source(s) Body temperature 97.2 [degF] 97.2 [degF] [facility] ([facility]) Oxygen saturation in Arterial blood by Pulse oximetry 94 % 94 % [facility] ([facility]) Systolic blood pressure 138 mm[Hg] 138 mm[Hg] [facility] ([facility]) Heart rate 74 /min 74 /min [facility] ([facility]) Body mass index (BMI) [Ratio] 39.1 kg/m2 39.1 k g/m2 [facility] ([facility]) Body weight 109.771 kg 109.771 kg [facility] ([facility]) Body surface area Derived from formula 2.17 m2 2.17 m2 [facility]) Body temperature 97.8 [degF] 97.8 [degF] [facility] ([facility]) Diastolic blood pressure 88 mm[Hg] 88 mm[Hg] [facility] ([facility]) Body height 66 [in_i] 66 [in_i] [facility] ([facility]) 5'6" Body weight 242.00 [lb_av] 242.00 [lb_av] [facility] ([facility]) [place] body weight 142 [lb_av] 142 [lb_av] [facility] ([facility]) Oxygen saturation in Arterial blood by Pulse oximetry 94 % 94 % [facility] ([facility]) Body temperature 97.8 [degF] 97.8 [degF] [facility] ([facility]) Body height 66 [in_i] 66 [in_i] [facility] ([facility]) 5'6" Body weight 242.00 [lb_av] 242.00 [lb_av] [facility] Body mass index (BMI) [Ratio] 39.1 kg/m2 39.1 k g/m2 [facility] ([facility]) [place] body weight 142 [lb_av] 142 [lb_av] [facility] Body weight 109.771 kg 109.771 kg [facility] ([facility]) Body surface area Derived from formula 2.17 m2 2.17 m2 [facility] ([facility]) Systolic blood pressure 126 mm[Hg] 126 mm[Hg] [facility] ([facility]) Diastolic blood pressure 78 mm[Hg] 78 mm[Hg] [facility] ([facility]) Heart rate 70 /min 70 /min [facility] ([facility]) Body surface area Derived from formula 2.18 m2 2.18 m2 [facility] ([facility]) Body temperature 98.1 [degF] 98.1 [degF] [facility] ([facility]) Respiratory rate 18 /min 18 /min [facility] ( [facility]) Oxygen saturation in Arterial blood by Pulse oximetry 95 % 95 % [facility] ([facility]) Body weight 238.25 [lb_av] 238.25 [lb_av] [facility] ([facility]) Body weight 108.070 kg 108.070 kg [facility] ([facility]) Body height 67 [in_i] 67 [in_i] [facility] ([facility]) 5'7" Body mass index (BMI) [Ratio] 37.3 kg/m2 37.3 k g/m2 [facility] ([facility]) Systolic blood pressure 120 mm[Hg] 120 mm[Hg] [facility] ([facility]) Body height 67 [in_i] 67 [in_i] [facility] ([facility]) 5'7" Body mass index (BMI) [Ratio] 40.1 kg/m2 40.1 k g/m2 [facility]) Body surface area Derived from formula 2.25 m2 2.25 m2 [facility] ([facility]) Diastolic blood pressure 72 mm[Hg] 72 mm[Hg] [facility] ([facility]) Heart rate 70 /min 70 /min [facility] ([facility]) Body temperature 99.0 [degF] 99.0 [degF] [facility] ([facility]) Respiratory rate 18 /min 18 /min [facility] ( [facility]) Oxygen saturation in Arterial blood by Pulse oximetry 96 % 96 % [facility] ([facility]) Body weight 256.00 [lb_av] 256.00 [lb_av] [facility] ([facility]) Body weight 116.122 kg 116.122 kg [facility] ([facility]) Body weight 250.25 [lb_av] 250.25 [lb_av] [facility] ([facility]) Respiratory rate 18 /min 18 /min [facility] ( [facility]) Body weight 113.513 kg 113.513 kg [facility] ([facility]) Body height 67 [in_i] 67 [in_i] [facility] ([facility]) 5'7" Body mass index (BMI) [Ratio] 39.2 kg/m2 39.2 k g/m2 [facility] ([facility]) Body surface area Derived from formula 2.22 m2 2.22 m2 [facility] ([facility]) Systolic blood pressure 120 mm[Hg] 120 mm[Hg] [facility]) Diastolic blood pressure 74 mm[Hg] 74 mm[Hg] [facility] ([facility]) Heart rate 82 /min 82 /min [facility] ([facility]) Body temperature 98.1 [degF] 98.1 [degF] [facility] ([facility]) Oxygen saturation in Arterial blood by Pulse oximetry 96 % 96 % [facility] ([facility]) Oxygen saturation in Arterial blood by Pulse oximetry 92 % 92 % [facility] ([facility]) Body temperature 97.7 [degF] 97.7 [degF] [facility] ([facility]) Body height 66 [in_i] 66 [in_i] [facility] ([facility]) 5'6" Body weight 247.00 [lb_av] 247.00 [lb_av] [facility] Body mass index (BMI) [Ratio] 39.9 kg/m2 39.9 k g/m2 [facility] ([facility]) [place] body weight 142 [lb_av] 142 [lb_av] [facility]) Body weight 112.039 kg 112.039 kg [facility] ([facility]) Body surface area Derived from formula 2.19 m2 2.19 m2 [facility] ([facility]) Systolic blood pressure 140 mm[Hg] 140 mm[Hg] M [facility] ([facility]) Diastolic blood pressure 100 mm[Hg] 100 mm[Hg] [facility] ([facility]) Heart rate 83 /min 83 /min [facility] ([facility]) Oxygen saturation in Arterial blood by Pulse oximetry 92 % 92 % [facility] ([facility]) Body temperature 97.7 [degF] 97.7 [degF] [facility] ([facility]) Body height 66 [in_i] 66 [in_i] [facility] ([facility]) 5'6" Body weight 247.00 [lb_av] 247.00 [lb_av] [facility]) Body mass index (BMI) [Ratio] 39.9 kg/m2 39.9 k g/m2 [facility] ([facility]) [place] body weight 142 [lb_av] 142 [lb_av] [facility]) Body weight 112.039 kg 112.039 kg [facility] ([facility]) Body surface area Derived from formula 2.19 m2 2.19 m2 [facility] ([facility]) Systolic blood pressure 118 mm[Hg] 118 mm[Hg] [facility] ([facility]) Diastolic blood pressure 64 mm[Hg] 64 mm[Hg] [facility] ([facility]) Heart rate 88 /min 88 /min [facility] ([facility]) Body temperature 98.1 [degF] 98.1 [degF] [facility] ([facility]) Respiratory rate 18 /min 18 /min [facility] ( [facility]) Oxygen saturation in Arterial blood by Pulse oximetry 96 % 96 % [facility] ([facility]) Body weight 257.00 [lb_av] 257.00 [lb_av] [facility] ([facility]) Body weight 116.575 kg 116.575 kg [facility] ([facility]) Body height 67 [in_i] 67 [in_i] [facility] ([facility]) 5'7" Body mass index (BMI) [Ratio] 40.2 kg/m2 40.2 k g/m2 [facility] ([facility]) Body surface area Derived from formula 2.25 m2 2.25 m2 [facility] ([facility])
[2021-06-10] MEDS ORDERED: diazePAM 10 MG TAB PO ONE (22:50)
[2021-06-10] MEDS ORDERED: MORPHINE 10 MG/ML 1ML VIAL (J2270) IM ONE (23:00)
[2021-06-11] MEDS ORDERED: METH-1165 PO (00:05)
[2021-06-11] MEDS ORDERED: ASPE4PAD TOP (00:05)
[2021-06-11] MEDS ORDERED: OXYCODONE/APAP 5MG/325MG(BULK FOR ED) 1 TABLET PO ONE (00:10)
[2021-06-11 00:12] VITALS: BP 107/69
[2021-06-11] MEDS ORDERED: **NOTE PATIENT COMMENT** MISC XX SCH (21:00)
== END 2021-06-11 00:18 | disposition home or self-care (01) ==
LOC: M ED 19:11
DX: M54.50 Low back pain, unspecified (principal); X50.0XXA Overexertion from strenuous movement or load, initial encounter; J44.9 Chronic obstructive pulmonary disease, unspecified; I10 Essential (primary) hypertension; E11.65 Type 2 diabetes mellitus with hyperglycemia; E03.9 Hypothyroidism, unspecified; E78.5 Hyperlipidemia, unspecified; F41.1 Generalized anxiety disorder; E78.00 Pure hypercholesterolemia, unspecified; Z79.899 Other long term (current) drug therapy
CPT/HCPCS: 36415; 80053; 80061; 83036; 83735; 84443; 85025; 86376; 96372; 99283; J1885; J2270

== ENCOUNTER → 2021-06-10 | Outpatient (CLI) | payer MEDICARE, OTHER ==
[~2021-06-10] MED LIST changes: +ASPE4PAD TOP; +METH-1165 PO; -OMEP-173 PO; +OMEP-218 PO
[2021-06-10 10:17] LABS: BASO % 0.2 % (0.0-1.0); EOS # 0.2 10^3/uL (0.0-0.5); EOS % 1.7 % (0.0-3.0); HEMATOCRIT 43.6 % (42.0-52.0); HEMOGLOBIN 14.3 g/dl (13.5-17.5); LYMPH % 30.2 % (24.0-44.0); MEAN CORPUSCULAR HEMOGLOBIN 28.3 pg (27.0-33.0); MEAN CORPUSCULAR HGB CONC 32.8 g/dl (32.0-36.5); MEAN CORPUSCULAR VOLUME 86.3 fl (80.0-96.0); MONO # 0.9 10^3/uL (0.0-0.8); MONO % 6.8 % (2.0-8.0); NEUTROPHILS % 60.3 % (36.0-66.0); PLATELET COUNT, AUTOMATED 314 10^3/uL (150-450); RED BLOOD COUNT 5.05 10^6/uL (4.30-6.10); WHITE BLOOD COUNT 13.2 10^3/uL (4.0-10.0)
[2021-06-10 10:32] LABS: HEMOGLOBIN A1c 5.4 %
[2021-06-10 10:46] LABS: ALBUMIN 3.4 GM/DL (3.2-5.2); ALT/SGPT 22 U/L (12-78); BILIRUBIN,TOTAL 0.5 MG/DL (0.2-1.0); BLOOD UREA NITROGEN 14 MG/DL (7-18); CALCIUM LEVEL 9.6 MG/DL (8.5-10.1); CARBON DIOXIDE LEVEL 36 MEQ/L (21-32); CHLORIDE LEVEL 98 MEQ/L (98-107); CHOLESTEROL LEVEL 161 MG/DL (<200); CHOLESTEROL RISK RATIO 2.333 (<5); CREATININE FOR GFR 0.93 MG/DL (0.70-1.30); GLOMERULAR FILTRATION RATE > 60.0 (>56); GLUCOSE, FASTING 76 MG/DL (70-100); HDL CHOLESTEROL 69 MG/DL (>40); LDL CHOLESTEROL 66 MG/DL (<100); MAGNESIUM LEVEL 2.1 MG/DL (1.8-2.4); NON-HDL-C 92 MG/DL; POTASSIUM SERUM 3.3 MEQ/L (3.5-5.1); SODIUM LEVEL 138 MEQ/L (136-145); TOTAL PROTEIN 6.5 GM/DL (6.4-8.2); TRIGLYCERIDES LEVEL 132 MG/DL (<150)
[2021-06-10 10:48] LABS: THYROID PEROXIDASE ANTIBODY 72.8 U/ML (<60.0)
== END ==
LOC: M LAB 08:44
PROVIDERS: ATTEND Nurse Practitioner Family
DX: Z01.818 Encounter for other preprocedural examination (principal); E11.65 Type 2 diabetes mellitus with hyperglycemia; E03.9 Hypothyroidism, unspecified; Z79.899 Other long term (current) drug therapy; F41.1 Generalized anxiety disorder; E78.00 Pure hypercholesterolemia, unspecified

== ENCOUNTER 2021-06-16 11:04 | Observation (INO) | payer MEDICARE, OTHER ==
[~2021-06-16] VITALS: Ht 170.2 cm; Wt 102.1 kg
[~2021-06-16 11:04] MED LIST changes: +ASPE4PAD TOP; +METH-1165 PO; +OMEP-173 PO; -OMEP-218 PO
[2021-06-16] MEDS ORDERED: dexameTHASONE 4 MG/ML 1ML VIAL (J1100 PER 1MG) As Ordered ONE (13:26)
[2021-06-16] MEDS ORDERED: propofoL 200 MG/20 ML VIAL As Ordered ONE (13:26)
[2021-06-16] MEDS ORDERED: ONDANSETRON 4MG/2ML VIAL As Ordered ONE ×2 (13:26→13:41)
[2021-06-16] MEDS ORDERED: ROCURONIUM BROMIDE 50 MG/5 ML VIAL As Ordered ONE (13:26)
[2021-06-16] MEDS ORDERED: LIDOCAINE 2% 100MG/5ML SDV (FOR ANES.) As Ordered ONE (13:26)
[2021-06-16] MEDS ORDERED: MIDAZOLAM INJ 2MG/2ML VIAL (J2250 PER 1MG) As Ordered ONE ×2 (13:27→14:56)
[2021-06-16] MEDS ORDERED: fentaNYL 250 MCG/5 ML INJECTION As Ordered ONE (13:27)
[2021-06-16] MEDS ORDERED: LR 1,000 ML IV ONE (13:35)
[2021-06-16] MEDS: MORPHINE 4 MG/ML 1ML VIAL/SYRINGE (J2270) IV SCH ×3 (13:36→14:16)
[2021-06-16] MEDS ORDERED: ONDANSETRON 4MG/2ML VIAL IV ONE (14:20)
[2021-06-16] MEDS ORDERED: BUPIVACAINE LIPOSOME/PF 1.3% 20ML VIAL (13.3MG/ML)(EXPAREL)(C9290 PER1MG) As Ordered ONE (14:29)
[2021-06-16] MEDS ORDERED: TRANEXAMIC ACID 100 MG/ML 10ML VIAL As Ordered ONE (14:30)
[2021-06-16] MEDS ORDERED: BUPIVACAINE HCL 0.5% 10ML VIAL As Ordered ONE (14:30)
[2021-06-16] MEDS ORDERED: THROMBIN SOLN 20,000 UNITS KIT As Ordered ONE (14:30)
[2021-06-16] MEDS ORDERED: ceFAZolin 2 GM/D5W 50 ML IV BAG (J0690 PER 500MG) As Ordered ONE (15:19)
[2021-06-16] MEDS ORDERED: fentaNYL 100 MCG/2 ML INJECTION As Ordered ONE ×2 (16:16→17:40)
[2021-06-16] MEDS ORDERED: HYDROmorphone HCL 2MG/ML 1ML VIAL As Ordered ONE ×2 (16:21→17:52)
[2021-06-16] MEDS ORDERED: SUGAMMADEX SODIUM 500 MG/5 ML VIAL (BRIDION) As Ordered ONE (16:51)
[2021-06-16] MEDS: fentaNYL 100 MCG/2 ML INJECTION IV PRN ×4 (17:37→17:51)
[2021-06-16] MEDS ORDERED: OXYC1TAB23 PO (17:41)
[2021-06-16] MEDS: HYDROMORPHONE HCL 0.5 MG/ 0.5 ML SYRINGE (J1170 PER 1) IV PRN ×5 (17:54→18:14)
[2021-06-16] MEDS ORDERED: METOCLOPRAMIDE INJ 10MG/2ML VIAL (J2765 PER 1) IV PRN (17:55)
[2021-06-16] MEDS ORDERED: LR 1,000 ML IV SCH (17:55)
[2021-06-16] MEDS ORDERED: ONDANSETRON 4MG/2ML VIAL IV PRN (17:55)
[2021-06-16] MEDS: ACETAMINOPHEN TAB 650MG DOSE (2X325MG) PO SCH (18:00)
[2021-06-16] MEDS: PERCOCET 5MG/325MG TAB PO PRN ×2 (18:06→18:47)
[2021-06-16] MEDS ORDERED: fentaNYL 100 MCG/2 ML INJECTION IV PRN (18:30)
[2021-06-16] MEDS ORDERED: HYDROMORPHONE HCL 0.5 MG/ 0.5 ML SYRINGE (J1170 PER 1) IV PRN (18:30)
[2021-06-16] MEDS ORDERED: IPRATROPIUM 0.5MG/ALBUTEROL 2.5MG INH SOL UD 3ML (DUONEB) NEB PRN (20:00)
[2021-06-16 20:47] VITALS: BP 131/62
[2021-06-16 21:00] VITALS: O2SAT 91
[2021-06-16] MEDS ORDERED: ENOXAPARIN 40MG/0.4ML SYRINGE (J1650 PER 10MG) SC SCH (21:00)
[2021-06-16] MEDS ORDERED: HumaLOG INSULIN (NovoLOG) PER UNIT SC SCH (21:00)
[2021-06-16] MEDS ORDERED: GLUCOSE 4GM CHEW TABLET PO PRN (21:30)
[2021-06-16] MEDS ORDERED: DEXTROSE 50% 50 ML SYRINGE IV PRN (21:30)
[2021-06-16] MEDS ORDERED: GLUCAGON INJ 1MG VIAL SC PRN (21:30)
[2021-06-16 21:40] VITALS: BP 132/65
[2021-06-16] MEDS: LR 1,000 ML IV SCH (22:27)
[2021-06-16 22:35] VITALS: BP 125/85
[2021-06-16 22:37] LABS: BASO % 0.2 % (0.0-1.0); EOS % 0.1 % (0.0-3.0); HEMATOCRIT 37.9 % (42.0-52.0); HEMOGLOBIN 12.3 g/dl (13.5-17.5); LYMPH # 0.4 10^3/uL (1.5-5.0); LYMPH % 4.9 % (24.0-44.0); MEAN CORPUSCULAR HEMOGLOBIN 28.1 pg (27.0-33.0); MEAN CORPUSCULAR HGB CONC 32.5 g/dl (32.0-36.5); MEAN CORPUSCULAR VOLUME 86.7 fl (80.0-96.0); MONO # 0.2 10^3/uL (0.0-0.8); MONO % 2.1 % (2.0-8.0); NEUTROPHILS # 7.5 10^3/uL (1.5-8.5); PLATELET COUNT, AUTOMATED 308 10^3/uL (150-450); RED BLOOD COUNT 4.37 10^6/uL (4.30-6.10); WHITE BLOOD COUNT 8.2 10^3/uL (4.0-10.0)
[2021-06-16 22:57] LABS: ALBUMIN 2.9 GM/DL (3.2-5.2); ALT/SGPT 21 U/L (12-78); BILIRUBIN,TOTAL 0.4 MG/DL (0.2-1.0); BLOOD UREA NITROGEN 13 MG/DL (7-18); CALCIUM LEVEL 9.3 MG/DL (8.5-10.1); CARBON DIOXIDE LEVEL 28 MEQ/L (21-32); CHLORIDE LEVEL 101 MEQ/L (98-107); CREATININE FOR GFR 0.93 MG/DL (0.70-1.30); GLOMERULAR FILTRATION RATE > 60.0 (>56); GLUCOSE, FASTING 170 MG/DL (70-100); MAGNESIUM LEVEL 2.2 MG/DL (1.8-2.4); NT-PRO BNP 356 PG/ML (<125); POTASSIUM SERUM 3.8 MEQ/L (3.5-5.1); SODIUM LEVEL 135 MEQ/L (136-145); TOTAL PROTEIN 7.5 GM/DL (6.4-8.2)
[2021-06-16 23:40] VITALS: BP 128/80
[2021-06-17] MEDS: ACETAMINOPHEN TAB 650MG DOSE (2X325MG) PO SCH ×3 (00:17→12:06)
[2021-06-17] MEDS ORDERED: methylPREDNISolone 125MG 2ML VIAL IV ONE (01:35)
[2021-06-17 01:42] VITALS: BP 124/80
[2021-06-17] MEDS: IPRATROPIUM 0.5MG/ALBUTEROL 2.5MG INH SOL UD 3ML (DUONEB) NEB SCH ×2 (02:00→07:24)
[2021-06-17] MEDS: PERCOCET 5MG/325MG TAB PO SCH ×2 (02:20→08:07)
[2021-06-17 02:27] LABS: VENOUS HCO3 26.1 MEQ/L (23.0-27.0); VENOUS O2 SATURATION 86.6 % (60.0-80.0); VENOUS PARTIAL PRESSURE CO2 43.3 mmHg (38.0-50.0); VENOUS PH 7.398 UNITS (7.330-7.430); VENOUS STANDARD HCO3 25.2 MEQ/L; VENOUS TOTAL CO2 27.4 MEQ/L (24.0-28.0)
[2021-06-17 05:42] VITALS: BP 153/93
[2021-06-17 05:57] LABS: BASO % 0.1 % (0.0-1.0); HEMATOCRIT 35.4 % (42.0-52.0); HEMOGLOBIN 11.9 g/dl (13.5-17.5); LYMPH # 0.5 10^3/uL (1.5-5.0); LYMPH % 4.7 % (24.0-44.0); MEAN CORPUSCULAR HEMOGLOBIN 28.9 pg (27.0-33.0); MEAN CORPUSCULAR HGB CONC 33.6 g/dl (32.0-36.5); MEAN CORPUSCULAR VOLUME 85.9 fl (80.0-96.0); MONO # 0.2 10^3/uL (0.0-0.8); MONO % 1.8 % (2.0-8.0); NEUTROPHILS # 9.6 10^3/uL (1.5-8.5); NEUTROPHILS % 92.8 % (36.0-66.0); PLATELET COUNT, AUTOMATED 303 10^3/uL (150-450); RED BLOOD COUNT 4.12 10^6/uL (4.30-6.10); WHITE BLOOD COUNT 10.3 10^3/uL (4.0-10.0)
[2021-06-17 06:25] LABS: BLOOD UREA NITROGEN 12 MG/DL (7-18); CALCIUM LEVEL 8.9 MG/DL (8.5-10.1); CARBON DIOXIDE LEVEL 32 MEQ/L (21-32); CHLORIDE LEVEL 100 MEQ/L (98-107); CREATININE FOR GFR 0.74 MG/DL (0.70-1.30); GLOMERULAR FILTRATION RATE > 60.0 (>56); GLUCOSE, FASTING 128 MG/DL (70-100); POTASSIUM SERUM 4.2 MEQ/L (3.5-5.1); SODIUM LEVEL 137 MEQ/L (136-145)
[2021-06-17] MEDS: HumaLOG INSULIN (NovoLOG) PER UNIT SC SCH ×2 (08:06→12:00)
[2021-06-17] MEDS ORDERED: ASPIRIN 81MG ENTERIC TABLET PO SCH (09:00)
[2021-06-17] MEDS: LR 1,000 ML IV SCH (12:00)
== END 2021-06-17 13:00 | disposition home or self-care (01) ==
LOC: M SDC 11:04 → M MS5PR 11:05
PROVIDERS: ADMIT Internal Medicine; ATTEND Orthopaedic Surgery
DX: M51.16 Intervertebral disc disorders with radiculopathy, lumbar region (principal); E11.9 Type 2 diabetes mellitus without complications; E78.5 Hyperlipidemia, unspecified; I10 Essential (primary) hypertension; J44.9 Chronic obstructive pulmonary disease, unspecified; Z79.84 Long term (current) use of oral hypoglycemic drugs; Z79.52 Long term (current) use of systemic steroids
CPT/HCPCS: 36415; 63030; 71045; 76000; 80048; 80053; 82803; 83605; 83735; 83880; 84145; 85025; 88304; 93005; 94640; 96372; 96374; 97161; C9290; G0378; J0690; J1100; J1170; J1650; J2250; J2270; J2405; J2930; J3010; U0002

== ENCOUNTER 2021-08-19 15:14 | Outpatient (RCR) | payer MEDICARE ==
[~2021-08-19 15:14] MED LIST changes: +OXYC1TAB23 PO
== END 2021-08-25 ==
LOC: M PT 15:14
PROVIDERS: ATTEND Orthopaedic Surgery
DX: M51.16 Intervertebral disc disorders with radiculopathy, lumbar region (principal)

== ENCOUNTER 2021-08-24 00:24 | Emergency (ER) | payer MEDICARE ==
[~2021-08-24] VITALS: Ht 167.6 cm; Wt 102.3 kg
[2021-08-24 00:24] VITALS: BP 138/82
== END 2021-08-24 02:18 | disposition home or self-care (01) ==
LOC: M ED 00:24
DX: J45.21 Mild intermittent asthma with (acute) exacerbation (principal); J44.9 Chronic obstructive pulmonary disease, unspecified; I10 Essential (primary) hypertension; E11.9 Type 2 diabetes mellitus without complications; E78.5 Hyperlipidemia, unspecified; Z91.040 Latex allergy status
CPT/HCPCS: 96372; 99283; J2930

== ENCOUNTER 2022-02-20 01:40 | Emergency (ER) | payer MEDICARE ==
[~2022-02-20] VITALS: Ht 170.2 cm; Wt 97.7 kg
[2022-02-20 01:40] VITALS: BP 180/98
[~2022-02-20 01:40] MED LIST changes: +ALBU2.5V10 INH; -ALBU83IN INH; +BUPR-71 PO; -BUPR150T5 PO
[2022-02-20 03:24] LABS: BASO # 0.1 10^3/uL (0.0-0.2); BASO % 0.6 % (0.0-1.0); EOS # 0.4 10^3/uL (0.0-0.5); EOS % 3.3 % (0.0-3.0); HEMATOCRIT 42.7 % (42.0-52.0); HEMOGLOBIN 14.3 g/dl (13.5-17.5); LYMPH # 2.6 10^3/uL (1.5-5.0); LYMPH % 20.4 % (24.0-44.0); MEAN CORPUSCULAR HEMOGLOBIN 28.9 pg (27.0-33.0); MEAN CORPUSCULAR HGB CONC 33.5 g/dl (32.0-36.5); MEAN CORPUSCULAR VOLUME 86.3 fl (80.0-96.0); MONO # 1.1 10^3/uL (0.0-0.8); NEUTROPHILS # 8.3 10^3/uL (1.5-8.5); NEUTROPHILS % 66.4 % (36.0-66.0); PLATELET COUNT, AUTOMATED 240 10^3/uL (150-450); RED BLOOD COUNT 4.95 10^6/uL (4.30-6.10); WHITE BLOOD COUNT 12.5 10^3/uL (4.0-10.0)
[2022-02-20 04:09] LABS: ALBUMIN 3.8 GM/DL (3.2-5.2); ALT/SGPT 33 U/L (12-78); BILIRUBIN,DIRECT 0.2 MG/DL (0.0-0.2); BILIRUBIN,TOTAL 0.4 MG/DL (0.2-1.0); BLOOD UREA NITROGEN 17 MG/DL (7-18); CALCIUM LEVEL 10.4 MG/DL (8.5-10.1); CARBON DIOXIDE LEVEL 31 MEQ/L (21-32); CHLORIDE LEVEL 103 MEQ/L (98-107); CREATININE FOR GFR 1.12 MG/DL (0.70-1.30); GLOMERULAR FILTRATION RATE > 60.0 (>56); GLUCOSE, FASTING 97 MG/DL (70-100); LIPASE 155 U/L (73-393); POTASSIUM SERUM 4.5 MEQ/L (3.5-5.1); SODIUM LEVEL 140 MEQ/L (136-145); TOTAL PROTEIN 7.2 GM/DL (6.4-8.2)
== END 2022-02-20 10:36 | disposition left against medical advice (07) ==
LOC: M ED 01:40
DX: Z53.29 Procedure and treatment not carried out because of patient's decision for other reasons (principal)

== ENCOUNTER → 2022-04-03 | Outpatient (CLI) | payer MEDICARE | LOC: M SOG 08:56 | PROVIDERS: ATTEND Orthopaedic Surgery | DX: M51.17 Intervertebral disc disorders with radiculopathy, lumbosacral region (principal) ==

== ENCOUNTER → 2022-12-04 | Outpatient (CLI) | payer MEDICARE ==
[~2022-12-04] MED LIST changes: -CARD2TAB PO; +DOXA2TAB80 PO; +MONT-5 PO; -PAXI20TA29 PO; +PAXI20TA30 PO; +POTA-298 PO; -POTA1TAB14 PO; -SING10TA32 PO
[2022-12-04 08:15] LABS: BASO # 0.1 10^3/uL (0.0-0.2); BASO % 1.5 % (0.0-1.0); EOS # 0.6 10^3/uL (0.0-0.5); EOS % 9.1 % (0.0-3.0); HEMATOCRIT 44.8 % (42.0-52.0); HEMOGLOBIN 14.8 g/dl (13.5-17.5); LYMPH # 2.2 10^3/uL (1.5-5.0); LYMPH % 35.9 % (24.0-44.0); MEAN CORPUSCULAR HEMOGLOBIN 30.8 pg (27.0-33.0); MEAN CORPUSCULAR VOLUME 93.1 fl (80.0-96.0); MONO # 0.7 10^3/uL (0.0-0.8); MONO % 11.1 % (2.0-8.0); NEUTROPHILS # 2.6 10^3/uL (1.5-8.5); NEUTROPHILS % 41.7 % (36.0-66.0); PLATELET COUNT, AUTOMATED 235 10^3/uL (150-450); RED BLOOD COUNT 4.81 10^6/uL (4.30-6.10); WHITE BLOOD COUNT 6.2 10^3/uL (4.0-10.0)
[2022-12-04 08:46] LABS: CREATININE, URINE 132.3 MG/DL; MAU/CREAT RATIO 3.7 MCG/MG (0.0-30.0)
[2022-12-04 08:47] LABS: ALBUMIN 3.5 G/DL (3.2-5.2); ALKALINE PHOSPHATASE 51 U/L (46-116); ALT/SGPT 14 U/L (7.0-40); AST/SGOT 21 U/L (<34); BILIRUBIN,TOTAL 0.4 MG/DL (0.3-1.2); BLOOD UREA NITROGEN 11 MG/DL (9-23); CALCIUM LEVEL 8.9 MG/DL (8.5-10.1); CARBON DIOXIDE LEVEL 32 MMOL/L (20-31); CHLORIDE LEVEL 105 MMOL/L (98-107); CHOLESTEROL LEVEL 159 MG/DL (<200); CHOLESTEROL RISK RATIO 1.64 (<5); CREATININE FOR GFR 1.04 MG/DL (0.70-1.30); GLOMERULAR FILTRATION RATE > 60.0 (>56); GLUCOSE, FASTING 86 MG/DL (60-100); HDL CHOLESTEROL 96.9 MG/DL (>40); LDL CHOLESTEROL 49.1 MG/DL (<100); NON-HDL-C 62.1 MG/DL; POTASSIUM SERUM 3.8 MMOL/L (3.5-5.1); SODIUM LEVEL 143 MMOL/L (136-145); TOTAL PROTEIN 6.5 G/DL (5.7-8.2); TRIGLYCERIDES LEVEL 65 MG/DL (<150)
[2022-12-04 08:48] LABS: FREE T4 0.91 NG/DL (0.89-1.76); THYROID STIMULATING HORMONE 2.549 uIU/ML (0.55-4.78)
[2022-12-04 09:20] LABS: HEMOGLOBIN A1c 5.1 % (4.0-6.0)
== END ==
LOC: M LAB 07:47
PROVIDERS: ATTEND Nurse Practitioner Family
DX: I10 Essential (primary) hypertension (principal); E11.9 Type 2 diabetes mellitus without complications; E03.9 Hypothyroidism, unspecified

== ENCOUNTER → 2023-08-12 | Outpatient (CLI) | payer MEDICARE ==
[~2023-08-12] MED LIST changes: +CELE0.09 PO; -CELE1CAP9 PO; -GABA-283; +GABA-284; +NYST-38 SS
== END ==
LOC: M SOG 07:55
PROVIDERS: ATTEND Orthopaedic Surgery
DX: M54.50 Low back pain, unspecified (principal); Z53.9 Procedure and treatment not carried out, unspecified reason

== ENCOUNTER → 2023-08-19 | Outpatient (CLI) | payer MEDICARE | LOC: M SOG 07:50 | PROVIDERS: ATTEND Orthopaedic Surgery | DX: M54.50 Low back pain, unspecified (principal); M47.817 Spondylosis without myelopathy or radiculopathy, lumbosacral region ==

== ENCOUNTER → 2023-10-20 | Outpatient (CLI) | payer MEDICARE ==
[2023-10-20 10:43] LABS: BASO # 0.1 10^3/uL (0.0-0.2); BASO % 0.7 % (0.0-1.0); EOS # 0.4 10^3/uL (0.0-0.5); EOS % 4.1 % (0.0-3.0); HEMATOCRIT 44.4 % (42.0-52.0); HEMOGLOBIN 15.3 g/dl (13.5-17.5); LYMPH # 2.5 10^3/uL (1.5-5.0); LYMPH % 23.4 % (24.0-44.0); MEAN CORPUSCULAR HEMOGLOBIN 29.6 pg (27.0-33.0); MEAN CORPUSCULAR HGB CONC 34.5 g/dl (32.0-36.5); MEAN CORPUSCULAR VOLUME 85.9 fl (80.0-96.0); MONO # 0.8 10^3/uL (0.0-0.8); MONO % 7.4 % (2.0-8.0); NEUTROPHILS # 6.8 10^3/uL (1.5-8.5); NEUTROPHILS % 64.1 % (36.0-66.0); PLATELET COUNT, AUTOMATED 320 10^3/uL (150-450); RED BLOOD COUNT 5.17 10^6/uL (4.30-6.10); WHITE BLOOD COUNT 10.5 10^3/uL (4.0-10.0)
[2023-10-20 11:05] LABS: MAU/CREAT RATIO 9.3 MCG/MG (0.0-30.0)
[2023-10-20 11:07] LABS: ALKALINE PHOSPHATASE 54 U/L (46-116); ALT/SGPT 23 U/L (7.0-40); AST/SGOT 13 U/L (<34); BILIRUBIN,TOTAL 0.3 MG/DL (0.3-1.2); BLOOD UREA NITROGEN 18 MG/DL (9-23); CALCIUM LEVEL 9.5 MG/DL (8.5-10.1); CARBON DIOXIDE LEVEL 32 MMOL/L (20-31); CHLORIDE LEVEL 103 MMOL/L (98-107); CREATININE FOR GFR 0.92 MG/DL (0.70-1.30); GLOMERULAR FILTRATION RATE > 60.0 (>56); GLUCOSE, FASTING 86 MG/DL (60-100); POTASSIUM SERUM 3.8 MMOL/L (3.5-5.1); SODIUM LEVEL 140 MMOL/L (136-145); THYROID STIMULATING HORMONE 5.607 uIU/ML (0.55-4.78); TOTAL PROTEIN 7.1 G/DL (5.7-8.2)
[2023-10-20 11:08] LABS: FREE T4 1.17 NG/DL (0.89-1.76)
== END ==
LOC: M LAB 10:11
PROVIDERS: ATTEND Nurse Practitioner Family
DX: E11.9 Type 2 diabetes mellitus without complications (principal)

== ENCOUNTER → 2024-01-31 | Outpatient (CLI) | payer MEDICARE ==
[2024-01-31 12:23] LABS: BASO # 0.1 10^3/uL (0.0-0.2); BASO % 0.8 % (0.0-1.0); EOS # 0.5 10^3/uL (0.0-0.5); EOS % 5.7 % (0.0-3.0); HEMATOCRIT 44.7 % (42.0-52.0); HEMOGLOBIN 15.1 g/dl (13.5-17.5); LYMPH # 2.5 10^3/uL (1.5-5.0); MEAN CORPUSCULAR HEMOGLOBIN 29.9 pg (27.0-33.0); MEAN CORPUSCULAR HGB CONC 33.8 g/dl (32.0-36.5); MEAN CORPUSCULAR VOLUME 88.5 fl (80.0-96.0); MONO # 0.6 10^3/uL (0.0-0.8); MONO % 6.4 % (2.0-8.0); NEUTROPHILS # 5.1 10^3/uL (1.5-8.5); NEUTROPHILS % 58.6 % (36.0-66.0); PLATELET COUNT, AUTOMATED 273 10^3/uL (150-450); RED BLOOD COUNT 5.05 10^6/uL (4.30-6.10); WHITE BLOOD COUNT 8.7 10^3/uL (4.0-10.0)
[2024-01-31 12:48] LABS: HEMOGLOBIN A1c 4.8 % (4.0-6.0)
[2024-01-31 12:56] LABS: CREATININE, URINE 148.1 MG/DL
[2024-01-31 12:57] LABS: MALB URINE SIEMENS < 3.0 MG/L
[2024-01-31 12:58] LABS: ALKALINE PHOSPHATASE 47 U/L (46-116); ALT/SGPT 34 U/L (7.0-40); AST/SGOT 14 U/L (<34); BILIRUBIN,TOTAL 0.7 MG/DL (0.3-1.2); BLOOD UREA NITROGEN 17 MG/DL (9-23); CALCIUM LEVEL 9.3 MG/DL (8.5-10.1); CARBON DIOXIDE LEVEL 33 MMOL/L (20-31); CHLORIDE LEVEL 100 MMOL/L (98-107); CHOLESTEROL LEVEL 141 MG/DL (<200); CHOLESTEROL RISK RATIO 2.35 (<5); CREATININE FOR GFR 1.04 MG/DL (0.70-1.30); GLOMERULAR FILTRATION RATE > 60.0 (>56); GLUCOSE, FASTING 94 MG/DL (60-100); HDL CHOLESTEROL 59.9 MG/DL (>40); LDL CHOLESTEROL 62.3 MG/DL (<100); NON-HDL-C 81.1 MG/DL; POTASSIUM SERUM 3.3 MMOL/L (3.5-5.1); SODIUM LEVEL 136 MMOL/L (136-145); TOTAL PROTEIN 6.9 G/DL (5.7-8.2); TRIGLYCERIDES LEVEL 94 MG/DL (<150)
[2024-01-31 13:00] LABS: FREE T4 1.14 NG/DL (0.89-1.76); THYROID STIMULATING HORMONE 3.842 uIU/ML (0.55-4.78)
== END ==
LOC: M LAB 11:36
PROVIDERS: ATTEND Nurse Practitioner Family
DX: E03.9 Hypothyroidism, unspecified (principal); Z13.220 Encounter for screening for lipoid disorders

== ENCOUNTER 2024-04-29 09:49 | Emergency (ER) | payer MEDICARE ==
[~2024-04-29] VITALS: Ht 167.6 cm; Wt 103.4 kg
[~2024-04-29 09:49] MED LIST changes: +GABA-1490 PO; +GABA-1635; -GABA600T4 PO; -GABA800T4
[2024-04-29 09:55] VITALS: TEMP 97.2
[2024-04-29] MEDS: diazePAM 5MG TABLET PO ONE (10:43)
[2024-04-29] MEDS: MORPHINE 4 MG/ML 1ML VIAL IV ONE ×2 (10:43→11:20)
[2024-04-29] MEDS: LIDOCAINE 5% (LIDODERM) PATCH TD ONE (10:44)
[2024-04-29] MEDS: BOOSTRIX VACCINE (TETANUS/DIPHTH/ACEL. PERTUSSIS) 0.5ML SYR IM.IMMUN ONE (10:45)
[2024-04-29 10:56] LABS: BASO # 0.1 10^3/uL (0.0-0.2); BASO % 0.6 % (0.0-1.0); EOS # 0.4 10^3/uL (0.0-0.5); EOS % 2.8 % (0.0-3.0); HEMOGLOBIN 15.3 g/dl (13.5-17.5); MEAN CORPUSCULAR HEMOGLOBIN 29.4 pg (27.0-33.0); MEAN CORPUSCULAR VOLUME 86.5 fl (80.0-96.0); MONO # 0.9 10^3/uL (0.0-0.8); MONO % 7.6 % (2.0-8.0); NEUTROPHILS # 8.9 10^3/uL (1.5-8.5); NEUTROPHILS % 72.4 % (36.0-66.0); PLATELET COUNT, AUTOMATED 354 10^3/uL (150-450); WHITE BLOOD COUNT 12.3 10^3/uL (4.0-10.0)
[2024-04-29 11:04] LABS: AMORPHOUS SEDIMENT SMALL (NEGATIVE); APPEARANCE, URINE CLOUDY (CLEAR); BACTERIA, URINE AUTO NEGATIVE (NEGATIVE); BILIRUBIN, URINE AUTO NEGATIVE (NEGATIVE); BLOOD, URINE BLOOD NEGATIVE (NEGATIVE); COLOR, URINE YELLOW (YELLOW); GLUCOSE, URINE (UA) AUTO NEGATIVE (NEGATIVE); GRANULAR CAST, URINE AUTO 1 /LPF; KETONE, URINE AUTO NEGATIVE (NEGATIVE); LEUKOCYTE ESTERASE, URINE AUTO NEGATIVE (NEGATIVE); MUCUS, URINE SMALL (NEGATIVE); NITRITE, URINE AUTO NEGATIVE (NEGATIVE); PROTEIN, URINE AUTO NEGATIVE (NEGATIVE); RBC, URINE AUTO 2 /HPF (0-3); SPECIFIC GRAVITY URINE AUTO 1.012 (1.002-1.035); SQUAMOUS EPITHELIAL CELL UR AU 0 /HPF (0-6); UROBILINOGEN, URINE AUTO 0.2 mg/dL (0.0-2.0); WBC, URINE AUTO 0 /HPF (0-3)
[2024-04-29] MEDS: KETOROLAC 30 MG/ML 1ML VIAL IV ONE (11:20)
[2024-04-29 11:35] LABS: ALBUMIN 4.3 G/DL (3.2-5.2); ALKALINE PHOSPHATASE 56 U/L (46-116); ALT/SGPT 22 U/L (7.0-40); AST/SGOT 21 U/L (<34); BILIRUBIN,TOTAL 0.6 MG/DL (0.3-1.2); BLOOD UREA NITROGEN 12 MG/DL (9-23); CALCIUM LEVEL 9.9 MG/DL (8.5-10.1); CARBON DIOXIDE LEVEL 29 MMOL/L (20-31); CHLORIDE LEVEL 96 MMOL/L (98-107); CREATININE FOR GFR 0.92 MG/DL (0.70-1.30); GLOMERULAR FILTRATION RATE > 60.0 (>56); GLUCOSE, FASTING 97 MG/DL (60-100); POTASSIUM SERUM 3.8 MMOL/L (3.5-5.1); SODIUM LEVEL 131 MMOL/L (136-145); TOTAL PROTEIN 7.7 G/DL (5.7-8.2)
[2024-04-29] MEDS ORDERED: IBUP-1022 PO (11:57)
[2024-04-29] MEDS ORDERED: OXYC-517 PO (11:57)
[2024-04-29] MEDS ORDERED: VALI5TAB PO (11:57)
[2024-04-29] MEDS ORDERED: LIDO5DIS41 TOP (11:57)
[2024-04-29] MEDS ORDERED: ACET325C5 PO (11:57)
[2024-04-29 12:10] VITALS: BP 102/76; O2SAT 98
== END 2024-04-29 12:11 | disposition home or self-care (01) ==
LOC: M ED 09:49
DX: M62.830 Muscle spasm of back (principal); S50.812A Abrasion of left forearm, initial encounter; S32.019A Unspecified fracture of first lumbar vertebra, initial encounter for closed fracture; Y92.019 Unspecified place in single-family (private) house as the place of occurrence of the external cause; Y93.9 Activity, unspecified; Y99.9 Unspecified external cause status; W10.8XXA Fall (on) (from) other stairs and steps, initial encounter; I10 Essential (primary) hypertension; E11.9 Type 2 diabetes mellitus without complications; J44.9 Chronic obstructive pulmonary disease, unspecified; E78.00 Pure hypercholesterolemia, unspecified; Z91.040 Latex allergy status; Z79.1 Long term (current) use of non-steroidal anti-inflammatories (NSAID); Z79.51 Long term (current) use of inhaled steroids; Z79.84 Long term (current) use of oral hypoglycemic drugs; Z79.52 Long term (current) use of systemic steroids; Z79.899 Other long term (current) drug therapy
CPT/HCPCS: 71111; 71250; 72131; 80053; 81001; 85025; 90715; 96374; 96375; 99284; J1885

== ENCOUNTER → 2024-06-02 | Outpatient (CLI) | payer MEDICARE ==
[~2024-06-02] MED LIST changes: +ACET-683 PO; +ACET325C5 PO; +GABA-1635 PO; +HYDR-3490 PO; +IBUP-1022 PO; +IBUP-1114 PO; +LEVO1TAB39 PO; +LIDO5DIS41 TOP; +OXYC-517 PO; +OXYC10TA12 PO; +SEMA0.257 INJ; +VALI5TAB PO
== END ==
LOC: M PLAIMG 15:19
PROVIDERS: ATTEND Nurse Practitioner Family
DX: J45.998 Other asthma (principal)

== ENCOUNTER 2024-06-07 10:17 | Observation (INO) | payer MEDICARE ==
[~2024-06-07] VITALS: Ht 167.6 cm; Wt 99.2 kg
[~2024-06-07 10:17] MED LIST changes: -ACET-683 PO; -GABA-1635 PO; -HYDR-3490 PO; -IBUP-1114 PO; -LEVO1TAB39 PO; -OXYC10TA12 PO; -SEMA0.257 INJ
[2024-06-07] MEDS ORDERED: LEVO1TAB39 PO (10:34)
[2024-06-07] MEDS: traMADol 50 MG TAB PO ONE (12:39)
[2024-06-07] MEDS: KETOROLAC 60MG 2ML VIAL IM ONE (13:28)
[2024-06-07] MEDS: LIDOCAINE 5% (LIDODERM) PATCH TD ONE (13:59)
[2024-06-07] MEDS: predniSONE 20 MG TAB PO ONE (13:59)
[2024-06-07] MEDS: MORPHINE 10 MG/ML 1ML VIAL IM ONE (14:52)
[2024-06-07] MEDS ORDERED: NALOXONE INJ 0.4MG/1ML VIAL IV PRN (16:40)
[2024-06-07] MEDS: ISOSORBIDE DIN (ISORDIL) 10MG TAB PO ONE (16:50)
[2024-06-07] MEDS ORDERED: HYDROMORPHONE HCL 0.5 MG/ 0.5 ML SYRINGE IV PRN (16:50)
[2024-06-07] MEDS ORDERED: HYDR-3490 PO (16:59)
[2024-06-07] MEDS ORDERED: HOME MED LIST COMPLETE! XX SCH (17:00)
[2024-06-07] MEDS ORDERED: SEMA0.257 INJ (17:00)
[2024-06-07] MEDS ORDERED: GABA-1635 PO (17:00)
[2024-06-07 17:30] LABS: BASO % 0.3 % (0.0-1.0); EOS % 0.4 % (0.0-3.0); HEMATOCRIT 44.1 % (42.0-52.0); HEMOGLOBIN 14.5 g/dl (13.5-17.5); LYMPH # 0.7 10^3/uL (1.5-5.0); LYMPH % 6.4 % (24.0-44.0); MEAN CORPUSCULAR HEMOGLOBIN 28.2 pg (27.0-33.0); MEAN CORPUSCULAR HGB CONC 32.9 g/dl (32.0-36.5); MEAN CORPUSCULAR VOLUME 85.8 fl (80.0-96.0); MONO # 0.3 10^3/uL (0.0-0.8); MONO % 2.6 % (2.0-8.0); NEUTROPHILS # 9.9 10^3/uL (1.5-8.5); NEUTROPHILS % 89.8 % (36.0-66.0); PLATELET COUNT, AUTOMATED 287 10^3/uL (150-450); RED BLOOD COUNT 5.14 10^6/uL (4.30-6.10)
[2024-06-07] MEDS: HYDROMORPHONE HCL 0.5 MG/ 0.5 ML SYRINGE IV ONE (17:31)
[2024-06-07] MEDS: atenoloL 25 MG TAB PO ONE (17:32)
[2024-06-07] MEDS: DOXYCYCLINE HYCLATE 100MG TABLET PO ONE (17:33)
[2024-06-07] MEDS: cefTRIAXone SOD 2 GM in DEXTROSE 5% (D5W) ADV/MINI-BAG 50 ML IV SCH (17:34)
[2024-06-07] MEDS: ACETAMINOPHEN *IV* 1,000 MG in IV 1 EA IV ONE (17:34)
[2024-06-07 17:35] LABS: ERYTHROCYTE SEDIMENTATION RATE 50 mm/hr (0-20)
[2024-06-07 17:50] LABS: CK-MB VALUE MASS 1.5 NG/ML (<3.6)
[2024-06-07 17:52] LABS: ALBUMIN 4.1 G/DL (3.2-5.2); ALKALINE PHOSPHATASE 62 U/L (40-129); ALT/SGPT 24 U/L (7.0-40); AST/SGOT 25 U/L (<34); BILIRUBIN,TOTAL 0.7 MG/DL (0.3-1.2); BLOOD UREA NITROGEN 17 MG/DL (9-23); CALCIUM LEVEL 9.9 MG/DL (8.5-10.1); CARBON DIOXIDE LEVEL 28 MMOL/L (20-31); CHLORIDE LEVEL 102 MMOL/L (98-107); CHOLESTEROL LEVEL 151 MG/DL (<200); CHOLESTEROL RISK RATIO 2.58 (<5); CREATININE FOR GFR 0.93 MG/DL (0.70-1.30); GLOMERULAR FILTRATION RATE > 60.0 (>56); GLUCOSE, FASTING 104 MG/DL (60-100); HDL CHOLESTEROL 58.5 MG/DL (>40); LDL CHOLESTEROL 78.7 MG/DL (<100); NON-HDL-C 92.5 MG/DL; POTASSIUM SERUM 4.2 MMOL/L (3.5-5.1); SODIUM LEVEL 139 MMOL/L (136-145); TRIGLYCERIDES LEVEL 69 MG/DL (<150)
[2024-06-07 17:54] LABS: THYROID STIMULATING HORMONE 1.938 uIU/ML (0.55-4.78); THYROXINE (T4) 11.5 UG/DL (4.5-10.9)
[2024-06-07 17:57] LABS: FREE THYROXINE INDEX 4.2 % (1.4-3.8); HEMOGLOBIN A1c 5.1 % (4.0-6.0); T UPTAKE 36.2 % (22.5-37.0)
[2024-06-07 17:58] LABS: CPK CREATINE PHOSPHOKINASE 187 U/L (46-171); PROCALCITONIN 0.04 ng/ml
[2024-06-07 18:07] LABS: OSMOLALITY SERUM 292 MOSM/KG (275-295)
[2024-06-07] MEDS: IPRATROPIUM 0.5MG/ALBUTEROL 2.5MG INH SOL UD 3ML (DUONEB) NEB ONE (18:09)
[2024-06-07] MEDS ORDERED: GLUCOSE 4 GM CHEW PO PRN (18:10)
[2024-06-07] MEDS ORDERED: GLUCAGON INJ 1MG VIAL SC PRN (18:10)
[2024-06-07] MEDS ORDERED: DEXTROSE 50% 50ML SYRINGE IV PRN (18:10)
[2024-06-07] MEDS ORDERED: tiZANidine 4 MG TAB PO PRN (18:30)
[2024-06-07 18:40] LABS: OSMOLALITY URINE 715 MOSM/KG (50-1400)
[2024-06-07 18:57] LABS: SODIUM,RANDOM URINE 45 MMOL/L
[2024-06-07 19:05] VITALS: BP 158/90; TEMP 98.1; O2SAT 92
[2024-06-07] MEDS: KETOROLAC 30 MG/ML 1ML VIAL IV SCH (19:38)
[2024-06-07 19:44] VITALS: BP 138/86; TEMP 97.9; O2SAT 96
[2024-06-07] MEDS: INSULIN LISPRO (NovoLOG) PER UNIT SC SCH (20:21)
[2024-06-07] MEDS: guaiFENesin ER TABLET 600 MG TAB PO SCH (20:33)
[2024-06-07] MEDS: MONTELUKAST 10 MG TAB PO SCH (20:34)
[2024-06-07] MEDS: METOCLOPRAMIDE 5 MG TAB PO SCH (20:34)
[2024-06-07] MEDS: oxyCODONE 5MG TAB PO ONE (20:34)
[2024-06-07] MEDS: traZODone 50 MG TAB PO ONE (20:34)
[2024-06-07] MEDS ORDERED: METOCLOPRAMIDE INJ 10MG/2ML VIAL IV SCH (21:00)
[2024-06-08] MEDS: METOPROLOL TART 25 MG TABLET PO SCH
[2024-06-08] MEDS: ACETAMINOPHEN 500 MG TAB PO SCH (00:24)
[2024-06-08] MEDS: oxyCODONE 5MG TAB PO ONE (02:54)
[2024-06-08 04:07] VITALS: BP 146/92; TEMP 97.3; O2SAT 98
[2024-06-08] MEDS: LEVOTHYROXINE 50MCG TABLET (0.05MG) PO SCH (06:14)
[2024-06-08 07:04] LABS: BASO % 0.2 % (0.0-1.0); EOS % 0.4 % (0.0-3.0); HEMATOCRIT 40.3 % (42.0-52.0); HEMOGLOBIN 13.4 g/dl (13.5-17.5); LYMPH # 1.6 10^3/uL (1.5-5.0); LYMPH % 17.2 % (24.0-44.0); MEAN CORPUSCULAR HEMOGLOBIN 28.6 pg (27.0-33.0); MEAN CORPUSCULAR HGB CONC 33.3 g/dl (32.0-36.5); MEAN CORPUSCULAR VOLUME 85.9 fl (80.0-96.0); MONO # 0.8 10^3/uL (0.0-0.8); NEUTROPHILS % 73.8 % (36.0-66.0); PLATELET COUNT, AUTOMATED 253 10^3/uL (150-450); RED BLOOD COUNT 4.69 10^6/uL (4.30-6.10); WHITE BLOOD COUNT 9.5 10^3/uL (4.0-10.0)
[2024-06-08] MEDS: IPRATROPIUM 0.5MG/ALBUTEROL 2.5MG INH SOL UD 3ML (DUONEB) INH PRN (07:11)
[2024-06-08 07:27] LABS: BLOOD UREA NITROGEN 16 MG/DL (9-23); CALCIUM LEVEL 9.8 MG/DL (8.5-10.1); CARBON DIOXIDE LEVEL 31 MMOL/L (20-31); CHLORIDE LEVEL 101 MMOL/L (98-107); CREATININE FOR GFR 0.76 MG/DL (0.70-1.30); GLOMERULAR FILTRATION RATE > 60.0 (>56); GLUCOSE, FASTING 96 MG/DL (60-100); PHOSPHORUS LEVEL 3.1 MG/DL (2.5-4.9); POTASSIUM SERUM 3.8 MMOL/L (3.5-5.1); SODIUM LEVEL 139 MMOL/L (136-145)
[2024-06-08 07:29] LABS: TOTAL 25(OH) VITAMIN D 48.6 NG/ML (20.0-100.0)
[2024-06-08] MEDS: INSULIN LISPRO (NovoLOG) PER UNIT SC SCH (07:30)
[2024-06-08] MEDS ORDERED: ACET-683 PO (08:09)
[2024-06-08] MEDS ORDERED: IBUP-1114 PO (08:09)
[2024-06-08] MEDS ORDERED: OXYC10TA12 PO (08:09)
[2024-06-08 08:32] VITALS: BP 150/94
[2024-06-08] MEDS: oxyCODONE 10 MG CR TAB PO ONE (08:33)
[2024-06-08] MEDS: CETIRIZINE (ZyrTEC) 10 MG TAB PO SCH (08:33)
[2024-06-08] MEDS: GABAPENTIN 400MG CAP PO SCH (08:33)
[2024-06-08] MEDS: PANTOPRAZOLE 40MG TAB (PROTONIX) PO SCH (08:34)
[2024-06-08] MEDS: buPROPion **SR TABLET** (ZYBAN) 150MG PO SCH (09:00)
[2024-06-08] MEDS ORDERED: DOXYCYCLINE HYCLATE 100MG TABLET PO SCH (09:00)
== END 2024-06-08 10:30 | disposition home or self-care (01) ==
LOC: M ED 10:17 → M ED INP 10:18 → M MS5PR 18:45
PROVIDERS: ADMIT General Practice; ATTEND General Practice
DX: M84.48XA Pathological fracture, other site, initial encounter for fracture (principal); R07.81 Pleurodynia; R05.8 Other specified cough; J06.9 Acute upper respiratory infection, unspecified; B97.89 Other viral agents as the cause of diseases classified elsewhere; B97.10 Unspecified enterovirus as the cause of diseases classified elsewhere; J20.9 Acute bronchitis, unspecified; J45.909 Unspecified asthma, uncomplicated; I16.0 Hypertensive urgency; G89.29 Other chronic pain; R63.4 Abnormal weight loss; R11.2 Nausea with vomiting, unspecified; E11.9 Type 2 diabetes mellitus without complications; F32.A Depression, unspecified; E03.9 Hypothyroidism, unspecified; K21.9 Gastro-esophageal reflux disease without esophagitis; E78.5 Hyperlipidemia, unspecified; R06.89 Other abnormalities of breathing; S22.42XD Multiple fractures of ribs, left side, subsequent encounter for fracture with routine healing; W13.8XXD Fall from, out of or through other building or structure, subsequent encounter; Y92.018 Other place in single-family (private) house as the place of occurrence of the external cause; Y93.H3 Activity, building and construction; Y99.8 Other external cause status; Z98.890 Other specified postprocedural states; Z90.89 Acquired absence of other organs; Z82.49 Family history of ischemic heart disease and other diseases of the circulatory system; Z82.41 Family history of sudden cardiac death; Z82.3 Family history of stroke; Z80.0 Family history of malignant neoplasm of digestive organs; Z91.040 Latex allergy status; Z79.899 Other long term (current) drug therapy; Z79.51 Long term (current) use of inhaled steroids; Z79.890 Hormone replacement therapy; Z79.84 Long term (current) use of oral hypoglycemic drugs
CPT/HCPCS: 36415; 71101; 80048; 80053; 80061; 82088; 82306; 82550; 82553; 83036; 83880; 83930; 83935; 83970; 84100; 84145; 84244; 84300; 84436; 84443; 84479; 84484; 85025; 85652; 86140; 87486; 87581; 87633; 87641; 87798; 94640; 96365; 96368; 96372; 96375; 96376; 97161; 99284; G0378; J0131; J0696; J1171; J1885; J7512

== ENCOUNTER → 2024-06-19 | Outpatient (CLI) | payer MEDICARE ==
[~2024-06-19] MED LIST changes: +ACET-683 PO; +GABA-1635 PO; +HYDR-3490 PO; +IBUP-1114 PO; +LEVO1TAB39 PO; +OXYC10TA12 PO; +SEMA0.257 INJ
[2024-06-19 10:02] LABS: BLOOD UREA NITROGEN 9 MG/DL (9-23); CALCIUM LEVEL 9.6 MG/DL (8.5-10.1); CARBON DIOXIDE LEVEL 32 MMOL/L (20-31); CHLORIDE LEVEL 103 MMOL/L (98-107); CREATININE FOR GFR 0.88 MG/DL (0.70-1.30); GLOMERULAR FILTRATION RATE > 60.0 (>56); GLUCOSE, FASTING 87 MG/DL (60-100); POTASSIUM SERUM 3.7 MMOL/L (3.5-5.1); SODIUM LEVEL 140 MMOL/L (136-145)
== END ==
LOC: M LAB 09:09
PROVIDERS: ATTEND Nurse Practitioner Family
DX: I10 Essential (primary) hypertension (principal)

== ENCOUNTER → 2024-09-29 | Outpatient (CLI) | payer MEDICARE ==
[2024-09-29 09:33] LABS: BASO # 0.1 10^3/uL (0.0-0.2); BASO % 0.9 % (0.0-1.0); EOS # 0.5 10^3/uL (0.0-0.5); HEMATOCRIT 44.3 % (42.0-52.0); HEMOGLOBIN 14.6 g/dl (13.5-17.5); LYMPH % 33.7 % (24.0-44.0); MEAN CORPUSCULAR HEMOGLOBIN 28.3 pg (27.0-33.0); MONO # 0.7 10^3/uL (0.0-0.8); MONO % 7.9 % (2.0-8.0); NEUTROPHILS # 4.6 10^3/uL (1.5-8.5); NEUTROPHILS % 51.3 % (36.0-66.0); PLATELET COUNT, AUTOMATED 332 10^3/uL (150-450); RED BLOOD COUNT 5.15 10^6/uL (4.30-6.10)
[2024-09-29 10:06] LABS: ALBUMIN 3.9 G/DL (3.2-5.2); ALKALINE PHOSPHATASE 58 U/L (40-129); ALT/SGPT 28 U/L (7.0-40); AST/SGOT 19 U/L (<34); BILIRUBIN,TOTAL 0.3 MG/DL (0.3-1.2); BLOOD UREA NITROGEN 12 MG/DL (9-23); CALCIUM LEVEL 9.8 MG/DL (8.5-10.1); CARBON DIOXIDE LEVEL 32 MMOL/L (20-31); CHLORIDE LEVEL 102 MMOL/L (98-107); CREATININE FOR GFR 0.89 MG/DL (0.70-1.30); GLOMERULAR FILTRATION RATE > 60.0 (>56); GLUCOSE, FASTING 86 MG/DL (60-100); POTASSIUM SERUM 3.5 MMOL/L (3.5-5.1); SODIUM LEVEL 144 MMOL/L (136-145); TOTAL PROTEIN 7.2 G/DL (5.7-8.2)
== END ==
LOC: M LAB 08:10
PROVIDERS: ATTEND Nurse Practitioner Family
DX: I10 Essential (primary) hypertension (principal); E03.9 Hypothyroidism, unspecified; E11.9 Type 2 diabetes mellitus without complications

== ENCOUNTER 2025-01-28 09:54 | Emergency (ER) | payer MEDICARE, MEDICAID ==
[~2025-01-28] VITALS: Ht 167.6 cm; Wt 98.7 kg
[~2025-01-28 09:54] MED LIST changes: +LIDO1ADH93 TOP; -LIDO5DIS41 TOP
[2025-01-28] MEDS: MORPHINE 2 MG/ML 1 ML VIAL IV ONE (11:49)
[2025-01-28] MEDS: ACETAMINOPHEN *IV* 1,000 MG in IV 1 EA IV ONE (11:49)
[2025-01-28] MEDS: AMPICILLIN SOD/SULBACTAM SOD 3 GM in DEXTROSE 5% (D5W) MINI-BAG PLU 100 ML IV ONE (12:01)
[2025-01-28 12:06] LABS: BASO # 0.1 10^3/uL (0.0-0.2); BASO % 0.6 % (0.0-1.0); EOS # 0.4 10^3/uL (0.0-0.5); EOS % 3.7 % (0.0-3.0); LYMPH # 1.5 10^3/uL (1.5-5.0); LYMPH % 13.9 % (24.0-44.0); MONO # 0.9 10^3/uL (0.0-0.8); MONO % 8.3 % (2.0-8.0); NEUTROPHILS # 7.9 10^3/uL (1.5-8.5); NEUTROPHILS % 73.2 % (36.0-66.0); PLATELET COUNT, AUTOMATED 306 10^3/uL (150-450)
[2025-01-28 12:10] LABS: ERYTHROCYTE SEDIMENTATION RATE 23 mm/hr (0-20)
[2025-01-28 12:33] LABS: C REACTIVE PROTEIN QUANTITATIV 1.31 MG/DL (<1.0); CALCIUM LEVEL 9.5 MG/DL (8.5-10.1); CARBON DIOXIDE LEVEL 33 MMOL/L (20-31); CHLORIDE LEVEL 99 MMOL/L (98-107); CREATININE FOR GFR 0.86 MG/DL (0.70-1.30); GLOMERULAR FILTRATION RATE > 90.0 (>56); POTASSIUM SERUM 3.3 MMOL/L (3.5-5.1); SODIUM LEVEL 142 MMOL/L (136-145)
[2025-01-28] MEDS ORDERED: ISOVUE-370 76% 100 ML VIAL As Ordered ONE (12:55)
[2025-01-28] MEDS ORDERED: NAPR-837 PO (13:29)
[2025-01-28 13:38] VITALS: BP 159/90; TEMP 98.6; O2SAT 91
== END 2025-01-28 13:40 | disposition home or self-care (01) ==
LOC: M ED 09:54
DX: L03.211 Cellulitis of face (principal); K02.9 Dental caries, unspecified; E03.9 Hypothyroidism, unspecified; E11.9 Type 2 diabetes mellitus without complications; E78.00 Pure hypercholesterolemia, unspecified; I10 Essential (primary) hypertension; J44.9 Chronic obstructive pulmonary disease, unspecified; F32.A Depression, unspecified; Z91.040 Latex allergy status; Z79.1 Long term (current) use of non-steroidal anti-inflammatories (NSAID); Z79.51 Long term (current) use of inhaled steroids; Z79.84 Long term (current) use of oral hypoglycemic drugs; Z79.4 Long term (current) use of insulin; Z79.899 Other long term (current) drug therapy
CPT/HCPCS: 70487; 80048; 85025; 85652; 86140; 96365; 96375; 99284; J0131; J0295; Q9967

== ENCOUNTER → 2025-02-27 | Outpatient (CLI) | payer MEDICARE, MEDICAID ==
[~2025-02-27] MED LIST changes: +NAPR-837 PO
[2025-02-27 14:32] LABS: ALT/SGPT 32 U/L (7.0-40); AST/SGOT 28 U/L (<34); CALCIUM LEVEL 9.9 MG/DL (8.5-10.1); CARBON DIOXIDE LEVEL 32 MMOL/L (20-31); CHLORIDE LEVEL 99 MMOL/L (98-107); CREATININE FOR GFR 0.88 MG/DL (0.70-1.30); GLOMERULAR FILTRATION RATE > 90.0 (>56); POTASSIUM SERUM 3.7 MMOL/L (3.5-5.1); SODIUM LEVEL 142 MMOL/L (136-145)
[2025-02-27 14:33] LABS: FREE T4 1.42 NG/DL (0.89-1.76)
== END ==
LOC: M PLALAB 10:19
PROVIDERS: ATTEND Nurse Practitioner Family
DX: E03.9 Hypothyroidism, unspecified (principal)

== ENCOUNTER → 2025-03-30 | Outpatient (CLI) | payer MEDICARE, MEDICAID ==
[~2025-03-30] MED LIST changes: -IBUP-1022 PO; +IBUP600T42 PO
== END ==
LOC: M SOG 06:47
PROVIDERS: ATTEND Orthopaedic Surgery
DX: M47.817 Spondylosis without myelopathy or radiculopathy, lumbosacral region (principal)